=== PATIENT | male | born 1940 | race Caucasian/White ===

== ENCOUNTER 2019-02-12 17:46 | Inpatient (IN) | payer MEDICARE ==
[2019-02-12] MEDS ORDERED: IPRATROPIUM-ALBUTEROL 3 ML NEB INHALATION STA (18:04)
--- NOTE | 2019-02-12 18:06 | ED ---
General Adult HPI - General Chief complaint: Shortness of Breath Stated complaint: SOB Time Seen by Provider: 02/12/19 17:47 Source: patient, EMS, RN notes reviewed Mode of arrival: EMS Limitations: no limitations - History of Present Illness Initial comments: Patient is a pleasant 78-year-old male presenting to emergency department with difficulty breathing. Onset of symptoms was 2 or 3 days ago. Patient does cough with some sputum however he swallows it. No fevers. No chest pain. Patient states he does feel somewhat improved with nebulizer by EMS. Patient also feels somewhat better by oxygen in the emergency department. Patient has some mild chronic leg swelling, unchanged. - Related Data Home Medications Medication Instructions Recorded Confirmed Aspirin EC [Ecotrin] 325 mg PO DAILY 04/29/14 02/12/19 Diltiazem Cd [Cardizem CD] 120 mg PO DAILY 04/29/14 02/12/19 Enalapril [Vasotec] 20 mg PO BID 04/29/14 02/12/19 Furosemide [Lasix] 60 mg PO HS 04/29/14 02/12/19 INSULIN ASPART (NovoLOG) [NovoLOG] 80 unit SQ BID 04/29/14 02/12/19 Insulin Glargine [Lantus] 60 unit SQ BID 04/29/14 02/12/19 Metoprolol Tartrate [Lopressor] 50 mg PO BID 04/29/14 02/12/19 Simvastatin 10 mg PO HS 02/12/19 02/12/19 Tamsulosin HCl [Flomax] 0.4 mg PO DAILY 02/12/19 02/12/19 Allergies Allergy/AdvReac Type Severity Reaction Status Date / Time No Known Allergies Allergy Verified 02/12/19 18:29 Review of Systems ROS Statement: Those systems with pertinent positive or pertinent negative responses have been documented in the HPI. ROS Other: All systems not noted in ROS Statement are negative. Constitutional: Denies: fever Eyes: Denies: eye pain ENT: Denies: ear pain Respiratory: Reports: cough, dyspnea Cardiovascular: Denies: chest pain Endocrine: Denies: fatigue Gastrointestinal: Denies: abdominal pain Genitourinary: Denies: dysuria Musculoskeletal: Denies: back pain Skin: Denies: rash Neurological: Denies: weakness Past Medical History Past Medical History: Coronary Artery Disease (CAD), Diabetes Mellitus, Hyperlipidemia, Hypertension Additional Past Medical History / Comment(s): UTI History of Any Multi-Drug Resistant Organisms: None Reported Past Surgical History: Coronary Bypass/CABG Additional Past Surgical History / Comment(s): UVP- FOR SLEEP APNEA FATTY TUMOR REMOVED FROM LEFT THIGH Past Anesthesia/Blood Transfusion Reactions: No Reported Reaction Past Psychological History: No Psychological Hx Reported Smoking Status: Former smoker Past Alcohol Use History: None Reported Past Drug Use History: None Reported General Exam Limitations: no limitations General appearance: alert, in no apparent distress, obese Head exam: Present: normocephalic Eye exam: Present: normal appearance Neck exam: Present: normal inspection Respiratory exam: Present: wheezes, decreased breath sounds Cardiovascular Exam: Present: regular rate, normal rhythm GI/Abdominal exam: Present: soft. Absent: tenderness Extremities exam: Present: pedal edema (Trace bilateral). Absent: calf tenderness Neurological exam: Present: alert Psychiatric exam: Present: normal affect, normal mood Skin exam: Present: other (Bilateral lower extremity skin discoloration consistent with peripheral vascular disease) Course Vital Signs 02/12/19 02/12/19 02/12/19 17:50 19:12 19:20 Temperature 97.7 F Pulse Rate 105 H 87 87 Respiratory 22 16 16 Rate Blood Pressure 199/96 O2 Sat by Pulse 97 Oximetry EKG Findings - EKG Comments: EKG Findings:: Sinus rhythm and 96. For screening AV block with a MO of 272. QRS 126. QT 358. QTC 452. Left axis. Septal Q waves. Nonspecific intraventricular block. No acute ST change Medical Decision Making - Medical Decision Making Patient reevaluated. Patient family updated. Case was discussed in detail with Dr. Lima, who will admit covering for Dr. rizvi, who admits for Dr. Begum. - Lab Data Result diagrams: 02/12/19 19:39 02/12/19 19:39 Lab Results 02/12/19 02/12/19 02/12/19 Range/Units 19:39 19:39 19:39 WBC 10.7 H (3.8-10.6) k/uL RBC 4.93 (4.30-5.90) m/uL Hgb 14.3 (13.0-17.5) gm/dL Hct 44.9 (39.0-53.0) % MCV 91.1 (80.0-100.0) fL MCH 29.0 (25.0-35.0) pg MCHC 31.8 (31.0-37.0) g/dL RDW 14.4 (11.5-15.5) % Plt Count 229 (150-450) k/uL Neutrophils % 75 % Lymphocytes % 16 % Monocytes % 7 % Eosinophils % 0 % Basophils % 1 % Neutrophils # 8.1 H (1.3-7.7) k/uL Lymphocytes # 1.7 (1.0-4.8) k/uL Monocytes # 0.7 (0-1.0) k/uL Eosinophils # 0.0 (0-0.7) k/uL Basophils # 0.1 (0-0.2) k/uL Hypochromasia Slight PT 10.7 (9.0-12.0) sec INR 1.0 (<1.2) APTT 27.0 (22.0-30.0) sec Sodium 139 (137-145) mmol/L Potassium 4.3 (3.5-5.1) mmol/L Chloride 105 (98-107) mmol/L Carbon Dioxide 22 (22-30) mmol/L Anion Gap 12 mmol/L BUN 15 (9-20) mg/dL Creatinine 1.04 (0.66-1.25) mg/dL Est GFR (CKD-EPI)AfAm 80 (>60 ml/min/1.73 sqM) Est GFR (CKD-EPI)NonAf 69 (>60 ml/min/1.73 sqM) Glucose 273 H (74-99) mg/dL Calcium 8.9 (8.4-10.2) mg/dL Total Bilirubin 0.8 (0.2-1.3) mg/dL AST 21 (17-59) U/L ALT 17 L (21-72) U/L Alkaline Phosphatase 93 (38-126) U/L NT-Pro-B Natriuret Pep pg/mL Total Protein 7.7 (6.3-8.2) g/dL Albumin 3.9 (3.5-5.0) g/dL 02/12/19 Range/Units 19:39 WBC (3.8-10.6) k/uL RBC (4.30-5.90) m/uL Hgb (13.0-17.5) gm/dL Hct (39.0-53.0) % MCV (80.0-100.0) fL MCH (25.0-35.0) pg MCHC (31.0-37.0) g/dL RDW (11.5-15.5) % Plt Count (150-450) k/uL Neutrophils % % Lymphocytes % % Monocytes % % Eosinophils % % Basophils % % Neutrophils # (1.3-7.7) k/uL Lymphocytes # (1.0-4.8) k/uL Monocytes # (0-1.0) k/uL Eosinophils # (0-0.7) k/uL Basophils # (0-0.2) k/uL Hypochromasia PT (9.0-12.0) sec INR (<1.2) APTT (22.0-30.0) sec Sodium (137-145) mmol/L Potassium (3.5-5.1) mmol/L Chloride (98-107) mmol/L Carbon Dioxide (22-30) mmol/L Anion Gap mmol/L BUN (9-20) mg/dL Creatinine (0.66-1.25) mg/dL Est GFR (CKD-EPI)AfAm (>60 ml/min/1.73 sqM) Est GFR (CKD-EPI)NonAf (>60 ml/min/1.73 sqM) Glucose (74-99) mg/dL Calcium (8.4-10.2) mg/dL Total Bilirubin (0.2-1.3) mg/dL AST (17-59) U/L ALT (21-72) U/L Alkaline Phosphatase (38-126) U/L NT-Pro-B Natriuret Pep 2460 pg/mL Total Protein (6.3-8.2) g/dL Albumin (3.5-5.0) g/dL - Radiology Data Radiology results: image reviewed (Chest x-ray shows some interstitial changes consistent with CHF) Disposition Clinical Impression: Congestive heart failure Disposition: ADMITTED IP TO THIS HOSP Is patient prescribed a controlled substance at d/c from ED?: No Referrals: Stevie Begum MD [Primary Care Provider] - 1-2 days Decision Time: 20:49
[2019-02-12 19:58] LABS: Basophils # (A) 0.1 k/uL (0-0.2); Basophils % (A) 1 %; Eosinophils % (A) 0 %; HCT 44.9 % (39.0-53.0); HGB 14.3 gm/dL (13.0-17.5); Hypochromasia Slight; Lymphocytes # (A) 1.7 k/uL (1.0-4.8); Lymphocytes % (A) 16 %; MCHC 31.8 g/dL (31.0-37.0); MCV 91.1 fL (80.0-100.0); Mean Platelet Volume 6.4; Monocytes # (A) 0.7 k/uL (0-1.0); Monocytes % (A) 7 %; Neutrophils # (A) 8.1 k/uL (1.3-7.7); Neutrophils % (A) 75 %; Platelet Count 229 k/uL (150-450); RBC 4.93 m/uL (4.30-5.90); RDW 14.4 % (11.5-15.5); WBC 10.7 k/uL (3.8-10.6)
[2019-02-12 20:10] LABS: Albumin 3.9 g/dL (3.5-5.0); Calcium 8.9 mg/dL (8.4-10.2); Potassium 4.3 mmol/L (3.5-5.1); Prothrombin Time 10.7 sec (9.0-12.0); Total Bilirubin 0.8 mg/dL (0.2-1.3); Total Protein 7.7 g/dL (6.3-8.2)
--- NOTE | 2019-02-12 20:35 | XR ---
EXAMINATION TYPE: XR chest 2V DATE OF EXAM: 02/12/2019 COMPARISON: NONE HISTORY: Chest tightness, difficulty breathing, cough, dizziness, nausea TECHNIQUE: Frontal and lateral views of the chest are obtained. FINDINGS: CABG changes. Aortic atherosclerotic calcifications. Enlarged cardiac silhouette. Mild pulmonary vasc ular congestion. Probable small bilateral pleural effusions. No focal airspace consolidation. 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 IMPRESSION: Findings suggestive of mild fluid overload.
[2019-02-12] MEDS ORDERED: ASPIRIN 325 MG TAB PO STA (20:50)
[2019-02-12] MEDS ORDERED: HEPARIN SODIUM,PORCINE 5,000 UNIT/ML 1 ML VIAL IV ONE (20:57)
[2019-02-12] MEDS ORDERED: HEPARIN SODIUM,PORCINE 5,000 UNIT/ML 1 ML VIAL IV PRN (20:57)
[2019-02-12] MEDS ORDERED: ATORVASTATIN 10 MG TAB PO SCH (21:00)
[2019-02-12] MEDS: LISINOPRIL 20 MG TAB PO SCH (21:43)
[2019-02-12] MEDS: HEPARIN SOD,PORK IN 0.45% NACL 25,000 UNIT in 0.45% NACL 1 250ML.BAG IV SCH (21:50)
[2019-02-12] MEDS: METOPROLOL TARTRATE 50 MG TAB PO SCH (22:48)
[2019-02-12] MEDS: NITROGLYCERIN OINT 1 INCH/GM PACKET TOPICAL SCH (22:48)
[2019-02-13] MEDS: FUROSEMIDE 10 MG/ML 4 ML VIAL IV SCH ×4 (00:29→23:03)
[2019-02-13 06:44] LABS: Glucose,Whole Blood 224 mg/dL (75-99)
--- NOTE | 2019-02-13 08:55 | P.HPIM ---
History of Present Illness This is a pleasant 78 years old male with past medical history of coronary artery disease, diabetes mellitus, hyperlipidemia, hypertension. Presents because of worsening dyspnea for 3 days duration associated with cough and phleg m, and no color for the last 3 days as well. Patient complains that he has sinusitis applied And his Flonase was not helping him much. He denies chest pain. Patient states that he has history of triple bypass surgery about 15 years ago and he follows with Dr. Vences, last week he underwent cardiac stress test but he could not finish it because he could not lie flat and the psoas of his leg cramps, and he is scheduled tomorrow for echocardiogram stress test. Patient also was complaining of from exertional dyspnea for 6 month, his family medicine doctor prescribed him inhaled albuterol however that did not control it well and it was progressively getting worse. Patient denies use of home oxygen on steroids Vitas looks stable. Left showing mild leukocytosis of 10.7, with unremarkable BMP,, INR and liver enzymes. Troponin was elevated at 0.08 and 0.10. Nitro proBNP is 2460. EKG showing normal sinus rhythm at 96 with first-degree AV block with Q waves in the anterior lateral leads and poor R-wave progression. Chest x-ray: Showing mild fluid overload On admission patient was started on heparin drip plus aspirin. Also he was taken her dose of insulin which is cut in half on admission because he was made nothing by mouth. Also patient was started on Lasix 40 mg every 8 hours Diabetes was was taking Lantus 60 units twice a day and NovoLog insulin 20 units twice a day with meals, with breakfast and dinner, but not with lunch Because patient was made nothing by mouth we started him on Levemir 30 units twice a day only Review of Systems CONSTITUTIONAL: No fever, no malaise, no fatigue. HEENT: No recent visual problems or hearing problems. Denied any sore throat. CARDIOVASCULAR: No orthopnea, PND, no palpitations, no syncope. PULMONARY: No shortness of breath, no cough, no hemoptysis. GASTROINTESTINAL: No diarrhea, no nausea, no vomiting, no abdominal pain. Normoactive bowel sounds. NEUROLOGICAL: No headaches, no weakness, no numbness. HEMATOLOGICAL: Denies any bleeding or petechiae. GENITOURINARY: Denies any burning micturition, frequency, or urgency. MUSCULOSKELETAL/RHEUMATOLOGICAL: Denies any joint pain, swelling, or any muscle pain. ENDOCRINE: Denies any polyuria or polydipsia. Past Medical History Past Medical History: Coronary Artery Disease (CAD), Diabetes Mellitus, H yperlipidemia, Hypertension Additional Past Medical History / Comment(s): UTI, kidney stones 2.6 per pt History of Any Multi-Drug Resistant Organisms: None Reported Past Surgical History: Coronary Bypass/CABG Additional Past Surgical History / Comment(s): UVP- FOR SLEEP APNEA FATTY TUMOR REMOVED FROM LEFT THIGH, CABG 15 years ago Past Anesthesia/Blood Transfusion Reactions: No Reported Reaction Past Psychological History: No Psychological Hx Reported Smoking Status: Former smoker Past Alcohol Use History: None Reported Past Drug Use History: None Reported Medications and Allergies Home Medications Medication Instructions Recorded Confirmed Type Aspirin EC [Ecotrin] 325 mg PO DAILY 04/29/14 02/12/19 History Diltiazem Cd [Cardizem CD] 120 mg PO DAILY 04/29/14 02/12/19 History Enalapril [Vasotec] 20 mg PO BID 04/29/14 02/12/19 History Furosemide [Lasix] 60 mg PO HS 04/29/14 02/12/19 History INSULIN ASPART (NovoLOG) [NovoLOG] 80 unit SQ BID 04/29/14 02/12/19 History Insulin Glargine [Lantus] 60 unit SQ BID 04/29/14 02/12/19 History Metoprolol Tartrate [Lopressor] 50 mg PO BID 04/29/14 02/12/19 History Simvastatin 10 mg PO HS 02/12/19 02/12/19 History Tamsulosin HCl [Flomax] 0.4 mg PO DAILY 02/12/19 02/12/19 History Allergies Allergy/AdvReac Type Severity Reaction Status Date / Time No Known Allergies Allergy Verified 02/12/19 18:29 Physical Exam Vitals: Vital Signs Temp Pulse Pulse Resp BP BP Pulse Ox 02/13/19 04:00 69 18 143/68 98 02/13/19 00:00 68 20 142/71 99 02/12/19 22:10 97.7 F 92 18 146/62 99 02/12/19 21:00 88 20 153/88 97 02/12/19 19:20 87 16 02/12/19 19:12 87 16 02/12/19 17:50 97.7 F 105 H 22 199/96 97 Intake and Output 02/12/19 02/13/19 02/13/19 22:59 06:59 14:59 Intake Total 53.777 Output Total 400 Balance -346.223 Intake: Intake, IV Titration 53.777 Amount Heparin Sod,Pork in 0.45% 53.777 NaCl 25,000 unit In 0.45 % NaCl 1 250ml.bag @ 6 UNITS/KG/HR 9.928 mls/hr IV .Q24H [facility] Rx#: [id number] Output: Urine 400 Other: Voiding Method Toilet Weight 165.47 kg 169.9 kg -GENERAL: The patient is alert and oriented x3, not in any acute distress. Morbid obesity HEENT: Pupils are round and equally reacting to light. EOMI. No scleral icterus. No conjunctival pallor. Normocephalic, atraumatic. No pharyngeal erythema. No thyromegaly. CARDIOVASCULAR: S1 and S2 present. No murmurs, rubs, or gallops. PULMONARY: Chest is clear to auscultation, no wheezing or crackles. ABDOMEN: Soft, nontender, nondistended, normoactive bowel sounds. No palpable organomegaly. MUSCULOSKELETAL: No joint swelling or deformity. EXTREMITIES: No cyanosis, clubbing, or pedal edema. NEUROLOGICAL: Gross neurological examination did not reveal any focal deficits. SKIN: No rashes. No petechiae Results CBC & Chem 7: 02/12/19 19:39 02/12/19 19:39 Labs: Abnormal Lab Results - Last 24 Hours (Table) 02/12/19 02/12/19 02/12/19 Range/Units 19:39 19:39 19:39 WBC 10.7 H (3.8-10.6) k/uL Neutrophils # 8.1 H (1.3-7.7) k/uL APTT (22.0-30.0) sec Glucose 273 H (74-99) mg/dL POC Glucose (mg/dL) (75-99) mg/dL ALT 17 L (21-72) U/L Troponin I 0.082 H* (0.000-0.034) ng/mL 02/13/19 02/13/19 02/13/19 Range/Units 02:29 02:29 06:43 WBC (3.8-10.6) k/uL Neutrophils # (1.3-7.7) k/uL APTT 31.8 H (22.0-30.0) sec Glucose (74-99) mg/dL POC Glucose (mg/dL) 224 H (75-99) mg/dL ALT (21-72) U/L Troponin I 0.101 H* (0.000-0.034) ng/mL Thrombosis Risk Factor Assmnt - Choose All That Apply Each Risk Factor Represents 3 Points: Age 75 years or older Thrombosis Risk Factor Assessment Total Risk Factor Score: 3 Thrombosis Risk Factor Assessment Level: Moderate Risk Assessment and Plan Assessment: None STEMI. with History of coronary artery disease Uncontrolled chronic exertional dyspnea for 6 months Diabetes mellitus on insulin, with hyperglycemia present on admission Hypertension Hyperlipidemia Morbid obesity Plan: This is a pleasant 78 years old male who presents with possible non-STEMI, continue with aspirin and heparin drip. Consult cardiology team. Continue with insulin sliding scale and resume his insulin based on his glucose check and diet. Continue with Lasix. Consult pulmonary for uncontrolled exertional dyspnea Resume his insulin and to goes at half the dose, resume his regular dose of insulin once he starts eating Labs and medication were reviewed.. Continue same treatment. Continue with symptomatic treatment. Resume home medication. Monitor lytes and vitals. DVT and GI prophylaxis. Further recommendations of the clinical course of the patient DVT prophylaxis: heparin GI Prophylaxis: Pepcid Prognosis is guarded
[2019-02-13] MEDS ORDERED: ASPIRIN 325 MG TAB PO SCH (09:00)
[2019-02-13] MEDS: INSULIN ASPART (NovoLOG) 100 UNIT/ML VIAL SQ SCH ×5 (09:14→20:26)
[2019-02-13 09:26] LABS: Basophils # (A) 0.1 k/uL (0-0.2); Basophils % (A) 1 %; Eosinophils % (A) 0 %; HCT 43.3 % (39.0-53.0); HGB 14.4 gm/dL (13.0-17.5); Lymphocytes # (A) 1.8 k/uL (1.0-4.8); Lymphocytes % (A) 15 %; MCH 29.6 pg (25.0-35.0); MCHC 33.2 g/dL (31.0-37.0); MCV 89.1 fL (80.0-100.0); Mean Platelet Volume 6.8; Monocytes # (A) 0.9 k/uL (0-1.0); Monocytes % (A) 8 %; Neutrophils # (A) 8.8 k/uL (1.3-7.7); Neutrophils % (A) 74 %; Platelet Count 238 k/uL (150-450); RBC 4.86 m/uL (4.30-5.90); RDW 14.4 % (11.5-15.5); WBC 11.9 k/uL (3.8-10.6)
[2019-02-13] MEDS: LISINOPRIL 20 MG TAB PO SCH ×2 (09:31→20:34)
[2019-02-13] MEDS: METOPROLOL TARTRATE 50 MG TAB PO SCH ×2 (09:31→20:34)
[2019-02-13] MEDS: DILTIAZEM CD 120 MG CAP.ER.24H PO SCH (09:31)
[2019-02-13] MEDS: NITROGLYCERIN OINT 1 INCH/GM PACKET TOPICAL SCH ×4 (09:31→20:35)
[2019-02-13] MEDS: FAMOTIDINE 20 MG/2 ML VIAL IV SCH ×2 (09:31→20:34)
[2019-02-13] MEDS: FLUTICASONE 50MCG/SPRAY NASAL 16GM EA NOSTRIL SCH (09:42)
[2019-02-13] MEDS: INSULIN DETEMIR (LEVEMIR) 100 UNIT/ML SYR SQ SCH ×2 (09:58→20:34)
[2019-02-13 12:24] LABS: Glucose,Whole Blood 285 mg/dL (75-99)
--- NOTE | 2019-02-13 12:29 | P.CRDCN ---
History of Present Illness History of present illness: This is Carine Alberts PA-C dictating a consult on this patient The patient was interviewed and examined by me as well as by Dr. Chaudhry Case discussed with Dr. Chaudhry and he agrees with the plan of care IMPRESSION / ASSESSMENT: possible non-q wave VA, borderline elevated troponins CAD status post CABG 3 Dyslipidemia Hypertension diabetes PLAN: continue maximal medical management, including beta blockers, ASA and statins increase atorvastatin to 40 mg obtain echo and adjust medications based on EF will discuss further plan with Dr. Vences, further recommendations to follow HPI Patient is a 78-year-old male with past medical history significant for CAD status post CABG 3, dyslipidemia, diabetes, hypertension who presented with complaints of shortness of breath. He is a patient of Dr. Vences. Patient states he has had shortness of breath on exertion and orthopnea and has always slept in a recliner for the past "10 years". Over the last 3 days he has had worsening shortness of breath on exertion. States it started with a sinus infection and he has been coughing. He has also had tightness in the center of his chest which is worse with coughing. Upon presentation his temperature is 97.7F, pulse was 100, respirations 22, blood pressure 199/96, oxygen saturation 97% on 3 L nasal cannula. EKG showed sinus tachycardia with first-degree AV blo ck, no ST or T wave abnormalities. Chest x-ray showed mild pulmonary vascular congestion and probable small bilateral pleural effusions. Troponins were elevated at 0.097 and peaked at 0.101. A stress test was ordered but he was unable to complete the test because he is unable to lie flat. Patient seen and examined sitting in his chair. States his breathing has improved somewhat. Denies any chest pain currently. No dizziness lightheadedness or syncope. ROS: No fevers, chills or rigors, positive cough no nausea, vomiting or diarrhea, no hematuria, dysuria, no musculoskeletal complaints, no strokes or seizures, no skin lesions. EXAMINATION: Temperature is a 70F, pulse 72, respirations 18, oxygen saturation 90% on 3 L, blood pressure 168/76 Patient seen and examined sitting up in his recliner, in no acute distress Breath sounds are diminished bilaterally Heart is regular, no murmurs noted No elevated JVD REVIEW OF LABS, ECG & MEDICAL DATA CBC 11.9, hemoglobin 14.4, platelets 238, potassium 4.3, BUN 15, creatinine 1.04 TSH within normal limits at 3.59 Troponins 0.082, 0.101, 0.097 Past Medical History Past Medical History: Coronary Artery Disease (CAD), Diabetes Mellitus, Hyperlipidemia, Hypertension Additional Past Medical History / Comment(s): UTI, kidney stones 2.6 per pt History of Any Multi-Drug Resistant Organisms: None Reported Past Surgical History: Coronary Bypass/CABG Additional Past Surgical History / Comment(s): UVP- FOR SLEEP APNEA FATTY TUMOR REMOVED FROM LEFT THIGH, CABG 15 years ago Past Anesthesia/Blood Transfusion Reactions: No Reported Reaction Past Psychological History: No Psychological Hx Reported Smoking Status: Former smoker Past Alcohol Use History: None Reported Past Drug Use History: None Reported Medications and Allergies Home Medications Medication Instructions Recorded Confirmed Type Aspirin EC [Ecotrin] 325 mg PO DAILY 04/29/14 02/12/19 History Diltiazem Cd [Cardizem CD] 120 mg PO DAILY 04/29/14 02/12/19 History Enalapril [Vasotec] 20 mg PO BID 04/29/14 02/12/19 History Furosemide [Lasix] 60 mg PO HS 04/29/14 02/12/19 History INSULIN ASPART (NovoLOG) [NovoLOG] 80 unit SQ BID 04/29/14 02/12/19 History Insulin Glargine [Lantus] 60 unit SQ BID 04/29/14 02/12/19 History Metoprolol Tartrate [Lopressor] 50 mg PO BID 04/29/14 02/12/19 History Simvastatin 10 mg PO HS 02/12/19 02/12/19 History Tamsulosin HCl [Flomax] 0.4 mg PO DAILY 02/12/19 02/12/19 History Allergies Allergy/AdvReac Type Severity Reaction Status Date / Time No Known Allergies Allergy Verified 02/12/19 18:29 Physical Exam Vitals: Vital Signs Temp Pulse Pulse Resp BP BP Pulse Ox 02/13/19 11:53 65 18 144/72 99 02/13/19 08:00 97.7 F 72 18 168/76 98 02/13/19 04:00 69 18 143/68 98 02/13/19 00:00 68 20 142/71 99 02/12/19 22:10 97.7 F 92 18 146/62 99 02/12/19 21:00 88 20 153/88 97 02/12/19 19:20 87 16 02/12/19 19:12 87 16 02/12/19 17:50 97.7 F 105 H 22 199/96 97 Intake and Output 02/12/19 02/13/19 02/13/19 22:59 06:59 14:59 Intake Total 53.777 Output Total 400 1 Balance -346.223 -1 Intake: Intake, IV Titration 53.777 Amount Heparin Sod,Pork in 0.45% 53.777 NaCl 25,000 unit In 0.45 % NaCl 1 250ml.bag @ 6 UNITS/KG/HR 9.928 mls/hr IV .Q24H [facility] Rx#: [id number] Output: Urine 400 Stool 1 Other: Voiding Method Toilet # Voids 2 Weight 165.47 kg 169.9 kg Results 02/13/19 08:54 02/12/19 19:39 Cardiac Enzymes 02/12/19 02/12/19 02/13/19 Range/Units 19:39 19:39 02:29 AST 21 (17-59) U/L Troponin I 0.082 H* 0.101 H* (0.000-0.034) ng/mL 02/13/19 Range/Units 08:54 AST (17-59) U/L Troponin I 0.097 H* (0.000-0.034) ng/mL Coagulation 02/12/19 02/13/19 02/13/19 Range/Units 19:39 02:29 08:54 PT 10.7 (9.0-12.0) sec APTT 27.0 31.8 H 25.3 (22.0-30.0) sec CBC 02/12/19 02/13/19 Range/Units 19:39 08:54 WBC 10.7 H 11.9 H (3.8-10.6) k/uL RBC 4.93 4.86 (4.30-5.90) m/uL Hgb 14.3 14.4 (13.0-17.5) gm/dL Hct 44.9 43.3 (39.0-53.0) % Plt Count 229 238 (150-450) k/uL Comprehensive Metabolic Panel 02/12/19 Range/Units 19:39 Sodium 139 (137-145) mmol/L Potassium 4.3 (3.5-5.1) mmol/L Chloride 105 (98-107) mmol/L Carbon Dioxide 22 (22-30) mmol/L BUN 15 (9-20) mg/dL Creatinine 1.04 (0.66-1.25) mg/dL Glucose 273 H (74-99) mg/dL Calcium 8.9 (8.4-10.2) mg/dL AST 21 (17-59) U/L ALT 17 L (21-72) U/L Alkaline Phosphatase 93 (38-126) U/L Total Protein 7.7 (6.3-8.2) g/dL Albumin 3.9 (3.5-5.0) g/dL Current Medications Generic Name Dose Route Start Last Admin Trade Name Freq PRN Reason Stop Dose Admin Aspirin 325 mg 02/13/19 09:00 02/13/19 09:31 Aspirin PO 325 mg DAILY VIKA Administration Atorvastatin Calcium 10 mg 02/12/19 21:00 02/12/19 21:43 Lipitor PO 10 mg HS VIKA Administration Diltiazem HCl 120 mg 02/13/19 09:00 02/13/19 09:31 Cardizem Cd PO 120 mg DAILY VIKA Administration Famotidine 20 mg 02/13/19 09:00 02/13/19 09:31 Pepcid IV 20 mg Q12HR VIKA Administration Fluticasone Propionate 2 spray 02/13/19 09:00 02/13/19 09:42 Flonase Nasal Otho EA NOSTRIL 02/16/19 09:01 2 spray DAILY VIKA Administration Furosemide 40 mg 02/13/19 00:00 02/13/19 09:31 Lasix IV 40 mg Q8HR VIKA Administration Heparin Sodium (Porcine) 0 unit 02/12/19 20:57 02/13/19 03:27 Heparin IV 4,000 unit PER PROTOCOL PRN Administration Low PTT Protocol Heparin Sodium/Sodium Chloride 250 mls @ 9.928 mls/hr 02/12/19 21:00 02/13/19 03:15 25,000 unit/ Sodium Chloride IV 9 units/kg/hr .Q24H VIKA 14.892 mls/hr Titration Protocol 6 UNITS/KG/HR Insulin Aspart 0 unit 02/13/19 07:30 10/14/19 09:14 Novolog SQ Not Given ACHS [facility] Protocol Insulin Aspart 20 unit 02/13/19 17:30 Novolog SQ AC-BID [facility] Insulin Detemir 30 unit 02/13/19 07:00 02/13/19 09:58 Levemir SQ 30 unit BID@0700,2100 VIKA Administration Lisinopril 40 mg 02/12/19 21:00 02/13/19 09:31 Zestril PO 40 mg BID VIKA Administration Metoprolol Tartrate 50 mg 02/12/19 21:00 02/13/19 09:31 Lopressor PO 50 mg BID VIKA Administration Nitroglycerin 1 inch 02/12/19 22:00 02/13/19 09:31 Nitro-Bid Oint TOPICAL 1 inch QID VIKA Administration Sodium Chloride 10 ml 02/12/19 21:00 02/13/19 09:31 Saline Flush IV 10 ml BID VIKA Administration Intake and Output 02/12/19 02/13/19 02/13/19 22:59 06:59 14:59 Intake Total 53.777 Output Total 400 1 Balance -346.223 -1 Intake: Intake, IV Titration 53.777 Amount Heparin Sod,Pork in 0.45% 53.777 NaCl 25,000 unit In 0.45 % NaCl 1 250ml.bag @ 6 UNITS/KG/HR 9.928 mls/hr IV .Q24H [facility] Rx#: [id number] Output: Urine 400 Stool 1 Other: Voiding Method Toilet # Voids 2 Weight 165.47 kg 169.9 kg 02/13/19 08:54 02/12/19 19:39
--- NOTE | 2019-02-13 12:41 | ECHOF ---
Referral Reason:sob MEASUREMENTS -------- HEIGHT: 162.6 cm WEIGHT: 169.6 kg BP: 168/76 RVIDd: 3.5 cm (< 3.3) IVSd: 1.3 cm (0.6 - 1.1) LVIDd: 6.5 cm (3.9 - 5.3) LVPWd: 1.7 cm (0.6 - 1.1) IVSs: 1.3 cm LVIDs: 5.5 cm LVPWs: 2.5 cm Ao Diam: 3.4 cm (2.0 - 3.7) LA Diam: 5.1 cm (2.7 - 3.8) MV EXCURSION: 23.948 mm (> 18.000) MV EF SLOPE: 101 mm/s (70 - 150) EPSS: 0.9 cm MV E Jesús: 1.19 m/s MV DecT: 198 ms MV A Jesús: 1.08 m/s MV E/A Ratio: 1.10 AV maxP.55 mmHg AV meanP.00 mmHg FINDINGS -------- Sinus rhythm. Morbid Obesity This was a techncally difficult study with suboptimal views, , Lumason utilized for enhancement of images. The left ventricular size is normal. There is mild concentric left ventricular hypertrophy. Overa ll left ventricular systolic function is mildly impaired with, an EF between 45 - 50 %. Anterseptal Hypokinesis The right ventricle is normal in size. The left atrial size is normal. The right atrial size is normal. 5.0mg OF Lumason UTLIZED: 2 OR MORE WALL SEGMENTS NOT VISUALIZED. The aortic valve was not well visualized. There is mild aortic stenosis present. Peak/mean gradie nt across the Aortic Valve is 17.55mmHg / 10.00mmHg. The mitral valve was not well visualized. No mitral regurgitation. Mild tricuspid regurgitation present. Right ventricular systolic pressure is normal at < 35 mmHg. There is no evidence of pulmonary hypertension. The pulmonic valve was not well visualized. The aortic root size is normal. There is no pericardial effusion. CONCLUSIONS -------- 1. Sinus rhythm. 2. Morbid Obesity 3. This was a techncally difficult study with suboptimal views, , Lumason utilized for enhancement of images. 4. The left ventricular size is normal. 5. There is mild concentric left ventricular hypertrophy. 6. Anterseptal Hypokinesis 7. The right ventricle is normal in size. 8. The left atrial size is normal. 9. The right atrial size is normal. 10. 5.0mg OF Lumason UTLIZED: 2 OR MORE WALL SEGMENTS NOT VISUALIZED. 11. The aortic valve was not well visualized. 12. There is mild aortic stenosis present. 13. Peak/mean gradient across the Aortic Valve is 17.55mmHg / 10.00mmHg. 14. The mitral valve was not well visualized. 15. No mitral regurgitation. 16. Mild tricuspid regurgitation present. 17. Right ventricular systolic pressure is normal at < 35 mmHg. 18. There is no evidence of pulmonary hypertension. 19. The pulmonic valve was not well visualized. 20. The aortic root size is normal. 21. There is no pericardial effusion. OUTDOOR LANDSCAPE ARCHITECT: Marge Robles RDCS
[2019-02-13 17:04] LABS: Glucose,Whole Blood 259 mg/dL (75-99)
[2019-02-13] MEDS: HEPARIN SOD,PORK IN 0.45% NACL 25,000 UNIT in 0.45% NACL 1 250ML.BAG IV SCH (17:23)
--- NOTE | 2019-02-13 18:18 | P.CNPUL ---
History of Present Illness Consult date: 02/13/19 Reason for consult: dyspnea History of present illness: This is a obese 78-year-old male patient with a BMI of 50-1 has history of coronary artery disease, previous bypass surgery, hypertension, diabetes and hyperlipidemia. The patient came in to the hospital because a few days history of worsening shortness of breath. He apparently had a sinus infection. There is prior to that and progressively his breathing got worse. He denied having any chest pain. No fever or chills. No angina or palpitation. He has undergone previous cardiac stress testing that he was unable to finish as the patient was unable to lay down flat and he was having also cramping in his lower extremities bilaterally. During this current admission, the patient's chest x- ray was consistent with cardiomegaly and pulmonary vessel congestion/edema. The patient's proBNP level was 2460. Cardiac rhythm was sinus. He had a first- degree AV block with Q waves in the anterior leads and poor R-wave progression. The patient was started on IV Lasix and currently is taking Lasix 40 mg of push every 8 hours. He is also on IV heparin for now. His echocardiogram was repeated and the patient was found to have ejection fraction of 45-50%, aortic valve was not accurately visualized. Mitral valve was not well visualized. No evidence of any pericardial effusion. He had no significant troponin elevation. Troponins were 0.08 and 0.09 respectively 2. Renal function was within normal limits. The patient is currently on IV Lasix. The patient is on IV heparin per protocol. Free of any chest pain for now. Sitting up on a chair. Review of Systems Constitutional: Reports fatigue, Reports poor appetite, Reports weakness, Reports weight gain Eyes: denies blurred vision, denies bulging eye, denies decreased vision Ears: deny: decreased hearing, ear discharge, earache, tinnitus Ears, nose, mouth and throat: Denies headache, Denies sore throat Cardiovascular: Reports decreased exercise tolerance, Reports dyspnea on exertion, Reports orthopnea, Reports shortness of breath Respiratory: Reports dyspnea Gastrointestinal: Denies abdominal pain, Denies diarrhea, Denies nausea, Denies vomiting Genitourinary: Reports as per HPI Musculoskeletal: Reports as per HPI Musculoskeletal: bilateral: ankle swelling, absent: ankle pain, ankle stiffness Integumentary: Denies pruritus, Denies rash Neurological: Reports weakness Psychiatric: Denies anxiety, Denies depression Endocrine: Reports as per HPI Hematologic/Lymphatic: Reports as per HPI Allergic/Immunologic: Reports as per HPI Past Medical History Past Medical History: Coronary Artery Disease (CAD), Diabetes Mellitus, Hyperlipidemia, Hypertension Additional Past Medical History / Comment(s): Coronary artery disease, previous bypass surgery, diabetes mellitus type 2, hypertension, hyperlipidemia, morbid obesity with a BMI 52.2, history of kidney stones, obstructive sleep apnea post UPPP currently not utilizing any form of CPAP or BiPAP therapy. History of Any Multi-Drug Resistant Organisms: None Reported Past Surgical History: Coronary Bypass/CABG Additional Past Surgical History / Comment(s): UVP- FOR SLEEP APNEA FATTY TUMOR REMOVED FROM LEFT THIGH, CABG 15 years ago Past Anesthesia/Blood Transfusion Reactions: No Reported Reaction Past Psychological History: No Psychological Hx Reported Smoking Status: Former smoker Past Alcohol Use History: None Reported Past Drug Use History: None Reported Additional History: Family history essentially negative for any significant heart disease Medications and Allergies Home Medications Medication Instructions Recorded Confirmed Type Aspirin EC [Ecotrin] 325 mg PO DAILY 04/29/14 02/12/19 History Diltiazem Cd [Cardizem CD] 120 mg PO DAILY 04/29/14 02/12/19 History Enalapril [Vasotec] 20 mg PO BID 04/29/14 02/12/19 History Furosemide [Lasix] 60 mg PO HS 04/29/14 02/12/19 History INSULIN ASPART (NovoLOG) [NovoLOG] 80 unit SQ BID 04/29/14 02/12/19 History Insulin Glargine [Lantus] 60 unit SQ BID 04/29/14 02/12/19 History Metoprolol Tartrate [Lopressor] 50 mg PO BID 04/29/14 02/12/19 History Simvastatin 10 mg PO HS 02/12/19 02/12/19 History Tamsulosin HCl [Flomax] 0.4 mg PO DAILY 02/12/19 02/12/19 History Allergies Allergy/AdvReac Type Severity Reaction Status Date / Time No Known Allergies Allergy Verified 02/12/19 18:29 Physical Exam Vitals: Vital Signs Temp Pulse Pulse Resp BP BP Pulse Ox 02/13/19 15:36 74 16 130/60 98 02/13/19 11:53 65 18 144/72 99 02/13/19 08:00 97.7 F 72 18 168/76 98 02/13/19 04:00 69 18 143/68 98 02/13/19 00:00 68 20 142/71 99 02/12/19 22:10 97.7 F 92 18 146/62 99 02/12/19 21:00 88 20 153/88 97 02/12/19 19:20 87 16 02/12/19 19:12 87 16 Intake and Output 02/13/19 02/13/19 02/13/19 06:59 14:59 22:59 Intake Total 53.777 491.546 64.677 Output Total 400 1 Balance -346.223 490.546 64.677 Intake: Intake, IV Titration 53.777 131.546 64.677 Amount Heparin Sod,Pork in 0.45% 53.777 131.546 64.677 NaCl 25,000 unit In 0.45 % NaCl 1 250ml.bag @ 6 UNITS/KG/HR 9.928 mls/hr IV .Q24H [facility] Rx#: [id number] Oral 360 Output: Urine 400 Stool 1 Other: Voiding Method Toilet # Voids 2 2 Weight 169.9 kg 169.9 kg Morbidly obese, comfortable no acute distress BMI of 52 Head exam was generally normal. There was no scleral icterus or corneal arcus. Mucous membranes were moist. Neck was supple and without jugular venous distension, thyromegaly, or carotid bruits. Carotids were easily palpable bilaterally. There was no adenopathy. Lungs are diminished along with excellent lung base bilaterally. No wheezes or rhonchi. Heart sounds are distant, positive S1-S2 and there is no significant murmurs appreciated. No ventricular heave or thrill Abdominal exam revealed normal bowel sounds. The abdomen was soft, non-tender, and without masses, organomegaly, or appreciable enlargement of the abdominal aorta. Extremities revealed +1 edema and there is no cyanosis or clubbing Examination of the skin revealed no evidence of significant rashes, suspicious appearing nevi or other concerning lesions. Neurologically awake and alert and there is no focal logical deficits. Results - Laboratory Findings CBC and BMP: 02/13/19 08:54 02/12/19 19:39 PT/INR, D-dimer PT 10.7 sec (9.0-12.0) 02/12/19 19:39 INR 1.0 (<1.2) 02/12/19 19:39 Abnormal lab findings: Abnormal Labs 02/12/19 02/12/19 02/12/19 19:39 19:39 19:39 WBC 10.7 H Neutrophils # 8.1 H APTT Glucose 273 H POC Glucose (mg/dL) ALT 17 L Troponin I 0.082 H* 02/13/19 02/13/19 02/13/19 02:29 02:29 06:43 WBC Neutrophils # APTT 31.8 H Glucose POC Glucose (mg/dL) 224 H ALT Troponin I 0.101 H* 02/13/19 02/13/19 02/13/19 08:54 08:54 12:22 WBC 11.9 H Neutrophils # 8.8 H APTT Glucose POC Glucose (mg/dL) 285 H ALT Troponin I 0.097 H* 02/13/19 16:58 WBC Neutrophils # APTT Glucose POC Glucose (mg/dL) 259 H ALT Troponin I - Diagnostic Findings Chest x-ray: image reviewed Assessment and Plan Plan: 1 shortness of breath secondary to underlying CHF/pulmonary edema 2 CHF with systolic heart failure and ejection fraction of 45% and anteroseptal hypokinesis, rule out underlying coronary artery disease 3 coronary artery disease with previous coronary artery bypass surgery and the surgery was done more than 15 years ago. 4 diabetes mellitus type 2, on insulin 5. Hyperlipidemia 6 morbid obesity BMI 52 7 obstructive sleep apnea with a previous UPPP 8 hypertension 9 history of nephrolithiasis/kidney stones Plan Continue IV Lasix 40 mg every 8 hours. Repeat chest x-ray in the morning. Cardiology to follow-up on his CHF and consider possibly a stress test. Blood sugar management and IV heparin for another 24 hours. Patient is feeling of any chest pain. Minimal troponin elevation. Influenza screen was negative. Not utilizing any form of CPAP or BiPAP and the patient is post UPPP regarding obstructive sleep apnea.
[2019-02-13 19:47] LABS: Hemoglobin A1C 7.5 % (4.0-6.0)
[2019-02-13 20:03] LABS: Glucose,Whole Blood 174 mg/dL (75-99)
[2019-02-13] MEDS: ATORVASTATIN 40 MG TAB PO SCH (20:34)
[2019-02-14 06:08] LABS: Basophils # (A) 0.2 k/uL (0-0.2); Basophils % (A) 1 %; Eosinophils % (A) 0 %; HCT 43.2 % (39.0-53.0); HGB 13.4 gm/dL (13.0-17.5); Lymphocytes # (A) 1.6 k/uL (1.0-4.8); Lymphocytes % (A) 14 %; MCH 28.1 pg (25.0-35.0); MCHC 31.1 g/dL (31.0-37.0); MCV 90.3 fL (80.0-100.0); Mean Platelet Volume 7.1; Monocytes # (A) 1.2 k/uL (0-1.0); Monocytes % (A) 11 %; Neutrophils # (A) 8.1 k/uL (1.3-7.7); Neutrophils % (A) 72 %; Platelet Count 243 k/uL (150-450); RBC 4.78 m/uL (4.30-5.90); RDW 14.7 % (11.5-15.5); WBC 11.3 k/uL (3.8-10.6)
[2019-02-14] MEDS: HEPARIN SOD,PORK IN 0.45% NACL 25,000 UNIT in 0.45% NACL 1 250ML.BAG IV SCH (06:33)
[2019-02-14] MEDS: INSULIN ASPART (NovoLOG) 100 UNIT/ML VIAL SQ SCH ×6 (07:02→20:51)
[2019-02-14 07:04] LABS: Glucose,Whole Blood 149 mg/dL (75-99)
[2019-02-14] MEDS: INSULIN DETEMIR (LEVEMIR) 100 UNIT/ML SYR SQ SCH ×2 (07:05→20:58)
[2019-02-14] MEDS: METOPROLOL TARTRATE 50 MG TAB PO SCH (09:01)
[2019-02-14] MEDS: DILTIAZEM CD 120 MG CAP.ER.24H PO SCH (09:01)
[2019-02-14] MEDS: LISINOPRIL 20 MG TAB PO SCH (09:01)
[2019-02-14] MEDS: FAMOTIDINE 20 MG/2 ML VIAL IV SCH (09:01)
[2019-02-14] MEDS: NITROGLYCERIN OINT 1 INCH/GM PACKET TOPICAL SCH (09:01)
[2019-02-14] MEDS: ASPIRIN 81 MG PO SCH (09:01)
[2019-02-14] MEDS: FLUTICASONE 50MCG/SPRAY NASAL 16GM EA NOSTRIL SCH (09:02)
[2019-02-14] MEDS: FUROSEMIDE 10 MG/ML 4 ML VIAL IV SCH (09:02)
--- NOTE | 2019-02-14 11:07 | P.PN ---
Subjective Progress Note Date: 02/14/19 This is a obese 78-year-old male patient with a BMI of 50-1 has history of coronary artery disease, previous bypass surgery, hypertension, diabetes and hyperlipidemia. The patient came in to the hospital because a few days history of worsening shortness of breath. He apparently had a sinus infection. There is prior to that and progressively his breathing got worse. He denied having any chest pain. No fever or chills. No angina or palpitation. He has undergone previous cardiac stress testing that he was unable to finish as the patient was unable to lay down flat and he was having also cramping in his lower extremities bilaterally. During this current admission, the patient's chest x- ray was consistent with cardiomegaly and pulmonary vessel congestion/edema. The patient's proBNP level was 2460. Cardiac rhythm was sinus. He had a first- degree AV block with Q waves in the anterior leads and poor R-wave progression. The patient was started on IV Lasix and currently is taking Lasix 40 mg of push every 8 hours. He is also on IV heparin for now. His echocardiogram was repeated and the patient was found to have ejection fraction of 45-50%, aortic valve was not accurately visualized. Mitral valve was not well visualized. No evidence of any pericardial effusion. He had no significant troponin elevation. Troponins were 0.08 and 0.09 respectively 2. Renal function was within normal limits. The patient is currently on IV Lasix. The patient is on IV heparin per protocol. Free of any chest pain for now. Sitting up on a chair. On 2018 the patient is feeling slightly less short of breath compared to yesterday. His diabetes over the past 24 hours and he was producing adequate urine output. This morning he was taken off the diuretics by cardiology. He has no labs today and it's imperative to get a follow-up renal function and electrolytes. History of any chest pain. No other significant events overnight. As other issues including chronic difficulty with mobility and nephrolithiasis and he is requesting a urology evaluation during his hospital stay. Note that his EF was around 45-50%. The rest of the valves were not visualized. Is morbidly obese and has obstructive sleep apnea, post UPPP, not utilizing any form of CPAP therapy. His chest x-ray was consistent with pulmonary edema. Repeat chest x-ray will be ordered. Objective - Vital Signs Vital signs: Vital Signs Temp 98.1 F 02/14/19 04:00 Pulse 65 02/14/19 04:00 Resp 18 02/14/19 04:00 BP 146/65 02/14/19 04:00 Pulse Ox 97 02/14/19 07:32 Intake & Output 02/13/19 02/14/19 02/14/19 18:59 06:59 18:59 Intake Total 556.223 490.000 240 Output Total 1 600 300 Balance 555.223 -110.000 -60 Weight 169.9 kg 170.1 kg Intake: Intake, IV Titration 196.223 250.000 Amount Heparin Sod,Pork in 0.45% 196.223 250.000 NaCl 25,000 unit In 0.45 % NaCl 1 250ml.bag @ 6 UNITS/KG/HR 9.928 mls/hr IV .Q24H [facility] Rx#: [id number] Oral 360 240 240 Output: Urine 600 300 Stool 1 Other: # Voids 2 1 # Bowel Movements 0 - Exam Morbidly obese, comfortable no acute distress BMI of 52 Head exam was generally normal. There was no scleral icterus or corneal arcus. Mucous membranes were moist. Neck was supple and without jugular venous distension, thyromegaly, or carotid bruits. Carotids were easily palpable bilaterally. There was no adenopathy. Lungs are diminished along with excellent lung base bilaterally. No wheezes or rhonchi. Heart sounds are distant, positive S1-S2 and there is no significant murmurs appreciated. No ventricular heave or thrill Abdominal exam revealed normal bowel sounds. The abdomen was soft, non-tender, and without masses, organomegaly, or appreciable enlargement of the abdominal aorta. Extremities revealed +1 edema and there is no cyanosis or clubbing Examination of the skin revealed no evidence of significant rashes, suspicious appearing nevi or other concerning lesions. Neurologically awake and alert and there is no focal logical deficits. - Labs CBC & Chem 7: 02/14/19 05:32 02/12/19 19:39 Labs: Abnormal Lab Results - Last 24 Hours (Table) 02/13/19 02/13/19 02/13/19 Range/Units 08:54 12:22 16:58 WBC (3.8-10.6) k/uL Neutrophils # (1.3-7.7) k/uL Monocytes # (0-1.0) k/uL APTT (22.0-30.0) sec POC Glucose (mg/dL) 285 H 259 H (75-99) mg/dL Hemoglobin A1c 7.5 H (4.0-6.0) % 02/13/19 02/13/19 02/14/19 Range/Units 18:51 20:01 05:32 WBC 11.3 H (3.8-10.6) k/uL Neutrophils # 8.1 H (1.3-7.7) k/uL Monocytes # 1.2 H (0-1.0) k/uL APTT 50.7 H (22.0-30.0) sec POC Glucose (mg/dL) 174 H (75-99) mg/dL Hemoglobin A1c (4.0-6.0) % 02/14/19 02/14/19 Range/Units 05:32 07:01 WBC (3.8-10.6) k/uL Neutrophils # (1.3-7.7) k/uL Monocytes # (0-1.0) k/uL APTT 37.3 H (22.0-30.0) sec POC Glucose (mg/dL) 149 H (75-99) mg/dL Hemoglobin A1c (4.0-6.0) % Assessment and Plan Plan: 1 shortness of breath secondary to underlying CHF/pulmonary edema 2 CHF with systolic heart failure and ejection fraction of 45% and anteroseptal hypokinesis, rule out underlying coronary artery disease 3 coronary artery disease with previous coronary artery bypass surgery and the surgery was done more than 15 years ago. 4 diabetes mellitus type 2, on insulin 5. Hyperlipidemia 6 morbid obesity BMI 52 7 obstructive sleep apnea with a previous UPPP 8 hypertension 9 history of nephrolithiasis/kidney stones Plan Patient is still IV heparin. Cardiology discontinued the diuretics. We'll di scuss with them the plan. Presentation is typical for CHF and pulmonary edema. We'll repeat a chest x-ray. We will likely need a CPAP unit on outpatient basis as the patient has ongoing typical features of SANTOSH. This can be done and arranged an outpatient setting. He is weak. He walks around with the help of a walker. He has nephrolithiasis. Repeat electrolytes today. Consult urology. We'll continue to follow.
[2019-02-14 12:57] LABS: Glucose,Whole Blood 155 mg/dL (75-99)
[2019-02-14] MEDS: CARVEDILOL 6.25 MG TAB PO SCH ×2 (13:15→18:37)
--- NOTE | 2019-02-14 14:37 | P.PN ---
Subjective 78-year-old pleasant gentleman was admitted secondary to pulmonary edema chronic diastolic dysfunction with acute exacerbation patient also has mild systolic dysfunction. Patient is presently receiving IV Lasix which will be continued. Patient does have wheezing on exam denied any history of asthma or COPD patient will be started on as needed inhalational treatments. 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 Patient has bilateral leg edema. RVSP of 35 does have elevated JVD. Constitutional: Denied any fatigue denied any fever. Cardio vascular: denied any chest pain, palpitations Gastrointestinal denied any nausea vomiting Pulmonary: shortness of breath significantly improved compared to admission Neurologic denied any new focal deficits All inpatient medications were reviewed and appropriate changes in these medications as dictated in the interval history and assessment and plan. Objective - Vital Signs Vital signs: Vital Signs Temp 98.1 F 02/14/19 04:00 Pulse 65 02/14/19 04:00 Resp 18 02/14/19 12:00 BP 146/65 02/14/19 04:00 Pulse Ox 97 02/14/19 07:32 Intake & Output 02/13/19 02/14/19 02/14/19 18:59 06:59 18:59 Intake Total 556.223 490.000 240 Output Total 1 600 302 Balance 555.223 -110.000 -62 Weight 169.9 kg 170.1 kg Intake: Intake, IV Titration 196.223 250.000 Amount Heparin Sod,Pork in 0.45% 196.223 250.000 NaCl 25,000 unit In 0.45 % NaCl 1 250ml.bag @ 6 UNITS/KG/HR 9.928 mls/hr IV .Q24H [facility] Rx#: [id number] Oral 360 240 240 Output: Urine 600 300 Stool 1 2 Other: Voiding Method Toilet # Voids 2 1 # Bowel Movements 0 - Exam -GENERAL: The patient is alert and oriented x3, not in any acute distress. Morbid obesity HEENT: Pupils are round and equally reacting to light. EOMI. No scleral icterus. No conjunctival pallor. Normocephalic, atraumatic. No pharyngeal erythema. No thyromegaly. CARDIOVASCULAR: S1 and S2 present. No murmurs, rubs, or gallops. PULMONARY: expiratory wheezing bilaterally with bibasilar crackles ABDOMEN: Soft, nontender, nondistended, normoactive bowel sounds. No palpable organomegaly. MUSCULOSKELETAL: No joint swelling or deformity. EXTREMITIES: No cyanosis, clubbing,does have significant bilateral pedal edema with redness and lower extremities, secondary to chronic venous stasis NEUROLOGICAL: Gross neurological examination did not reveal any focal deficits. SKIN: No rashes. No petechiae - Labs CBC & Chem 7: 02/14/19 05:32 02/12/19 19:39 Labs: Abnormal Lab Results - Last 24 Hours (Table) 02/13/19 02/13/19 02/13/19 Range/Units 08:54 16:58 18:51 WBC (3.8-10.6) k/uL Neutrophils # (1.3-7.7) k/uL Monocytes # (0-1.0) k/uL APTT 50.7 H (22.0-30.0) sec POC Glucose (mg/dL) 259 H (75-99) mg/dL Hemoglobin A1c 7.5 H (4.0-6.0) % 02/13/19 02/14/19 02/14/19 Range/Units 20:01 05:32 05:32 WBC 11.3 H (3.8-10.6) k/uL Neutrophils # 8.1 H (1.3-7.7) k/uL Monocytes # 1.2 H (0-1.0) k/uL APTT 37.3 H (22.0-30.0) sec POC Glucose (mg/dL) 174 H (75-99) mg/dL Hemoglobin A1c (4.0-6.0) % 02/14/19 02/14/19 02/14/19 Range/Units 07:01 12:52 12:54 WBC (3.8-10.6) k/uL Neutrophils # (1.3-7.7) k/uL Monocytes # (0-1.0) k/uL APTT 64.1 H (22.0-30.0) sec POC Glucose (mg/dL) 149 H 155 H (75-99) mg/dL Hemoglobin A1c (4.0-6.0) % Assessment and Plan Plan: shortness of breath: Probably secondary to start failure pulmonary edema from chronic diastolic dysfunction as well as systolic dysfunction with acute exacerbation. Patient does have wheezing on exam will use as needed inhaledalbuterol his wheezing may be related to pulmonary edema, patient will be continued on IV Lasix to with close monitoring of kidney function -9 coronary disease with previous bypass surgery in the past -Type 2 diabetes mellitus insulin-dependent will continue with present regimen monitor blood sugars -Morbid obesity had sleep apnea in the past patient had uvulopharyngoplasty in the past -Hyperlipidemia -Hypertension
[2019-02-14] MEDS: IPRATROPIUM-ALBUTEROL 3 ML NEB INHALATION PRN (14:55)
[2019-02-14] MEDS: FUROSEMIDE 100 MG in SODIUM CHLORIDE 0.9% 90 ML IV SCH ×2 (15:38→21:30)
--- NOTE | 2019-02-14 16:28 | P.PN ---
Subjective Progress Note Date: 02/14/19 Patient is a 78-year-old male with past medical history significant for CAD status post CABG 3, dyslipidemia, diabetes, hypertension who presented with complaints of shortness of breath. He is a patient of Dr. Vences. Patient states he has had shortness of breath on exertion and orthopnea and has always slept in a recliner for the past "10 years". Over the last 3 days he has had worsening shortness of breath on exertion. States it started with a sinus infection and he has been coughing. He has also had tightness in the center of his chest which is worse with coughing. Upon presentation his temperature is 97.7F, pulse was 100, respirations 22, blood pressure 199/96, oxygen saturation 97% on 3 L nasal cannula. EKG showed sinus tachycardia with first-degree AV block, no ST or T wave abnormalities. Chest x-ray showed mild pulmonary vascular congestion and probable small bilateral pleural effusions. Troponins were elevated at 0.097 and peaked at 0.101. A stress test was ordered but he was unable to complete the test because he is unable to lie flat. Patient seen and examined sitting in his chair. States his breathing has improved somewhat. Denies any chest pain currently. No dizziness lightheadedness or syncope. 02/14/2019 Patient was seen and examined today sitting up in his chair at bedside. Continues to complain of feeling short of breath. He still is unable to lie flat. Blood pressure 146/60 with a heart rate in the 60s, 97% on 3 L of oxygen. White blood cell count 11.3, hemoglobin 13.4, platelet count 243. Objective - Vital Signs Vital signs: Vital Signs Temp 98.1 F 02/14/19 04:00 Pulse 74 02/14/19 15:06 Resp 18 02/14/19 12:00 BP 146/65 02/14/19 04:00 Pulse Ox 97 02/14/19 07:32 Intake & Output 02/13/19 02/14/19 02/14/19 18:59 06:59 18:59 Intake Total 556.223 490.000 240 Output Total 1 600 302 Balance 555.223 -110.000 -62 Weight 169.9 kg 170.1 kg Intake: Intake, IV Titration 196.223 250.000 Amount Heparin Sod,Pork in 0.45% 196.223 250.000 NaCl 25,000 unit In 0.45 % NaCl 1 250ml.bag @ 6 UNITS/KG/HR 9.928 mls/hr IV .Q24H [facility] Rx#: [id number] Oral 360 240 240 Output: Urine 600 300 Stool 1 2 Other: Voiding Method Toilet # Voids 2 1 # Bowel Movements 0 - Exam Morbidly obese, comfortable no acute distress BMI of 52 Head exam was generally normal. There was no scleral icterus or corneal arcus. Mucous membranes were moist. Neck was supple and without jugular venous distension, thyromegaly, or carotid b ruits. Carotids were easily palpable bilaterally. There was no adenopathy. Lungs are diminished along with excellent lung base bilaterally. No wheezes or rhonchi. Heart sounds are distant, positive S1-S2 and there is no significant murmurs appreciated. No ventricular heave or thrill Abdominal exam revealed normal bowel sounds. The abdomen was soft, non-tender, and without masses, organomegaly, or appreciable enlargement of the abdominal aorta. Extremities revealed +1 edema and there is no cyanosis or clubbing Examination of the skin revealed no evidence of significant rashes, suspicious appearing nevi or other concerning lesions. Neurologically awake and alert and there is no focal logical deficits. - Labs CBC & Chem 7: 02/14/19 05:32 02/12/19 19:39 Labs: Abnormal Lab Results - Last 24 Hours (Table) 02/13/19 02/13/19 02/13/19 Range/Units 08:54 16:58 18:51 WBC (3.8-10.6) k/uL Neutrophils # (1.3-7.7) k/uL Monocytes # (0-1.0) k/uL APTT 50.7 H (22.0-30.0) sec POC Glucose (mg/dL) 259 H (75-99) mg/dL Hemoglobin A1c 7.5 H (4.0-6.0) % 02/13/19 02/14/19 02/14/19 Range/Units 20:01 05:32 05:32 WBC 11.3 H (3.8-10.6) k/uL Neutrophils # 8.1 H (1.3-7.7) k/uL Monocytes # 1.2 H (0-1.0) k/uL APTT 37.3 H (22.0-30.0) sec POC Glucose (mg/dL) 174 H (75-99) mg/dL Hemoglobin A1c (4.0-6.0) % 02/14/19 02/14/19 02/14/19 Range/Units 07:01 12:52 12:54 WBC (3.8-10.6) k/uL Neutrophils # (1.3-7.7) k/uL Monocytes # (0-1.0) k/uL APTT 64.1 H (22.0-30.0) sec POC Glucose (mg/dL) 149 H 155 H (75-99) mg/dL Hemoglobin A1c (4.0-6.0) % Assessment and Plan Plan: Assessment and Plan: 1 shortness of breath secondary to underlying CHF/pulmonary edema 2 CHF with systolic heart failure, acute on chronic and ejection fraction of 45% and anteroseptal hypokinesis, rule out underlying coronary artery disease 3 coronary artery disease with previous coronary artery bypass surgery and the surgery was done more than 15 years ago. 4 diabetes mellitus type 2, on insulin 5. Hyperlipidemia 6 morbid obesity BMI 52 7 obstructive sleep apnea with a previous UPPP 8 hypertension 9 history of nephrolithiasis/kidney stones Plan We will discontinue the Cardizem, discontinue the metoprolol, start the patient on Coreg 6.25 mg by mouth twice a day, obtain lytes BUN and creatinine today and daily. IV push Lasix has been discontinued and patient will be initiated on Lasix drip at 10 mg per hour. Repeat chest x-ray in the morning. DNP note has been reviewed, I agree with a documented findings and plan of care. Patient was seen and examined.
[2019-02-14 17:18] LABS: Potassium 4.2 mmol/L (3.5-5.1)
[2019-02-14 17:45] LABS: Glucose,Whole Blood 219 mg/dL (75-99)
[2019-02-14 20:50] LABS: Glucose,Whole Blood 171 mg/dL (75-99)
[2019-02-14] MEDS: ATORVASTATIN 40 MG TAB PO SCH (20:58)
[2019-02-14] MEDS: FAMOTIDINE 20 MG TAB PO SCH (20:58)
[2019-02-15 07:44] LABS: Glucose,Whole Blood 153 mg/dL (75-99)
[2019-02-15 08:00] LABS: Basophils # (A) 0.1 k/uL (0-0.2); Basophils % (A) 1 %; Eosinophils % (A) 0 %; HCT 44.2 % (39.0-53.0); HGB 13.8 gm/dL (13.0-17.5); Lymphocytes # (A) 2.3 k/uL (1.0-4.8); Lymphocytes % (A) 19 %; MCH 28.2 pg (25.0-35.0); MCHC 31.2 g/dL (31.0-37.0); MCV 90.4 fL (80.0-100.0); Mean Platelet Volume 8.8; Monocytes # (A) 1.4 k/uL (0-1.0); Monocytes % (A) 12 %; Neutrophils # (A) 7.9 k/uL (1.3-7.7); Neutrophils % (A) 66 %; Platelet Count 288 k/uL (150-450); RBC 4.89 m/uL (4.30-5.90); RDW 14.8 % (11.5-15.5)
[2019-02-15 08:04] LABS: Calcium 8.8 mg/dL (8.4-10.2); Potassium 3.9 mmol/L (3.5-5.1)
[2019-02-15] MEDS: INSULIN DETEMIR (LEVEMIR) 100 UNIT/ML SYR SQ SCH ×2 (08:08→23:04)
[2019-02-15] MEDS: INSULIN ASPART (NovoLOG) 100 UNIT/ML VIAL SQ SCH ×6 (08:08→22:57)
[2019-02-15] MEDS: FLUTICASONE 50MCG/SPRAY NASAL 16GM EA NOSTRIL SCH (08:09)
[2019-02-15] MEDS: ASPIRIN 81 MG PO SCH (08:09)
[2019-02-15] MEDS: FAMOTIDINE 20 MG TAB PO SCH ×2 (08:09→21:12)
[2019-02-15] MEDS: CARVEDILOL 6.25 MG TAB PO SCH (08:09)
[2019-02-15] MEDS: LISINOPRIL 20 MG TAB PO SCH (08:09)
[2019-02-15] MEDS: IPRATROPIUM-ALBUTEROL 3 ML NEB INHALATION PRN ×2 (08:15→16:14)
--- NOTE | 2019-02-15 11:59 | P.PN ---
Subjective 78-year-old pleasant gentleman was admitted secondary to pulmonary edema chronic diastolic dysfunction with acute exacerbation patient also has mild systolic dysfunction. Patient is presently receiving IV Lasix which will be continued. Patient does have wheezing on exam denied any history of asthma or COPD patient will be started on as needed inhalational treatments. 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 Patient has bilateral leg edema. RVSP of 35 does have elevated JVD. 02/15/2019 Patient is feeling much better, patient's creatinine started going up I'll switch him to IV Lasix from IV Lasix to patient is total getting to 40 mg of IV Lasix which will be now 40 twice a day of Lasix Constitutional: Denied any fatigue denied any fever. Cardio vascular: denied any chest pain, palpitations Gastrointestinal denied any nausea vomiting Pulmonary: shortness of breath significantly improved compared to admission Neurologic denied any new focal deficits All inpatient medications were reviewed and appropriate changes in these medications as dictated in the interval history and assessment and plan. Objective - Vital Signs Vital signs: Vital Signs Temp 97.9 F 02/15/19 08:00 Pulse 80 02/15/19 08:26 Resp 20 02/15/19 08:00 BP 175/77 02/15/19 08:00 Pulse Ox 98 02/15/19 08:16 Intake & Output 02/14/19 02/15/19 02/15/19 18:59 06:59 18:59 Intake Total 750 58.667 490 Output Total 902 1600 1 Balance -152 -1541.333 489 Weight 164.9 kg Intake: Intake, IV Titration 30 58.667 250 Amount Furosemide 100 mg In 30 58.667 Sodium Chloride 0.9% 90 ml @ 10 MG/HR 10 mls/hr IV .Q10H [facility] Rx#: [id number] Heparin Sod,Pork in 0.45% 250 NaCl 25,000 unit In 0.45 % NaCl 1 250ml.bag @ 6 UNITS/KG/HR 9.928 mls/hr IV .Q24H [facility] Rx#: [id number] Oral 720 240 Output: Urine 900 1600 Stool 2 1 Other: Voiding Method Toilet Toilet # Voids 1 0 # Bowel Movements 1 - Exam -GENERAL: The patient is alert and oriented x3, not in any acute distress. Morbid obesity HEENT: Pupils are round and equally reacting to light. EOMI. No scleral icterus. No conjunctival pallor. Normocephalic, atraumatic. No pharyngeal erythema. No thyromegaly. CARDIOVASCULAR: S1 and S2 present. No murmurs, rubs, or gallops. PULMONARY: expiratory wheezing bilaterally with bibasilar crackles ABDOMEN: Soft, nontender, nondistended, normoactive bowel sounds. No palpable organomegaly. MUSCULOSKELETAL: No joint swelling or deformity. EXTREMITIES: No cyanosis, clubbing, there is significant improvement in pedal edema does have chronic venous stasis dermatosis NEUROLOGICAL: Gross neurological examination did not reveal any focal deficits. SKIN: No rashes. No petechiae - Labs CBC & Chem 7: 02/15/19 05:33 02/15/19 05:33 Labs: Abnormal Lab Results - Last 24 Hours (Table) 02/14/19 02/14/19 02/14/19 Range/Units 12:52 12:54 16:42 WBC (3.8-10.6) k/uL Neutrophils # (1.3-7.7) k/uL Monocytes # (0-1.0) k/uL APTT 64.1 H (22.0-30.0) sec BUN (9-20) mg/dL Glucose 232 H (74-99) mg/dL POC Glucose (mg/dL) 155 H (75-99) mg/dL 02/14/19 02/14/19 02/15/19 Range/Units 17:42 20:49 05:33 WBC 12.0 H (3.8-10.6) k/uL Neutrophils # 7.9 H (1.3-7.7) k/uL Monocytes # 1.4 H (0-1.0) k/uL APTT (22.0-30.0) sec BUN (9-20) mg/dL Glucose (74-99) mg/dL POC Glucose (mg/dL) 219 H 171 H (75-99) mg/dL 02/15/19 02/15/19 02/15/19 Range/Units 05:33 05:33 07:42 WBC (3.8-10.6) k/uL Neutrophils # (1.3-7.7) k/uL Monocytes # (0-1.0) k/uL APTT 151.5 H* (22.0-30.0) sec BUN 21 H (9-20) mg/dL Glucose 145 H (74-99) mg/dL POC Glucose (mg/dL) 153 H (75-99) mg/dL Assessment and Plan Plan: shortness of breath: Probably secondary to start failure pulmonary edema from chronic diastolic dysfunction as well as systolic dysfunction with acute exacerbation. Patient does have wheezing on exam will use as needed inhaledalbuterol his wheezing may be related to pulmonary edema, patient will be continued on IV Lasix to with close monitoring of kidney function -9 coronary disease with previous bypass surgery in the past -Type 2 diabetes mellitus insulin-dependent will continue with present regimen monitor blood sugars -Morbid obesity had sleep apnea in the past patient had uvulopharyngoplasty in the past -Hyperlipidemia -Hypertension
--- NOTE | 2019-02-15 12:40 | P.GSCN ---
History of Present Illness Consult date: 02/15/19 History of present illness: This is a pleasant 78-year-old gentleman in the hospital for evaluation and treatment of congestive heart failure. We've been asked to see the patient because of hematuria. The patient is interviewed at the bedside and is alert and cooperative. He isn't 3 month history of gross hematuria that is intermittent. He was in the [facility] emergency room about 3 weeks ago or a CAT scan was obtained identifying what he describes as a 2.6 cm left kidney stone. He was seen by Dr. Pearce, a urologist at [facility] out of [facility]. He was going to set the patient up for a percutaneous nephrostolithotomy at [facility] in [place]. I have seen and operated on the patient back in 2015 for prostate problems. The patient wished that I see him for the above-mentioned problem. Prior to this hospitalization he has not been having any real problems urinating. There is been no discomfort with the blood other than when he passed blood clots. There's been no fever or chills. He has been having some back pain. There is been no x-ray here at the hospital. He has not had a previous kidney stone. He has not been having urine infection. Review of Systems All systems: negative - Constitutional Denies fever, Denies weight loss - EENT Eyes: denies blurred vision Ears, nose, mouth and throat: Denies dysphagia - Cardiovascular Denies chest pain, Denies shortness of breath - Respiratory Reports as per HPI, Denies cough - Gastrointestinal Reports as per HPI - Genitourinary Reports as per HPI, Denies dysuria, Denies hematuria - Integumentary Denies rash, Denies unusual bruising - Neurological Denies headaches, Denies syncope - Hematologic/Lymphatic Denies easy bleeding, Denies easy bruising Past Medical History Past Medical History: Coronary Artery Disease (CAD), Diabetes Mellitus, Hyperlipidemia, Hypertension, Prostate Disorder Additional Past Medical History / Comment(s): Coronary artery disease, previous bypass surgery, diabetes mellitus type 2, hypertension, hyperlipidemia, morbid obesity with a BMI 52.2, history of kidney stones, obstructive sleep apnea post UPPP currently not utilizing any form of CPAP or BiPAP therapy. History of Any Multi-Drug Resistant Organisms: None Reported Past Surgical History: Coronary Bypass/CABG Additional Past Surgical History / Comment(s): UVP- FOR SLEEP APNEA FATTY TUMOR REMOVED FROM LEFT THIGH, CABG 15 years ago Past Anesthesia/Blood Transfusion Reactions: No Reported Reaction Past Psychological History: No Psychological Hx Reported Smoking Status: Former smoker Past Alcohol Use History: None Reported Past Drug Use History: None Reported Medications and Allergies Home Medications Medication Instructions Recorded Confirmed Type Aspirin EC [Ecotrin] 325 mg PO DAILY 04/29/14 02/12/19 History Diltiazem Cd [Cardizem CD] 120 mg PO DAILY 04/29/14 02/12/19 History Enalapril [Vasotec] 20 mg PO BID 04/29/14 02/12/19 History Furosemide [Lasix] 60 mg PO HS 04/29/14 02/12/19 History INSULIN ASPART (NovoLOG) [NovoLOG] 80 unit SQ BID 04/29/14 02/12/19 History Insulin Glargine [Lantus] 60 unit SQ BID 04/29/14 02/12/19 History Metoprolol Tartrate [Lopressor] 50 mg PO BID 04/29/14 02/12/19 History Simvastatin 10 mg PO HS 02/12/19 02/12/19 History Tamsulosin HCl [Flomax] 0.4 mg PO DAILY 02/12/19 02/12/19 History Allergies Allergy/AdvReac Type Severity Reaction Status Date / Time No Known Allergies Allergy Verified 02/12/19 18:29 Surgical - Exam Vital Signs Temp Pulse Resp BP Pulse Ox 97.7 F 105 H 22 199/96 97 02/12/19 17:50 02/12/19 17:50 02/12/19 17:50 02/12/19 17:50 02/12/19 17:50 - General well developed, well nourished, obese - Eyes PERRL, normal ocular movement - ENT no hearing loss - Neck trachea midline - Respiratory normal expansion, normal respiratory effort - Cardiovascular Rhythm: regular - Abdomen Abdomen: non tender - Integumentary The patient has chronic stasis edema of the lower extremities - Musculoskeletal normal posture - Psychiatric oriented to time, oriented to person, oriented to place, speech is normal, memory intact Results - Labs 02/15/19 05:33 02/15/19 05:33 Abnormal Lab Results - Last 24 Hours (Table) 02/14/19 02/14/19 02/14/19 Range/Units 12:52 12:54 16:42 WBC (3.8-10.6) k/uL Neutrophils # (1.3-7.7) k/uL Monocytes # (0-1.0) k/uL APTT 64.1 H (22.0-30.0) sec BUN (9-20) mg/dL Glucose 232 H (74-99) mg/dL POC Glucose (mg/dL) 155 H (75-99) mg/dL 02/14/19 02/14/19 02/15/19 Range/Units 17:42 20:49 05:33 WBC 12.0 H (3.8-10.6) k/uL Neutrophils # 7.9 H (1.3-7.7) k/uL Monocytes # 1.4 H (0-1.0) k/uL APTT (22.0-30.0) sec BUN (9-20) mg/dL Glucose (74-99) mg/dL POC Glucose (mg/dL) 219 H 171 H (75-99) mg/dL 02/15/19 02/15/19 02/15/19 Range/Units 05:33 05:33 07:42 WBC (3.8-10.6) k/uL Neutrophils # (1.3-7.7) k/uL Monocytes # (0-1.0) k/uL APTT 151.5 H* (22.0-30.0) sec BUN 21 H (9-20) mg/dL Glucose 145 H (74-99) mg/dL POC Glucose (mg/dL) 153 H (75-99) mg/dL Diabetes panel 02/14/19 02/15/19 Range/Units 16:42 05:33 Sodium 140 140 (137-145) mmol/L Potassium 4.2 3.9 (3.5-5.1) mmol/L Chloride 101 100 (98-107) mmol/L Carbon Dioxide 28 30 (22-30) mmol/L BUN 20 21 H (9-20) mg/dL Creatinine 1.15 1.22 (0.66-1.25) mg/dL Glucose 232 H 145 H (74-99) mg/dL Calcium 9.0 8.8 (8.4-10.2) mg/dL Calcium panel 02/14/19 02/15/19 Range/Units 16:42 05:33 Calcium 9.0 8.8 (8.4-10.2) mg/dL Pituitary panel 02/14/19 02/15/19 Range/Units 16:42 05:33 Sodium 140 140 (137-145) mmol/L Potassium 4.2 3.9 (3.5-5.1) mmol/L Chloride 101 100 (98-107) mmol/L Carbon Dioxide 28 30 (22-30) mmol/L BUN 20 21 H (9-20) mg/dL Creatinine 1.15 1.22 (0.66-1.25) mg/dL Glucose 232 H 145 H (74-99) mg/dL Calcium 9.0 8.8 (8.4-10.2) mg/dL Adrenal panel 02/14/19 02/15/19 Range/Units 16:42 05:33 Sodium 140 140 (137-145) mmol/L Potassium 4.2 3.9 (3.5-5.1) mmol/L Chloride 101 100 (98-107) mmol/L Carbon Dioxide 28 30 (22-30) mmol/L BUN 20 21 H (9-20) mg/dL Creatinine 1.15 1.22 (0.66-1.25) mg/dL Glucose 232 H 145 H (74-99) mg/dL Calcium 9.0 8.8 (8.4-10.2) mg/dL Assessment and Plan Assessment: Impression: Left renal stone causing gross hematuria. History of TURP. Heart artery disease, congestive heart failure, diabetes, obesity. Recommendations: From the description of what has happened the patient would probably benefit from a percutaneous nephrostolithotomy. He prefers not to travel to [place] for the surgical procedure. Appointment to see him in the office upon discharge from this present admission. He'll bring the CAT scan from [facility] and we will evaluate him to see whether indeed a percutaneous nephrostolithotomy will be appropriate. The patient consents and understands this plan of action. I will obtain a KUB and a urinalysis prior to discharge.
[2019-02-15] MEDS: FUROSEMIDE 100 MG in SODIUM CHLORIDE 0.9% 90 ML IV SCH (13:13)
--- NOTE | 2019-02-15 13:17 | P.PN ---
Subjective Progress Note Date: 02/15/19 Patient is a 78-year-old male with past medical history significant for CAD status post CABG 3, dyslipidemia, diabetes, hypertension who presented with complaints of shortness of breath. He is a patient of Dr. Vences. Patient states he has had shortness of breath on exertion and orthopnea and has always slept in a recliner for the past "10 years". Over the last 3 days he has had worsening shortness of breath on exertion. States it started with a sinus infection and he has been coughing. He has also had tightness in the center of his chest which is worse with coughing. Upon presentation his temperature is 97.7F, pulse was 100, respirations 22, blood pressure 199/96, oxygen saturation 97% on 3 L nasal cannula. EKG showed sinus tachycardia with first-degree AV block, no ST or T wave abnormalities. Chest x-ray showed mild pulmonary vascular congestion and probable small bilateral pleural effusions. Troponins were elevated at 0.097 and peaked at 0.101. A stress test was ordered but he was unable to complete the test because he is unable to lie flat. Patient seen and examined sitting in his chair. States his breathing has improved somewhat. Denies any chest pain currently. No dizziness lightheadedness or syncope. 02/14/2019 Patient was seen and examined today sitting up in his chair at bedside. Continues to complain of feeling short of breath. He still is unable to lie flat. Blood pressure 146/60 with a heart rate in the 60s, 97% on 3 L of oxygen. White blood cell count 11.3, hemoglobin 13.4, platelet count 243. 02/15/2019 Patient continues to be on IV Lasix drip, his weight is down 6 kg today. Blood pressure this morning 175/77 with a heart rate in the 70s, 98% on room air. Blood cell count 12.0, hemoglobin 13.8, platelet count 288. Sodium 140, potassi um 3.9, BUN 21 and creatinine 1.2. We will increase the dose of Coreg to 12-1/2 mg one tablet by mouth twice a day. Objective - Vital Signs Vital signs: Vital Signs Temp 97.6 F 02/15/19 12:00 Pulse 70 02/15/19 12:00 Resp 18 02/15/19 12:00 BP 149/71 02/15/19 12:00 Pulse Ox 98 02/15/19 12:00 Intake & Output 02/14/19 02/15/19 02/15/19 18:59 06:59 18:59 Intake Total 750 58.667 490 Output Total 902 1600 2 Balance -152 -1541.333 488 Weight 164.9 kg Intake: Intake, IV Titration 30 58.667 250 Amount Furosemide 100 mg In 30 58.667 Sodium Chloride 0.9% 90 ml @ 10 MG/HR 10 mls/hr IV .Q10H [facility] Rx#: [id number] Heparin Sod,Pork in 0.45% 250 NaCl 25,000 unit In 0.45 % NaCl 1 250ml.bag @ 6 UNITS/KG/HR 9.928 mls/hr IV .Q24H [facility] Rx#: [id number] Oral 720 240 Output: Urine 900 1600 Stool 2 2 Other: Voiding Method Toilet Toilet # Voids 1 0 # Bowel Movements 1 - Exam Morbidly obese, comfortable no acute distress BMI of 52 Head exam was generally normal. There was no scleral icterus or corneal arcus. Mucous membranes were moist. Neck was supple and without jugular venous distension, thyromegaly, or carotid bruits. Carotids were easily palpable bilaterally. There was no adenopathy. Lungs are diminished along with excellent lung base bilaterally. No wheezes or rhonchi. Heart sounds are distant, positive S1-S2 and there is no significant murmurs appreciated. No ventricular heave or thrill Abdominal exam revealed normal bowel sounds. The abdomen was soft, non-tender, and without masses, organomegaly, or appreciable enlargement of the abdominal aorta. Extremities revealed +1 edema and there is no cyanosis or clubbing Examination of the skin revealed no evidence of significant rashes, suspicious appearing nevi or other concerning lesions. Neurologically awake and alert and there is no focal logical deficits. - Labs CBC & Chem 7: 02/15/19 05:33 02/15/19 05:33 Labs: Abnormal Lab Results - Last 24 Hours (Table) 02/14/19 02/14/19 02/14/19 Range/Units 12:52 16:42 17:42 WBC (3.8-10.6) k/uL Neutrophils # (1.3-7.7) k/uL Monocytes # (0-1.0) k/uL APTT 64.1 H (22.0-30.0) sec BUN (9-20) mg/dL Glucose 232 H (74-99) mg/dL POC Glucose (mg/dL) 219 H (75-99) mg/dL 02/14/19 02/15/19 02/15/19 Range/Units 20:49 05:33 05:33 WBC 12.0 H (3.8-10.6) k/uL Neutrophils # 7.9 H (1.3-7.7) k/uL Monocytes # 1.4 H (0-1.0) k/uL APTT (22.0-30.0) sec BUN 21 H (9-20) mg/dL Glucose 145 H (74-99) mg/dL POC Glucose (mg/dL) 171 H (75-99) mg/dL 02/15/19 02/15/19 Range/Units 05:33 07:42 WBC (3.8-10.6) k/uL Neutrophils # (1.3-7.7) k/uL Monocytes # (0-1.0) k/uL APTT 151.5 H* (22.0-30.0) sec BUN (9-20) mg/dL Glucose (74-99) mg/dL POC Glucose (mg/dL) 153 H (75-99) mg/dL Assessment and Plan Plan: Assessment and Plan: 1 shortness of breath secondary to underlying CHF/pulmonary edema 2 CHF with systolic heart failure, acute on chronic and ejection fraction of 45% and anteroseptal hypokinesis, rule out underlying coronary artery disease 3 coronary artery disease with previous coronary artery bypass surgery and the surgery was done more than 15 years ago. 4 diabetes mellitus type 2, on insulin 5. Hyperlipidemia 6 morbid obesity BMI 52 7 obstructive sleep apnea with a previous UPPP 8 hypertension 9 history of nephrolithiasis/kidney stones Plan We'll increase the dose of Coreg to 12-1/2 mg one tablet by mouth twice a day, continue IV Lasix drip. DNP note has been reviewed, I agree with a documented findings and plan of care. Patient was seen and examined.
--- NOTE | 2019-02-15 13:59 | XR ---
EXAMINATION TYPE: XR KUB DATE OF EXAM: 02/15/2019 1:39 PM CLINICAL HISTORY: Left-sided kidney stone. TECHNIQUE: Two Upright KUB images of the abdomen are obtained. COMPARISON: None. FINDINGS: There is a large staghorn calculus filling the entire left renal pelvis and calyces. Estima shawn length of nearly 8 cm. Overlying EKG wires. Vascular pelvic dictation overlying abdominal aorta. Multilevel spurring throughout the thoracolumbar spine with scoliotic curvature. Moderate to severe n arrowing of both hip joints with mild acetabular spurring. IMPRESSION: Large left-sided staghorn type calculus.
--- NOTE | 2019-02-15 14:20 | P.PN ---
Subjective Progress Note Date: 02/15/19 Principal diagnosis: Shortness of breath secondary to underlying CHF/pulmonary edema On 02/15/2019 patient seen in follow-up on selective care unit, he states his left short of breath with exertion, and he feels like the generalized swelling is becoming less. He remains on Lasix drip at 10 mg per hour, and he is maintaining negative fluid balance. His been ambulating to the bathroom, he is on room air. No acute complaints overnight, complaints of chest pain, no fever or chills. No cough or congestion, his echocardiogram results have been noted, his EF is 45-50% and the valves were difficult to visualize, there was no mitral regurg, mild tricuspid regurg is present, no evidence of pulmonary hypertension, he has been started on Coreg. Has been seen by urology, and outpatient percutaneous nephrolithotomy will be planned once patient is discharged from the hospital Objective - Vital Signs Vital signs: Vital Signs Temp 97.6 F 02/15/19 12:00 Pulse 70 02/15/19 12:00 Resp 18 02/15/19 12:00 BP 149/71 02/15/19 12:00 Pulse Ox 98 02/15/19 12:00 Intake & Output 02/14/19 02/15/19 02/15/19 18:59 06:59 18:59 Intake Total 750 58.667 590 Output Total 902 1600 2 Balance -152 -1541.333 588 Weight 164.9 kg Intake: Intake, IV Titration 30 58.667 350 Amount Furosemide 100 mg In 30 58.667 100 Sodium Chloride 0.9% 90 ml @ 10 MG/HR 10 mls/hr IV .Q10H [facility] Rx#: [id number] Heparin Sod,Pork in 0.45% 250 NaCl 25,000 unit In 0.45 % NaCl 1 250ml.bag @ 6 UNITS/KG/HR 9.928 mls/hr IV .Q24H [facility] Rx#: [id number] Oral 720 240 Output: Urine 900 1600 Stool 2 2 Other: Voiding Method Toilet Toilet # Voids 1 0 # Bowel Movements 1 - Exam Morbidly obese, comfortable no acute distress BMI of 52 Head exam was generally normal. There was no scleral icterus or corneal arcus. Mucous membranes were moist. Neck was supple and without jugular venous distension, thyromegaly, or carotid bruits. Carotids were easily palpable bilaterally. There was no adenopathy. Lungs are diminished along with excellent lung base bilaterally. No wheezes or rhonchi. Heart sounds are distant, positive S1-S2 and there is no significant murmurs appreciated. No ventricular heave or thrill Abdominal exam revealed normal bowel sounds. The abdomen was soft, non-tender, and without masses, organomegaly, or appreciable enlargement of the abdominal aorta. Extremities revealed +1 edema and there is no cyanosis or clubbing Examination of the skin revealed no evidence of significant rashes, suspicious appearing nevi or other concerning lesions. Neurologically awake and alert and there is no focal logical deficits. - Labs CBC & Chem 7: 02/15/19 05:33 02/15/19 05:33 Labs: Abnormal Lab Results - Last 24 Hours (Table) 02/14/19 02/14/19 02/14/19 Range/Units 16:42 17:42 20:49 WBC (3.8-10.6) k/uL Neutrophils # (1.3-7.7) k/uL Monocytes # (0-1.0) k/uL APTT (22.0-30.0) sec BUN (9-20) mg/dL Glucose 232 H (74-99) mg/dL POC Glucose (mg/dL) 219 H 171 H (75-99) mg/dL 02/15/19 02/15/19 02/15/19 Range/Units 05:33 05:33 05:33 WBC 12.0 H (3.8-10.6) k/uL Neutrophils # 7.9 H (1.3-7.7) k/uL Monocytes # 1.4 H (0-1.0) k/uL APTT 151.5 H* (22.0-30.0) sec BUN 21 H (9-20) mg/dL Glucose 145 H (74-99) mg/dL POC Glucose (mg/dL) (75-99) mg/dL 02/15/19 Range/Units 07:42 WBC (3.8-10.6) k/uL Neutrophils # (1.3-7.7) k/uL Monocytes # (0-1.0) k/uL APTT (22.0-30.0) sec BUN (9-20) mg/dL Glucose (74-99) mg/dL POC Glucose (mg/dL) 153 H (75-99) mg/dL Assessment and Plan Plan: Assessment: 1 shortness of breath secondary to underlying CHF/pulmonary edema 2 CHF with systolic heart failure and ejection fraction of 45% and anteroseptal hypokinesis, rule out underlying coronary artery disease 3 coronary artery disease with previous coronary artery bypass surgery and the surgery was done more than 15 years ago. 4 diabetes mellitus type 2, on insulin 5. Hyperlipidemia 6 morbid obesity BMI 52 7 obstructive sleep apnea with a previous UPPP 8 hypertension 9 history of nephrolithiasis/kidney stones Plan: Patient remains on Lasix infusion, he is in negative fluid balance, he is breathing easier, he is on room air, denies any chest pain, no cough or congestion, no wheezing, no acute events overnight. Patient is tolerating ambulation, he states his exertional dyspnea is improving, cardiology is managing his diuretics. We will follow the patient on as-needed basis. I performed a history & physical examination of the patient and discussed their management with my nurse practitioner, Senia Milton. I reviewed the nurse practitioner's note and agree with the documented findings and plan of care. Lung sounds are positive for clear breath sounds. The findings and the impression was discussed with the patient. I attest to the documentation by the nurse practitioner. Time with Patient: Less than 30
--- NOTE | 2019-02-15 14:22 | P.CON ---
Consult Note - . Consult date: 02/15/19 Assessment/Plan:: this is a 78-year-old pleasant male who is being seen by wound care center for nonhealing ulceration to the plantar aspect of the left forefoot proximal to left great digit. Patient states that the area has been there for approximately greater than 6 months. 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 Patient states that it bleeds frequently and his changes at daily. Patient has history of diabetes. He recently got new diabetic shoes approximately 2 months ago. The area as heavily callused with a small opening approximately 0.3 x 0.2 x 0.3 cm with serous drainage from the site. Patient ambulates per self.patient's past medical history significant for coronary artery disease, diabetes, hyper lipidemia, hypertension, previous bypass surgery, morbid obesity with a BMI greater than 50, obstructive sleep apnea, kidney stones Review of systems: Integumentary: reports wound to left foot, reports rashes bilateral legs, denies itching physical exam: Integumentary:see HPI,, excoriation patchy plaque to bilateral lower extremities. Assessment/plan: 1. 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 Apply honey gel to the site, saline gauze, dry gauze, rolled gauze to secure 3 times a week. Nonweightbearing to the left foot, consult nutrition, discussed with patient's the importance of following up with wound care center for further wound interventions. Patient verbalized understanding and was agreeable with the plan. 2. Morbid obesity Thank you for the consultation any questions please contact the wound care center DNP note has been reviewed and discussed with Dr. Monson and the impression and plan of care has been directed as dictated.
[2019-02-15 17:37] LABS: Glucose,Whole Blood 184 mg/dL (75-99)
[2019-02-15] MEDS: HEPARIN SOD,PORK IN 0.45% NACL 25,000 UNIT in 0.45% NACL 1 250ML.BAG IV SCH (17:54)
[2019-02-15 17:56] LABS: Appearance,Urine Clear (Clear); Bacteria,Urine Rare /hpf; Bilirubin,Urine Negative (Negative); Blood,Urine Large (Negative); Budding Yeast,Urine Rare /hpf; Color,Urine Yellow; Glucose,Urine (UA) Negative (Negative); Hyaline Casts,Urine 2 /lpf (0-2); Ketones,Urine Negative (Negative); Leukocyte Esterase,Urine Moderate (Negative); Nitrite,Urine Negative (Negative); Protein,Urine Negative (Negative); RBC,Urine >182 /hpf (0-5); Urobilinogen,Urine <2.0 mg/dL (<2.0)
[2019-02-15] MEDS: CARVEDILOL 12.5 MG TAB PO SCH (17:56)
[2019-02-15] MEDS: ATORVASTATIN 40 MG TAB PO SCH (21:12)
[2019-02-15] MEDS: FUROSEMIDE 10 MG/ML 10 ML VIAL IV SCH (21:13)
[2019-02-15 21:29] LABS: Glucose,Whole Blood 191 mg/dL (75-99)
[2019-02-16 06:34] LABS: HCT 45.3 % (39.0-53.0); HGB 14.3 gm/dL (13.0-17.5); MCH 28.4 pg (25.0-35.0); MCHC 31.6 g/dL (31.0-37.0); MCV 89.8 fL (80.0-100.0); Mean Platelet Volume 7.1; Platelet Count 265 k/uL (150-450); RBC 5.05 m/uL (4.30-5.90); RDW 14.8 % (11.5-15.5); WBC 9.4 k/uL (3.8-10.6)
[2019-02-16] MEDS: CARVEDILOL 12.5 MG TAB PO SCH ×2 (06:38→17:39)
[2019-02-16 06:56] LABS: Calcium 8.9 mg/dL (8.4-10.2); Potassium 3.8 mmol/L (3.5-5.1)
[2019-02-16 08:20] LABS: Glucose,Whole Blood 175 mg/dL (75-99)
[2019-02-16] MEDS: IPRATROPIUM-ALBUTEROL 3 ML NEB INHALATION PRN ×4 (08:23→20:42)
[2019-02-16] MEDS: HEPARIN SOD,PORK IN 0.45% NACL 25,000 UNIT in 0.45% NACL 1 250ML.BAG IV SCH (08:25)
[2019-02-16] MEDS: INSULIN DETEMIR (LEVEMIR) 100 UNIT/ML SYR SQ SCH ×2 (08:26→21:46)
[2019-02-16] MEDS: INSULIN ASPART (NovoLOG) 100 UNIT/ML VIAL SQ SCH ×6 (08:26→21:46)
[2019-02-16] MEDS: FLUTICASONE 50MCG/SPRAY NASAL 16GM EA NOSTRIL SCH (08:27)
[2019-02-16] MEDS: FUROSEMIDE 10 MG/ML 10 ML VIAL IV SCH ×2 (08:27→21:46)
[2019-02-16] MEDS: LISINOPRIL 20 MG TAB PO SCH (08:27)
[2019-02-16] MEDS: FAMOTIDINE 20 MG TAB PO SCH ×2 (08:27→21:45)
[2019-02-16] MEDS: ASPIRIN 81 MG PO SCH (08:27)
--- NOTE | 2019-02-16 11:49 | P.PN ---
Subjective 78-year-old pleasant gentleman was admitted secondary to pulmonary edema chronic diastolic dysfunction with acute exacerbation patient also has mild systolic dysfunction. Patient is presently receiving IV Lasix which will be continued. Patient does have wheezing on exam denied any history of asthma or COPD patient will be started on as needed inhalational treatments. 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 Patient has bilateral leg edema. RVSP of 35 does have elevated JVD. 02/15/2019 Patient is feeling much better, patient's creatinine started going up I'll switch him to IV Lasix from IV Lasix to patient is total getting to 40 mg of IV Lasix which will be now 40 twice a day of Lasix 02/16/2019 Patient is on IV Lasix which will be continued creatinine improved compared to yesterday. Patient is feeling much better wheezing resolved Constitutional: Denied any fatigue denied any fever. Cardio vascular: denied any chest pain, palpitations Gastrointestinal denied any nausea vomiting Pulmonary: shortness of breath significantly improved compared to admission Neurologic denied any new focal deficits All inpatient medications were reviewed and appropriate changes in these medications as dictated in the interval history and assessment and plan. Objective - Vital Signs Vital signs: Vital Signs Temp 97.9 F 02/16/19 04:00 Pulse 70 02/16/19 08:35 Resp 17 02/16/19 04:00 BP 146/76 02/16/19 04:00 Pulse Ox 98 02/16/19 04:00 Intake & Output 02/15/19 02/16/19 02/16/19 18:59 06:59 18:59 Intake Total 1070 313.180 267.027 Output Total 2103 700 1600 Balance -1033 -386.820 -1332.973 Weight 162.9 kg Intake: Intake, IV Titration 350 213.180 27.027 Amount Furosemide 100 mg In 100 Sodium Chloride 0.9% 90 ml @ 10 MG/HR 10 mls/hr IV .Q10H [facility] Rx#: [id number] Heparin Sod,Pork in 0.45% 250 213.180 27.027 NaCl 25,000 unit In 0.45 % NaCl 1 250ml.bag @ 6 UNITS/KG/HR 9.928 mls/hr IV .Q24H [facility] Rx#: [id number] Oral 720 100 240 Output: Urine 2100 700 1600 Stool 3 Other: Voiding Method Toilet Toilet # Voids 0 # Bowel Movements 0 0 - Exam -GENERAL: The patient is alert and oriented x3, not in any acute distress. Morbid obesity HEENT: Pupils are round and equally reacting to light. EOMI. No scleral icterus. No conjunctival pallor. Normocephalic, atraumatic. No pharyngeal erythema. No thyromegaly. CARDIOVASCULAR: S1 and S2 present. No murmurs, rubs, or gallops. PULMONARY: expiratory wheezing bilaterally with bibasilar crackles ABDOMEN: Soft, nontender, nondistended, normoactive bowel sounds. No palpable organomegaly. MUSCULOSKELETAL: No joint swelling or deformity. EXTREMITIES: No cyanosis, clubbing, there is significant improvement in pedal edema does have chronic venous stasis dermatosis NEUROLOGICAL: Gross neurological examination did not reveal any focal deficits. SKIN: No rashes. No petechiae - Labs CBC & Chem 7: 02/16/19 06:00 02/16/19 06:00 Labs: Abnormal Lab Results - Last 24 Hours (Table) 02/15/19 02/15/19 02/15/19 Range/Units 15:07 17:30 17:34 APTT 91.7 H (22.0-30.0) sec BUN (9-20) mg/dL Glucose (74-99) mg/dL POC Glucose (mg/dL) 184 H (75-99) mg/dL Urine Blood Large H (Negative) Ur Leukocyte Esterase Moderate H (Negative) Urine RBC >182 H (0-5) /hpf Urine Bacteria Rare H (None) /hpf Urine Yeast (Budding) Rare H (None) /hpf 02/15/19 02/15/19 02/16/19 Range/Units 21:28 22:59 06:00 APTT 68.5 H (22.0-30.0) sec BUN 22 H (9-20) mg/dL Glucose 187 H (74-99) mg/dL POC Glucose (mg/dL) 191 H (75-99) mg/dL Urine Blood (Negative) Ur Leukocyte Esterase (Negative) Urine RBC (0-5) /hpf Urine Bacteria (None) /hpf Urine Yeast (Budding) (None) /hpf 02/16/19 02/16/19 Range/Units 06:00 08:00 APTT 64.6 H (22.0-30.0) sec BUN (9-20) mg/dL Glucose (74-99) mg/dL POC Glucose (mg/dL) 175 H (75-99) mg/dL Urine Blood (Negative) Ur Leukocyte Esterase (Negative) Urine RBC (0-5) /hpf Urine Bacteria (None) /hpf Urine Yeast (Budding) (None) /hpf Assessment and Plan Plan: shortness of breath: Probably secondary to start failure pulmonary edema from chronic diastolic dysfunction as well as systolic dysfunction with acute exacerbation. Patient does have wheezing on exam will use as needed inhaledalbuterol his wheezing may be related to pulmonary edema, patient will be continued on IV Lasix to with close monitoring of kidney function -9 coronary disease with previous bypass surgery in the past -Type 2 diabetes mellitus insulin-dependent will continue with present regimen monitor blood sugars -Morbid obesity had sleep apnea in the past patient had uvulopharyngoplasty in the past -Hyperlipidemia -Hypertension
[2019-02-16 11:52] LABS: Glucose,Whole Blood 134 mg/dL (75-99)
--- NOTE | 2019-02-16 14:25 | P.PN ---
Subjective Progress Note Date: 02/16/19 Patient is a 78-year-old male with past medical history significant for CAD status post CABG 3, dyslipidemia, diabetes, hypertension who presented with complaints of shortness of breath. He is a patient of Dr. Vences. Patient states he has had shortness of breath on exertion and orthopnea and has always slept in a recliner for the past "10 years". Over the last 3 days he has had worsening shortness of breath on exertion. States it started with a sinus infection and he has been coughing. He has also had tightness in the center of his chest which is worse with coughing. Upon presentation his temperature is 97.7F, pulse was 100, respirations 22, blood pressure 199/96, oxygen saturation 97% on 3 L nasal cannula. EKG showed sinus tachycardia with first-degree AV block, no ST or T wave abnormalities. Chest x-ray showed mild pulmonary vascular congestion and probable small bilateral pleural effusions. Troponins were elevated at 0.097 and peaked at 0.101. A stress test was ordered but he was unable to complete the test because he is unable to lie flat. Patient seen and examined sitting in his chair. States his breathing has improved somewhat. Denies any chest pain currently. No dizziness lightheadedness or syncope. 02/14/2019 Patient was seen and examined today sitting up in his chair at bedside. Continues to complain of feeling short of breath. He still is unable to lie flat. Blood pressure 146/60 with a heart rate in the 60s, 97% on 3 L of oxygen. White blood cell count 11.3, hemoglobin 13.4, platelet count 243. 02/15/2019 Patient continues to be on IV Lasix drip, his weight is down 6 kg today. Blood pressure this morning 175/77 with a heart rate in the 70s, 98% on room air. Blood cell count 12.0, hemoglobin 13.8, platelet count 288. Sodium 140, potassi um 3.9, BUN 21 and creatinine 1.2. We will increase the dose of Coreg to 12-1/2 mg one tablet by mouth twice a day. 02/16/2019 Patient seen and examined this morning, sitting up in his chair, currently on IV push Lasix. He diuresed well from the Lasix drip, breathing is stable. He has not attempted yet to lie flat in bed.blood pressure 146/70 with a heart rate in the 60s, 98% on room air.White blood cell count 9.4, hemoglobin 14.3, platelet count 265. Sodium 140, potassium 3.8, BUN 22 and creatinine 1.1. Objective - Vital Signs Vital signs: Vital Signs Temp 97.9 F 02/16/19 04:00 Pulse 78 02/16/19 12:31 Resp 17 02/16/19 04:00 BP 146/76 02/16/19 04:00 Pulse Ox 98 02/16/19 04:00 Intake & Output 02/15/19 02/16/19 02/16/19 18:59 06:59 18:59 Intake Total 1070 313.180 267.027 Output Total 2103 700 1600 Balance -1033 -386.820 -1332.973 Weight 162.9 kg Intake: Intake, IV Titration 350 213.180 27.027 Amount Furosemide 100 mg In 100 Sodium Chloride 0.9% 90 ml @ 10 MG/HR 10 mls/hr IV .Q10H [facility] Rx#: [id number] Heparin Sod,Pork in 0.45% 250 213.180 27.027 NaCl 25,000 unit In 0.45 % NaCl 1 250ml.bag @ 6 UNITS/KG/HR 9.928 mls/hr IV .Q24H [facility] Rx#: [id number] Oral 720 100 240 Output: Urine 2100 700 1600 Stool 3 Other: Voiding Method Toilet Toilet # Voids 0 # Bowel Movements 0 0 - Exam Morbidly obese, comfortable no acute distress BMI of 52 Head exam was generally normal. There was no scleral icterus or corneal arcus. Mucous membranes were moist. Neck was supple and without jugular venous distension, thyromegaly, or carotid bruits. Carotids were easily palpable bilaterally. There was no adenopathy. Lungs are diminished along with excellent lung base bilaterally. No wheezes or rhonchi. Heart sounds are distant, positive S1-S2 and there is no significant murmurs appreciated. No ventricular heave or thrill Abdominal exam revealed normal bowel sounds. The abdomen was soft, non-tender, and without masses, organomegaly, or appreciable enlargement of the abdominal aorta. Extremities revealed trace edema and there is no cyanosis or clubbing Examination of the skin revealed no evidence of significant rashes, suspicious appearing nevi or other concerning lesions. Neurologically awake and alert and there is no focal logical deficits. - Labs CBC & Chem 7: 02/16/19 06:00 02/16/19 06:00 Labs: Abnormal Lab Results - Last 24 Hours (Table) 02/15/19 02/15/19 02/15/19 Range/Units 15:07 17:30 17:34 APTT 91.7 H (22.0-30.0) sec BUN (9-20) mg/dL Glucose (74-99) mg/dL POC Glucose (mg/dL) 184 H (75-99) mg/dL Urine Blood Large H (Negative) Ur Leukocyte Esterase Moderate H (Negative) Urine RBC >182 H (0-5) /hpf Urine Bacteria Rare H (None) /hpf Urine Yeast (Budding) Rare H (None) /hpf 02/15/19 02/15/19 02/16/19 Range/Units 21:28 22:59 06:00 APTT 68.5 H (22.0-30.0) sec BUN 22 H (9-20) mg/dL Glucose 187 H (74-99) mg/dL POC Glucose (mg/dL) 191 H (75-99) mg/dL Urine Blood (Negative) Ur Leukocyte Esterase (Negative) Urine RBC (0-5) /hpf Urine Bacteria (None) /hpf Urine Yeast (Budding) (None) /hpf 02/16/19 02/16/19 02/16/19 Range/Units 06:00 08:00 11:51 APTT 64.6 H (22.0-30.0) sec BUN (9-20) mg/dL Glucose (74-99) mg/dL POC Glucose (mg/dL) 175 H 134 H (75-99) mg/dL Urine Blood (Negative) Ur Leukocyte Esterase (Negative) Urine RBC (0-5) /hpf Urine Bacteria (None) /hpf Urine Yeast (Budding) (None) /hpf Assessment and Plan Plan: Assessment and Plan: 1 shortness of breath secondary to underlying CHF/pulmonary edema 2 CHF with systolic heart failure, acute on chronic and ejection fraction of 45% and anteroseptal hypokinesis, rule out underlying coronary artery disease 3 coronary artery disease with previous coronary artery bypass surgery and the surgery was done more than 15 years ago. 4 diabetes mellitus type 2, on insulin 5. Hyperlipidemia 6 morbid obesity BMI 52 7 obstructive sleep apnea with a previous UPPP 8 hypertension 9 history of nephrolithiasis/kidney stones Plan we will continue current dose of IV push Lasix, repeat lytes BUN and creatinine early chore morning. We will also have the patient attempt to lie flat in bed for an hour, if he seems to tolerate that well we will schedule him for cardiac catheterization tomorrow with Dr. Vences. DNP note has been reviewed, I agree with a documented findings and plan of care. Patient was seen and examined.
[2019-02-16] MEDS ORDERED: ALPRAZolam 0.5 MG TAB PO PRN (14:26)
[2019-02-16] MEDS ORDERED: ALPRAZolam 0.25 MG TAB PO PRN (14:26)
[2019-02-16] MEDS ORDERED: NITROGLYCERIN SL TABS 0.4 MG TAB SUBLINGUAL PRN (14:26)
[2019-02-16] MEDS ORDERED: SODIUM CHLORIDE 0.9% 1,000 ML in EMPTY BAG 1 BAG IV ONE (14:26)
[2019-02-16 16:58] LABS: Glucose,Whole Blood 212 mg/dL (75-99)
[2019-02-16] MEDS: SPIRONOLACTONE 25 MG TAB PO SCH (17:42)
[2019-02-16 21:07] LABS: Glucose,Whole Blood 182 mg/dL (75-99)
[2019-02-16] MEDS: ATORVASTATIN 40 MG TAB PO SCH (21:45)
[2019-02-17] MEDS: INSULIN DETEMIR (LEVEMIR) 100 UNIT/ML SYR SQ SCH ×2 (05:46→21:23)
[2019-02-17] MEDS: INSULIN ASPART (NovoLOG) 100 UNIT/ML VIAL SQ SCH ×6 (05:47→21:22)
[2019-02-17] MEDS: ASPIRIN 81 MG PO SCH (05:47)
[2019-02-17] MEDS: LISINOPRIL 20 MG TAB PO SCH (05:51)
[2019-02-17] MEDS: CARVEDILOL 12.5 MG TAB PO SCH ×2 (05:52→17:40)
[2019-02-17] MEDS: SPIRONOLACTONE 25 MG TAB PO SCH (05:52)
[2019-02-17] MEDS: FAMOTIDINE 20 MG TAB PO SCH ×2 (05:52→21:22)
[2019-02-17] MEDS: FUROSEMIDE 10 MG/ML 10 ML VIAL IV SCH (05:56)
[2019-02-17] MEDS ORDERED: ASPIRIN 325 MG TAB PO ONE (06:00)
[2019-02-17] MEDS ORDERED: ATORVASTATIN 80 MG TAB PO ONE (06:00)
[2019-02-17 06:02] LABS: Glucose,Whole Blood 173 mg/dL (75-99)
[2019-02-17 07:22] LABS: HCT 40.2 % (39.0-53.0); HGB 13.3 gm/dL (13.0-17.5); MCHC 33.1 g/dL (31.0-37.0); MCV 87.4 fL (80.0-100.0); Mean Platelet Volume 6.4; Platelet Count 203 k/uL (150-450); RDW 14.4 % (11.5-15.5); WBC 9.6 k/uL (3.8-10.6)
[2019-02-17 07:40] LABS: Albumin 3.7 g/dL (3.5-5.0); Calcium 8.7 mg/dL (8.4-10.2); Potassium 4.1 mmol/L (3.5-5.1); Total Protein 7.3 g/dL (6.3-8.2)
[2019-02-17] MEDS: IPRATROPIUM-ALBUTEROL 3 ML NEB INHALATION PRN ×2 (08:12→15:07)
[2019-02-17] MEDS ORDERED: MIDAZOLAM 2 MG/2 ML VIAL IV ONE (09:42)
[2019-02-17] MEDS: fentaNYL (PF) 50 MCG/ML 2 ML AMP IV ONE ×2 (09:42→09:54)
[2019-02-17] MEDS ORDERED: LIDOCAINE 1% INJ 10MG/ML (20 ML MDV) SQ ONE (09:44)
[2019-02-17] MEDS ORDERED: IV FLUID CONTINUATION 1,000 ML IV ONE (09:45)
[2019-02-17] MEDS ORDERED: HEPARIN SODIUM 1,000 UN/ML (10ML VL) IV ONE (09:53)
[2019-02-17] MEDS ORDERED: HYDROmorphone 1 MG/ML 1 ML SYRINGE IVP ONE ×2 (10:05)
[2019-02-17] MEDS ORDERED: IOPAMIDOL-370 125ML BTL INJ ONE (10:24)
[2019-02-17] MEDS ORDERED: IOPAMIDOL-370 100ML BTL INJ ONE (10:41)
[2019-02-17] MEDS ORDERED: RX INFO: IV CONTRAST WAS GIVEN 1 EACH MISC MISCELLANE PRN (10:58)
--- NOTE | 2019-02-17 11:09 | P.CARDCATH ---
Date of Procedure: 02/17/19 Preoperative Diagnosis: Ischemic heart disease with previous bypass surgery, cardiomyopathy and congestive heart failure. Postoperative Diagnosis: Coronary artery disease with patent BARGER graft to the LAD and the vein graft to the diagonal. The graft to the PDA is totally closed and could not be selectively studied Procedure(s) Performed: Left heart catheterization without left ventriculography Description of Procedure: HISTORY: This is a 78-year-old gentleman with history of ischemic heart disease with a previous stent placement and bypass surgery. The bypass surgery was done about 15 years ago with the BARGER graft to the LAD and the radial graft to the diagonal and the graft to the PDA. The details are not entirely available. Patient is admitted to the hospital with cardiomyopathy and congestive heart failure. Cardiac catheterization was requested for further evaluation of underlying ischemic heart disease. CONSENT:I have discussed the risks, benefits and alternative therapies for the above-mentioned procedure and for both sedation/analgesia as well as necessary blood product administration, if indicated, as they pertain to this patient. The patient has indicated understanding and acceptance of the risks and procedures discussed. PROCEDURE: Patient was brought to the lab in a fasting state. Patient was given some IV sedation. The left elbow area is infiltrated with lidocaine and left brachial artery was entered using Seldinger technique. A 6-Kiswahili catheter was left in place and selective coronary arteriography was performed. Patient tolerated the procedure well. Manual compression is being applied for hemostasis.. No immediate complications were noted and patient was transferred to [facility] in a stable condition Conscious Sedation: Versed 1mg Fentanyl 100 g , Dilaudid 1 mg Duration 59 minutes HEMODYNAMICS:. The aortic pressure was 140/70. The left ventricle end- diastolic pressures were not measured SELECTIVE CORONARY ARTERIOGRAPHY: LEFT MAIN: Normal length and patent THE LEFT ANTERIOR DESCENDING CORONARY ARTERY:. This is diffusely diseased and totally occluded in the proximal to midportion THE LEFT CIRCUMFLEX AND IS CORONARY ARTERY:. This is fairly caliber vessel giving rise to 2 distal branches. As mild diffuse disease. There appears to be total occlusion of OM branch. There are collaterals from the distal circumflex to the distal RCA THE RIGHT CORONARY ARTERY:. This is a moderate caliber vessel with diffuse disease with about 60-70% proximal lesion and 90% distal lesion before total occlusion of the PDA. The PLV branch also have significant disease but is small in caliber. The BARGER graft to the LAD: This is patent throat its length and at distal anastomosis. The LAD beyond the insertion site is free of occlusive disease. The radial graft to the diagonal: This is patent at the proximal and distal anastomosis and throat its length. The diagonal branch are free of occlusive disease. There are collaterals from the diagonal to the distal RCA. The graft to the right coronary artery: This could not be selectively studied and presumed to be totally occluded. LEFT VENTRICULOGRAPHY: Not performed FINAL IMPRESSION:. Patent BARGER graft to LAD and probably radial graft to the diagonal. The graft to the RCA is presumed to be total occluded. [employer] [place] [employer] [place] LAD is totally occluded. [employer] [place] [employer] [place] circumflex has total occluded OM branch which is seen by collateral flow. The [place] right coronary artery has diffuse disease with about 60% lesion proximally 90% stenosed distally before total occlusion of the PDA. There are collaterals to the distal RCA and also the OM branch of the circumflex PLAN: Continued medical therapy and risk factor modification. I will review the films with professor of floriculture for second opinion PROGNOSIS: Guarded
--- NOTE | 2019-02-17 14:08 | P.PN ---
Subjective Progress Note Date: 02/17/19 Principal diagnosis: 78-year-old pleasant gentleman was admitted secondary to pulmonary edema chronic diastolic dysfunction with acute exacerbation patient also has mild systolic dy sfunction. Patient is presently receiving IV Lasix which will be continued. Patient does have wheezing on exam denied any history of asthma or COPD patient will be started on as needed inhalational treatments. 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 Patient has bilateral leg edema. RVSP of 35 does have elevated JVD. 02/15/2019 Patient is feeling much better, patient's creatinine started going up I'll switch him to IV Lasix from IV Lasix to patient is total getting to 40 mg of IV Lasix which will be now 40 twice a day of Lasix 02/16/2019 Patient is on IV Lasix which will be continued creatinine improved compared to yesterday. Patient is feeling much better wheezing resolved Constitutional: Denied any fatigue denied any fever. Cardio vascular: denied any chest pain, palpitations Gastrointestinal denied any nausea vomiting Pulmonary: shortness of breath significantly improved compared to admission Neurologic denied any new focal deficits All inpatient medications were reviewed and appropriate changes in these medications as dictated in the interval history and assessment and plan. 02/17/2019 Patient went down for procedure undergoing cardiac catheterization and will follow-up once report is available. Patient is currently off the floor. Objective - Vital Signs Vital signs: Vital Signs Temp 96.8 F L 02/17/19 08:46 Pulse 56 L 02/17/19 13:43 Resp 18 02/17/19 13:43 BP 155/75 02/17/19 13:43 Pulse Ox 96 02/17/19 13:43 Intake & Output 02/16/19 02/17/19 02/17/19 18:59 06:59 18:59 Intake Total 867.027 100 100 Output Total 2903 700 Balance -2035.973 -600 100 Weight 163.7 kg Intake: IV 100 Sodium Chloride 0.9% 1, 0 000 ml @ 75 mls/hr IV . [id number] [facility] Rx#:[id number] Intake, IV Titration 27.027 0 Amount Heparin Sod,Pork in 0.45% 27.027 NaCl 25,000 unit In 0.45 % NaCl 1 250ml.bag @ 6 UNITS/KG/HR 9.928 mls/hr IV .Q24H [facility] Rx#: [id number] Sodium Chloride 0.9% 1, 0 000 ml @ 75 mls/hr IV . [id number] [facility] Rx#:[id number] Oral 840 100 0 Output: Urine 2900 700 Stool 3 Other: Voiding Method Toilet Toilet Toilet # Voids 0 1 # Bowel Movements 0 - Exam Unable to perform as patient was down undergoing cardiac catheterization. - Labs CBC & Chem 7: 02/17/19 07:13 02/17/19 06:58 Labs: Abnormal Lab Results - Last 24 Hours (Table) 02/16/19 02/16/19 02/17/19 Range/Units 16:56 21:06 06:00 APTT (22.0-30.0) sec BUN (9-20) mg/dL Glucose (74-99) mg/dL POC Glucose (mg/dL) 212 H 182 H 173 H (75-99) mg/dL 02/17/19 02/17/19 Range/Units 06:58 07:13 APTT 33.7 H (22.0-30.0) sec BUN 22 H (9-20) mg/dL Glucose 174 H (74-99) mg/dL POC Glucose (mg/dL) (75-99) mg/dL Assessment and Plan Assessment: -shortness of breath: Probably secondary to heart failure or pulmonary edema from chronic diastolic dysfunction as well as systolic dysfunction with acute exacerbation. Patient did have wheezing on exam, will use as needed inhaled albuterol his wheezing may be related to pulmonary edema, patient will be continued on IV Lasix to with close monitoring of kidney function, creatinine this morning is 1.13 -coronary artery disease with previous bypass surgery in the past -Type 2 diabetes mellitus insulin-dependent will continue with present regimen monitor blood sugars -Morbid obesity had sleep apnea in the past patient had uvulopharyngoplasty in the past -Hyperlipidemia -Hypertension Recommendations and discussion: Recommend continue current medications, management, and symptomatic treatment. Will await report from cardiac catheterization today as patient was down undergoing this procedure this morning. Will continue to monitor vital signs and labs closely. Cardiology is following closely. Pulmonary is following as well. Guarded prognosis. Further recommendations to follow.
[2019-02-17 14:41] LABS: Glucose,Whole Blood 181 mg/dL (75-99)
[2019-02-17] MEDS: FUROSEMIDE 80 MG TAB PO SCH (16:06)
[2019-02-17] MEDS: SODIUM CHLORIDE 0.9% 1,000 ML IV SCH (16:06)
[2019-02-17 17:14] LABS: Glucose,Whole Blood 220 mg/dL (75-99)
[2019-02-17 20:19] LABS: Glucose,Whole Blood 218 mg/dL (75-99)
[2019-02-17] MEDS: ATORVASTATIN 40 MG TAB PO SCH (21:22)
[2019-02-18] MEDS: SODIUM CHLORIDE 0.9% 1,000 ML IV SCH (05:25)
[2019-02-18 06:46] LABS: Glucose,Whole Blood 178 mg/dL (75-99)
[2019-02-18] MEDS: CARVEDILOL 12.5 MG TAB PO SCH ×2 (06:50→17:06)
[2019-02-18] MEDS: INSULIN ASPART (NovoLOG) 100 UNIT/ML VIAL SQ SCH ×6 (06:50→21:25)
[2019-02-18] MEDS: INSULIN DETEMIR (LEVEMIR) 100 UNIT/ML SYR SQ SCH ×2 (06:51→21:25)
[2019-02-18 07:36] LABS: Glucose,Whole Blood 183 mg/dL (75-99)
[2019-02-18 08:10] LABS: Calcium 9.2 mg/dL (8.4-10.2); Potassium 4.4 mmol/L (3.5-5.1)
[2019-02-18] MEDS: FUROSEMIDE 80 MG TAB PO SCH ×2 (08:52→17:06)
[2019-02-18] MEDS: ASPIRIN 81 MG PO SCH (08:52)
[2019-02-18] MEDS: SPIRONOLACTONE 25 MG TAB PO SCH (08:52)
[2019-02-18] MEDS: LISINOPRIL 20 MG TAB PO SCH (08:52)
[2019-02-18] MEDS: FAMOTIDINE 20 MG TAB PO SCH ×2 (08:52→21:25)
[2019-02-18] MEDS: IPRATROPIUM-ALBUTEROL 3 ML NEB INHALATION PRN ×4 (09:15→21:27)
--- NOTE | 2019-02-18 10:25 | P.PN ---
Progress Note - Text Progress Note Date: 02/18/19 The patient was seen in consultation. 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 He will probably need a percutaneous nephrostolithotomy electively. I will see him as an outpatient.
--- NOTE | 2019-02-18 11:56 | P.PN ---
Subjective Progress Note Date: 02/18/19 Patient is a 78-year-old male with past medical history significant for CAD status post CABG 3, dyslipidemia, diabetes, hypertension who presented with complaints of shortness of breath. He is a patient of Dr. Vences. Patient states he has had shortness of breath on exertion and orthopnea and has always slept in a recliner for the past "10 years". Over the last 3 days he has had worsening shortness of breath on exertion. States it started with a sinus infection and he has been coughing. He has also had tightness in the center of his chest which is worse with coughing. Upon presentation his temperature is 97.7F, pulse was 100, respirations 22, blood pressure 199/96, oxygen saturation 97% on 3 L nasal cannula. EKG showed sinus tachycardia with first-degree AV block, no ST or T wave abnormalities. Chest x-ray showed mild pulmonary vascular congestion and probable small bilateral pleural effusions. Troponins were elevated at 0.097 and peaked at 0.101. A stress test was ordered but he was unable to complete the test because he is unable to lie flat. Patient seen and examined sitting in his chair. States his breathing has improved somewhat. Denies any chest pain currently. No dizziness lightheadedness or syncope. 02/14/2019 Patient was seen and examined today sitting up in his chair at bedside. Continues to complain of feeling short of breath. He still is unable to lie flat. Blood pressure 146/60 with a heart rate in the 60s, 97% on 3 L of oxygen. White blood cell count 11.3, hemoglobin 13.4, platelet count 243. 02/15/2019 Patient continues to be on IV Lasix drip, his weight is down 6 kg today. Blood pressure this morning 175/77 with a heart rate in the 70s, 98% on room air. Blood cell count 12.0, hemoglobin 13.8, platelet count 288. Sodium 140, potassium 3.9, BUN 21 and creatinine 1.2. We will increase the dose of Coreg to 12-1/2 mg one tablet by mouth twice a day. 02/16/2019 Patient seen and examined this morning, sitting up in his chair, currently on IV push Lasix. He diuresed well from the Lasix drip, breathing is stable. He has not attempted yet to lie flat in bed.blood pressure 146/70 with a heart rate in the 60s, 98% on room air.White blood cell count 9.4, hemoglobin 14.3, platelet count 265. Sodium 140, potassium 3.8, BUN 22 and creatinine 1.1. 02/17/2019 Coronary angiography revealed occlusion of SVG to RCA. with 60-70% lesion in the proximal [place] artery and a 90% distal lesion before a total occlusion of the PDA. BARGER to LAD is patent. Radial graft to diagonal is patent. 02/18/2019 patient states he is doing relatively well and is interested in discharge. Currently we'll be treating him medically for his CAD. left brachial site clean, dry, and intact. sodium 140, potassium 4.4, BUN 20, creatinine 1.10. Blood pressure mildly elevated with heart rates in the 50-60s. 98% on room air. Objective - Vital Signs Vital signs: Vital Signs Temp 98 F 02/18/19 00:00 Pulse 64 02/18/19 09:24 Resp 18 02/18/19 04:00 BP 166/70 02/18/19 04:00 Pulse Ox 98 02/18/19 04:00 Intake & Output 02/17/19 02/18/19 02/18/19 18:59 06:59 18:59 Intake Total 660 640 280 Output Total 1050 Balance 660 -410 280 Weight 164.8 kg Intake: IV 300 Sodium Chloride 0.9% 1, 0 000 ml @ 75 mls/hr IV . [id number] [facility] Rx#:[id number] Intake, IV Titration 0 Amount Sodium Chloride 0.9% 1, 0 000 ml @ 75 mls/hr IV . [id number] [facility] Rx#:[id number] Oral 360 640 280 Output: Urine 1050 Other: Voiding Method Toilet Toilet - Labs CBC & Chem 7: 02/17/19 07:13 02/18/19 06:57 Labs: Abnormal Lab Results - Last 24 Hours (Table) 02/17/19 02/17/19 02/17/19 Range/Units 14:28 17:11 20:18 Glucose (74-99) mg/dL POC Glucose (mg/dL) 181 H 220 H 218 H (75-99) mg/dL 02/18/19 02/18/19 02/18/19 Range/Units 06:45 06:57 07:33 Glucose 198 H (74-99) mg/dL POC Glucose (mg/dL) 178 H 183 H (75-99) mg/dL Assessment and Plan Assessment: GENERAL: Well-appearing, obese, and in no acute distress. NECK: Supple without JVD or thyromegaly. LUNGS: Breath sounds clear to auscultation bilaterally. Respiration equal and unlabored. expiratory wheezes. No rales or rhonchi. HEART: Regular rate and rhythm without murmurs, rubs or gallops. S1 and S2 heard. EXTREMITIES: Normal range of motion, no edema. No clubbing or cyanosis. +2 right pedal pulse. No left pedal pulse noted. Plan: 1 shortness of breath secondary to underlying CHF/pulmonary edema 2 CHF with systolic heart failure, acute on chronic and ejection fraction of 45% and anteroseptal hypokinesis, rule out underlying coronary artery disease 3 coronary artery disease with previous coronary artery bypass surgery, occluded SVG to RCA 4 diabetes mellitus type 2 5 Hyperlipidemia 6 morbid obesity BMI 52 7 obstructive sleep apnea with a previous UPPP 8 hypertension 9 history of nephrolithiasis/kidney stones plan Continue current medication regimen. outpatient workup for PAD. Continue to monitor.
[2019-02-18 12:09] LABS: Glucose,Whole Blood 240 mg/dL (75-99)
--- NOTE | 2019-02-18 15:44 | XR ---
EXAMINATION TYPE: XR chest 1V portable DATE OF EXAM: 02/18/2019 COMPARISON: 02/12/2019 HISTORY: CHF TECHNIQUE: Single frontal view of the chest is obtained. FINDINGS: Heart is enlarged. There is pulmonary vascular congestion. There are sternal wires. There is slight blunting of the costophrenic angles. IMPRESSION: There is probably mild congestive heart failure that is worse than last exam.
--- NOTE | 2019-02-18 16:59 | PN ---
PROGRESS NOTE DATE OF SERVICE: 02/18/2019 This 78-year-old gentleman who was admitted with shortness of breath, possibly secondary from CHF and pulmonary edema, is being closely monitored at this time. The patient also has some wheezing. The patient also had a cardiac catheterization, and even there was some blockage, no surgery is recommended at this time. Multiple consultants are following the patient closely. The patient also had a left foot wound. PT/OT is evaluating the patient for gait training purposes, also. Past medical history reviewed. REVIEW OF SYSTEMS: CARDIOVASCULAR SYSTEM: As mentioned earlier. RESPIRATORY SYSTEM: As mentioned earlier. GI: No nausea, vomiting. : No dysuria or retention. NERVOUS SYSTEM: No numbness, weakness. CURRENT MEDICATIONS: Reviewed. They include: 1. DuoNeb q.i.d. and p.r.n. 2. Xanax 0.25 q.6 p.r.n. 3. Aspirin 81 mg p.o. daily. 4. Lipitor 40 mg p.o. at bedtime. 5. Coreg 25 mg p.o. b.i.d. 6. Pepcid 20 mg p.o. b.i.d. 7. Lasix 80 mg p.o. b.i.d. 8. NovoLog before meals and at bedtime. 9. Levemir 30 units subcutaneously b.i.d. 10.Zestril 40 mg p.o. daily. 11.Nitrostat 0.4 sublingually p.r.n. 12.Aldactone 25 mg p.o. daily. PHYSICAL EXAMINATION: Patient is alert, oriented x3. The pulse is 64, blood pressure 137/63, respirations 16, temperature 97.8, pulse ox 94% on room air. HEENT: Conjunctivae normal. Oral mucosa moist. NECK: No jugular venous distention. No carotid bruit. No lymph node enlargement. CARDIOVASCULAR SYSTEM: S1, S2 muffled. RESPIRATORY SYSTEM: Breath sounds diminished at the bases. Bilateral scattered rhonchi and crackles. Expiratory wheezing also present. ABDOMEN: Soft, non-tender. No mass palpable. LEGS: No edema. No swelling. NERVOUS SYSTEM: No focal deficit. LABS: CBC within normal limits. Sodium 140, potassium 4.4. ASSESSMENT: 1. Shortness of breath, possibly congestive heart failure, acute exacerbation, with acute on chronic diastolic and systolic dysfunction. 2. Coronary artery disease, status post cardiac catheterization. 3. History of coronary artery bypass grafting in the past. 4. Diabetes mellitus, type 2. 5. Obesity. 6. Gait dysfunction. 7. Left foot ulcer. 8. Hypertension. 9. Hyperlipidemia. RECOMMENDATIONS AND DISCUSSION: In this 78-year-old gentleman who presented with multiple complex medical issues, we will monitor the patient closely, continue the current medications, continue with symptomatic treatment. Otherwise, PT/OT evaluation and gait training. Ensure safety at home. Otherwise, monitor blood sugars closely. Continue the rest of the medications. Guarded prognosis. Further recommendations to follow. MMODL / IJN: [id number] /
[2019-02-18 17:27] LABS: Glucose,Whole Blood 187 mg/dL (75-99)
[2019-02-18 21:03] LABS: Glucose,Whole Blood 192 mg/dL (75-99)
[2019-02-18] MEDS: ATORVASTATIN 40 MG TAB PO SCH (21:25)
[2019-02-19 06:37] LABS: Glucose,Whole Blood 218 mg/dL (75-99)
[2019-02-19] MEDS: INSULIN DETEMIR (LEVEMIR) 100 UNIT/ML SYR SQ SCH ×2 (06:54→21:30)
[2019-02-19] MEDS: CARVEDILOL 12.5 MG TAB PO SCH ×2 (06:54→17:09)
[2019-02-19] MEDS: INSULIN ASPART (NovoLOG) 100 UNIT/ML VIAL SQ SCH ×6 (06:54→21:49)
[2019-02-19] MEDS: LISINOPRIL 20 MG TAB PO SCH (09:25)
[2019-02-19] MEDS: ASPIRIN 81 MG PO SCH (09:25)
[2019-02-19] MEDS: FAMOTIDINE 20 MG TAB PO SCH ×2 (09:25→22:00)
[2019-02-19] MEDS: SPIRONOLACTONE 25 MG TAB PO SCH (09:25)
[2019-02-19] MEDS: FUROSEMIDE 80 MG TAB PO SCH (09:25)
[2019-02-19] MEDS: IPRATROPIUM-ALBUTEROL 3 ML NEB INHALATION PRN ×3 (09:37→19:19)
[2019-02-19 11:22] LABS: Basophils # (A) 0.1 k/uL (0-0.2); Basophils % (A) 1 %; Eosinophils # (A) 0.1 k/uL (0-0.7); Eosinophils % (A) 1 %; HCT 43.8 % (39.0-53.0); HGB 13.6 gm/dL (13.0-17.5); Lymphocytes # (A) 1.5 k/uL (1.0-4.8); Lymphocytes % (A) 17 %; MCH 27.8 pg (25.0-35.0); MCHC 31.1 g/dL (31.0-37.0); MCV 89.5 fL (80.0-100.0); Mean Platelet Volume 7.1; Monocytes # (A) 0.8 k/uL (0-1.0); Monocytes % (A) 9 %; Neutrophils # (A) 6.4 k/uL (1.3-7.7); Neutrophils % (A) 70 %; Platelet Count 237 k/uL (150-450); RDW 14.6 % (11.5-15.5); WBC 9.2 k/uL (3.8-10.6)
[2019-02-19 11:36] LABS: Calcium 9.3 mg/dL (8.4-10.2)
[2019-02-19 12:33] LABS: Glucose,Whole Blood 201 mg/dL (75-99)
--- NOTE | 2019-02-19 14:54 | P.PN ---
Subjective Progress Note Date: 02/19/19 Patient is a 78-year-old male with past medical history significant for CAD status post CABG 3, dyslipidemia, diabetes, hypertension who presented with complaints of shortness of breath. He is a patient of Dr. Vences. Patient states he has had shortness of breath on exertion and orthopnea and has always slept in a recliner for the past "10 years". Over the last 3 days he has had worsening shortness of breath on exertion. States it started with a sinus infection and he has been coughing. He has also had tightness in the center of his chest which is worse with coughing. Upon presentation his temperature is 97.7F, pulse was 100, respirations 22, blood pressure 199/96, oxygen saturation 97% on 3 L nasal cannula. EKG showed sinus tachycardia with first-degree AV block, no ST or T wave abnormalities. Chest x-ray showed mild pulmonary vascular congestion and probable small bilateral pleural effusions. Troponins were elevated at 0.097 and peaked at 0.101. A stress test was ordered but he was unable to complete the test because he is unable to lie flat. Patient seen and examined sitting in his chair. States his breathing has improved somewhat. Denies any chest pain currently. No dizziness lightheadedness or syncope. Coronary angiography revealed occlusion of SVG to RCA. with 60-70% lesion in the proximal [place] artery and a 90% distal lesion before a total occlusion of the PDA. BARGER to LAD is patent. Radial graft to diagonal is patent. 02/18/2019 patient states he is doing relatively well and is interested in discharge. Currently we'll be treating him medically for his CAD. left brachial site clean, dry, and intact. sodium 140, potassium 4.4, BUN 20, creatinine 1.10. Blood pressure mildly elevated with heart rates in the 50-60s. 98% on room air. 02/19/19 Patient denies any cardiac symptoms. He states he was able to ambulate to the bathroom with assistance this morning. His is concerned that she will be unable to assist him at home. Laboratory data shows WBC 9.2, hemoglobin 13.6, hematocrit 43.8, platelet 237, sodium 139, potassium 4.0, BUN 21, creatinine 1.10. Blood pressure recently well controlled in the 1:30 systolic. Heart rates range in the 50s to 80s. 94% on room air. Objective - Vital Signs Vital signs: Vital Signs Temp 97.7 F 02/19/19 08:00 Pulse 56 L 02/19/19 09:47 Resp 18 02/19/19 08:00 BP 133/63 02/19/19 08:00 Pulse Ox 94 L 02/19/19 08:00 Intake & Output 02/18/19 02/19/19 02/19/19 18:59 06:59 18:59 Intake Total 750 230 Output Total 1203 800 401 Balance -453 -800 -171 Weight 162.8 kg Intake: Oral 750 230 Output: Urine 1200 800 400 Stool 3 1 Other: Voiding Method Toilet Toilet Toilet # Bowel Movements 1 - Exam GENERAL: Well-appearing, obese and in no acute distress. NECK: Supple without JVD or thyromegaly. LUNGS: Breath sounds clear to auscultation bilaterally. Respiration equal and unlabored. No wheezes, rales or rhonchi. HEART: Regular rate and rhythm without murmurs, rubs or gallops. S1 and S2 heard. EXTREMITIES: Normal range of motion, no edema. No clubbing or cyanosis. Peripheral pulses intact and strong in the right lower extremity. No peripheral pulses in the left lower extremity. Procedure site open to air. Recommend nursing staff cover with gauze to prevent infection. No redness or drainage noted. - Labs CBC & Chem 7: 02/19/19 11:02 02/19/19 11:02 Labs: Abnormal Lab Results - Last 24 Hours (Table) 02/18/19 02/18/19 02/19/19 Range/Units 17:22 20:51 06:35 BUN (9-20) mg/dL Glucose (74-99) mg/dL POC Glucose (mg/dL) 187 H 192 H 218 H (75-99) mg/dL 02/19/19 02/19/19 Range/Units 11:02 12:31 BUN 21 H (9-20) mg/dL Glucose 241 H (74-99) mg/dL POC Glucose (mg/dL) 201 H (75-99) mg/dL Assessment and Plan Assessment: 1 shortness of breath secondary to underlying CHF/pulmonary edema 2 CHF with systolic heart failure, acute on chronic and ejection fraction of 45% and anteroseptal hypokinesis, rule out underlying coronary artery disease 3 coronary artery disease with previous coronary artery bypass surgery, occluded SVG to RCA 4 diabetes mellitus type 2 5 Hyperlipidemia 6 morbid obesity BMI 52 7 obstructive sleep apnea with a previous UPPP 8 hypertension Plan: Continue current medication regimen. Recommend a heart healthy diet and encourage ambulation. Patient is cleared for discharge from the cardiac standpoint in the next 24-48 hours. Outpatient PAD workup recommended.
--- NOTE | 2019-02-19 16:25 | CT ---
EXAMINATION TYPE: CT chest wo con DATE OF EXAM: 02/19/2019 COMPARISON: None HISTORY: SOB CT DLP: 1695 mGycm. Automated Exposure Control for Dose Reduction was Utilized. TECHNIQUE: CT scan of the thorax is performed without IV contrast. FINDINGS: There is mild coarsening of the pulmonary interstitial markings. There is no evidence of a pulmonary mass. Heart is enlarged. There is no pericardial effusion. There is no pleural effusion. There is lar ge calculus in the left renal pelvis. There is dense coronary artery calcification. There are few mediastinal peritracheal lymph nodes that measure up to 1 cm. There are no hilar masses. There is spondylotic changes throughout the thoracic spine. There is no compression fracture. There a re sternal wires. I see no bony destructive process. IMPRESSION: Extensive atherosclerotic vascular disease. There is large left side renal staghorn calcu [place]. Possible calcified gallstones. Pulmonary interstitial infiltrates. No pulmonary consolidation or mass.
[2019-02-19] MEDS: FUROSEMIDE 10 MG/ML 4 ML VIAL IV SCH (17:10)
[2019-02-19 17:58] LABS: Glucose,Whole Blood 203 mg/dL (75-99)
--- NOTE | 2019-02-19 20:36 | PN ---
PROGRESS NOTE DATE OF SERVICE: 02/19/2019 This 78-year-old gentleman was admitted with shortness of breath, possible CHF exacerbation, pulmonary edema, is being closely monitored. The most recent chest x-ray showed significant bilateral lesions and CT of the chest has been requested. Multiple consultants are following the patient closely. The patient is started back on IV steroids and IV diuretics as well. PAST MEDICAL HISTORY: Reviewed. REVIEW OF SYSTEMS: CARDIOVASCULAR SYSTEM: As mentioned earlier. GI: As mentioned earlier. : No dysuria. NERVOUS SYSTEMS: No weakness. CURRENT MEDICATIONS: 1. DuoNeb q.i.d. and p.r.n. 2. Xanax. 3. Aspirin 81 mg. 4. Lipitor 40 mg. 5. Pepcid. 6. Lasix. 7. NovoLog. 8. Levemir. 9. Zestril. 10.Nitrostat. 11.Aldactone. Doses are reviewed. PHYSICAL EXAM: Patient alert and oriented x3. Pulse is 58, blood pressure 170/70, respiration 18, temperature normal, pulse ox 98% on room air. HEENT: Conjunctivae normal. Oral mucosa moist. NECK: No jugular venous distention. No lymph node enlargement. CARDIOVASCULAR: S1, S2. RESPIRATORY: Diminished breath sounds at the bases. A few scattered rhonchi and crackles. ABDOMEN: Soft, obese, nontender. LEGS: Bilateral leg edema. NERVOUS SYSTEM: No focal deficits. LABS: At this time shows CBC within normal limits. Glucose 241, 201. ASSESSMENT: 1. Congestive heart failure, acute exacerbation, shortness of breath with possible acute on chronic diastolic and systolic dysfunction. 2. Persistent congestive heart failure. 3. Coronary artery disease status post cardiac catheterization. 4. History of coronary artery bypass graft in the past. 5. Diabetes mellitus type 2. 6. Obesity. 7. Gait dysfunction. 8. Left foot ulcer. 9. Hypertension. 10.Hyperlipidemia. RECOMMENDATIONS AND DISCUSSION: Recommend to continue current medications, continue to monitor, continue symptomatic treatment. Continue with IV diuretics. Monitor fluid balance closely and fluid restriction 1200 mL per 24 hours. Continue the rest of medication. Also recommend a CT scan of the chest to rule out any other intrathoracic abnormality. Further recommendations to follow. Discussed with the patient. MMODL / IJN: [id number] /
[2019-02-19 20:53] LABS: Glucose,Whole Blood 109 mg/dL (75-99)
[2019-02-19] MEDS: ATORVASTATIN 40 MG TAB PO SCH (22:01)
[2019-02-20 06:25] LABS: Basophils # (A) 0.1 k/uL (0-0.2); Basophils % (A) 1 %; Eosinophils % (A) 0 %; HGB 14.6 gm/dL (13.0-17.5); Lymphocytes # (A) 1.8 k/uL (1.0-4.8); Lymphocytes % (A) 15 %; MCH 29.5 pg (25.0-35.0); MCHC 33.3 g/dL (31.0-37.0); MCV 88.6 fL (80.0-100.0); Mean Platelet Volume 6.7; Monocytes # (A) 1.1 k/uL (0-1.0); Monocytes % (A) 9 %; Neutrophils # (A) 8.8 k/uL (1.3-7.7); Neutrophils % (A) 73 %; Platelet Count 263 k/uL (150-450); RBC 4.97 m/uL (4.30-5.90); RDW 14.5 % (11.5-15.5); WBC 12.1 k/uL (3.8-10.6)
[2019-02-20 06:37] LABS: Calcium 9.8 mg/dL (8.4-10.2); Potassium 4.4 mmol/L (3.5-5.1)
[2019-02-20] MEDS: CARVEDILOL 12.5 MG TAB PO SCH ×2 (07:10→18:06)
[2019-02-20] MEDS: INSULIN ASPART (NovoLOG) 100 UNIT/ML VIAL SQ SCH ×6 (07:10→21:35)
[2019-02-20] MEDS: INSULIN DETEMIR (LEVEMIR) 100 UNIT/ML SYR SQ SCH ×2 (07:10→21:36)
[2019-02-20 07:45] LABS: Glucose,Whole Blood 237 mg/dL (75-99)
[2019-02-20] MEDS: FUROSEMIDE 80 MG TAB PO SCH ×2 (07:59→15:50)
[2019-02-20] MEDS: SPIRONOLACTONE 25 MG TAB PO SCH (09:21)
[2019-02-20] MEDS: FUROSEMIDE 10 MG/ML 4 ML VIAL IV SCH ×2 (09:21)
[2019-02-20] MEDS: FAMOTIDINE 20 MG TAB PO SCH (09:21)
[2019-02-20] MEDS: ASPIRIN 81 MG PO SCH (09:21)
[2019-02-20] MEDS: LISINOPRIL 20 MG TAB PO SCH (09:21)
[2019-02-20] MEDS: TAMSULOSIN 0.4 MG CAP.ER.24H PO SCH (09:21)
--- NOTE | 2019-02-20 12:45 | P.PN ---
Subjective This is a pleasant 78 years old male with past medical history of coronary artery disease, diabetes mellitus, hyperlipidemia, hypertension. Presents because of worsening dyspnea for 3 days duration associated with cough and phlegm, and no color for the last 3 days as well. Patient complains that he has sinusitis applied And his Flonase was not helping him much. He denies chest pain. Patient states that he has history of triple bypass surgery about 15 years ago and he follows with Dr. Vences, last week he underwent cardiac stress test but he could not finish it because he could not lie flat and the psoas of his leg cramps, and he is scheduled tomorrow for echocardiogram stress test. Patient also was complaining of from exertional dyspnea for 6 month, his family medicine doctor prescribed him inhaled albuterol however that did not control it well and it was progressively getting worse. Patient denies use of home oxygen on steroids Vitas looks stable. Left showing mild leukocytosis of 10.7, with unremarkable BMP,, INR and liver enzymes. Troponin was elevated at 0.08 and 0.10. Nitro proBNP is 2460. EKG showing normal sinus rhythm at 96 with first-degree AV block with Q waves in the anterior lateral leads and poor R-wave progression. Chest x-ray: Showing mild fluid overload On admission patient was started on heparin drip plus aspirin. Also he was taken her dose of insulin which is cut in half on admission because he was made nothing by mouth. Also patient was started on Lasix 40 mg every 8 hours Diabetes was was taking Lantus 60 units twice a day and NovoLog insulin 20 units twice a day with meals, with breakfast and dinner, but not with lunch Because patient was made nothing by mouth we started him on Levemir 30 units twice a day only 02/20/2019 Patient still have some dyspnea and coughing with white phlegm. However he denies chest pain today. He had cardiac cath on 02/18/2019 which showing patent LAD graft with disease [place] artery, and totally occluded RCA graft with the [place] RCA for about 60-90% lesions. total occlusion of the circumflex artery with collateral flow. 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 Patient had CAT scan of the chest yesterday which shows interstitial changes, also his lap showing mild leukocytosis of 12 K today as well as worsening creatinine of 1.4. 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 and recommended outpatient percutaneous nephrostolithotomy electively Objective - Vital Signs Vital signs: Vital Signs Temp 97.5 F L 02/20/19 08:00 Pulse 58 L 02/20/19 11:55 Resp 16 02/20/19 11:55 BP 132/67 02/20/19 11:54 Pulse Ox 98 02/20/19 11:54 Intake & Output 02/19/19 02/20/19 02/20/19 18:59 06:59 18:59 Intake Total 460 250 Output Total 1753 1050 Balance -1293 -800 Weight 160.3 kg Intake: Intake, IV Titration 20 Amount IV Fluid Continuation 1, 20 000 ml @ 0 mls/hr IV .[employer] ONE Rx#:[id number] Oral 460 230 Output: Urine 1750 1050 Stool 3 Other: Voiding Method Toilet Toilet - Exam -GENERAL: The patient is alert and oriented x3, not in any acute distress. Morbid obesity HEENT: Pupils are round and equally reacting to light. EOMI. No scleral icterus. No conjunctival pallor. Normocephalic, atraumatic. No pharyngeal erythema. No thyromegaly. CARDIOVASCULAR: S1 and S2 present. No murmurs, rubs, or gallops. -PULMONARY: Chest is clear to auscultation, no wheezing. Bilateral scattered crepitation ABDOMEN: Soft, nontender, nondistended, normoactive bowel sounds. No palpable organomegaly. MUSCULOSKELETAL: No joint swelling or deformity. EXTREMITIES: No cyanosis, clubbing, or pedal edema. NEUROLOGICAL: Gross neurological examination did not reveal any focal deficits. SKIN: No rashes. No petechiae - Labs CBC & Chem 7: 02/20/19 05:35 02/20/19 05:35 Labs: Abnormal Lab Results - Last 24 Hours (Table) 02/19/19 02/19/19 02/20/19 Range/Units 17:48 20:52 05:35 WBC 12.1 H (3.8-10.6) k/uL Neutrophils # 8.8 H (1.3-7.7) k/uL Monocytes # 1.1 H (0-1.0) k/uL Chloride (98-107) mmol/L BUN (9-20) mg/dL Creatinine (0.66-1.25) mg/dL Glucose (74-99) mg/dL POC Glucose (mg/dL) 203 H 109 H (75-99) mg/dL 02/20/19 02/20/19 Range/Units 05:35 07:44 WBC (3.8-10.6) k/uL Neutrophils # (1.3-7.7) k/uL Monocytes # (0-1.0) k/uL Chloride 97 L (98-107) mmol/L BUN 29 H (9-20) mg/dL Creatinine 1.41 H (0.66-1.25) mg/dL Glucose 234 H (74-99) mg/dL POC Glucose (mg/dL) 237 H (75-99) mg/dL Assessment and Plan Assessment: None STEMI. with History of coronary artery disease Uncontrolled chronic exertional dyspnea, mostly related to his acute pulmonary edema. Improved Diabetes mellitus on insulin, with hyperglycemia present on admission Diabetic foot ulcer, controlled with local therapy Hypertension Hyperlipidemia Morbid obesity Plan: This is a pleasant 78 years old male who presents with possible non-STEMI, continue with aspirin . 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 Patient today has worsening leukocytosis and creatinine, we'll keep monitoring. We'll ask for pulmonary follow-up for his abnormal CAT scan findings. It urologist recommended outpatient follow-up for his left staghorn renal calculus. Continue with insulin sliding scale and resume his insulin based on his glucose check and diet. Continue with Lasix. Consult pulmonary for uncontrolled exertional dyspnea Resume his insulin and to goes at half the dose, resume his regular dose of insulin once he starts eating Labs and medication were reviewed.. Continue same treatment. Continue with symptomatic treatment. Resume home medication. Monitor lytes and vitals. DVT and GI prophylaxis. Further recommendations of the clinical course of the patient DVT prophylaxis: heparin GI Prophylaxis: Pepcid PT/OT: Home health care Prognosis is guarded
[2019-02-20 13:00] LABS: Glucose,Whole Blood 226 mg/dL (75-99)
--- NOTE | 2019-02-20 13:23 | P.PN ---
Subjective Progress Note Date: 02/20/19 Patient is a 78-year-old male with past medical history significant for CAD status post CABG 3, dyslipidemia, diabetes, hypertension who presented with complaints of shortness of breath. He is a patient of Dr. Vences. Patient states he has had shortness of breath on exertion and orthopnea and has always slept in a recliner for the past "10 years". Over the last 3 days he has had worsening shortness of breath on exertion. States it started with a sinus infection and he has been coughing. He has also had tightness in the center of his chest which is worse with coughing. Upon presentation his temperature is 97.7F, pulse was 100, respirations 22, blood pressure 199/96, oxygen saturation 97% on 3 L nasal cannula. EKG showed sinus tachycardia with first-degree AV block, no ST or T wave abnormalities. Chest x-ray showed mild pulmonary vascular congestion and probable small bilateral pleural effusions. Troponins were elevated at 0.097 and peaked at 0.101. A stress test was ordered but he was unable to complete the test because he is unable to lie flat. Patient seen and examined sitting in his chair. States his breathing has improved somewhat. Denies any chest pain currently. No dizziness lightheadedness or syncope. 02/14/2019 Patient was seen and examined today sitting up in his chair at bedside. Continues to complain of feeling short of breath. He still is unable to lie flat. Blood pressure 146/60 with a heart rate in the 60s, 97% on 3 L of oxygen. White blood cell count 11.3, hemoglobin 13.4, platelet count 243. 02/15/2019 Patient continues to be on IV Lasix drip, his weight is down 6 kg today. Blood pressure this morning 175/77 with a heart rate in the 70s, 98% on room air. Blood cell count 12.0, hemoglobin 13.8, platelet count 288. Sodium 140, potassi um 3.9, BUN 21 and creatinine 1.2. We will increase the dose of Coreg to 12-1/2 mg one tablet by mouth twice a day. 02/16/2019 Patient seen and examined this morning, sitting up in his chair, currently on IV push Lasix. He diuresed well from the Lasix drip, breathing is stable. He has not attempted yet to lie flat in bed.blood pressure 146/70 with a heart rate in the 60s, 98% on room air.White blood cell count 9.4, hemoglobin 14.3, platelet count 265. Sodium 140, potassium 3.8, BUN 22 and creatinine 1.1. 02/20/2019 Patient was seen and examined this morning, ambulating without any difficulty, hemodynamically stable. Blood pressure 132/60 with a heart rate in the 60s, 98% on room air. White blood cell count 12.1, hemoglobin 14.6, platelet count 263. Sodium 137, potassium 4.4, BUN 29 and creatinine 1.4. Objective - Vital Signs Vital signs: Vital Signs Temp 97.5 F L 02/20/19 08:00 Pulse 58 L 02/20/19 11:55 Resp 16 02/20/19 11:55 BP 132/67 02/20/19 11:54 Pulse Ox 98 02/20/19 11:54 Intake & Output 02/19/19 02/20/19 02/20/19 18:59 06:59 18:59 Intake Total 460 250 Output Total 1753 1050 Balance -1293 -800 Weight 160.3 kg Intake: Intake, IV Titration 20 Amount IV Fluid Continuation 1, 20 000 ml @ 0 mls/hr IV .[employer] ONE Rx#:[id number] Oral 460 230 Output: Urine 1750 1050 Stool 3 Other: Voiding Method Toilet Toilet - Exam Morbidly obese, comfortable no acute distress BMI of 52 Head exam was generally normal. There was no scleral icterus or corneal arcus. Mucous membranes were moist. Neck was supple and without jugular venous distension, thyromegaly, or carotid bruits. Carotids were easily palpable bilaterally. There was no adenopathy. Lungs are diminished along with excellent lung base bilaterally. No wheezes or rhonchi. Heart sounds are distant, positive S1-S2 and there is no significant murmurs appreciated. No ventricular heave or thrill Abdominal exam revealed normal bowel sounds. The abdomen was soft, non-tender, and without masses, organomegaly, or appreciable enlargement of the abdominal aorta. Extremities revealed trace edema and there is no cyanosis or clubbing Examination of the skin revealed no evidence of significant rashes, suspicious appearing nevi or other concerning lesions. Neurologically awake and alert and there is no focal logical deficits. - Labs CBC & Chem 7: 02/20/19 05:35 02/20/19 05:35 Labs: Abnormal Lab Results - Last 24 Hours (Table) 02/19/19 02/19/19 02/20/19 Range/Units 17:48 20:52 05:35 WBC 12.1 H (3.8-10.6) k/uL Neutrophils # 8.8 H (1.3-7.7) k/uL Monocytes # 1.1 H (0-1.0) k/uL Chloride (98-107) mmol/L BUN (9-20) mg/dL Creatinine (0.66-1.25) mg/dL Glucose (74-99) mg/dL POC Glucose (mg/dL) 203 H 109 H (75-99) mg/dL 02/20/19 02/20/19 02/20/19 Range/Units 05:35 07:44 12:37 WBC (3.8-10.6) k/uL Neutrophils # (1.3-7.7) k/uL Monocytes # (0-1.0) k/uL Chloride 97 L (98-107) mmol/L BUN 29 H (9-20) mg/dL Creatinine 1.41 H (0.66-1.25) mg/dL Glucose 234 H (74-99) mg/dL POC Glucose (mg/dL) 237 H 226 H (75-99) mg/dL Assessment and Plan Plan: Assessment and Plan: 1 shortness of breath secondary to underlying CHF/pulmonary edema 2 CHF with systolic heart failure, acute on chronic and ejection fraction of 45% and anteroseptal hypokinesis, rule out underlying coronary artery disease 3 coronary artery disease with previous coronary artery bypass surgery and the surgery was done more than 15 years ago. 4 diabetes mellitus type 2, on insulin 5. Hyperlipidemia 6 morbid obesity BMI 52 7 obstructive sleep apnea with a previous UPPP 8 hypertension 9 history of nephrolithiasis/kidney stones Plan We will discontinue the IV Lasix and start the patient on Lasix 80 mg 1 tablet by mouth twice a day. Discharge once cleared by primary. DNP note has been reviewed, I agree with a documented findings and plan of care. Patient was seen and examined.
[2019-02-20 14:32] VITALS: BMI 49.3
[2019-02-20 14:51] LABS: Appearance,Urine Clear (Clear); Bilirubin,Urine Negative (Negative); Blood,Urine Small (Negative); Color,Urine Light Yellow; Glucose,Urine (UA) Negative (Negative); Hyaline Casts,Urine 15 /lpf (0-2); Ketones,Urine Negative (Negative); Leukocyte Esterase,Urine Large (Negative); Mucus,Urine Rare /hpf; Nitrite,Urine Negative (Negative); PH, Urine 5.5 (5.0-8.0); Protein,Urine Negative (Negative); RBC,Urine 28 /hpf (0-5); Urobilinogen,Urine <2.0 mg/dL (<2.0); WBC,Urine 89 /hpf (0-5)
[2019-02-20] MEDS: HEPARIN SODIUM,PORCINE 5,000 UNIT/ML 1 ML VIAL SQ SCH ×2 (15:50→20:15)
[2019-02-20 17:25] LABS: Glucose,Whole Blood 312 mg/dL (75-99)
--- NOTE | 2019-02-20 17:31 | P.PN ---
Subjective Progress Note Date: 02/20/19 Principal diagnosis: Shortness of breath secondary to underlying CHF/pulmonary edema On 02/15/2019 patient seen in follow-up on selective care unit, he states his left short of breath with exertion, and he feels like the generalized swelling is becoming less. He remains on Lasix drip at 10 mg per hour, and he is maintaining negative fluid balance. His been ambulating to the bathroom, he is on room air. No acute complaints overnight, complaints of chest pain, no fever or chills. No cough or congestion, his echocardiogram results have been noted, his EF is 45-50% and the valves were difficult to visualize, there was no mitral regurg, mild tricuspid regurg is present, no evidence of pulmonary hypertension, he has been started on Coreg. Has been seen by urology, and outpatient percutaneous nephrolithotomy will be planned once patient is discharged from the hospital On 02/20/2019 patient seen in follow-up on selective care unit, he sitting up in a chair, in no acute distress, he states his breathing is improving, he is on room air, with a pulse ox of 98%, he is afebrile, hemodynamically stable, no complaints of chest pain, he has been transitioned to oral Lasix, he is maintaining negative fluid balance, -2093 mL over the last 24 hours, he has been ambulating without any difficulty, hemodynamically patient has been stable, resting see the patient in regards to the findings on the CT chest completed on 02/19/2019 which showed mild coarsening of the pulmonary interstitial markings, no evidence of pulmonary mass, cardiomegaly, and no significant adenopathy. Findings are most consistent with pulmonary edema, and acute CHF, clinically patient is improving, fluid balance status is improving, we'll repeat chest x- ray in the morning, and possibly discharge home tomorrow Objective - Vital Signs Vital signs: Vital Signs Temp 98.1 F 02/20/19 15:48 Pulse 61 02/20/19 16:00 Resp 16 02/20/19 16:00 BP 134/72 02/20/19 15:48 Pulse Ox 98 02/20/19 15:48 Intake & Output 02/19/19 02/20/19 02/20/19 18:59 06:59 18:59 Intake Total 460 250 246 Output Total 1753 1050 Balance -1293 -800 246 Weight 160.3 kg 160.3 kg Intake: Intake, IV Titration 20 10 Amount IV Fluid Continuation 1, 20 10 000 ml @ 0 mls/hr IV .[employer] ONE Rx#:[id number] Oral 460 230 236 Output: Urine 1750 1050 Stool 3 Other: Voiding Method Toilet Toilet - Exam GENERAL EXAM: Alert, pleasant, 78-year-old white male, on room air, with a pulse ox of 98%, comfortable in no apparent distress. HEAD: Normocephalic/atraumatic. EYES: Normal reaction of pupils, equal size. Conjunctiva pink, sclera white. NOSE: Clear with pink turbinates. THROAT: No erythema or exudates. NECK: No masses, no JVD, no thyroid enlargement, no adenopathy. CHEST: No chest wall deformity. Symmetrical expansion. LUNGS: Equal air entry with no crackles, wheeze, rhonchi or dullness. CVS: Regular rate and rhythm, normal S1 and S2, no gallops, no murmurs, no rubs ABDOMEN: Soft, nontender. No hepatosplenomegaly, normal bowel sounds, no guarding or rigidity. EXTREMITIES: No clubbing, no edema, no cyanosis, 2+ pulses and upper and lower extremities. MUSCULOSKELETAL: Muscle strength and tone normal. SPINE: No scoliosis or deformity SKIN: No rashes CENTRAL NERVOUS SYSTEM: Alert and oriented -3. No focal deficits, tone is normal in all 4 extremities. PSYCHIATRIC: Alert and oriented -3. Appropriate affect. Intact judgment and insight. - Labs CBC & Chem 7: 02/20/19 05:35 02/20/19 05:35 Labs: Abnormal Lab Results - Last 24 Hours (Table) 02/19/19 02/19/19 02/20/19 Range/Units 17:48 20:52 05:35 WBC 12.1 H (3.8-10.6) k/uL Neutrophils # 8.8 H (1.3-7.7) k/uL Monocytes # 1.1 H (0-1.0) k/uL Chloride (98-107) mmol/L BUN (9-20) mg/dL Creatinine (0.66-1.25) mg/dL Glucose (74-99) mg/dL POC Glucose (mg/dL) 203 H 109 H (75-99) mg/dL Urine Blood (Negative) Ur Leukocyte Esterase (Negative) Urine RBC (0-5) /hpf Urine WBC (0-5) /hpf Hyaline Casts (0-2) /lpf Urine Mucus (None) /hpf 02/20/19 02/20/19 02/20/19 Range/Units 05:35 07:44 12:37 WBC (3.8-10.6) k/uL Neutrophils # (1.3-7.7) k/uL Monocytes # (0-1.0) k/uL Chloride 97 L (98-107) mmol/L BUN 29 H (9-20) mg/dL Creatinine 1.41 H (0.66-1.25) mg/dL Glucose 234 H (74-99) mg/dL POC Glucose (mg/dL) 237 H 226 H (75-99) mg/dL Urine Blood (Negative) Ur Leukocyte Esterase (Negative) Urine RBC (0-5) /hpf Urine WBC (0-5) /hpf Hyaline Casts (0-2) /lpf Urine Mucus (None) /hpf 02/20/19 02/20/19 Range/Units 14:40 17:23 WBC (3.8-10.6) k/uL Neutrophils # (1.3-7.7) k/uL Monocytes # (0-1.0) k/uL Chloride (98-107) mmol/L BUN (9-20) mg/dL Creatinine (0.66-1.25) mg/dL Glucose (74-99) mg/dL POC Glucose (mg/dL) 312 H (75-99) mg/dL Urine Blood Small H (Negative) Ur Leukocyte Esterase Large H (Negative) Urine RBC 28 H (0-5) /hpf Urine WBC 89 H (0-5) /hpf Hyaline Casts 15 H (0-2) /lpf Urine Mucus Rare H (None) /hpf Assessment and Plan Plan: Assessment: 1 shortness of breath secondary to underlying CHF/pulmonary edema 2 CHF with systolic heart failure and ejection fraction of 45% and anteroseptal hypokinesis, rule out underlying coronary artery disease 3 coronary artery disease with previous coronary artery bypass surgery and the surgery was done more than 15 years ago. 4 diabetes mellitus type 2, on insulin 5. Hyperlipidemia 6 morbid obesity BMI 52 7 obstructive sleep apnea with a previous UPPP 8 hypertension 9 history of nephrolithiasis/kidney stones Plan: Continue with current plan of treatment, continue oral Lasix, we'll repeat chest x-ray tomorrow, CT chest has been reviewed, and the findings are consistent with pulmonary edema, CHF and fluid overload. Clinically patient is stable, breathing easier, he continues to diurese, he is on room air, but no chest pain, if he remains stable tomorrow and if the chest x-ray improves patient should be able to be discharged home I performed a history & physical examination of the patient and discussed their management with my nurse practitioner, eSnia Milton. I reviewed the nurse practitioner's note and agree with the documented findings and plan of care. Lung sounds are positive for clear breath sounds. The findings and the impression was discussed with the patient. I attest to the documentation by the nurse practitioner. Time with Patient: Less than 30
[2019-02-20] MEDS: IPRATROPIUM-ALBUTEROL 3 ML NEB INHALATION PRN (19:12)
[2019-02-20] MEDS: ATORVASTATIN 40 MG TAB PO SCH (20:15)
[2019-02-20 20:31] LABS: Basophils # (A) 0.1 k/uL (0-0.2); Basophils % (A) 1 %; Eosinophils % (A) 0 %; HCT 45.2 % (39.0-53.0); HGB 14.7 gm/dL (13.0-17.5); Lymphocytes # (A) 1.8 k/uL (1.0-4.8); Lymphocytes % (A) 17 %; MCH 28.9 pg (25.0-35.0); MCHC 32.5 g/dL (31.0-37.0); MCV 88.8 fL (80.0-100.0); Mean Platelet Volume 6.8; Monocytes # (A) 0.9 k/uL (0-1.0); Monocytes % (A) 9 %; Neutrophils # (A) 7.2 k/uL (1.3-7.7); Neutrophils % (A) 70 %; Platelet Count 270 k/uL (150-450); RBC 5.09 m/uL (4.30-5.90); RDW 14.4 % (11.5-15.5); WBC 10.2 k/uL (3.8-10.6)
[2019-02-20 20:40] LABS: Calcium 10.1 mg/dL (8.4-10.2); Potassium 4.5 mmol/L (3.5-5.1)
--- NOTE | 2019-02-20 21:20 | CDI ---
Documentation Clarification Form Date: 02/20/2019 8:59:25 PM From: Lacie Blackwood RN, CCDS Admit Date: 02/13/2019 5:00:00 PM Patient Name: Reymundo Tyson Visit Number: [id number] ATTENTION: The Clinical Documentation Specialists (CDI) and [facility] Coding Staff appreciate your assistance in clarifying documentation. Please respond to the clarification below the line at the bottom and electronically sign. The CDI & [facility] Coding staff will review the response and follow-up if needed. Please note: Queries are made part of the Legal Health Record. If you have any questions, please contact the author of this message via ITS. Dr. Ld Mauricio Increasing BUN and Creatinine with a declining GFR have been noted. Please provide clinical significance. History/Risk Factors: Acute on chronic combined CHF, HTN, DM2, staghorn calculus left kidney 04/01/16 Patients baseline BUN/CR/GFR: 23/05. Clinical Indicators: 02/17 Attending Progress note: "patient will be continued on IV Lasix to with close monitoring of kidney function, creatinine this morning is 1.13." Current BUN: 15/20/21/22///36 Cr: 1.04/1.15/1.22/1.16/1.1/1.41/1.47 GFR: 29/61/57/61/65/48/45 Treatment: Lasix 40 mg IVP Q 8 hrs followed by Lasix drip, weaned to Lasix 80 mg PO BID Aldactone 25 mg po QD IVF 1ml/hg/hr followed by 75 cc/hr currently D/C In order to capture the severity of condition, please clarify if the condition signifies: Acute renal failure, Please specify etiology (if known): Cortical Necrosis Medullary Necrosis Tubular Necrosis Acute kidney injury Acute on chronic renal failure CKD Stage 1 GFR >90 CKD Stage 2 GFR 60-89 CKD Stage 3 GFR 30-59 CKD Stage 4 GFR 15-29 CKD Stage 5 GFR <15 Chronic renal failure/Chronic Kidney disease (CKD) please stage (if known): CKD Stage 1 GFR >90 CKD Stage 2 GFR 60-89 CKD Stage 3 GFR 30-59 CKD Stage 4 GFR 15-29 CKD Stage 5 GFR <15 ESRD Other, please specify Unable to determine (Last Revision: August 2017) unable to determine MTDD
[2019-02-20 21:34] LABS: Glucose,Whole Blood 249 mg/dL (75-99)
[2019-02-20] MEDS ORDERED: SODIUM CHLORIDE 0.9% 500 ML 250 ML IV ONE (22:04)
[2019-02-21] MEDS: IPRATROPIUM-ALBUTEROL 3 ML NEB INHALATION PRN ×4 (06:54→19:28)
[2019-02-21 07:11] LABS: Glucose,Whole Blood 226 mg/dL (75-99)
[2019-02-21] MEDS: INSULIN ASPART (NovoLOG) 100 UNIT/ML VIAL SQ SCH ×6 (07:23→21:51)
[2019-02-21] MEDS: FAMOTIDINE 20 MG TAB PO SCH (07:24)
[2019-02-21] MEDS: LISINOPRIL 20 MG TAB PO SCH (07:24)
[2019-02-21] MEDS: HEPARIN SODIUM,PORCINE 5,000 UNIT/ML 1 ML VIAL SQ SCH ×2 (07:24→21:51)
[2019-02-21] MEDS: TAMSULOSIN 0.4 MG CAP.ER.24H PO SCH (07:24)
[2019-02-21] MEDS: ASPIRIN 81 MG PO SCH (07:24)
[2019-02-21] MEDS: SPIRONOLACTONE 25 MG TAB PO SCH (07:24)
[2019-02-21] MEDS: CARVEDILOL 12.5 MG TAB PO SCH ×2 (07:25→17:35)
[2019-02-21] MEDS: INSULIN DETEMIR (LEVEMIR) 100 UNIT/ML SYR SQ SCH ×2 (07:28→21:52)
[2019-02-21] MEDS ORDERED: INSULIN DETEMIR (LEVEMIR) 100 UNIT/ML SYR SQ ONE (08:00)
[2019-02-21] MEDS: FUROSEMIDE 80 MG TAB PO SCH (08:48)
[2019-02-21 09:33] LABS: Calcium 9.9 mg/dL (8.4-10.2); Potassium 4.5 mmol/L (3.5-5.1)
--- NOTE | 2019-02-21 10:47 | P.PN ---
Subjective Progress Note Date: 02/21/19 Principal diagnosis: Congestive heart failure The patient is seen today 02/21/2019 in follow-up on the regular medical floor. He is currently sitting up in a chair at the bedside. Awake and alert in no acute distress. Stating his breathing is back to his baseline. He is on room air. 98% O2 saturation. He is afebrile. Hemodynamically stable. Sodium 139. Potassium 4.5. Creatinine 1.80. Remains on oral Lasix at 80 mg twice a day. Less edema the lower extremities. Objective - Vital Signs Vital signs: Vital Signs Temp 97.6 F 02/21/19 08:07 Pulse 67 02/21/19 08:07 Resp 18 02/21/19 08:07 BP 118/67 02/21/19 08:07 Pulse Ox 98 02/21/19 06:55 Intake & Output 02/20/19 02/21/19 02/21/19 18:59 06:59 18:59 Intake Total 482 360 Balance 482 360 Weight 160.3 kg Intake: Intake, IV Titration 10 Amount IV Fluid Continuation 1, 10 000 ml @ 0 mls/hr IV .[facility] ONE Rx#:[id number] Oral 472 360 Other: Voiding Method Toilet Urinal # Voids 2 1 - Exam GENERAL EXAM: Alert, pleasant, 78-year-old gentleman, on room air, with a pulse ox of 98%, comfortable in no apparent distress. HEAD: Normocephalic/atraumatic. EYES: Normal reaction of pupils, equal size. Conjunctiva pink, sclera white. NOSE: Clear with pink turbinates. THROAT: No erythema or exudates. NECK: No masses, no JVD, no thyroid enlargement, no adenopathy. CHEST: No chest wall deformity. Symmetrical expansion. LUNGS: Equal air entry with no crackles, wheeze, rhonchi or dullness. CVS: Regular rate and rhythm, normal S1 and S2, no gallops, no murmurs, no rubs ABDOMEN: Soft, nontender. No hepatosplenomegaly, normal bowel sounds, no guarding or rigidity. EXTREMITIES: No clubbing, 1+ edema, no cyanosis, 2+ pulses and upper and lower extremities. MUSCULOSKELETAL: Muscle strength and tone normal. SPINE: No scoliosis or deformity SKIN: No rashes CENTRAL NERVOUS SYSTEM: No focal deficits, tone is normal in all 4 extremities. PSYCHIATRIC: Alert and oriented -3. Appropriate affect. Intact judgment and insight. - Labs CBC & Chem 7: 02/20/19 20:13 02/21/19 08:30 Labs: Abnormal Lab Results - Last 24 Hours (Table) 02/20/19 02/20/19 02/20/19 Range/Units 12:37 14:40 17:23 Chloride (98-107) mmol/L BUN (9-20) mg/dL Creatinine (0.66-1.25) mg/dL Glucose (74-99) mg/dL POC Glucose (mg/dL) 226 H 312 H (75-99) mg/dL Urine Blood Small H (Negative) Ur Leukocyte Esterase Large H (Negative) Urine RBC 28 H (0-5) /hpf Urine WBC 89 H (0-5) /hpf Hyaline Casts 15 H (0-2) /lpf Urine Mucus Rare H (None) /hpf 02/20/19 02/20/19 02/21/19 Range/Units 20:13 21:32 07:10 Chloride (98-107) mmol/L BUN 36 H (9-20) mg/dL Creatinine 1.47 H (0.66-1.25) mg/dL Glucose 293 H (74-99) mg/dL POC Glucose (mg/dL) 249 H 226 H (75-99) mg/dL Urine Blood (Negative) Ur Leukocyte Esterase (Negative) Urine RBC (0-5) /hpf Urine WBC (0-5) /hpf Hyaline Casts (0-2) /lpf Urine Mucus (None) /hpf 02/21/19 Range/Units 08:30 Chloride 97 L (98-107) mmol/L BUN 41 H (9-20) mg/dL Creatinine 1.80 H (0.66-1.25) mg/dL Glucose 277 H (74-99) mg/dL POC Glucose (mg/dL) (75-99) mg/dL Urine Blood (Negative) Ur Leukocyte Esterase (Negative) Urine RBC (0-5) /hpf Urine WBC (0-5) /hpf Hyaline Casts (0-2) /lpf Urine Mucus (None) /hpf Assessment and Plan Assessment: Assessment: 1 acute hypoxic respiratory failure secondary to acute exacerbation of chronic systolic congestive heart failure. 2 CHF with systolic heart failure and ejection fraction of 45% and anteroseptal hypokinesis, rule out underlying coronary artery disease 3 coronary artery disease with previous coronary artery bypass surgery and the surgery was done more than 15 years ago. 4 diabetes mellitus type 2, on insulin 5. Hyperlipidemia 6 morbid obesity BMI 52 7 obstructive sleep apnea with a previous UPPP 8 hypertension 9 history of nephrolithiasis/kidney stones Plan: The patient was seen and evaluated by Dr. Bauer. Chest x-ray pending. If there is stable findings are improvement patient is cleared for discharge from the pulmonary standpoint. He'll follow-up in our office in 1-2 weeks' time. He is encouraged to call sooner with any recurrence of symptoms or other questions or concerns. I, the cosigning physician, performed a history & physical examination of the patient. Lungs sounds with faint crackles in the bilateral posterior bases. Maintaining good O2 saturations in the 90s on room air. I discussed the assessment and plan of care with my nurse practitioner, Susan Diaz. I attest to the above note as dictated by her.
[2019-02-21 11:36] LABS: Glucose,Whole Blood 184 mg/dL (75-99)
[2019-02-21 12:30] LABS: Appearance,Urine Cloudy (Clear); Bacteria,Urine Occasional /hpf; Bilirubin,Urine Negative (Negative); Blood,Urine Moderate (Negative); Color,Urine Yellow; Glucose,Urine (UA) Negative (Negative); Hyaline Casts,Urine 3 /lpf (0-2); Ketones,Urine Negative (Negative); Leukocyte Esterase,Urine Large (Negative); Mucus,Urine Rare /hpf; Nitrite,Urine Negative (Negative); Protein,Urine 1+ (Negative); RBC,Urine 72 /hpf (0-5); Specific Gravity,Urine 1.014 (1.001-1.035); Squamous Epithelial Cell,Urine <1 /hpf (0-4); Urobilinogen,Urine <2.0 mg/dL (<2.0); WBC,Urine 118 /hpf (0-5)
--- NOTE | 2019-02-21 13:14 | XR ---
EXAMINATION TYPE: XR chest 1V portable DATE OF EXAM: 02/21/2019 Comparison: 02/18/2019 Clinical History: 78-year-old male CHF Findings: Median sternotomy wires are present with post-CABG clips. Heart borderline enlarged. Mild diffuse int erstitial prominence. No chel consolidation or pleural effusion. Impression: Correlate for CHF with mild pulmonary vascular congestion given interstitial changes and borderline c ardiomegaly.
--- NOTE | 2019-02-21 13:25 | P.NPCON ---
History of Present Illness - Reason for Consult acute renal failure - History of Present Illness Reason for consultation: Acute kidney injury History of present illness: Patient is a 78-year-old male seen in renal consultation for acute kidney injury. Patient's basic creatinine is near 1 and is up to 1.8 today. Patient presented to the hospital initially on February 12 with shortness of breath. Patient was noted to have an acute NSTEMI and underwent cardiac catheterization on February 17. No stents were placed. Patient is also been diuresed quite aggressively this admission. He was maintained on Lasix 80 mg orally twice daily which was decreased to 40 mg twice daily this morning. He admits to good urine output. No hematuria or dysuria at this time. He did have gross hematuria a few days ago however he also has a kidney stone and is being followed by urology. Denies any active chest pain or shortness of breath. Denies regular use of nonsteroidals. Denies personal or family history of kidney disease. He does have history of diabetes mellitus and is maintained on insulin. Hemodynamically he is stable. Blood pressure 109/67 this morning. Vital signs are stable. General: The patient appeared well nourished and normally developed. HEENT: Head exam is unremarkable. Neck is without jugular venous distension. LUNGS: Lungs are clear to auscultation and percussion. Breath sounds decreased. HEART: Rate and Rhythm are regular. First and second heart sounds normal. No murmurs, rubs or gallops. ABDOMEN: Abdominal exam reveals normal bowel sounds. Non-tender and non- distended. No evidence of peritonitis. EXTREMITITES: Trace edema. Chronic changes noted. Past Medical History Past Medical History: Coronary Artery Disease (CAD), Diabetes Mellitus, Hyperlipidemia, Hypertension, Prostate Disorder Additional Past Medical History / Comment(s): Coronary artery disease, previous bypass surgery, diabetes mellitus type 2, hypertension, hyperlipidemia, morbid obesity with a BMI 52.2, history of kidney stones, obstructive sleep apnea post UPPP currently not utilizing any form of CPAP or BiPAP therapy. History of Any Multi-Drug Resistant Organisms: None Reported Past Surgical History: Coronary Bypass/CABG Additional Past Surgical History / Comment(s): UVP- FOR SLEEP APNEA FATTY TUMOR REMOVED FROM LEFT THIGH, CABG 15 years ago Past Anesthesia/Blood Transfusion Reactions: No Reported Reaction Past Psychological History: No Psychological Hx Reported Smoking Status: Former smoker Past Alcohol Use History: None Reported Past Drug Use History: None Reported Medications and Allergies Home Medications Medication Instructions Recorded Confirmed Type Aspirin EC [Ecotrin] 325 mg PO DAILY 04/29/14 02/12/19 History Diltiazem Cd [Cardizem CD] 120 mg PO DAILY 04/29/14 02/12/19 History Enalapril [Vasotec] 20 mg PO BID 04/29/14 02/12/19 History Furosemide [Lasix] 60 mg PO HS 04/29/14 02/12/19 History INSULIN ASPART (NovoLOG) [NovoLOG] 80 unit SQ BID 04/29/14 02/12/19 History Insulin Glargine [Lantus] 60 unit SQ BID 04/29/14 02/12/19 History Metoprolol Tartrate [Lopressor] 50 mg PO BID 04/29/14 02/12/19 History Simvastatin 10 mg PO HS 02/12/19 02/12/19 History Tamsulosin HCl [Flomax] 0.4 mg PO DAILY 02/12/19 02/12/19 History Allergies Allergy/AdvReac Type Severity Reaction Status Date / Time No Known Allergies Allergy Verified 02/12/19 18:29 Physical Exam Vitals: Vital Signs Temp Pulse Pulse Pulse Resp BP BP 02/21/19 12:03 97.8 F 64 96 18 109/67 02/21/19 11:24 60 02/21/19 11:16 60 02/21/19 10:37 16 02/21/19 08:07 97.6 F 67 18 118/67 02/21/19 07:41 16 02/21/19 07:06 60 02/21/19 06:55 60 02/21/19 05:00 97.6 F 55 L 16 104/64 02/20/19 20:45 97.8 F 68 18 139/68 02/20/19 20:00 98.0 F 62 18 132/60 02/20/19 19:25 64 02/20/19 19:13 60 02/20/19 16:00 61 16 02/20/19 15:48 98.1 F 61 16 134/72 Pulse Ox 02/21/19 12:03 02/21/19 11:24 02/21/19 11:16 02/21/19 10:37 02/21/19 08:07 02/21/19 07:41 02/21/19 07:06 02/21/19 06:55 98 02/21/19 05:00 100 02/20/19 20:45 98 02/20/19 20:00 95 02/20/19 19:25 02/20/19 19:13 02/20/19 16:00 02/20/19 15:48 98 Intake and Output 02/20/19 02/21/19 02/21/19 22:59 06:59 14:59 Intake Total 476 120 Balance 476 120 Intake: Oral 476 120 Other: Voiding Method Toilet Urinal # Voids 2 1 Results - Lab Results Most recent lab results Calcium 9.9 mg/dL (8.4-10.2) 02/21/19 08:30 02/20/19 20:13 02/21/19 08:30 Assessment and Plan Plan: Assessment: 1. Acute kidney injury secondary to ATN secondary to contrast-induced nephropathy and diuresis. Baseline creatinine is near 1 and is up to 1.8 today. Rule out urinary retention. 2. NSTEMI status post cardiac catheterization on February 17. No stents placed. 3. Benign hypertension. Blood pressure on the lower side this morning. 4. Insulin-dependent diabetes mellitus. 5. Volume overload. Improved with diuresis. 6. Coronary artery disease. 7. Nephrolithiasis. Urology following. May require nephrostolithotomy down the road. Plan: Hold tonight's dose of Lasix. Check renal ultrasound. Check postvoid residual. Hold lisinopril. Avoid nephrotoxins. Repeat electrolytes in the morning. Thank you for the consultation. I will continue to follow the patient with you during his hospital stay.
[2019-02-21] MEDS ORDERED: FUROSEMIDE 40 MG TAB PO SCH (16:00)
--- NOTE | 2019-02-21 16:02 | US ---
EXAMINATION TYPE: US kidneys/renal and bladder DATE OF EXAM: 02/21/2019 COMPARISON: NONE CLINICAL HISTORY: rosey. ROSEY, exam done portable. EXAM MEASUREMENTS: Right Kidney: 11.2 x 5.0 x 4.7 cm Left Kidney: 10.3 x 5.1 x 4.8 cm Very difficult and limited study due to morbidly obese patient, exam done with patient sitting in c hair. Right Kidney: Marked limited visualization, no gross sizable hydronephrosis Left Kidney: Marked limited visualization, no gross sizable hydronephrosis seen, 0.8cm area of shadow ing superior pole Bladder: not visualized due to limitations described above IMPRESSION: Markedly suboptimal visualization of the kidneys. No gross evidence of sizable hydronephr osis of either kidney. Possible 8mm nonobstructing right renal calculus.
[2019-02-21 17:00] LABS: Glucose,Whole Blood 278 mg/dL (75-99)
--- NOTE | 2019-02-21 17:31 | P.PN ---
Subjective This is a pleasant 78 years old male with past medical history of coronary artery disease, diabetes mellitus, hyperlipidemia, hypertension. Presents because of worsening dyspnea for 3 days duration associated with cough and phlegm, and no color for the last 3 days as well. Patient complains that he has sinusitis applied And his Flonase was not helping him much. He denies chest pain. Patient states that he has history of triple bypass surgery about 15 years ago and he follows with Dr. Vences, last week he underwent cardiac stress test but he could not finish it because he could not lie flat and the psoas of his leg cramps, and he is scheduled tomorrow for echocardiogram stress test. Patient also was complaining of from exertional dyspnea for 6 month, his family medicine doctor prescribed him inhaled albuterol however that did not control it well and it was progressively getting worse. Patient denies use of home oxygen on steroids Vitas looks stable. Left showing mild leukocytosis of 10.7, with unremarkable BMP,, INR and liver enzymes. Troponin was elevated at 0.08 and 0.10. Nitro proBNP is 2460. EKG showing normal sinus rhythm at 96 with first-degree AV block with Q waves in the anterior lateral leads and poor R-wave progression. Chest x-ray: Showing mild fluid overload On admission patient was started on heparin drip plus aspirin. Also he was taken her dose of insulin which is cut in half on admission because he was made nothing by mouth. Also patient was started on Lasix 40 mg every 8 hours Diabetes was was taking Lantus 60 units twice a day and NovoLog insulin 20 units twice a day with meals, with breakfast and dinner, but not with lunch Because patient was made nothing by mouth we started him on Levemir 30 units twice a day only 02/20/2019 Patient still have some dyspnea and coughing with white phlegm. However he denies chest pain today. He had cardiac cath on 02/18/2019 which showing patent LAD graft with disease [place] artery, and totally occluded RCA graft with the [place] RCA for about 60-90% lesions. total occlusion of the circumflex artery with collateral flow. Thereafter testing manager recommended to continue with medical management. Patient had CAT scan of the chest yesterday which shows interstitial changes, also his lap showing mild leukocytosis of 12 K today as well as worsening creatinine of 1.4. 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 and recommended outpatient percutaneous nephrostolithotomy electively 02/21/2019 pt is clinically improving , with some dyspnea , repeat chest xray still showing some interstitial changes , however his creatinine is up today to 1.8 from 1.4 yesterday, i discussed with nephrology team , we are going to hold his discharge today and mointor renal function , renal us showing no hydronephrosis, hold lisinopril and lasix and keep monitoring for now Objective - Vital Signs Vital signs: Vital Signs Temp 97.8 F 02/21/19 12:03 Pulse 57 L 02/21/19 15:30 Resp 18 02/21/19 12:03 BP 109/67 02/21/19 12:03 Pulse Ox 95 02/21/19 15:17 Intake & Output 02/20/19 02/21/19 02/21/19 18:59 06:59 18:59 Intake Total 482 360 590 Output Total 2 Balance 482 360 588 Weight 160.3 kg Intake: Intake, IV Titration 10 Amount IV Fluid Continuation 1, 10 000 ml @ 0 mls/hr IV .better. ONE Rx#:[id number] Oral 472 360 Other 590 Output: Stool 2 Other: Voiding Method Toilet Urinal # Voids 2 1 2 - Exam -GENERAL: The patient is alert and oriented x3, not in any acute distress. Morbid obesity HEENT: Pupils are round and equally reacting to light. EOMI. No scleral icterus. No conjunctival pallor. Normocephalic, atraumatic. No pharyngeal erythema. No thyromegaly. CARDIOVASCULAR: S1 and S2 present. No murmurs, rubs, or gallops. -PULMONARY: Chest is clear to auscultation, no wheezing. Bilateral scattered crepitation ABDOMEN: Soft, nontender, nondistended, normoactive bowel sounds. No palpable organomegaly. MUSCULOSKELETAL: No joint swelling or deformity. EXTREMITIES: No cyanosis, clubbing, or pedal edema. NEUROLOGICAL: Gross neurological examination did not reveal any focal deficits. SKIN: No rashes. No petechiae - Labs CBC & Chem 7: 02/20/19 20:13 02/21/19 08:30 Labs: Abnormal Lab Results - Last 24 Hours (Table) 02/20/19 02/20/19 02/21/19 Range/Units 20:13 21:32 07:10 Chloride (98-107) mmol/L BUN 36 H (9-20) mg/dL Creatinine 1.47 H (0.66-1.25) mg/dL Glucose 293 H (74-99) mg/dL POC Glucose (mg/dL) 249 H 226 H (75-99) mg/dL Urine Protein (Negative) Urine Blood (Negative) Ur Leukocyte Esterase (Negative) Urine RBC (0-5) /hpf Urine WBC (0-5) /hpf Urine WBC Clumps (None) /hpf Urine Bacteria (None) /hpf Hyaline Casts (0-2) /lpf Urine Mucus (None) /hpf 02/21/19 02/21/19 02/21/19 Range/Units 08:30 10:05 11:35 Chloride 97 L (98-107) mmol/L BUN 41 H (9-20) mg/dL Creatinine 1.80 H (0.66-1.25) mg/dL Glucose 277 H (74-99) mg/dL POC Glucose (mg/dL) 184 H (75-99) mg/dL Urine Protein 1+ H (Negative) Urine Blood Moderate H (Negative) Ur Leukocyte Esterase Large H (Negative) Urine RBC 72 H (0-5) /hpf Urine WBC 118 H (0-5) /hpf Urine WBC Clumps Few H (None) /hpf Urine Bacteria Occasional H (None) /hpf Hyaline Casts 3 H (0-2) /lpf Urine Mucus Rare H (None) /hpf 02/21/19 Range/Units 16:59 Chloride (98-107) mmol/L BUN (9-20) mg/dL Creatinine (0.66-1.25) mg/dL Glucose (74-99) mg/dL POC Glucose (mg/dL) 278 H (75-99) mg/dL Urine Protein (Negative) Urine Blood (Negative) Ur Leukocyte Esterase (Negative) Urine RBC (0-5) /hpf Urine WBC (0-5) /hpf Urine WBC Clumps (None) /hpf Urine Bacteria (None) /hpf Hyaline Casts (0-2) /lpf Urine Mucus (None) /hpf Assessment and Plan Assessment: None STEMI. with History of coronary artery disease Uncontrolled chronic exertional dyspnea, mostly related to his acute pulmonary edema. Improved yashira, secondary to contrast induced nephropathy Diabetes mellitus on insulin, with hyperglycemia present on admission Diabetic foot ulcer, controlled with local therapy Hypertension Hyperlipidemia Morbid obesity Plan: This is a pleasant 78 years old male who presents with possible non-STEMI, continue with aspirin . Building Construction Contractor recommended to continue with medical management . hold lasix and lisinopril and monitor kid function. urologist recommended outpatient follow-up for his left staghorn renal calculus. Continue with insulin sliding scale and resume his insulin based on his glucose check and diet. Laci nue with Lasix. Consult pulmonary for uncontrolled exertional dyspnea Resume his insulin and to goes at half the dose, resume his regular dose of insulin once he starts eating Labs and medication were reviewed.. Continue same treatment. Continue with symptomatic treatment. Resume home medication. Monitor lytes and vitals. DVT and GI prophylaxis. Further recommendations of the clinical course of the patient DVT prophylaxis: heparin GI Prophylaxis: Pepcid PT/OT: Home health care Prognosis is guarded
[2019-02-21 20:20] LABS: Glucose,Whole Blood 261 mg/dL (75-99)
[2019-02-21] MEDS: ATORVASTATIN 40 MG TAB PO SCH (21:51)
[2019-02-22 05:24] VITALS: RESP 18
[2019-02-22 07:04] LABS: Glucose,Whole Blood 206 mg/dL (75-99)
[2019-02-22] MEDS: INSULIN DETEMIR (LEVEMIR) 100 UNIT/ML SYR SQ SCH (08:00)
[2019-02-22] MEDS: INSULIN ASPART (NovoLOG) 100 UNIT/ML VIAL SQ SCH ×3 (08:00→12:08)
[2019-02-22] MEDS: ASPIRIN 81 MG PO SCH (08:17)
[2019-02-22] MEDS: FAMOTIDINE 20 MG TAB PO SCH (08:18)
[2019-02-22] MEDS: HEPARIN SODIUM,PORCINE 5,000 UNIT/ML 1 ML VIAL SQ SCH (08:18)
[2019-02-22] MEDS: TAMSULOSIN 0.4 MG CAP.ER.24H PO SCH (08:19)
[2019-02-22] MEDS: SPIRONOLACTONE 25 MG TAB PO SCH (08:19)
[2019-02-22] MEDS: IPRATROPIUM-ALBUTEROL 3 ML NEB INHALATION PRN ×2 (08:37→16:39)
[2019-02-22 08:46] LABS: Calcium 9.3 mg/dL (8.4-10.2); Magnesium 2.2 mg/dL (1.6-2.3); Potassium 4.6 mmol/L (3.5-5.1)
[2019-02-22] MEDS ORDERED: LEVOFLOXACIN 500MG-D5W PMX 500 MG in DEXTROSE/WATER 1 100ML.BAG IVPB SCH (09:00)
--- NOTE | 2019-02-22 11:04 | P.PN ---
Subjective Patient is seen in follow-up for acute kidney injury. Renal function is fairly stable. Creatinine 1.85 today. Urine output is good. No evidence of urinary retention. No vomiting or diarrhea. Vital signs are stable. General: The patient appeared well nourished and normally developed. HEENT: Head exam is unremarkable. Neck is without jugular venous distension. LUNGS: Lungs are clear to auscultation and percussion. Breath sounds decreased. HEART: Rate and Rhythm are regular. First and second heart sounds normal. No murmurs, rubs or gallops. ABDOMEN: Abdominal exam reveals normal bowel sounds. Non-tender and non- distended. No evidence of peritonitis. EXTREMITITES: Trace edema. Chronic changes noted. Objective - Vital Signs Vital signs: Vital Signs Temp 98.5 F 02/22/19 07:18 Pulse 60 02/22/19 08:45 Resp 18 02/22/19 10:41 BP 122/59 02/22/19 08:10 Pulse Ox 94 L 02/22/19 08:37 Intake & Output 02/21/19 02/22/19 02/22/19 18:59 06:59 18:59 Intake Total 590 120 Output Total 2 Balance 588 120 Intake: Oral 120 Other 590 Output: Stool 2 Other: Voiding Method Toilet Toilet Urinal Urinal # Voids 2 2 - Labs CBC & Chem 7: 02/20/19 20:13 02/22/19 07:27 Labs: Abnormal Lab Results - Last 24 Hours (Table) 02/21/19 02/21/19 02/21/19 Range/Units 10:05 11:35 16:59 BUN (9-20) mg/dL Creatinine (0.66-1.25) mg/dL Glucose (74-99) mg/dL POC Glucose (mg/dL) 184 H 278 H (75-99) mg/dL Urine Protein 1+ H (Negative) Urine Blood Moderate H (Negative) Ur Leukocyte Esterase Large H (Negative) Urine RBC 72 H (0-5) /hpf Urine WBC 118 H (0-5) /hpf Urine WBC Clumps Few H (None) /hpf Urine Bacteria Occasional H (None) /hpf Hyaline Casts 3 H (0-2) /lpf Urine Mucus Rare H (None) /hpf 10/22/19 10/23/19 10/23/19 Range/Units 20:18 07:03 07:27 BUN 54 H (9-20) mg/dL Creatinine 1.85 H (0.66-1.25) mg/dL Glucose 217 H (74-99) mg/dL POC Glucose (mg/dL) 261 H 206 H (75-99) mg/dL Urine Protein (Negative) Urine Blood (Negative) Ur Leukocyte Esterase (Negative) Urine RBC (0-5) /hpf Urine WBC (0-5) /hpf Urine WBC Clumps (None) /hpf Urine Bacteria (None) /hpf Hyaline Casts (0-2) /lpf Urine Mucus (None) /hpf Assessment and Plan Plan: Assessment: 1. Acute kidney injury secondary to ATN secondary to contrast-induced nephropathy and diuresis. Baseline creatinine is near 1 and is fairly stable at 1.85 today. No evidence of urinary retention. No evidence of hydronephrosis noted on kidney ultrasound. 2. NSTEMI status post cardiac catheterization on February 17. No stents placed. 3. Benign hypertension. Controlled. 4. Insulin-dependent diabetes mellitus. 5. Volume overload. Improved with diuresis. 6. Coronary artery disease. 7. Nephrolithiasis. Urology following. May require nephrostolithotomy down the road. Plan: Resume Lasix 40 mg orally twice daily. Continue to hold lisinopril. Avoid nephrotoxins. Anticipated discharge today. Repeat BMP and magnesium level 2-3 days postdischarge and follow up outpatient in the next 1-2 weeks. I advised the patient to monitor his weight closely at home and to call if notices more than 3 pound weight gain.
[2019-02-22 11:11] LABS: Glucose,Whole Blood 271 mg/dL (75-99)
[2019-02-22 11:41] VITALS: BP 134/60; TEMP 97.8
[2019-02-22] MEDS: CARVEDILOL 12.5 MG TAB PO SCH (11:43)
[2019-02-22 17:06] LABS: Glucose,Whole Blood 223 mg/dL (75-99)
[2019-02-22 18:11] VITALS: PULSE 64
--- NOTE | 2019-02-22 20:05 | P.DS ---
Providers Date of admission: 02/13/19 17:00 Attending physician: Ld Mauricio MD Consults: 02/12/19 20:50 Consult Physician Routine Consulting Provider: Michele Vences Consult Reason/Comments: chf Do you want consulting provider notified?: Yes 02/13/19 08:44 Consult Physician Urgent Consulting Provider: Sumeet Kamara Consult Reason/Comments: uncontrolled chronic exertional dyspnea Do you want consulting provider notified?: Yes 02/15/19 10:17 Consult Physician Routine Consulting Provider: Andrés Pressley Consult Reason/Comments: hematuria, Do you want consulting provider notified?: Yes 02/21/19 10:43 Consult Physician Urgent Consulting Provider: Otto Ryder Consult Reason/Comments: yashira Do you want consulting provider notified?: Yes Primary care physician: Stevie Begum MD Hospital Course: Diagnoses: Acute urinary tract infection Acute kidney injury, secondary to contrast during the cardiac cath, with possible diuresis effect and renal stone None STEMI. with History of coronary artery disease. 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 Improved Diabetes mellitus on insulin, with hyperglycemia present on admission Diabetic foot ulcer, controlled with local therapy Hypertension Hyperlipidemia Morbid obesity Hospital course This is a pleasant 78 years old male with past medical history of coronary artery disease, diabetes mellitus, hyperlipidemia, hypertension. Presents because of worsening dyspnea for 3 days duration associated with cough and phlegm, and no color for the last 3 days as well. Patient complains that he has sinusitis applied And his Flonase was not helping him much. He denies chest pain. Patient states that he has history of triple bypass surgery about 15 years ago and he follows with Dr. Vences, last week he underwent cardiac stress test but he could not finish it because he could not lie flat. On admission patient found to have acute pulmonary congestion secondary to pulmonary edema and found to have non-STEMI . Patient has been evaluated by pulmonary and cardiology services. He had cardiac cath on 02/18/2019 which showing patent LAD graft with diseased alutiiq artery, and totally occluded RCA graft with the alutiiq RCA stenosis for about 60-90% lesions. Patent circumflex artery with total occlusion of OM branch. 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 He has appointment with his paint line production supervisor on 02/27 for evaluation and clearance prior to urological procedure. Also patient was treated with diuretics and Lasix and his breathing is better on discharge. He is saturating 100% on room air. The sugar was on the high side so his Levemir units was increased from 30 up to 32 twice a day. And to continue with NovoLog 20 units before meals twice a day. Also patient with left side staghorn calculus of the left kidney, Dr. Soriano the urologist evaluated the patient and recommended percutaneous nephrostolithotomy electively which can be done as an outpatient. Patient has appointment on 03/03/2019. pt found to have UTI and was started on levaquin , renal dose Q48hrs, for 4 doses with the recommendattion for the pt to repeat his UA with his doctor and he agree. EKG checked after giving the levaquin showed qTc not prolonged but was 397 On the day of discharge patient is back to his baseline. He denies chest pain or dyspnea. No abdominal pain. No nausea vomiting. No change in bowel habits. he still has some difficulty in urination and increased frequency , although mild but he was started on abx. No fever. Physical therapy recommended home health care. pt dose of insulin is lowered from lantus 60 bid to 45 bid , and Novolog from 80 AC-BID to 20 AC-BID, due to his renal problem and treatment of his UTI ( less insulin is needed) Patient was cleared for discharge by all consultants including pulmonary, cardiology and urology Problems and management plan were discussed with the patient and he verbalized understanding and acceptance , at bed side all the time upon pt request Patient was found stable and can be discharged home however he needs follow-up as an outpatient. Patient was instructed to follow up with PCP within one week and patient agrees. i called his pcp and discussed the case with him including the need for repeat bmp and mg in 2-3 days and he kindly took note of this . patient agrees with the appointments made for him for his paint line production supervisor, urologist and the timing and states he will follow-up Gen: patient is a AAOx3, no distress. Obese CVS: S1-S2, RRR, no murmur Lungs: B/L CTA, no wheezing Abdomen: soft, no distention, no tenderness, positive bowel sounds Extremity: no leg edema or induration Time spent more than 35 minutes Plan - Discharge Summary Discharge Rx Participant: No New Discharge Prescriptions: New Spironolactone [Aldactone] 25 mg PO DAILY #30 tab Aspirin 81 mg PO DAILY #30 chew Carvedilol [Coreg*] 25 mg PO BID-W/MEALS #60 tab Furosemide [Lasix] 40 mg PO BID #60 tablet Levofloxacin 500Mg-D5w Pmx [Levaquin 500Mg-D5w Pmx] 500 mg IVPB Q48H 8 Days #4 bag Nitroglycerin Sl Tabs [Nitrostat] 0.4 mg SUBLINGUAL Q5M PRN #25 tab PRN Reason: Chest Pain INSULIN ASPART (NovoLOG) [NovoLOG (formulary)] 20 unit SQ AC-BID #1 vial Famotidine [Pepcid] 20 mg PO DAILY #30 tab Albuterol Inhaler [Ventolin Hfa Inhaler] 1 - 2 puff INHALATION RT-Q6H PRN #1 inhaler PRN Reason: Shortness Of Breath Or Wheezing Insulin Detemir (Levemir) [Levemir] 45 unit SQ BID #1 vial Continue Tamsulosin HCl [Flomax] 0.4 mg PO DAILY Simvastatin 10 mg PO HS Discontinued Metoprolol Tartrate [Lopressor] 50 mg PO BID Insulin Glargine [Lantus] 60 unit SQ BID Furosemide [Lasix] 60 mg PO HS Enalapril [Vasotec] 20 mg PO BID Diltiazem Cd [Cardizem CD] 120 mg PO DAILY Aspirin EC [Ecotrin] 325 mg PO DAILY INSULIN ASPART (NovoLOG) [NovoLOG] 80 unit SQ BID Discharge Medication List Simvastatin 10 mg PO HS 02/12/19 [History] Tamsulosin HCl [Flomax] 0.4 mg PO DAILY 02/12/19 [History] Albuterol Inhaler [Ventolin Hfa Inhaler] 1 - 2 puff INHALATION RT-Q6H PRN #1 inhaler 02/22/19 [Rx] Aspirin 81 mg PO DAILY #30 chew 02/22/19 [Rx] Carvedilol [Coreg*] 25 mg PO BID-W/MEALS #60 tab 02/22/19 [Rx] Famotidine [Pepcid] 20 mg PO DAILY #30 tab 02/22/19 [Rx] Furosemide [Lasix] 40 mg PO BID #60 tablet 02/22/19 [Rx] INSULIN ASPART (NovoLOG) [NovoLOG (formulary)] 20 unit SQ AC-BID #1 vial 02/22/19 [Rx] Insulin Detemir (Levemir) [Levemir] 45 unit SQ BID #1 vial 02/22/19 [Rx] Levofloxacin 500Mg-D5w Pmx [Levaquin 500Mg-D5w Pmx] 500 mg IVPB Q48H 8 Days #4 bag 02/22/19 [Rx] Nitroglycerin Sl Tabs [Nitrostat] 0.4 mg SUBLINGUAL Q5M PRN #25 tab 02/22/19 [Rx] Spironolactone [Aldactone] 25 mg PO DAILY #30 tab 02/22/19 [Rx] Follow up Appointment(s)/Referral(s): Stevie Begum MD [Primary Care Provider] - 1-2 days (office calls patient back to schedule appt.) [facility], [NON-STAFF] - Wound Healing,Center [NON-STAFF] - 1 Week (Office will call you with a wound care appointment schedule. ) Michele Vences MD [STAFF PHYSICIAN] - 02/27/19 4:30 pm Otto Ryder DO [STAFF PHYSICIAN] - 2 Weeks Radu Soriano MD [STAFF PHYSICIAN] - 03/03/19 8:40 am Patient Instructions/Handouts: Heart Failure (DC), Kidney Stones (DC), Urinary Tract Infection in Men (DC), Low-Sodium Diet (DC) Discharge Disposition: HOME WITH HOME HEALTH SERVICES Plan of Treatment: Appointment for Wound Clinic 02/27/19 at 0915
== END 2019-02-22 18:20 | disposition home health service (06) | DRG 280 ==
LOC: EC 17:46 → 3SCARD 20:50 → OBSVTOIN 02-13 17:00 → 3NMEDONC 02-20 20:30
PROVIDERS: ADMIT Internal Medicine; ATTEND Internal Medicine
PROC: B2131ZZ Fluoroscopy of Multiple Coronary Artery Bypass Grafts using Low Osmolar Contrast (ICD-10-PCS; 2019-02-17)
PROC: B2111ZZ Fluoroscopy of Multiple Coronary Arteries using Low Osmolar Contrast (ICD-10-PCS; 2019-02-17)
PROC: 4A023N7 Measurement of Cardiac Sampling and Pressure, Left Heart, Percutaneous Approach (ICD-10-PCS; principal; 2019-02-17 09:16)
DX: I11.0 Hypertensive heart disease with heart failure (principal); I21.4 Non-ST elevation (NSTEMI) myocardial infarction; J96.01 Acute respiratory failure with hypoxia; N17.0 Acute kidney failure with tubular necrosis; I25.810 Atherosclerosis of coronary artery bypass graft(s) without angina pectoris; N39.0 Urinary tract infection, site not specified; Z68.43 Body mass index [BMI] 50.0-59.9, adult; I50.43 Acute on chronic combined systolic (congestive) and diastolic (congestive) heart failure; I42.9 Cardiomyopathy, unspecified; Z87.891 Personal history of nicotine dependence; I25.10 Atherosclerotic heart disease of native coronary artery without angina pectoris; Z95.1 Presence of aortocoronary bypass graft; E11.621 Type 2 diabetes mellitus with foot ulcer; E66.01 Morbid (severe) obesity due to excess calories; E78.5 Hyperlipidemia, unspecified; G47.33 Obstructive sleep apnea (adult) (pediatric); I44.0 Atrioventricular block, first degree; L89.899 Pressure ulcer of other site, unspecified stage; T50.8X5A Adverse effect of diagnostic agents, initial encounter; T50.1X5A Adverse effect of loop [high-ceiling] diuretics, initial encounter; N14.1 Nephropathy induced by other drugs, medicaments and biological substances; N20.0 Calculus of kidney; R31.0 Gross hematuria; Z79.4 Long term (current) use of insulin; Z79.82 Long term (current) use of aspirin; Z79.899 Other long term (current) drug therapy; Z87.442 Personal history of urinary calculi; Z90.79 Acquired absence of other genital organ(s); Z87.440 Personal history of urinary (tract) infections; E11.65 Type 2 diabetes mellitus with hyperglycemia; J32.9 Chronic sinusitis, unspecified; D72.829 Elevated white blood cell count, unspecified
CPT/HCPCS: 36415; 71045; 71046; 71250; 74018; 76770; 80048; 80053; 81001; 83036; 83735; 83880; 84443; 84484; 85025; 85027; 85610; 85730; 87502; 93005; 93306; 93455; 94640; 94760; 96365; 96376; 99285

== ENCOUNTER → 2019-03-08 | Outpatient (CLI) | payer MEDICARE ==
--- NOTE | 2019-03-08 15:06 | US ---
EXAMINATION TYPE: US venous doppler duplex LE DATE OF EXAM: 03/08/2019 1:58 PM COMPARISON: NONE CLINICAL HISTORY: E11.621 TYPE 2 DIABETES. Non-healing wound left foot LOWER EXTREMITY VENOUS INSUFFICIENCY SIDE PERFORMED: Bilateral Left groin vessels -EIV, CFV, GSV, and Deep fem vein unable to be visualized due to large pt body h abitus and unable to scan groin area 1) Color flow is present and patency is documented in the following vessels. No DVT or SVT is noted . EIV Common Femoral Vein Deep Femoral Vein Femoral Vein Popliteal Vein Proximal Calf Veins Greater Saph Vein Upper Small Saph Vein 2) There is venous reflux noted at the following venous levels: Right CFV, Right proximal fem vein, Right small saph vein IMPRESSION: 1. No sonographic evidence of deep venous thrombosis on the right. 2. No gross evidence of deep venous thrombosis within the visualized portions of the femoral vein, po pliteal vein or small saphenous vein. There is nonvisualization of the external iliac vein, common fe moral vein, greater saphenous vein and some portions of the deep femoral vein due to patient body hab itus. 3. Venous reflux of the right common femoral vein, right proximal femoral vein, and right small saphe nous vein.
== END | disposition home or self-care (01) ==
LOC: RADUSWWP 13:23
PROVIDERS: ATTEND Thoracic Surgery (Cardiothoracic Vascular Surgery)
DX: E11.621 Type 2 diabetes mellitus with foot ulcer (principal); E11.40 Type 2 diabetes mellitus with diabetic neuropathy, unspecified; E50.9 Vitamin A deficiency, unspecified; E66.9 Obesity, unspecified
CPT/HCPCS: 93923; 93970

== ENCOUNTER → 2019-03-18 | Outpatient (CLI) | payer MEDICARE ==
[2019-03-18 11:36] LABS: Basophils # (A) 0.2 k/uL (0-0.2); Basophils % (A) 2 %; Eosinophils % (A) 0 %; HCT 48.1 % (39.0-53.0); HGB 15.7 gm/dL (13.0-17.5); Lymphocytes # (A) 1.8 k/uL (1.0-4.8); Lymphocytes % (A) 16 %; MCH 28.5 pg (25.0-35.0); MCHC 32.7 g/dL (31.0-37.0); MCV 87.1 fL (80.0-100.0); Monocytes # (A) 1.1 k/uL (0-1.0); Monocytes % (A) 10 %; Neutrophils # (A) 8.3 k/uL (1.3-7.7); Neutrophils % (A) 71 %; Platelet Count 290 k/uL (150-450); RBC 5.52 m/uL (4.30-5.90); RDW 14.2 % (11.5-15.5); WBC 11.7 k/uL (3.8-10.6)
[2019-03-18 11:42] LABS: Appearance,Urine Clear (Clear); Bacteria,Urine Rare /hpf; Bilirubin,Urine Negative (Negative); Blood,Urine Small (Negative); Color,Urine Light Yellow; Glucose,Urine (UA) Negative (Negative); Hyaline Casts,Urine 5 /lpf (0-2); Ketones,Urine Negative (Negative); Leukocyte Esterase,Urine Large (Negative); Mucus,Urine Rare /hpf; Nitrite,Urine Negative (Negative); Protein,Urine Negative (Negative); RBC,Urine 21 /hpf (0-5); Specific Gravity,Urine 1.008 (1.001-1.035); Urobilinogen,Urine <2.0 mg/dL (<2.0); WBC,Urine 21 /hpf (0-5)
[2019-03-18 12:00] LABS: Albumin 4.3 g/dL (3.5-5.0); Calcium 8.8 mg/dL (8.4-10.2); Total Bilirubin 1.2 mg/dL (0.2-1.3); Total Protein 8.7 g/dL (6.3-8.2)
[2019-03-18 12:01] LABS: Potassium 4.7 mmol/L (3.5-5.1)
== END ==
LOC: LABPAT 10:22
PROVIDERS: ATTEND Urology
DX: Z01.810 Encounter for preprocedural cardiovascular examination (principal); Z01.812 Encounter for preprocedural laboratory examination; N20.0 Calculus of kidney
CPT/HCPCS: 36415; 80053; 81001; 85025; 87086; 93005

== ENCOUNTER → 2019-03-22 | Day surgery (SDC) | payer MEDICARE ==
[2019-03-20 11:40] VITALS: BMI 48.8
[~2019-03-22] MED LIST: DEXAMETHASONE SOD PHOSPHATE 10 MG/ML 1 ML VIAL IV ONE; HYDROmorphone 0.5 MG/0.5 ML SYRINGE IVP PRN; INSULIN ASPART (NovoLOG) 100 UNIT/ML VIAL SQ ONE; IOPAMIDOL-370 50ML BTL MISCELLANE ONE; LACTATED RINGERS 1,000 ML IV ONE; LACTATED RINGERS 1,000 ML IV SCH; LIDOCAINE 1% 20 ML VIAL (10MG/ML) FOR IV START INTRADERMA PRN; LIDOCAINE 1% INJ 10MG/ML (20 ML MDV) ONE; MIDAZOLAM 2 MG/2 ML VIAL IV PRN; MIDAZOLAM 2 MG/2 ML VIAL ONE; ONDANSETRON 4 MG/2 ML VIAL IVP ONE; PROPOFOL 10 MG/ML 20 ML VIAL IV ONE; SCOPOLAMINE 1.5MG/72HR PATCH TRANSDERM ONE; SUCCINYLCHOLINE CHLORIDE VIAL 200 MG/10 ML VIAL IV ONE; ceFAZolin 3 GM in SODIUM CHLORIDE 0.9% 100 ML IVPB ONE; ePHEDrine SULFATE/0.9% NACL/PF 50 MG/5 ML SYRINGE IV ONE; fentaNYL (PF) 50 MCG/ML 2 ML AMP ONE
--- NOTE | 2019-03-22 06:50 | XR ---
EXAMINATION TYPE: XR KUB DATE OF EXAM: 03/22/2019 COMPARISON: 02/15/2019 HISTORY: Preop. Left renal calculus. TECHNIQUE: Single view upright FINDINGS: There is a large staghorn calculus of the left kidney. The bowel gas pattern is nonacute. T here is a mild lumbar levoscoliosis. IMPRESSION: Large left renal staghorn calculus fills the entire left renal pelvis and calyces and [place] ears unchanged compared to last exam.
[2019-03-22 08:04] LABS: Glucose,Whole Blood 239 mg/dL (75-99)
--- NOTE | 2019-03-22 09:29 | P.OP ---
Date of Procedure: 03/22/19 Preoperative Diagnosis: Left staghorn calculus Postoperative Diagnosis: Same, BPH Procedure(s) Performed: Cystoscopy, failed ureteral catheter placement, left ureteroscopy with retrograde pyelogram. Anesthesia: SHARATHA Surgeon: Radu Soriano Pathology: none sent Condition: stable Disposition: PACU Indications for Procedure: The patient is 78. He has a full branch staghorn calculus on the left side. He comes for percutaneous nephrostolithotomy Description of Procedure: The patient is brought to the operating suite. He is given a general endotracheal anesthesia on the transport gurney. Rolls of blankets are placed under his hips. Cystoscopy of the Foroblique lens and 22-Luxembourger sheath identifies normal urethra. He is at large prostate. The left ureteral orifice is identified. 2 attempts to pass the occluding balloon catheter fail. Edema the ureteral orifice and scissors therefore I will take the patient on of the frog position on the transport gurhazel and do a full cystoscopy in lithotomy. He's placed on the operating table in lithotomy position with a sterile prep and drape. Cystoscopy Foroblique lens and 22-Luxembourger sheath again identifies a very large left lobe obstructing prostate. The left ureteral orifice is identified and edematous. I'm unable to pass an 035 wire through the orifice. I then pass a semirigid ureteroscope into the ureter. Orifice and identify what appears to be ureter. An 035 wires and passed through the scope but coils at about the level of the iliac vessels. I removed the wire and passed contrast through the scope in a retrograde pyelogram identifies obstruction of the ureter at the level of the iliac vessels. Whether this is extra ureteral or there is an obstruction is indeterminate. I reviewed the computed tomography scan and there is no obvious stone or stricture in the ureter. Because of the large stone and his morbid obesity I elected to terminate the procedure and not proceed without an occluding balloon catheter. The bladder strain the patient's awake and returned recovery room good condition. The pat ient tolerated procedure well and will be discharged home upon recovery. I'll get a computed tomography scan of the abdomen to assess the ureter prior to discharge. Pending the results of that as to how I will proceed.
[2019-03-22 09:37] VITALS: TEMP 96.8
[2019-03-22 09:41] VITALS: RESP 16
[2019-03-22 09:47] LABS: Glucose,Whole Blood 227 mg/dL (75-99)
--- NOTE | 2019-03-22 09:51 | FL ---
EXAMINATION TYPE: FL urography retrograde DATE OF EXAM: 03/22/2019 COMPARISON: NONE HISTORY: Left kidney stone. TECHNIQUE: Fluoroscopy. FINDINGS: Fluoroscopic guidance was provided during retrograde urogram procedure performed by Dr. Annalisa sanchez. A total of 63 seconds of fluoroscopic time was utilized during the procedure and single fluoros copic image is acquired. Single image acquired shows access at left UVJ. IMPRESSION: As Above.
[2019-03-22 10:56] VITALS: PULSE 52
[2019-03-22 10:58] VITALS: BP 148/74
--- NOTE | 2019-03-22 11:49 | CT ---
EXAMINATION TYPE: CT abdomen pelvis wo con DATE OF EXAM: 03/22/2019 HISTORY: Left ureter obstruction, attempted kidney stone extraction this morning. CT DLP: 1205 mGycm. Automated Exposure Control for Dose Reduction was Utilized. TECHNIQUE: CT scan of the abdomen and pelvis is performed without oral or IV contrast. COMPARISON: Outside CT January 11, 2019 FINDINGS: Within the limitations of a non-contrast study, the following observations are made. LUNG BASES: Right coronary artery calcification and/or stent with overlying epicardial pacer wires. LIVER/GB: Dependent small gallstones in gallbladder. PANCREAS: No significant abnormality is seen. SPLEEN: No significant abnormality is seen. ADRENALS: Slight thickening to both adrenal glands favors benign lipid rich hyperplasia not significa ntly changed from prior. KIDNEYS: Hyperdense material fills calyces and pelvis similar to outside CT consistent with large sta ghorn type calculus. Small focus of air upper pole calyx axial image 31 likely product of attempted p ercutaneous access. No hydroureter or obstructing ureteral calculi. Nondependent air in bladder is pr esumed product of intervention this morning. No right-sided renal calculi or hydronephrosis. BOWEL: No significant abnormality is seen. GENITAL ORGANS: Enlarged prostate gland consistent with BPH. Adjacent pelvic phleboliths. LYMPH NODES: No greater than 1cm abdominal or pelvic lymph nodes are appreciated. OSSEOUS STRUCTURES: Severe multilevel spurring in the spine. Multilevel disc space narrowing. Multile booker facet arthropathy. Multilevel spinal canal stenosis most prominent L3-L4 level near axial image 5 2 OTHER: Mild/moderate calcified plaque of aorta redemonstrated. IMPRESSION: Redemonstration of suspected staghorn type calculus filling the left renal pelvis and ingrid yces. No significant change from prior. No new suspicious acute findings evident.
--- NOTE | 2019-03-28 10:27 | P.GSHP ---
History of Present Illness H&P Date: 03/21/19 78 yo male with left flank pain and a full branched staghorn calculous He comes for a left pcnl. Alternatives have been discussed. The risks and complications have been discussed THere has been no infection. - Constitutional Constitutional: Denies chills, Denies fever - EENT Eyes: denies blurred vision, denies pain Ears, nose, mouth and throat: Denies headache, Denies sore throat - Cardiovascular Cardiovascular: Denies chest pain, Denies shortness of breath - Respiratory Respiratory: Denies cough, Denies 7 - Gastrointestinal Gastrointestinal: Denies abdominal pain, Denies diarrhea, Denies nausea, Denies vomiting - Genitourinary (Female) Genitourinary: Denies dysuria, Denies hematuria - Genitourinary (Male) Genitourinary: Denies dysuria, Denies hematuria - Musculoskeletal Musculoskeletal: Denies myalgias - Integumentary Integumentary: Denies pruritus, Denies rash - Neurological Neurological: Denies numbness, Denies weakness - Psychiatric Psychiatric: Denies anxiety, Denies depression - Endocrine Endocrine: Denies fatigue, Denies weight change Past Medical History Past Medical History: Coronary Artery Disease (CAD), Heart Failure, Diabetes Mellitus, Hearing Disorder / Deafness, Hyperlipidemia, Hypertension, Prostate Disorder, Skin Disorder Additional Past Medical History / Comment(s): DM, TYPE II. morbid obesity, hist ory of kidney stones, post UPPP w/ no CPAP or BiPAP therapy. BPH. Wound bottom lt foot, seeing [facility]. Neuropathy [place] feet. History of Any Multi-Drug Resistant Organisms: None Reported Past Surgical History: Coronary Bypass/CABG Additional Past Surgical History / Comment(s): UPPP- FOR SLEEP APNEA. FATTY TUMOR REMOVED FROM LEFT THIGH, Triple CABG 2002. Cataracts. Past Anesthesia/Blood Transfusion Reactions: No Reported Reaction Smoking Status: Former smoker - Past Family History Mother Family Medical History: No Reported History Medications and Allergies Home Medications Medication Instructions Recorded Confirmed Type Simvastatin 10 mg PO HS 02/12/19 03/20/19 History Tamsulosin HCl [Flomax] 0.4 mg PO DAILY 02/12/19 03/20/19 History Albuterol Inhaler [Ventolin Hfa 1 - 2 puff INHALATION RT-Q6H PRN 02/22/19 03/20/19 Rx Inhaler] #1 inhaler Aspirin 81 mg PO DAILY #30 chew 02/22/19 03/20/19 Rx Furosemide [Lasix] 40 mg PO BID #60 tablet 02/22/19 03/20/19 Rx Nitroglycerin Sl Tabs [Nitrostat] 0.4 mg SUBLINGUAL Q5M PRN #25 tab 02/22/19 03/20/19 Rx Spironolactone [Aldactone] 25 mg PO DAILY #30 tab 02/22/19 03/20/19 Rx Carvedilol [Coreg*] 25 mg PO BID 03/20/19 03/20/19 History Famotidine [Pepcid] 20 mg PO HS 03/20/19 03/20/19 History INSULIN ASPART (NovoLOG) [NovoLOG 80 unit SQ AC-BID 03/20/19 03/20/19 History (formulary)] Insulin Glargine [Lantus] 60 unit SQ BID 03/20/19 03/20/19 History Allergies Allergy/AdvReac Type Severity Reaction Status Date / Time No Known Allergies Allergy Verified 03/20/19 11:20 Surgical - Exam - General well developed, well nourished, no distress - Eyes PERRL - ENT no hearing loss - Neck trachea midline - Respiratory normal expansion - Cardiovascular Rhythm: regular - Abdomen Abdomen: soft, non tender - Genitourinary normal penis with no external lesions - Integumentary no rash, no growths - Neurologic normal coordination, normal sensation - Musculoskeletal normal gait, normal posture - Psychiatric oriented to time, oriented to person, oriented to place, speech is normal, memory intact Results - Imaging Abdominal x-ray: report reviewed, image reviewed CT scan - abdomen: report reviewed, image reviewed CT scan - pelvis: report reviewed, image reviewed Assessment and Plan Assessment: Impression: left staghorn calculous Plan: left percutaneous nephrostolithotomy
== END | disposition home or self-care (01) ==
LOC: OR 06:26
PROVIDERS: ATTEND Urology
DX: N20.0 Calculus of kidney (principal); N40.0 Benign prostatic hyperplasia without lower urinary tract symptoms; I25.10 Atherosclerotic heart disease of native coronary artery without angina pectoris; I10 Essential (primary) hypertension; E78.5 Hyperlipidemia, unspecified; K21.9 Gastro-esophageal reflux disease without esophagitis; E11.42 Type 2 diabetes mellitus with diabetic polyneuropathy; H91.90 Unspecified hearing loss, unspecified ear; Z95.1 Presence of aortocoronary bypass graft; Z87.891 Personal history of nicotine dependence; Z87.442 Personal history of urinary calculi; E66.01 Morbid (severe) obesity due to excess calories; Z68.42 Body mass index [BMI] 45.0-49.9, adult; Z79.82 Long term (current) use of aspirin; Z79.4 Long term (current) use of insulin; Z79.899 Other long term (current) drug therapy
CPT/HCPCS: 52005; 86900; 86901; 86850; 74420; 74018; 74176; C1769; J2250; J0330; J1100; J0690; J2405; J2001; J3010; J2704; Q9967

== ENCOUNTER → 2019-04-11 | Outpatient (CLI) | payer MEDICARE ==
[2019-04-11 12:55] LABS: Appearance,Urine Clear (Clear); Bacteria,Urine Rare /hpf; Bilirubin,Urine Negative (Negative); Blood,Urine Small (Negative); Color,Urine Light Yellow; Glucose,Urine (UA) Negative (Negative); Ketones,Urine Negative (Negative); Leukocyte Esterase,Urine Large (Negative); Mucus,Urine Rare /hpf; Nitrite,Urine Negative (Negative); PH, Urine 5.5 (5.0-8.0); Protein,Urine Negative (Negative); RBC,Urine 31 /hpf (0-5); Urobilinogen,Urine <2.0 mg/dL (<2.0); WBC,Urine 44 /hpf (0-5)
[2019-04-11 12:59] LABS: Calcium 9.2 mg/dL (8.4-10.2); Potassium 4.6 mmol/L (3.5-5.1)
[2019-04-11 13:16] LABS: Basophils % (A) 0 %; Eosinophils % (A) 0 %; HCT 45.1 % (39.0-53.0); HGB 15.1 gm/dL (13.0-17.5); Lymphocytes # (A) 1.7 k/uL (1.0-4.8); Lymphocytes % (A) 13 %; MCH 28.9 pg (25.0-35.0); MCHC 33.5 g/dL (31.0-37.0); MCV 86.2 fL (80.0-100.0); Mean Platelet Volume 8.8; Monocytes # (A) 1.3 k/uL (0-1.0); Monocytes % (A) 10 %; Neutrophils # (A) 9.5 k/uL (1.3-7.7); Neutrophils % (A) 75 %; Platelet Count 325 k/uL (150-450); RBC 5.23 m/uL (4.30-5.90); RDW 14.4 % (11.5-15.5); WBC 12.7 k/uL (3.8-10.6)
== END | disposition home or self-care (01) ==
LOC: LABPAT 11:30
PROVIDERS: ATTEND Urology
DX: N20.0 Calculus of kidney (principal)
CPT/HCPCS: 36415; 80048; 81001; 85025; 86850; 86900; 86901; 87086

== ENCOUNTER 2019-04-19 06:57 | Day surgery (SDC) | payer MEDICARE ==
[2019-04-17 11:39] VITALS: BMI 48.8
--- NOTE | 2019-04-18 09:56 | P.GSHP ---
History of Present Illness H&P Date: 04/18/19 78 yo, morbidly obese gentleman with a full branched staghorn calculous. 2 weeks ago I failed to access his ureter due to his large prostate. Part of the problem was technical not understanding the anatomy of the prostate leading to issues with the occluding ballon catheter intubation He returns for another attempt at that and then his pcnl left to the full branch staghorn calculus He was offered other options and a second opinion He comes for another attempt at the pcnl. The cysto will be done on the bed rather than the cart . Hopefully this will allow for a successful ureteral catheter and therefore successful pcnl - Constitutional Constitutional: Denies chills, Denies fever - EENT Eyes: denies blurred vision, denies pain Ears, nose, mouth and throat: Denies headache, Denies sore throat - Cardiovascular Cardiovascular: Denies chest pain, Denies shortness of breath - Respiratory Respiratory: Denies cough, Denies 7 - Gastrointestinal Gastrointestinal: Denies abdominal pain, Denies diarrhea, Denies nausea, Denies vomiting - Genitourinary (Female) Genitourinary: Denies dysuria, Denies hematuria - Genitourinary (Male) Genitourinary: Denies dysuria, Denies hematuria - Musculoskeletal Musculoskeletal: Denies myalgias - Integumentary Integumentary: Denies pruritus, Denies rash - Neurological Neurological: Denies numbness, Denies weakness - Psychiatric Psychiatric: Denies anxiety, Denies depression - Endocrine Endocrine: Denies fatigue, Denies weight change Past Medical History Past Medical History: Coronary Artery Disease (CAD), Heart Failure, Diabetes Mellitus, Hyperlipidemia, Hypertension, Prostate Disorder Additional Past Medical History / Comment(s): states difficulty urinating, history of kidney stones, obstructive sleep apnea post UPPP currently not utilizing any form of CPAP or BiPAP therapy. History of Any Multi-Drug Resistant Organisms: None Reported Past Surgical History: Coronary Bypass/CABG Additional Past Surgical History / Comment(s): attempted nephrolstolithotomy 03/22/19, UVP- FOR SLEEP APNEA, FATTY TUMOR REMOVED FROM LEFT THIGH, CABG 15 years ago Past Anesthesia/Blood Transfusion Reactions: No Reported Reaction Past Psychological History: No Psychological Hx Reported Smoking Status: Former smoker Past Alcohol Use History: Rare Additional Past Alcohol Use History / Comment(s): Smoked pipe & cigar 4 years est, quit 1968 Past Drug Use History: None Reported - Past Family History Mother Family Medical History: No Reported History Medications and Allergies Home Medications Medication Instructions Recorded Confirmed Type Simvastatin 10 mg PO HS 02/12/19 04/17/19 History Tamsulosin HCl [Flomax] 0.4 mg PO DAILY 02/12/19 04/17/19 History Albuterol Inhaler [Ventolin Hfa 1 - 2 puff INHALATION RT-Q6H PRN 02/22/19 04/17/19 Rx Inhaler] #1 inhaler Aspirin 81 mg PO DAILY #30 chew 02/22/19 04/17/19 Rx Furosemide [Lasix] 40 mg PO BID #60 tablet 02/22/19 04/17/19 Rx Nitroglycerin Sl Tabs [Nitrostat] 0.4 mg SUBLINGUAL Q5M PRN #25 tab 02/22/19 04/17/19 Rx Spironolactone [Aldactone] 25 mg PO DAILY #30 tab 02/22/19 04/17/19 Rx Carvedilol [Coreg*] 25 mg PO BID 03/20/19 04/17/19 History Famotidine [Pepcid] 20 mg PO HS 03/20/19 04/17/19 History INSULIN ASPART (NovoLOG) [NovoLOG 80 unit SQ AC-BID 03/20/19 04/17/19 History (formulary)] Insulin Glargine [Lantus] 60 unit SQ BID 03/20/19 04/17/19 History Allergies Allergy/AdvReac Type Severity Reaction Status Date / Time No Known Allergies Allergy Verified 04/17/19 11:32 Surgical - Exam - General well developed, well nourished, obese - Eyes PERRL - ENT no hearing loss - Neck trachea midline - Respiratory normal expansion, normal respiratory effort - Cardiovascular Rhythm: regular - Abdomen Abdomen: soft, non tender - Genitourinary normal penis with no external lesions, testicles present - Integumentary no rash, no growths - Neurologic normal coordination, normal sensation - Musculoskeletal normal gait, normal posture - Psychiatric oriented to time, oriented to person, oriented to place, memory intact Results - Imaging CT scan - abdomen: report reviewed, image reviewed CT scan - pelvis: report reviewed, image reviewed Assessment and Plan Assessment: Impression: Left full branched staghorn calculous, morbid obesity Plan: Cysto occluding balloon catheter pcnl left
[~2019-04-19 06:57] MED LIST changes: +AMPICILLIN 1,000 MG in SODIUM CHLORIDE 0.9% 50 ML IVPB ONE; +GENTAMICIN 160 MG in SODIUM CHLORIDE 0.9% 100 ML IVPB ONE; -HYDROmorphone 0.5 MG/0.5 ML SYRINGE IVP PRN; -INSULIN ASPART (NovoLOG) 100 UNIT/ML VIAL SQ ONE; -IOPAMIDOL-370 50ML BTL MISCELLANE ONE; -LACTATED RINGERS 1,000 ML IV ONE; -LACTATED RINGERS 1,000 ML IV SCH; -LIDOCAINE 1% 20 ML VIAL (10MG/ML) FOR IV START INTRADERMA PRN; -LIDOCAINE 1% INJ 10MG/ML (20 ML MDV) ONE; -MIDAZOLAM 2 MG/2 ML VIAL ONE; -PROPOFOL 10 MG/ML 20 ML VIAL IV ONE; -SCOPOLAMINE 1.5MG/72HR PATCH TRANSDERM ONE; -SUCCINYLCHOLINE CHLORIDE VIAL 200 MG/10 ML VIAL IV ONE; -ceFAZolin 3 GM in SODIUM CHLORIDE 0.9% 100 ML IVPB ONE; -ePHEDrine SULFATE/0.9% NACL/PF 50 MG/5 ML SYRINGE IV ONE; -fentaNYL (PF) 50 MCG/ML 2 ML AMP ONE
[2019-04-19] MEDS ORDERED: LIDOCAINE 1% 20 ML VIAL (10MG/ML) FOR IV START INTRADERMA ONE (07:24)
[2019-04-19] MEDS ORDERED: LACTATED RINGERS 1,000 ML IV ONE ×2 (07:24→09:16)
[2019-04-19 07:34] LABS: Glucose,Whole Blood 205 mg/dL (75-99)
[2019-04-19] MEDS ORDERED: ATROPINE SULFATE 0.4 MG/ML 1 ML VIAL ONE (07:55)
[2019-04-19] MEDS ORDERED: NEOSTIGMINE 1 MG/ML 10 ML VIAL ONE (07:55)
[2019-04-19] MEDS ORDERED: ROCURONIUM BROMIDE 10 MG/ML 10 ML VIAL IV ONE (07:55)
[2019-04-19] MEDS ORDERED: fentaNYL (PF) 50 MCG/ML 2 ML AMP ONE (07:55)
[2019-04-19] MEDS ORDERED: LIDOCAINE 1% INJ 10MG/ML (20 ML MDV) ONE (07:55)
[2019-04-19] MEDS ORDERED: SUCCINYLCHOLINE CHLORIDE 100 MG/5 ML SYR IV ONE (07:55)
[2019-04-19] MEDS ORDERED: MIDAZOLAM 2 MG/2 ML VIAL ONE (07:55)
[2019-04-19] MEDS ORDERED: GLYCOPYRROLATE 0.2 MG/ML 2 ML VIAL ONE (07:55)
[2019-04-19] MEDS ORDERED: PROPOFOL 10 MG/ML 20 ML VIAL IV ONE (07:55)
[2019-04-19] MEDS ORDERED: IOPAMIDOL-370 50ML BTL MISCELLANE ONE (09:10)
[2019-04-19] MEDS ORDERED: NITROGLYCERIN SL TABS 0.4 MG TAB SUBLINGUAL PRN (11:35)
[2019-04-19] MEDS ORDERED: ACETAMINOPHEN TAB 325 MG TAB PO PRN (11:36)
[2019-04-19] MEDS ORDERED: ONDANSETRON 4 MG/2 ML VIAL IVP PRN (11:36)
[2019-04-19] MEDS ORDERED: MAG HYDROX/AL HYDROX/SIMETH 30 ML CUP PO PRN (11:36)
[2019-04-19] MEDS ORDERED: NALOXONE 0.4 MG/ML 1 ML VIAL IV PRN (11:38)
[2019-04-19] MEDS ORDERED: HYDROmorphone PCA 10 MG/50 ML BAG IV PRN (11:38)
--- NOTE | 2019-04-19 11:45 | P.OP ---
Date of Procedure: 04/19/19 Preoperative Diagnosis: left renal stone, large, full branch staghorn calculus, morbid obesity Postoperative Diagnosis: same Procedure(s) Performed: cystoscopy, placement of occluding balloon catheter left, percutaneous nephrostomy (Dr. Ivory) percutaneous nephrostolithotomy with ultrasound and laser, placement of 12-Cuban J nephrostomy tube Anesthesia: KESHAV Surgeon: Radu Soriano Estimated Blood Loss (ml): 200 Pathology: other (stone) Condition: stable Disposition: PACU Indications for Procedure: the patient is a 78-year-old gentleman with a full branch staghorn calculus in the left kidney with obstruction. I made an attempt to do a percutaneous nephrostolithotomy 2 weeks ago but due to his very large prostate I was unable to intubate the ureter. I have Elected to attempt one more time and change the technique in order to do this. Description of Procedure: the patient was brought to the operating suite. He is given a general endotracheal anesthesia. Placed on the operating table in a supine position and the subsequent a dorsolithotomy position with a sterile prep and drape. Cystoscopy Foroblique lens and 22-Cuban sheath identifies a normal anterior urethra. The prostate is very large friable an intravesical. Left ureteral orifice is identified. I'm unable to intubate the orifice to the cystoscope. I thus passed the semirigid ureteroscope to the ureteral orifice and through the semirigid ureteroscope and 025 wires and passed up into the kidney. I removed the ureteroscope and backloaded the wire onto the cystoscope and then over the cystoscope a 5-Cuban occluding balloon catheter is passed up into the kidney. Fluoroscopy is used to adjust the catheter to the UPJ. The cystoscope was removed and a Higginbotham catheters placed and secured to the ureteral catheter. Patient is placed in a prone position on the operating table after trans- referring him back to the transport [facility] before rolling him prone onto the operating table.extensive care to his neck airway genitals axilla and extremities are taken and he is prepped and draped sterilely. Dr. Ivory performed percutaneous nephrostomy access to the posterior mid pole calyx. I then dilate the tract to 30-Cuban. I introduced nephroscope into the collecting system and identify the future kidney stone. Tediously over the next 2-1/2 hours I grind with the ultrasound and suction or grasp the bulk of the renal pelvic stone. I then pass the flexible nephroscope into the upper and lower pole calyces and with laser and 6 W of energy am able to break up the fragments and then basket them. I then looked throughout the collecting system down the UPJ with the flexible scope and see no remaining stone other than antoine debris. A 12-Cuban J nephrostomy tube was placed in the renal pelvis and secured to the skin. The patient's awake and returned recovery in good condition. Blood loss is approximately 200 mL. He'll be placed in the hospital postoperatively.
[2019-04-19] MEDS: HYDROmorphone 0.5 MG/0.5 ML SYRINGE IVP PRN ×2 (13:00→13:25)
[2019-04-19 13:19] LABS: Glucose,Whole Blood 288 mg/dL (75-99)
[2019-04-19] MEDS ORDERED: INSULIN ASPART (NovoLOG) 100 UNIT/ML VIAL SQ ONE (13:24)
--- NOTE | 2019-04-19 13:32 | FL ---
EXAMINATION TYPE: FL Perc Nephrostomy New Access DATE OF EXAM: 04/19/2019 COMPARISON: NONE HISTORY: staghorn calculus on the left. PROCEDURE: Maximal barrier technique was utilized. The skin overlying the left kidney was localized using fluor oscopy and the overlying skin prepped and draped. Skin daily was made with a scalpel. Access was gai moshe under fluoroscopy, following placement of a ureteral occlusion balloon by the referring clinician and instillation of air in the renal collecting system with a 21-gauge needle to the left kidney. A suitable posterior calyx was chosen. A 0.018 inch wire was advanced. The access site was dilated and subsequently a sheath was advanced into the renal pelvis following dilation with balloon along th e tract. Urine returned in the hub of the catheter. The patient underwent neph[facility]ith[facility] by [facility]. The patient remained in stable condition without complication. The patient was di scharged to observation. IMPRESSION: STATUS POST NEPHROSTOMY PLACEMENT FOR NEPHROLITHOTOMY WITH FLUOROSCOPIC GUIDANCE. THIS PROCEDURE PER FORMED BY THE UNDERSIGNED. 5 minutes 41 seconds fluoroscopy time, 5 intraoperative C-arm images docum ent the procedure
--- NOTE | 2019-04-19 14:35 | P.CRDCN ---
History of Present Illness History of present illness: HISTORY OF PRESENTING ILLNESS This is a pleasant 78-year-old male past medical history significant for coronary artery disease status post bypass grafting 3, dyslipidemia, diabetes mellitus and hypertension. He follows in the office with Dr. Vences. We have been asked to see him in consultation secondary to bradycardia noted status post cystoscopy and nephrolithotomy with ultrasound and laser with placement of nephrostomy tube. While in the OR his heart rates were in the 30's and atropine was administered. There are no telemetry strips to review for this episode. At the bedside an EKG revealed sinus bradycardia with first degree AV block. Telemetry strips captured by nursing staff in recovery reveal multiple episodes of pauses less than 2 seconds. Resting heart rate is in the high 40's. He states overall he feels tired and groggy. Denies chest pain, dizziness, shortness of breath or palpitations. He is quite obese and frequently falling asleep as we are talking. He states in the past he has been diagnosed with SANTOSH but doesn't use CPAP anymore. Most recent echocardiogram obtained January 2019 reveals mildly impaired LV systolic function with ejection fraction 45-50% with anteroseptal hypokinesia, mild aortic stenosis with a mean gradient of 10 mmHg, no MR and mild TR noted. Current daily medications include aspirin 81 mg daily, aldactone 25 mg daily, simvastatin 10 mg daily, lasix 40 mg BID and coreg 25 mg BID. He did take his coreg this morning before surgery. Most recent cardiac catheterization performed January 2019 revealed a patent BARGER to LAD, patent SVG to diagonal branch and a totally occluded SVG to PDA. barrow LAD totally occluded, barrow circumflex has a total occluded OM branch, barrow RCA has diffuse disease with about a 60% lesion proximally 90% distally with collaterals to the distal RCA. REVIEW OF SYSTEMS At the time of my exam: CONSTITUTIONAL: Denies fever or chills. CARDIOVASCULAR: Denies chest pain, shortness of breath, orthopnea, PND or palpitations. RESPIRATORY: Denies cough. GASTROINTESTINAL: Denies abdominal pain, diarrhea, constipation, nausea or vomiting. MUSCULOSKELETAL: Denies myalgias. NEUROLOGIC: Denies numbness, tingling or weakness. ENDOCRINE: Complains of fatigue. Denies weight change, polydipsia or polyurina. GENITOURINARY: Denies burning, hematuria or urgency with micturation. HEMATOLOGIC: Denies history of anemia or bleeding. PHYSICAL EXAMINATION Blood pressure 140/76 heart rate 49 afebrile and maintaining oxygen saturation on room air. CONSTITUTIONAL: No apparent distress. Morbidly obese. HEENT: Head is normocephalic. Pupils are equal, round. Sclerae anicteric. Mucous membranes of the mouth are moist. No JVD. No carotid bruit. CHEST EXAMINATION: Lungs are clear to auscultation. No chest wall tenderness is noted on palpation or with deep breathing. HEART EXAMINATION: Regular rate and rhythm. S1, S2 heard. Systolic ejection murmur at the apex, no gallops or rub. ABDOMEN: Soft, nontender. Positive bowel sounds. EXTREMITIES: 2+ peripheral pulses, no lower extremity edema and no calf tenderness. NEUROLOGIC EXAMINATION: Patient is awake, alert and oriented x3. ASSESSMENT Sinus bradycardia with first degree AV block Sinus pauses less than 2 seconds s/p nephrolithotomy and nephrostomy tube placement Coronary artery disease bypass grafting Hypertension Dyslipdemia Diabetes mellitus PLAN Hold PM dose of coreg tonight. Check BMP, TSH and magnesium. Continuous telemetry monitoring. Bradycardia likely related to anesthesia and sleep apnea. We will continue to follow and make recommendations accordingly. Thank you kindly for this consultation. Nurse Practitioner note has been reviewed, I agree with a documented findings and plan of care. Patient was seen and examined. Past Medical History Past Medical History: Coronary Artery Disease (CAD), Heart Failure, Diabetes Mellitus, Hyperlipidemia, Hypertension, Prostate Disorder Additional Past Medical History / Comment(s): states difficulty urinating, history of kidney stones, obstructive sleep apnea post UPPP currently not utilizing any form of CPAP or BiPAP therapy. History of Any Multi-Drug Resistant Organisms: None Reported Past Surgical History: Coronary Bypass/CABG Additional Past Surgical History / Comment(s): attempted nephrolstolithotomy 03/22/19, UVP- FOR SLEEP APNEA, FATTY TUMOR REMOVED FROM LEFT THIGH, CABG 15 years ago Past Anesthesia/Blood Transfusion Reactions: No Reported Reaction Past Psychological History: No Psychological Hx Reported Smoking Status: Former smoker Past Alcohol Use History: Rare Additional Past Alcohol Use History / Comment(s): Smoked pipe & cigar 4 years est, quit 1968 Past Drug Use History: None Reported - Past Family History Mother Family Medical History: No Reported History Medications and Allergies Home Medications Medication Instructions Recorded Confirmed Type Simvastatin 10 mg PO HS 02/12/19 04/17/19 History Tamsulosin HCl [Flomax] 0.4 mg PO DAILY 02/12/19 04/17/19 History Albuterol Inhaler [Ventolin Hfa 1 - 2 puff INHALATION RT-Q6H PRN 02/22/1904/17 Rx Inhaler] #1 inhaler Aspirin 81 mg PO DAILY #30 chew 02/22/19 04/17/19 Rx Furosemide [Lasix] 40 mg PO BID #60 tablet 02/22/19 04/17/19 Rx Nitroglycerin Sl Tabs [Nitrostat] 0.4 mg SUBLINGUAL Q5M PRN #25 tab 02/22/19 04/17/19 Rx Spironolactone [Aldactone] 25 mg PO DAILY #30 tab 02/22/19 04/17/19 Rx Carvedilol [Coreg*] 25 mg PO BID 03/20/19 04/17/19 History Famotidine [Pepcid] 20 mg PO HS 03/20/19 04/17/19 History INSULIN ASPART (NovoLOG) [NovoLOG 80 unit SQ AC-BID 03/20/19 04/17/19 History (formulary)] Insulin Glargine [Lantus] 60 unit SQ BID 03/20/19 04/17/19 History Allergies Allergy/AdvReac Type Severity Reaction Status Date / Time No Known Allergies Allergy Verified 04/17/19 11:32 Physical Exam Vitals: Vital Signs Temp Pulse Resp BP BP Pulse Ox 04/19/19 13:15 49 L 16 140/76 92 L 04/19/19 12:45 42 L 16 132/64 100 04/19/19 12:00 43 L 16 157/56 99 04/19/19 11:45 49 L 16 155/72 100 04/19/19 11:33 98.2 F 45 L 16 147/69 100 04/19/19 07:13 97.8 F 60 20 157/70 98 Intake and Output 04/18/19 04/19/19 04/19/19 22:59 06:59 14:59 Intake Total 1754 Output Total 600 Balance 1154 Intake: IV 1754 Output: Urine 400 Estimated Blood Loss 200 Other: Weight 162 kg Results Current Medications Generic Name Dose Route Start Last Admin Trade Name Freq PRN Reason Stop Dose Admin Acetaminophen 650 mg 04/19/19 11:36 Tylenol Tab PO Q4HR PRN Fever and/ or Pain Al Hydroxide/Mg Hydroxide 30 ml 04/19/19 11:36 Maalox PO QID PRN Indigestion Atorvastatin Calcium 10 mg 04/19/19 21:00 Lipitor PO HS [facility] Carvedilol 25 mg 04/19/19 21:00 Coreg PO BID [facility] Famotidine 20 mg 04/19/19 21:00 Pepcid PO HS [facility] Furosemide 40 mg 04/19/19 21:00 Lasix PO BID [facility] Hydromorphone HCl 0.5 mg 04/19/19 06:10 04/19/19 13:25 Dilaudid IVP 04/20/19 06:11 0.5 mg Q5M PRN Administration Pain Control Hydromorphone HCl 10 mg 04/19/19 11:38 Dilaudid Pneumatic Tube Fitter IV PER PROTOCOL PRN Pain Control Protocol Lactated Ringer's 1,000 mls @ 20 mls/hr 04/19/19 06:10 Lactated Ringers IV .Q24H [facility] Dextrose/Sodium Chloride 1,000 mls @ 100 mls/hr 04/19/19 11:45 Dextrose 5%-1/2ns Iv Soln IV .Q10H [facility] Insulin Aspart 80 unit 04/19/19 17:30 Novolog SQ AC-BID [facility] Midazolam HCl 2 mg 04/19/19 06:10 Versed IV 04/20/19 06:11 ONCE PRN Anxiety Naloxone HCl 0.2 mg 04/19/19 11:38 Narcan IV Q2M PRN Opioid Reversal Nitroglycerin 0.4 mg 04/19/19 11:35 Nitrostat SUBLINGUAL Q5M PRN Chest Pain Non-Formulary Medication 60 unit 04/19/19 21:00 Insulin Glargine SQ BID [facility] Ondansetron HCl 4 mg 04/19/19 11:36 Zofran IVP Q6HR PRN Nausea And Vomiting Spironolactone 25 mg 04/20/19 09:00 Aldactone PO DAILY [facility] Tamsulosin HCl 0.4 mg 04/20/19 09:00 Flomax PO DAILY [facility] Intake and Output 04/18/19 04/19/19 04/19/19 22:59 06:59 14:59 Intake Total 1754 Output Total 600 Balance 1154 Intake: IV 1754 Output: Urine 400 Estimated Blood Loss 200 Other: Weight 162 kg Patient Weight 04/20/19 06:59 Weight 162 kg
[2019-04-19] MEDS: LACTATED RINGERS 1,000 ML IV SCH (15:03)
[2019-04-19] MEDS: DEXTROSE 5%-0.45% NACL 1,000 ML IV SCH ×2 (15:03→21:57)
[2019-04-19 16:23] LABS: Calcium 9.1 mg/dL (8.4-10.2)
[2019-04-19 16:24] LABS: Potassium 5.6 mmol/L (3.5-5.1)
[2019-04-19 16:38] LABS: Glucose,Whole Blood 233 mg/dL (75-99)
[2019-04-19] MEDS ORDERED: CARVEDILOL 12.5 MG TAB PO SCH ×2 (17:30→21:00)
[2019-04-19] MEDS: INSULIN ASPART (NovoLOG) 100 UNIT/ML VIAL SQ SCH (17:34)
[2019-04-19 20:28] LABS: Glucose,Whole Blood 247 mg/dL (75-99)
[2019-04-19] MEDS: ATORVASTATIN 10 MG TAB PO SCH (20:42)
[2019-04-19] MEDS: FUROSEMIDE 40 MG TAB PO SCH (20:42)
[2019-04-19] MEDS: INSULIN DETEMIR (LEVEMIR) 100 UNIT/ML SYR SQ SCH (20:42)
[2019-04-19] MEDS: FAMOTIDINE 20 MG TAB PO SCH (20:42)
[2019-04-20] MEDS: LACTATED RINGERS 1,000 ML IV SCH (04:08)
[2019-04-20 06:58] LABS: Glucose,Whole Blood 147 mg/dL (75-99)
[2019-04-20] MEDS: INSULIN ASPART (NovoLOG) 100 UNIT/ML VIAL SQ SCH ×2 (08:27→17:52)
[2019-04-20] MEDS ORDERED: INSULIN ASPART (NovoLOG) 100 UNIT/ML VIAL SQ ONE (08:45)
[2019-04-20] MEDS ORDERED: SPIRONOLACTONE 25 MG TAB PO SCH (09:00)
[2019-04-20] MEDS ORDERED: CARVEDILOL 12.5 MG TAB PO SCH (09:00)
[2019-04-20 10:14] LABS: Calcium 8.7 mg/dL (8.4-10.2); Potassium 4.6 mmol/L (3.5-5.1)
[2019-04-20] MEDS: FUROSEMIDE 40 MG TAB PO SCH ×2 (10:41→20:14)
[2019-04-20] MEDS: INSULIN DETEMIR (LEVEMIR) 100 UNIT/ML SYR SQ SCH ×3 (10:42→20:14)
[2019-04-20] MEDS: TAMSULOSIN 0.4 MG CAP.ER.24H PO SCH (10:42)
[2019-04-20 11:59] LABS: Glucose,Whole Blood 208 mg/dL (75-99)
[2019-04-20] MEDS ORDERED: HYDROcodone/APAP 5-325MG 1 EACH TAB PO PRN (12:15)
--- NOTE | 2019-04-20 12:20 | P.DS ---
Providers Attending physician: Radu Soriano Consults: 04/19/19 12:41 Consult Physician Routine Consulting Provider: Debra Haile Consult Reason/Comments: FIRST DEGREE BLOCK Do you want consulting provider notified?: Yes Primary care physician: Stevie Begum MD Hospital Course: The patient is a morbidly obese 78-year-old gentleman with a full branch staghorn calculus on the left kidney. He underwent percutaneous nephr ostolithotomy 04/19/2019. This was uneventful other than upon emergence from his anesthetic he had bundle branch block. He was seen by cardiology. He has done well overnight. His pain is under control. His urine is cleared nicely. The Higginbotham catheter. Removed. We'll get physical therapy daily and ambulation. If he ambulates well his pain is under control be discharged home later today. He'll follow-up in the office next week with nephrostomy tube removal. He'll be given a prescription of [place] upon discharge. Postoperative instructions been given. he understands and consents. Patient Condition at Discharge: Good Plan - Discharge Summary Discharge Rx Participant: No New Discharge Prescriptions: New HYDROcodone/APAP 5-325MG [[place] 5-325] 1 tab PO Q4HR PRN #10 tab PRN Reason: Pain No Action Tamsulosin HCl [Flomax] 0.4 mg PO DAILY Simvastatin 10 mg PO HS Spironolactone [Aldactone] 25 mg PO DAILY #30 tab Aspirin 81 mg PO DAILY #30 chew Furosemide [Lasix] 40 mg PO BID #60 tablet Nitroglycerin Sl Tabs [Nitrostat] 0.4 mg SUBLINGUAL Q5M PRN #25 tab PRN Reason: Chest Pain Albuterol Inhaler [Ventolin Hfa Inhaler] 1 - 2 puff INHALATION RT-Q6H PRN #1 inhaler PRN Reason: Shortness Of Breath Or Wheezing Insulin Glargine [Lantus] 60 unit SQ BID INSULIN ASPART (NovoLOG) [NovoLOG (formulary)] 80 unit SQ AC-BID Famotidine [Pepcid] 20 mg PO HS Carvedilol [Coreg*] 25 mg PO BID Discharge Medication List Simvastatin 10 mg PO HS 02/12/19 [History] Tamsulosin HCl [Flomax] 0.4 mg PO DAILY 02/12/19 [History] Albuterol Inhaler [Ventolin Hfa Inhaler] 1 - 2 puff INHALATION RT-Q6H PRN #1 inhaler 02/22/19 [Rx] Aspirin 81 mg PO DAILY #30 chew 02/22/19 [Rx] Furosemide [Lasix] 40 mg PO BID #60 tablet 02/22/19 [Rx] Nitroglycerin Sl Tabs [Nitrostat] 0.4 mg SUBLINGUAL Q5M PRN #25 tab 02/22/19 [Rx] Spironolactone [Aldactone] 25 mg PO DAILY #30 tab 02/22/19 [Rx] Carvedilol [Coreg*] 25 mg PO BID 03/20/19 [History] Famotidine [Pepcid] 20 mg PO HS 03/20/19 [History] INSULIN ASPART (NovoLOG) [NovoLOG (formulary)] 80 unit SQ AC-BID 03/20/19 [History] Insulin Glargine [Lantus] 60 unit SQ BID 03/20/19 [History] HYDROcodone/APAP 5-325MG [[place] 5-325] 1 tab PO Q4HR PRN #10 tab 04/20/19 [Rx] Follow up Appointment(s)/Referral(s): Radu Soriano MD [STAFF PHYSICIAN] - 04/24/19 Activity/Diet/Wound Care/Special Instructions: home with n tube Discharge Disposition: HOME SELF-CARE
--- NOTE | 2019-04-20 12:22 | P.CON ---
Consult Note - . Consult date: 04/20/19 Assessment/Plan:: this is a 78-year patient known to the wound care center being evaluated on 4 S. for a healed ulceration. The patient in the wound care center last and the ulceration was healed. Discussed with ptient to continue with a total contact cast which he was reluctant due to a scheduled surgery. Patient will be discharged within the day or so and will consideration was made for continuation of a total contact cast. Due to the patient's continued treatment he is declining a total contact cast at this time. The ulceration to the leftforefoot plantar aspect continues to be healed. Review Of Systems: Constitutional: No fever, no chills, no night sweats. No weight change. No weakness, fatigue or lethargy. No daytime sleepiness. Integumentary:reports wounds, no lesions. No rash or pruritus. No unusual bruising. No change in hair or nails. Physical exam: General Appearance: Alert, cooperative, no distress, appears stated age. Skin: See HPI all other Skin color, texture, tugor normal, no rashes or lesions. Neurologic: Alert oriented x3 assessment/plan: 1. 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 foam to the site. Continue with weightbearing only to heal Keep appointment in the wound care center as scheduled. 2. Diabetes mellitus with diabetic neuropathy 3. Heart failure 4. Obesity thank you for the consultation. Any questions please contact the wound care ce nter DNP note has been reviewed and discussed with Dr. Barker and the impression and plan of care has been directed as dictated.
[2019-04-20] MEDS: DEXTROSE 5%-0.45% NACL 1,000 ML IV SCH (12:32)
--- NOTE | 2019-04-20 12:43 | P.PN ---
Subjective HISTORY OF PRESENTING ILLNESS This is a pleasant 78-year-old male past medical history significant for coronary artery disease status post bypass grafting 3, dyslipidemia, diabetes mellitus and hypertension. He follows in the office with Dr. Vences. He is seen and examined sitting up in bed. He states yesterday afternoon he felt somewhat light headed but that has subsided. He feels discomfort in the left flank region. He denies chest pain, shortness of breath or palpitations. Blood pressure 124/55 heart rate 85 afebrile and maintaining oxygen saturation on room air. Laboratory data reviewed, sodium 137, potassium 4.6 today down from 5.6 yesterday, creatinine 1.59 up from 1.28 yesterday, magnesium 2.0, TSH 1.16. Currently maintained on aspirin 81 mg daily, aldactone 25 mg daily, atorvastatin 10 mg daily and lasix 40 mg BID. PHYSICAL EXAMINATION CONSTITUTIONAL: No apparent distress. Morbidly obese. HEENT: Head is normocephalic. Pupils are equal, round. Sclerae anicteric. Mucous membranes of the mouth are moist. No JVD. No carotid bruit. CHEST EXAMINATION: Lungs are clear to auscultation. No chest wall tenderness is noted on palpation or with deep breathing. HEART EXAMINATION: Regular rate and rhythm. S1, S2 heard. Systolic ejection murmur at the apex, no gallops or rub. EXTREMITIES: 2+ peripheral pulses, no lower extremity edema and no calf tenderness. Distinct and chronic color change noted. ASSESSMENT Sinus bradycardia with first degree AV block Sinus pauses less than 2 seconds Hyperkalemia s/p nephrolithotomy and nephrostomy tube placement Coronary artery disease bypass grafting Hypertension Dyslipdemia Diabetes mellitus Chronic kidney disease PLAN Discontinue aldactone and decrease coreg to 3.125 mg PO BID. Ongoing telemetry monitoring for another 24 hours. Repeat renal function and electrolytes in the morning. Nurse Practitioner note has been reviewed, I agree with a documented findings and plan of care. Patient was seen and examined. Objective - Vital Signs Vital signs: Vital Signs Temp 99.4 F 04/20/19 07:25 Pulse 85 04/20/19 07:25 Resp 17 04/20/19 07:25 BP 124/55 04/20/19 07:25 Pulse Ox 95 04/20/19 07:25 Intake & Output 04/19/19 04/20/19 04/20/19 18:59 06:59 18:59 Intake Total 2354 800 Output Total 1100 720 Balance 1254 80 Weight 162 kg Intake: IV 1754 Intake, IV Titration 800 Amount Dextrose 5%-0.45% NaCl 1, 800 000 ml @ 100 mls/hr IV . Q10H REPLACED BY [facility] Rx#:[id number] Oral 600 Output: Drainage 200 320 Left Back 200 320 Urine 700 400 Estimated Blood Loss 200 Other: Voiding Method Indwelling Catheter Indwelling Catheter - Labs CBC & Chem 7: 04/20/19 09:21 Labs: Abnormal Lab Results - Last 24 Hours (Table) 04/19/19 04/19/19 04/19/19 Range/Units 13:17 15:13 16:36 Potassium 5.6 H (3.5-5.1) mmol/L BUN 28 H (9-20) mg/dL Creatinine 1.28 H (0.66-1.25) mg/dL Glucose 248 H (74-99) mg/dL POC Glucose (mg/dL) 288 H 233 H (75-99) mg/dL 04/19/19 04/20/19 04/20/19 Range/Units 20:21 06:57 09:21 Potassium (3.5-5.1) mmol/L BUN 25 H (9-20) mg/dL Creatinine 1.59 H (0.66-1.25) mg/dL Glucose 214 H (74-99) mg/dL POC Glucose (mg/dL) 247 H 147 H (75-99) mg/dL
[2019-04-20] MEDS ORDERED: CARVEDILOL 6.25 MG TAB PO SCH (17:30)
[2019-04-20] MEDS: CARVEDILOL 3.125 MG TAB PO SCH ×2 (17:30→17:32)
[2019-04-20 17:31] LABS: Glucose,Whole Blood 221 mg/dL (75-99)
[2019-04-20] MEDS: FAMOTIDINE 20 MG TAB PO SCH (20:14)
[2019-04-20] MEDS: ATORVASTATIN 10 MG TAB PO SCH (20:14)
[2019-04-20 20:15] LABS: Glucose,Whole Blood 249 mg/dL (75-99)
[2019-04-21 02:04] VITALS: TEMP 98.3
[2019-04-21] MEDS: LACTATED RINGERS 1,000 ML IV SCH (05:42)
[2019-04-21 07:09] LABS: Glucose,Whole Blood 182 mg/dL (75-99)
--- NOTE | 2019-04-21 07:42 | P.PN ---
Subjective Progress Note Date: 04/21/19 The patient didnt feel well enough to go home He feels better today He will be d/cd home with the nephrostomy tube and fu with me on wednesday He will fu with the wound care center and cardiology per the orders. Objective - Vital Signs Vital signs: Vital Signs Temp 98.3 F 04/21/19 02:03 Pulse 98 04/21/19 02:03 Resp 16 04/21/19 02:03 BP 129/73 04/21/19 02:03 Pulse Ox 93 L 04/21/19 02:03 Intake & Output 04/20/19 04/21/19 04/21/19 18:59 06:59 18:59 Intake Total 250 Output Total 1500 1150 Balance -1500 -900 Intake: Oral 250 Output: Drainage 600 700 Left Back 600 700 Urine 900 450 Uretheral (Higginbotham) 700 Other: Voiding Method Urinal Urinal # Voids 2 - Labs CBC & Chem 7: 04/20/19 09:21 Labs: Abnormal Lab Results - Last 24 Hours (Table) 04/20/19 04/20/19 04/20/19 Range/Units 09:21 11:57 17:19 BUN 25 H (9-20) mg/dL Creatinine 1.59 H (0.66-1.25) mg/dL Glucose 214 H (74-99) mg/dL POC Glucose (mg/dL) 208 H 221 H (75-99) mg/dL 04/20/19 04/21/19 Range/Units 20:14 06:57 BUN (9-20) mg/dL Creatinine (0.66-1.25) mg/dL Glucose (74-99) mg/dL POC Glucose (mg/dL) 249 H 182 H (75-99) mg/dL
[2019-04-21] MEDS: INSULIN DETEMIR (LEVEMIR) 100 UNIT/ML SYR SQ SCH (08:06)
[2019-04-21] MEDS: CARVEDILOL 3.125 MG TAB PO SCH (08:06)
[2019-04-21] MEDS: TAMSULOSIN 0.4 MG CAP.ER.24H PO SCH (08:06)
[2019-04-21] MEDS: FUROSEMIDE 40 MG TAB PO SCH (08:06)
[2019-04-21] MEDS: INSULIN ASPART (NovoLOG) 100 UNIT/ML VIAL SQ SCH (08:06)
[2019-04-21 08:13] VITALS: BP 124/71; PULSE 93; RESP 17
[2019-04-21 08:26] LABS: Calcium 8.5 mg/dL (8.4-10.2); Potassium 4.8 mmol/L (3.5-5.1)
--- NOTE | 2019-04-21 09:19 | P.PN ---
Subjective HISTORY OF PRESENTING ILLNESS This is a pleasant 78-year-old male past medical history significant for coronary artery disease status post bypass grafting 3, dyslipidemia, diabetes mellitus and hypertension. He follows in the office with Dr. Vences. He is seen and examined sitting up in the chair eating breakfast. He states overall he is feeling back to normal. He does continue to feel some lower back discomfort when he takes in a deep breath or changes positions. Denies chest pain, shortness of breath, dizziness or palpitations. Telemetry tracings unremarkable, no further bradycardia noted. Blood pressure 124/71 heart rate 93 afebrile and maintaining oxygen saturation on room air. Laboratory data reviewed, sodium 135, potassium 4.8, creatinine 1.6. Currently maintained on carvedilol 3.125 mg twice a day, atorvastatin 10 mg daily, Lasix 40 mg by mouth twice a day. PHYSICAL EXAMINATION CONSTITUTIONAL: No apparent distress. Morbidly obese. HEENT: Head is normocephalic. Pupils are equal, round. Sclerae anicteric. Mucous membranes of the mouth are moist. No JVD. No carotid bruit. CHEST EXAMINATION: Lungs are clear to auscultation. No chest wall tenderness is noted on palpation or with deep breathing. HEART EXAMINATION: Regular rate and rhythm. S1, S2 heard. Systolic ejection murmur at the apex, no gallops or rub. EXTREMITIES: 2+ peripheral pulses, no lower extremity edema and no calf tenderness. Distinct and chronic color change noted. ASSESSMENT Sinus bradycardia with first degree AV block Sinus pauses less than 2 seconds Hyperkalemia s/p nephrolithotomy and nephrostomy tube placement Coronary artery disease bypass grafting Hypertension Dyslipdemia Diabetes mellitus Chronic kidney disease PLAN Stable from a cardiac perspective on current medical regimen. Follow-up in the office with Dr. Vences. Nurse Practitioner note has been reviewed, I agree with a documented findings and plan of care. Patient was seen and examined. Objective - Vital Signs Vital signs: Vital Signs Temp 98.3 F 04/21/19 07:28 Pulse 93 04/21/19 07:28 Resp 17 04/21/19 07:28 BP 124/71 04/21/19 07:28 Pulse Ox 96 04/21/19 07:28 Intake & Output 04/20/19 04/21/19 04/21/19 18:59 06:59 18:59 Intake Total 250 Output Total 1500 1150 Balance -1500 -900 Intake: Oral 250 Output: Drainage 600 700 Left Back 600 700 Urine 900 450 Uretheral ([place]) 700 Other: Voiding Method Urinal Urinal # Voids 2 - Labs CBC & Chem 7: 04/21/19 07:54 Labs: Abnormal Lab Results - Last 24 Hours (Table) 04/20/19 04/20/19 04/20/19 Range/Units 09:21 11:57 17:19 Sodium (137-145) mmol/L Chloride (98-107) mmol/L BUN 25 H (9-20) mg/dL Creatinine 1.59 H (0.66-1.25) mg/dL Glucose 214 H (74-99) mg/dL POC Glucose (mg/dL) 208 H 221 H (75-99) mg/dL 04/20/19 04/21/19 04/21/19 Range/Units 20:14 06:57 07:54 Sodium 135 L (137-145) mmol/L Chloride 96 L (98-107) mmol/L BUN 27 H (9-20) mg/dL Creatinine 1.60 H (0.66-1.25) mg/dL Glucose 238 H (74-99) mg/dL POC Glucose (mg/dL) 249 H 182 H (75-99) mg/dL
[2019-04-21 12:01] LABS: Glucose,Whole Blood 158 mg/dL (75-99)
== END 2019-04-21 13:23 | disposition home or self-care (01) ==
LOC: OR 06:57 → 4SSUR 14:28 → OR 04-21 13:23
PROVIDERS: ATTEND Urology
DX: N20.0 Calculus of kidney (principal); I44.7 Left bundle-branch block, unspecified; I44.0 Atrioventricular block, first degree; I42.0 Dilated cardiomyopathy; I25.10 Atherosclerotic heart disease of native coronary artery without angina pectoris; I13.0 Hypertensive heart and chronic kidney disease with heart failure and stage 1 through stage 4 chronic kidney disease, or unspecified chronic kidney disease; I50.22 Chronic systolic (congestive) heart failure; N18.9 Chronic kidney disease, unspecified; E78.5 Hyperlipidemia, unspecified; E87.5 Hyperkalemia; E66.01 Morbid (severe) obesity due to excess calories; E11.40 Type 2 diabetes mellitus with diabetic neuropathy, unspecified; N40.0 Benign prostatic hyperplasia without lower urinary tract symptoms; E11.621 Type 2 diabetes mellitus with foot ulcer; L97.429 Non-pressure chronic ulcer of left heel and midfoot with unspecified severity; G47.33 Obstructive sleep apnea (adult) (pediatric); Z87.442 Personal history of urinary calculi; Z95.1 Presence of aortocoronary bypass graft; Z87.891 Personal history of nicotine dependence; Z79.82 Long term (current) use of aspirin; Z79.4 Long term (current) use of insulin; Z79.02 Long term (current) use of antithrombotics/antiplatelets; Z79.899 Other long term (current) drug therapy; Z68.42 Body mass index [BMI] 45.0-49.9, adult; Z82.49 Family history of ischemic heart disease and other diseases of the circulatory system
CPT/HCPCS: 93005; 97161; 97166; 86900; 86901; 80048 ×3; 84443; 83735; 86850; 82365; 50432; 50081; C1769 ×4; C2628; C1894; C1729; J2250; J1100; J2710; J2405 ×2; J2001; J3010; J1580; J0290; J0330; J2704; J1170 ×2; Q9967

== ENCOUNTER → 2019-06-14 | Outpatient (CLI) | payer MEDICARE ==
--- NOTE | 2019-06-14 15:34 | US ---
EXAMINATION TYPE: US kidneys/renal and bladder DATE OF EXAM: 06/14/2019 COMPARISON: NONE CLINICAL HISTORY: N20.0 Calculus of kidney. Staghorn calculous removed Apr 2019, assess renals now, o rder states no bladder and patient did not prep for it EXAM MEASUREMENTS: Right Kidney: 12.6 x 4.7 x 5.1 cm Left Kidney: 8.6 x 4.0 x 4.6 cm *limited views due to obese patient Right Kidney: limited views appear wnl Left Kidney: very limits with estimate measurement for size IMPRESSION: Extremely limited exam secondary to patient body habitus. Marked suboptimal visualization of the kidneys. No gross evidence of moderate or severe hydronephrosis.
== END ==
LOC: RADUSWWP 14:48
PROVIDERS: ATTEND Urology
DX: N20.0 Calculus of kidney (principal)
CPT/HCPCS: 76770

== ENCOUNTER 2019-07-13 07:14 | Inpatient (IN) | payer MEDICARE ==
[2019-07-13] MEDS ORDERED: IPRATROPIUM-ALBUTEROL 3 ML NEB INHALATION STA (07:23)
--- NOTE | 2019-07-13 07:27 | ED ---
General Adult HPI - General Chief complaint: Shortness of Breath Stated complaint: IAN Time Seen by Provider: 07/13/19 07:16 Source: patient, EMS, RN notes reviewed Mode of arrival: EMS Limitations: no limitations - History of Present Illness Initial comments: Patient is a pleasant 78-year-old male presenting to the emergency department with difficulty breathing. Onset of symptoms was 3 days ago. Patient does have cough and congestion however he has been swallowing the sputum. No fevers. Dyspnea does worsen with exertion. Dyspnea may worsen a little bit when he first lays down. No leg pain or leg swelling. Patient does have history of similar symptoms once previously associated with congestive heart failure. - Related Data Home Medications Medication Instructions Recorded Confirmed Simvastatin 10 mg PO HS 02/12/19 04/17/19 Tamsulosin HCl [Flomax] 0.4 mg PO DAILY 02/12/19 04/17/19 Famotidine [Pepcid] 20 mg PO HS 03/20/19 04/17/19 INSULIN ASPART (NovoLOG) [NovoLOG 80 unit SQ AC-BID 03/20/19 04/17/19 (formulary)] Insulin Glargine [Lantus] 60 unit SQ BID 03/20/19 04/17/19 Previous Rx's Medication Instructions Recorded Albuterol Inhaler [Ventolin Hfa 1 - 2 puff INHALATION RT-Q6H PRN 02/22/19 Inhaler] #1 inhaler Aspirin 81 mg PO DAILY #30 chew 02/22/19 Furosemide [Lasix] 40 mg PO BID #60 tablet 02/22/19 Nitroglycerin Sl Tabs [Nitrostat] 0.4 mg SUBLINGUAL Q5M PRN #25 tab 02/22/19 Carvedilol [Coreg] 3.125 mg PO BID-W/MEALS #180 tab 04/20/19 HYDROcodone/APAP 5-325MG [[place] 1 tab PO Q4HR PRN #10 tab 04/20/19 5-325] Allergies Allergy/AdvReac Type Severity Reaction Status Date / Time No Known Allergies Allergy Verified 07/13/19 07:16 Review of Systems ROS Statement: Those systems with pertinent positive or pertinent negative responses have been documented in the HPI. ROS Other: All systems not noted in ROS Statement are negative. Constitutional: Denies: fever, chills Eyes: Denies: eye pain ENT: Denies: ear pain Respiratory: Reports: cough, dyspnea Cardiovascular: Denies: chest pain Endocrine: Reports: fatigue Gastrointestinal: Denies: abdominal pain Genitourinary: Denies: dysuria Musculoskeletal: Denies: back pain Skin: Denies: rash Neurological: Denies: weakness Past Medical History Past Medical History: Coronary Artery Disease (CAD), Diabetes Mellitus, Hyperlipidemia, Hypertension, Prostate Disorder Additional Past Medical History / Comment(s): Coronary artery disease, previous bypass surgery, diabetes mellitus type 2, hypertension, hyperlipidemia, morbid obesity with a BMI 52.2, history of kidney stones, obstructive sleep apnea post UPPP currently not utilizing any form of CPAP or BiPAP therapy. History of Any Multi-Drug Resistant Organisms: None Reported Past Surgical History: Coronary Bypass/CABG Additional Past Surgical History / Comment(s): UVP- FOR SLEEP APNEA FATTY TUMOR REMOVED FROM LEFT THIGH, CABG 15 years ago Past Anesthesia/Blood Transfusion Reactions: No Reported Reaction Past Psychological History: No Psychological Hx Reported Smoking Status: Never smoker Past Alcohol Use History: None Reported Past Drug Use History: None Reported - Past Family History Mother Family Medical History: No Reported History General Exam Limitations: no limitations General appearance: alert, in no apparent distress Head exam: Present: normocephalic Eye exam: Present: normal appearance, PERRL ENT exam: Present: normal oropharynx Neck exam: Present: normal inspection Respiratory exam: Present: decreased breath sounds Cardiovascular Exam: Present: regular rate, normal rhythm GI/Abdominal exam: Present: soft. Absent: tenderness Extremities exam: Present: normal inspection. Absent: pedal edema, calf tenderness Neurological exam: Present: alert Psychiatric exam: Present: normal affect, normal mood Skin exam: Present: normal color Course Vital Signs 07/13/19 07/13/19 07/13/19 07:16 08:03 08:15 Temperature 98.3 F Pulse Rate 90 79 86 Respiratory 24 Rate Blood Pressure 185/101 O2 Sat by Pulse 92 L Oximetry EKG Findings - EKG Comments: EKG Findings:: Sinus rhythm at 86. First AV block AZ of 284. QRS 132. QT 392. QTC 469. Left axis. Septal Q waves. Non-specific intraventricular block. No acute ST change. Medical Decision Making - Medical Decision Making Patient reevaluated and resting comfortably in bed. Patient and family updated on results and plan. Case was discussed in detail with Dr. Schneider, covering for Dr. Begum, who will admit. Cardiology will be placed on consult. - Lab Data Result diagrams: 07/13/19 08:02 07/13/19 08:02 Lab Results 07/13/19 07/13/19 07/13/19 Range/Units 08:02 08:02 08:02 WBC 11.9 H (3.8-10.6) k/uL RBC 5.23 (4.30-5.90) m/uL Hgb 14.3 (13.0-17.5) gm/dL Hct 45.5 (39.0-53.0) % MCV 86.9 (80.0-100.0) fL MCH 27.3 (25.0-35.0) pg MCHC 31.4 (31.0-37.0) g/dL RDW 14.2 (11.5-15.5) % Plt Count 278 (150-450) k/uL Neutrophils % 77 % Lymphocytes % 12 % Monocytes % 8 % Eosinophils % 0 % Basophils % 1 % Neutrophils # 9.2 H (1.3-7.7) k/uL Lymphocytes # 1.4 (1.0-4.8) k/uL Monocytes # 0.9 (0-1.0) k/uL Eosinophils # 0.1 (0-0.7) k/uL Basophils # 0.1 (0-0.2) k/uL PT 10.8 (9.0-12.0) sec INR 1.0 (<1.2) APTT 25.5 (22.0-30.0) sec Sodium 141 (137-145) mmol/L Potassium 4.0 (3.5-5.1) mmol/L Chloride 103 (98-107) mmol/L Carbon Dioxide 25 (22-30) mmol/L Anion Gap 13 mmol/L BUN 15 (9-20) mg/dL Creatinine 1.13 (0.66-1.25) mg/dL Est GFR (CKD-EPI)AfAm 72 (>60 ml/min/1.73 sqM) Est GFR (CKD-EPI)NonAf 63 (>60 ml/min/1.73 sqM) Glucose 268 H (74-99) mg/dL Plasma Lactic Acid Amadou (0.7-2.0) mmol/L Calcium 9.0 (8.4-10.2) mg/dL Total Bilirubin 1.5 H (0.2-1.3) mg/dL AST 21 (17-59) U/L ALT 10 (4-49) U/L Alkaline Phosphatase 120 (38-126) U/L Troponin I (0.000-0.034) ng/mL NT-Pro-B Natriuret Pep pg/mL Total Protein 8.1 (6.3-8.2) g/dL Albumin 4.1 (3.5-5.0) g/dL 07/13/19 07/13/19 07/13/19 Range/Units 08:02 08:02 08:02 WBC (3.8-10.6) k/uL RBC (4.30-5.90) m/uL Hgb (13.0-17.5) gm/dL Hct (39.0-53.0) % MCV (80.0-100.0) fL MCH (25.0-35.0) pg MCHC (31.0-37.0) g/dL RDW (11.5-15.5) % Plt Count (150-450) k/uL Neutrophils % % Lymphocytes % % Monocytes % % Eosinophils % % Basophils % % Neutrophils # (1.3-7.7) k/uL Lymphocytes # (1.0-4.8) k/uL Monocytes # (0-1.0) k/uL Eosinophils # (0-0.7) k/uL Basophils # (0-0.2) k/uL PT (9.0-12.0) sec INR (<1.2) APTT (22.0-30.0) sec Sodium (137-145) mmol/L Potassium (3.5-5.1) mmol/L Chloride (98-107) mmol/L Carbon Dioxide (22-30) mmol/L Anion Gap mmol/L BUN (9-20) mg/dL Creatinine (0.66-1.25) mg/dL Est GFR (CKD-EPI)AfAm (>60 ml/min/1.73 sqM) Est GFR (CKD-EPI)NonAf (>60 ml/min/1.73 sqM) Glucose (74-99) mg/dL Plasma Lactic Acid Amadou 2.0 (0.7-2.0) mmol/L Calcium (8.4-10.2) mg/dL Total Bilirubin (0.2-1.3) mg/dL AST (17-59) U/L ALT (4-49) U/L Alkaline Phosphatase (38-126) U/L Troponin I 0.109 H* (0.000-0.034) ng/mL NT-Pro-B Natriuret Pep 2300 pg/mL Total Protein (6.3-8.2) g/dL Albumin (3.5-5.0) g/dL - Radiology Data Radiology results: image reviewed (Chest x-ray: Correlate for CHF. Cardiomegaly and edema. Possible atelectasis or infiltrate) Disposition Clinical Impression: Congestive heart failure Disposition: ADMITTED IP TO THIS HOSP Is patient prescribed a controlled substance at d/c from ED?: No Referrals: Stevie Begum MD [Primary Care Provider] - 1-2 days Decision Time: 09:15
[2019-07-13 08:19] LABS: Basophils # (A) 0.1 k/uL (0-0.2); Basophils % (A) 1 %; Eosinophils # (A) 0.1 k/uL (0-0.7); Eosinophils % (A) 0 %; HCT 45.5 % (39.0-53.0); HGB 14.3 gm/dL (13.0-17.5); Lymphocytes # (A) 1.4 k/uL (1.0-4.8); Lymphocytes % (A) 12 %; MCH 27.3 pg (25.0-35.0); MCHC 31.4 g/dL (31.0-37.0); MCV 86.9 fL (80.0-100.0); Mean Platelet Volume 7.9; Monocytes # (A) 0.9 k/uL (0-1.0); Monocytes % (A) 8 %; Neutrophils # (A) 9.2 k/uL (1.3-7.7); Neutrophils % (A) 77 %; Platelet Count 278 k/uL (150-450); RBC 5.23 m/uL (4.30-5.90); RDW 14.2 % (11.5-15.5); WBC 11.9 k/uL (3.8-10.6)
[2019-07-13 08:23] LABS: Partial Thromboplastin Time 25.5 sec (22.0-30.0); Prothrombin Time 10.8 sec (9.0-12.0)
[2019-07-13 08:28] LABS: Albumin 4.1 g/dL (3.5-5.0); Total Bilirubin 1.5 mg/dL (0.2-1.3); Total Protein 8.1 g/dL (6.3-8.2)
--- NOTE | 2019-07-13 08:52 | XR ---
EXAMINATION TYPE: XR chest 2V DATE OF EXAM: 07/13/2019 COMPARISON: Chest x-ray February 21, 2019. CT chest February 19, 2019 HISTORY: Shortness of breath TECHNIQUE: Frontal and lateral views of the chest are obtained. FINDINGS: Attempted lateral view is suboptimal due to patient's large body habitus. Overlying sternal wires and mediastinal clips are redemonstrated. Persistent cardiomegaly with atherosclerotic thoraci c aorta. Chronic emphysematous and parenchymal changes with increased central alveolar and interstiti al markings and new more focal left basilar opacity laterally and posteriorly confirmed on 2 views. L arge anterior bridging osteophytes in the thoracic spine redemonstrated. IMPRESSION: Correlate for CHF exacerbation as there is new mild to moderate alveolar and interstitia l edema felt present on background cardiomegaly and chronic emphysematous change with additional more suspicious focal lateral posterior left basilar acute infiltrate and/or atelectasis noted.
[2019-07-13] MEDS ORDERED: ASPIRIN 325 MG TAB PO STA (09:15)
[2019-07-13] MEDS ORDERED: HEPARIN SODIUM,PORCINE 5,000 UNIT/ML 1 ML VIAL IV PRN (09:42)
[2019-07-13] MEDS ORDERED: HEPARIN SODIUM,PORCINE 5,000 UNIT/ML 1 ML VIAL IV ONE (09:42)
[2019-07-13] MEDS ORDERED: HEPARIN SOD,PORK IN 0.45% NACL 25,000 UNIT in 0.45% NACL 1 250ML.BAG IV SCH (09:45)
[2019-07-13] MEDS: FUROSEMIDE 10 MG/ML 4 ML VIAL IV SCH ×3 (10:18→21:03)
[2019-07-13] MEDS ORDERED: HYDROcodone/APAP 5-325MG 1 EACH TAB PO PRN (10:23)
[2019-07-13] MEDS ORDERED: CARVEDILOL 3.125 MG TAB PO SCH (10:30)
[2019-07-13] MEDS: TAMSULOSIN 0.4 MG CAP.ER.24H PO SCH (10:42)
[2019-07-13] MEDS: ASPIRIN 81 MG PO SCH (10:42)
--- NOTE | 2019-07-13 11:01 | ECHOF ---
Referral Reason:Heart Failure MEASUREMENTS -------- HEIGHT: 180.3 cm WEIGHT: 163.3 kg BP: 185/101 RVIDd: 4.0 cm (< 3.3) IVSd: 1.5 cm (0.6 - 1.1) LVIDd: 6.7 cm (3.9 - 5.3) LVPWd: 1.6 cm (0.6 - 1.1) IVSs: 1.6 cm LVIDs: 5.9 cm LVPWs: 1.2 cm LA Diam: 5.2 cm (2.7 - 3.8) Ao Diam: 3.8 cm (2.0 - 3.7) AV Cusp: 1.9 cm (1.5 - 2.6) MV EXCURSION: 18.959 mm (> 18.000) MV EF SLOPE: 39 mm/s (70 - 150) EPSS: 2.0 cm AV maxP.40 mmHg AV meanP.17 mmHg RAP: 15.00 mmHg RVSP: 39.93 mmHg FINDINGS -------- Sinus rhythm. This was a technically difficult study with suboptimal views. The left ventricle is moderately dilated. There is moderate concentric left ventricular hypertrophy . Overall left ventricular systolic function is severely impaired with, an EF between 25 - 30 %. The right ventricle is moderately enlarged. The left atrium is moderately dilated. 4 ml of Lumason was utilized for enhancement of images. There is mild aortic valve sclerosis. There is mild aortic stenosis present. Peak/mean gradient a cross the Aortic Valve is 17.40mmHg / 8.17mmHg. Mild mitral annular calcification present. [id number] mitral regurgitation is present. Mild tricuspid regurgitation present. There is mild pulmonary hypertension. The right ventricular systolic pressure, as measured by Doppler, is 39.93mmHg. There is no pulmonic regurgitation present. The aortic root is mildy dilated. IVC Not well visulized. There is no pericardial effusion. CONCLUSIONS -------- 1. Sinus rhythm. 2. This was a technically difficult study with suboptimal views. 3. The left ventricle is moderately dilated. 4. There is moderate concentric left ventricular hypertrophy. 5. Overall left ventricular systolic function is severely impaired with, an EF between 25 - 30 %. 6. The right ventricle is moderately enlarged. 7. The left atrium is moderately dilated. 8. 4 ml of Lumason was utilized for enhancement of images. 9. There is mild aortic valve sclerosis. 10. There is mild aortic stenosis present. 11. Peak/mean gradient across the Aortic Valve is 17.40mmHg / 8.17mmHg. 12. Mild mitral annular calcification present. 13. [id number] mitral regurgitation is present. 14. Mild tricuspid regurgitation present. 15. There is mild pulmonary hypertension. 16. The right ventricular systolic pressure, as measured by Doppler, is 39.93mmHg. 17. There is no pulmonic regurgitation present. 18. The aortic root is mildy dilated. 19. IVC Not well visulized. 20. There is no pericardial effusion. STUDENT SPECIALIST: Aniyah Beth RDCS
[2019-07-13 11:36] LABS: Glucose,Whole Blood 236 mg/dL (75-99)
[2019-07-13] MEDS: INSULIN DETEMIR (LEVEMIR) 100 UNIT/ML SYR SQ SCH ×2 (11:36→20:55)
[2019-07-13] MEDS: INSULIN ASPART (NovoLOG) 100 UNIT/ML VIAL SQ SCH ×5 (11:46→21:51)
[2019-07-13] MEDS ORDERED: NITROGLYCERIN OINT 1 INCH/GM PACKET TOPICAL SCH (13:00)
--- NOTE | 2019-07-13 13:16 | CONS ---
CONSULTATION Mr. Tyson is a 78-year-old male with a known history of coronary artery disease, status post coronary artery bypass grafting, prior history of congestive heart failure, history of diabetes, hypertension, hyperlipidemia, who presented to the emergency room with symptoms of progressive dyspnea, cough and wheezing and some peripheral edema. The patient is not very active physically. He has been followed on a regular basis with Dr. Vences. He was in the hospital in January of 2019 and at that time underwent a cardiac catheterization by Dr. Vences and was found to have patent BARGER to LAD and radial graft to the diagonal branch. The graft to the RCA was occluded. The [place] LAD was occluded [place] circumflex occluded, but the obtuse marginal branch seen through collaterals and the [place] RCA has diffuse disease and there is collaterals to the RCA. During that admission, his echocardiogram showed an ejection fraction of 45% to 50%. with mild aortic stenosis and mild tricuspid regurgitation, but with no evidence of pulmonary hypertension. The patient has been complaining of the progressive dyspnea over the last few days with a cough as noted. He has some chest discomfort when he coughs. He has wheezing. He has no fever. He has peripheral edema with chronic stasis. His coronary risk factors are positive for history of hypertension, hyperlipidemia and a history of diabetes. His medications at home include aspirin, Coreg 3.125 mg twice a day, Pepcid, Lasix 40 mg twice a day, insulin, simvastatin 10 mg daily, tamsulosin, Robitussin, and Ventolin. REVIEW OF SYSTEMS: RESPIRATORY SYSTEM: He had dyspnea on exertion and wheezing with a cough. GI SYSTEM: He had no recent nausea and vomiting. No GI bleeding. SYSTEM: He denies any dysuria or hematuria. He had a prior history of nephrolithiasis. NERVOUS SYSTEM: He has no history of seizure. PHYSICAL EXAMINATION: He is a 78-year-old male, alert, oriented, mildly dyspneic, morbidly obese. Blood pressure running in the 170s to 180s with the heart rate in the 80s. HEAD: Normocephalic. EYES: Sclerae nonicteric. NECK: Good upstroke, no bruit. LUNGS: With decreased breath sounds at the bases, no wheezes. HEART: Regular rate and rhythm, S1, S2. No S3 with systolic murmur, ejection type heard at the base, 2/6 no diastolic murmur, no rub. ABDOMEN: Soft, obese, positive bowel sounds, no organomegaly. EXTREMITIES: +1 edema with chronic stasis and decreased distal pulses. LAB DATA: Revealed a troponin 0.109. NT proBNP of 2300. BUN and creatinine 15 and 1.13. Hemoglobin of 14.3. His white blood cell is 11.9. His EKG revealed sinus mechanism, first-degree block, left axis deviation, poor RV progression with intraventricular conduction delay. He had an echocardiogram performed today that reported showing a severely impaired systolic function, ejection fraction 25% to 30% with mild to moderate mitral and mild tricuspid regurgitation and mild pulmonary hypertension. The chest x- ray revealed evidence of CHF. IMPRESSION: 1. Symptoms of progressive dyspnea in a patient with history of cardiomyopathy. There is a drop in the systolic function in the new echocardiogram. He had underwent cardiac catheterization recently and maximizing medical therapy was recommended at that time. 2. Status post coronary artery bypass grafting. 3. History of hypertension. 4. Hyperlipidemia. 5. Diabetes mellitus. 6. Probable bronchitis. 7. Chronic stasis. 8. Morbid obesity. RECOMMENDATION: From the cardiac standpoint, I will continue his medical regimen and adjust his antihypertensive regimen. The patient has been started on IV Lasix. Will follow his renal function closely. Depending on his progress, further recommendation made. I do not see any indication for coronary angiography at this time, but if there is persistent impairment left ventricular systolic function. The patient will be a candidate for probable ICD implantation that can be evaluated at a later time. Thank you for this consult. Will follow with you. MAKENZIEL / ASTRIDN: [id number] /
[2019-07-13] MEDS: ATORVASTATIN 40 MG TAB PO SCH (14:23)
[2019-07-13] MEDS: ISOSORBIDE MONONITRATE ER 30 MG TAB.ER.24H PO SCH (14:23)
[2019-07-13] MEDS: LISINOPRIL 5 MG TAB PO SCH ×2 (14:23→22:03)
[2019-07-13 16:58] LABS: Glucose,Whole Blood 141 mg/dL (75-99)
[2019-07-13] MEDS: CARVEDILOL 6.25 MG TAB PO SCH (17:54)
--- NOTE | 2019-07-13 19:29 | P.HPIM ---
History of Present Illness H&P Date: 07/13/19 Chief Complaint: Short of breath History of presenting complaint: This is a very pleasant [address] Stevie Begum. Patient follows with senior asset manager Dr. Vences. Chronic stable medical conditions include coronary artery disease with bypass, diabetes, hypertension, hyperlipidemia, peripheral neuropathy, BPH diverticulosis, IBS. Patient presents with pro gressive short of breath for about 4 days. Has had a constant cough. Some phlegm that he typically swallows. Some increasing lower extremity edema. No obvious fever and chills. Appetite has been okay. Some orthopnea. Patient had a baseline uses a walker. Admitted with a diagnosis of CHF. Review of systems: GEN.: Tired EYES: None HEENT: None NECK: None RESPIRATORY: As above] CARDIOVASCULAR: As above GASTROINTESTINAL: None GENITOURINARY: None MUSCULOSKELETAL: Some joint pains LYMPHATICS: None HEMATOLOGICAL: None PSYCHIATRY: None NEUROLOGICAL: Uses a walker, peripheral numbness Past medical history to include: Coronary artery disease with bypass, CHF, diabetes, GERD, hypertension, BPH, peripheral neuropathy, diverticulosis, IBS Social history: Lives with his . Does use a walker. No smoking or alcohol. Physical examination: VITAL SIGNS: 98.3, 70, 24, blood pressure 185/101, 92% on room air GENERAL: BMI 50.2, sitting up in a chair, tired psych she short of breath. EYES: Pupils equal. Conjunctiva normal. HEENT: External appearance of nose and ears normal, oral cavity grossly normal. NECK: JVD unable to assess; masses not palpable. HEART: Heart sounds are muffled; some edema. LUNGS: Respiratory rate increased decreased breath sounds. ABDOMEN: Soft, distended nontender, liver spleen not palpable, no masses palpable. DERMATOLOGICAL: Redness minimal tenderness in the intertriginous areas PSYCH: Alert and oriented x3; mood and affect normal. NEUROLOGICAL: Cranial nerves grossly intact; no facial asymmetry, power and sensation grossly intact. LYMPHATICS: No lymph nodes palpable in the axilla and neck INVESTIGATIONS, reviewed in the clinical context: White count 9.9 hemoglobin 14.3 platelets 278 potassium 4 creatinine 1.13 Accu-Cheks 268, 236 ProBNP 2300, troponin I 0.019,s.090 EKG tracing personally reviewed by me-a regular baseline questionable atrial flutter Chest x-ray film personally reviewed by me-pulmonary edema, questionable infiltrate 2-D echocardiogram-EF 25-30%, some mitral regurgitation Assessment: -Acute on chronic congestive heart failure exacerbation from systolic dysfunction EF 25-30% from underlying ischemic heart disease -Coronary artery disease prior history of coronary bypass -Diabetes mellitus type 2 -GERD -Essential hypertension -BPH -Peripheral neuropathy from diabetes -Irritable bowel syndrome -Colonic diverticulosis -Morbid obesity BMI 50.2 -Troponin leak from CHF. No clinical evidence of acute coronary syndrome Plan: Home medications resumed. Patient's been IV Lasix. I's and O's will be monitored. Electrolytes will be followed. Accu-Cheks will be followed. Cardiology was consulted. Care was discussed with the patient question were answered. We will DC the IV heparin Past Medical History Past Medical History: Coronary Artery Disease (CAD), Diabetes Mellitus, Hyperlipidemia, Hypertension, Prostate Disorder Additional Past Medical History / Comment(s): Coronary artery disease, previous bypass surgery, diabetes mellitus type 2, hypertension, hyperlipidemia, morbid obesity with a BMI 52.2, history of kidney stones, obstructive sleep apnea post UPPP currently not utilizing any form of CPAP or BiPAP therapy. History of Any Multi-Drug Resistant Organisms: None Reported Past Surgical History: Coronary Bypass/CABG Additional Past Surgical History / Comment(s): UVP- FOR SLEEP APNEA FATTY TUMOR REMOVED FROM LEFT THIGH, CABG 15 years ago Past Anesthesia/Blood Transfusion Reactions: No Reported Reaction Past Psychological History: No Psychological Hx Reported Smoking Status: Never smoker Past Alcohol Use History: None Reported Past Drug Use History: None Reported - Past Family History Mother Family Medical History: No Reported History Father Family Medical History: COPD Additional Family Medical History / Comment(s): Father was a smoker. Medications and Allergies Home Medications Medication Instructions Recorded Confirmed Type Simvastatin 10 mg PO HS 02/12/19 07/13/19 History Tamsulosin HCl [Flomax] 0.4 mg PO DAILY 02/12/19 07/13/19 History Albuterol Inhaler [Ventolin Hfa 1 - 2 puff INHALATION RT-Q6H PRN 02/22/19 07/13/19 Rx Inhaler] #1 inhaler Aspirin 81 mg PO DAILY #30 chew 02/22/19 07/13/19 Rx Furosemide [Lasix] 40 mg PO BID #60 tablet 02/22/19 07/13/19 Rx Nitroglycerin Sl Tabs [Nitrostat] 0.4 mg SUBLINGUAL Q5M PRN #25 tab 02/22/19 07/13/19 Rx Famotidine [Pepcid] 20 mg PO HS 03/20/19 07/13/19 History INSULIN ASPART (NovoLOG) [NovoLOG 80 unit SQ AC-BID 03/20/19 07/13/19 History (formulary)] Insulin Glargine [Lantus] 60 unit SQ BID 03/20/19 07/13/19 History Carvedilol [Coreg] 3.125 mg PO BID-W/MEALS #180 tab 04/20/19 07/13/19 Rx guaiFENesin SYRUP 100MG/5ML 200 mg PO Q4H PRN 07/13/19 07/13/19 History [Robitussin] Allergies Allergy/AdvReac Type Severity Reaction Status Date / Time No Known Allergies Allergy Verified 07/13/19 10:17 Physical Exam Vitals: Vital Signs Temp Pulse Resp BP Pulse Ox 07/13/19 08:15 86 07/13/19 08:03 79 07/13/19 07:16 98.3 F 90 24 185/101 92 L Intake and Output 07/12/19 07/13/19 07/13/19 22:59 06:59 14:59 Other: Weight 163.293 kg Results CBC & Chem 7: 07/13/19 08:02 07/13/19 08:02 Labs: Abnormal Lab Results - Last 24 Hours (Table) 07/13/19 07/13/19 07/13/19 Range/Units 08:02 08:02 08:02 WBC 11.9 H (3.8-10.6) k/uL Neutrophils # 9.2 H (1.3-7.7) k/uL Glucose 268 H (74-99) mg/dL Total Bilirubin 1.5 H (0.2-1.3) mg/dL Troponin I 0.109 H* (0.000-0.034) ng/mL
[2019-07-13] MEDS: FAMOTIDINE 20 MG TAB PO SCH (20:54)
[2019-07-13] MEDS ORDERED: ATORVASTATIN 10 MG TAB PO SCH (21:00)
[2019-07-13 21:27] LABS: Glucose,Whole Blood 128 mg/dL (75-99)
[2019-07-14 06:59] LABS: Glucose,Whole Blood 87 mg/dL (75-99)
[2019-07-14] MEDS: INSULIN ASPART (NovoLOG) 100 UNIT/ML VIAL SQ SCH ×7 (07:04→20:57)
[2019-07-14] MEDS: INSULIN DETEMIR (LEVEMIR) 100 UNIT/ML SYR SQ SCH ×2 (07:06→20:08)
[2019-07-14] MEDS: CARVEDILOL 6.25 MG TAB PO SCH ×2 (07:07→17:17)
[2019-07-14 07:47] LABS: Calcium 8.9 mg/dL (8.4-10.2); Potassium 3.6 mmol/L (3.5-5.1)
[2019-07-14 07:50] LABS: Basophils # (A) 0.1 k/uL (0-0.2); Basophils % (A) 1 %; Eosinophils % (A) 0 %; HCT 42.5 % (39.0-53.0); HGB 13.7 gm/dL (13.0-17.5); Hypochromasia Slight; Lymphocytes # (A) 1.5 k/uL (1.0-4.8); Lymphocytes % (A) 13 %; MCH 28.1 pg (25.0-35.0); MCHC 32.2 g/dL (31.0-37.0); MCV 87.2 fL (80.0-100.0); Mean Platelet Volume 8.1; Monocytes % (A) 9 %; Neutrophils # (A) 8.9 k/uL (1.3-7.7); Neutrophils % (A) 75 %; Platelet Count 288 k/uL (150-450); RBC 4.87 m/uL (4.30-5.90); RDW 14.1 % (11.5-15.5); WBC 11.8 k/uL (3.8-10.6)
[2019-07-14] MEDS: ATORVASTATIN 40 MG TAB PO SCH (08:58)
[2019-07-14] MEDS: LISINOPRIL 5 MG TAB PO SCH ×2 (08:58→20:07)
[2019-07-14] MEDS: FUROSEMIDE 10 MG/ML 4 ML VIAL IV SCH ×3 (08:58→20:08)
[2019-07-14] MEDS: TAMSULOSIN 0.4 MG CAP.ER.24H PO SCH (08:58)
[2019-07-14] MEDS: ASPIRIN 81 MG PO SCH (08:58)
[2019-07-14] MEDS: ENOXAPARIN 40 MG/0.4 ML SYRINGE SQ SCH (08:58)
[2019-07-14] MEDS: ISOSORBIDE MONONITRATE ER 30 MG TAB.ER.24H PO SCH (08:58)
[2019-07-14] MEDS ORDERED: ASPIRIN 325 MG TAB PO SCH (09:00)
[2019-07-14 12:19] LABS: Glucose,Whole Blood 184 mg/dL (75-99)
--- NOTE | 2019-07-14 14:16 | P.PN ---
Subjective Progress Note Date: 07/14/19 This a pleasant 78-year-old male patient with known history of CAD, status post coronary artery bypass grafting, prior history of CHF, history of diabetes, hypertension, hyperlipidemia. He presented to the emergency department with symptoms of progressive dyspnea, cough and wheezing with peripheral edema. He follows regularly with Dr. Vences. He underwent cardiac catheterization by Dr. Vences in January 2019 was found to have patent BARGER to the LAD and patent radial graft to the diagonal branch. The graft to the RCA was occluded. The [place] LAD was occluded, [place] circumflex occluded, the obtuse marginal branch seen through collaterals and the [place] RCA has diffuse disease and there are collaterals to the RCA. During that admission echocardiogram showed an ejection fraction of 45-50% with mild aortic stenosis and mild tricuspid regurgitation with no evidence of pulmonary hypertension. Patient underwent repeat echocardiogram this admission which has shown severely impaired systolic function with an ejection fraction of 25-30% with mild to moderate mitral and mild tricuspid regurgitation as well as mild pulmonary hypertension. Chest x- ray did reveal evidence of CHF. NT proBNP was elevated at 2300. Upon examination this morning patient is sitting up in a chair. He overall feels that he is breathing better. Labs this morning showed potassium 3.6, BUN 22, creatinine 1.19. He is currently on aspirin 81 mg by mouth daily, Lipitor 40 mg by mouth daily, carvedilol 6.25 mg by mouth twice a day, Lasix 40 mg IV every 8 hours, isosorbide 30 mg by mouth daily and lisinopril 5 mg by mouth twice a day. Vital signs stable with a blood pressure 120s to 1:30 over 60s and heart rate in the 50s to 70s. Objective - Vital Signs Vital signs: Vital Signs Temp 97.7 F 07/14/19 11:00 Pulse 64 07/14/19 11:37 Resp 20 07/14/19 11:37 BP 130/60 07/14/19 11:00 Pulse Ox 98 07/14/19 11:00 Intake & Output 07/13/19 07/14/19 07/14/19 18:59 06:59 18:59 Intake Total 485.948 360 500 Output Total 500 750 250 Balance -14.052 -390 250 Weight 163.293 kg 162.2 kg Intake: Intake, IV Titration 55.948 Amount Heparin Sod,Pork in 0.45% 55.948 NaCl 25,000 unit In 0.45 % NaCl 1 250ml.bag @ 6.1 UNITS/KG/HR 9.961 mls/hr IV .Q24H [facility] Rx#: [id number] Oral 430 360 500 Output: Urine 500 750 250 Other: Voiding Method Urinal Urinal # Voids 1 - Exam PHYSICAL EXAMINATION: HEENT: Head is atraumatic, normocephalic. Pupils equal, round. Neck is supple. There is no elevated jugular venous pressure. HEART EXAMINATION: Heart sounds regular, S1 and S2 with a systolic ejection murmur at the base. CHEST EXAMINATION: Lungs reveal diminished air entry bilateral bases. No chest wall tenderness is noted on palpation or with deep breathing. ABDOMEN: Soft, obese, nontender. Bowel sounds are heard. No organomegaly noted. EXTREMITIES: Evidence of +1 edema bilaterally with skin changes consistent with chronic stasis, diminished peripheral pulses. NEUROLOGIC patient is awake, alert and oriented x3. . - Labs CBC & Chem 7: 07/14/19 06:55 07/14/19 06:55 Labs: Abnormal Lab Results - Last 24 Hours (Table) 07/13/19 07/13/19 07/13/19 Range/Units 14:39 14:39 16:39 WBC (3.8-10.6) k/uL Neutrophils # (1.3-7.7) k/uL APTT 32.3 H (22.0-30.0) sec BUN (9-20) mg/dL POC Glucose (mg/dL) 141 H (75-99) mg/dL Troponin I 0.090 H* (0.000-0.034) ng/mL 07/13/19 07/13/19 07/13/19 Range/Units 20:05 20:31 21:26 WBC (3.8-10.6) k/uL Neutrophils # (1.3-7.7) k/uL APTT 50.6 H (22.0-30.0) sec BUN (9-20) mg/dL POC Glucose (mg/dL) 128 H (75-99) mg/dL Troponin I 0.098 H* (0.000-0.034) ng/mL 03/13/20 03/13/20 03/13/20 Range/Units 06:55 06:55 12:13 WBC 11.8 H (3.8-10.6) k/uL Neutrophils # 8.9 H (1.3-7.7) k/uL APTT (22.0-30.0) sec BUN 22 H (9-20) mg/dL POC Glucose (mg/dL) 184 H (75-99) mg/dL Troponin I (0.000-0.034) ng/mL Assessment and Plan Assessment: #1 symptoms of progressive dyspnea in patient with history of cardiomyopathy, he should decrease systolic function compared to previous echocardiogram, recent cardiac catheterization and recommendation made at that time to maximize medical therapy #2 status post coronary artery bypass grafting #3 history of hypertension #4 hyperlipidemia #5 diabetes mellitus #6 noncompliance with dietary restrictions #7 probable bronchitis #8 chronic venous stasis #9 morbid obesity Plan: From cardiology perspective, I did have a detailed discussion with the patient regarding the importance of following a low sodium diet and monitoring sodium included in foods including takeout, delivery, restaurant foods, prepackaged meals and can foods. The patient had apparently not been doing this at home. We will decrease the dose of IV Lasix. Continue to monitor renal function, electrolytes, daily weights and I's and O's. If there is persistent impairment of left ventricular systolic function the patient will be candidate for probable ICD implantation which will be evaluated at a later time. We will Continue to follow the patient during this admission provide further recommendations accordingly. WAREHOUSE ORDER SELECTOR note has been reviewed, I agree with a documented findings and plan of care. Patient was seen and examined.
--- NOTE | 2019-07-14 15:58 | P.PN ---
Progress Note - Text Progress Note Date: 07/14/19 Chief Complaint: Short of breath History of presenting complaint: This is a very pleasant [address] Stevie Begum. Patient follows with senior cytogenetic technologist Dr. Vences. Chronic stable medical conditions include coronary artery disease with bypass, diabetes, hypertension, hyperlipidemia, peripheral neuropathy, BPH diverticulosis, IBS. Patient presents with progressive short of breath for about 4 days. Has had a constant cough. Some phlegm that he typically swallows. Some increasing lower extremity edema. No obvious fever and chills. Appetite has been okay. Some orthopnea. Patient had a baseline uses a walker. Admitting diagnoses of CHF. Started on IV Lasix Today-breathing a bit better. Did tolerate some diet. Sitting upon a chair. Trouble with nasal drainage. Review of systems: Was done for constitutional, cardiovascular, GI, pulmonary. relevant finding as above Active Medications Hydrocodone Bitart/Acetaminophen ([place] 5-325) 1 each PO Q4HR PRN PRN Reason: Pain Last Admin: 07/13/19 20:54 Dose: 1 each Documented by: Aspirin (Aspirin) 81 mg PO DAILY [facility] Last Admin: 07/14/19 08:58 Dose: 81 mg Documented by: Atorvastatin Calcium (Lipitor) 40 mg PO DAILY [facility] Last Admin: 07/14/19 08:58 Dose: 40 mg Documented by: Carvedilol (Coreg) 6.25 mg PO BID-W/MEALS [facility] Last Admin: 07/14/19 07:07 Dose: 6.25 mg Documented by: Enoxaparin Sodium (Lovenox) 40 mg SQ DAILY [facility] Last Admin: 07/14/19 08:58 Dose: 40 mg Documented by: Famotidine (Pepcid) 20 mg PO HS [facility] Last Admin: 07/13/19 20:54 Dose: 20 mg Documented by: Furosemide (Lasix) 40 mg IV Q8HR [facility] Last Admin: 07/14/19 08:58 Dose: 40 mg Documented by: Insulin Aspart (Novolog) 40 unit SQ AC-TID [facility] Last Admin: 07/14/19 12:25 Dose: 40 unit Documented by: Insulin Aspart (Novolog) 0 unit SQ ACHS [facility]; Protocol Last Admin: 07/14/19 12:21 Dose: Not Given Documented by: Insulin Detemir (Levemir) 50 unit SQ BID@0700,2100 [facility] Last Admin: 07/14/19 07:06 Dose: 50 unit Documented by: Isosorbide Mononitrate (Imdur) 30 mg PO DAILY [facility] Last Admin: 07/14/19 08:58 Dose: 30 mg Documented by: Lisinopril (Zestril) 5 mg PO BID [facility] Last Admin: 07/14/19 08:58 Dose: 5 mg Documented by: Sodium Chloride (Saline Flush) 10 ml IV BID [facility] Last Admin: 07/14/19 09:01 Dose: 10 ml Documented by: Tamsulosin HCl (Flomax) 0.4 mg PO DAILY [facility] Last Admin: 07/14/19 08:58 Dose: 0.4 mg Documented by: Physical examination: VITAL SIGNS: 97.7, 64, 20, blood pressure 130/60, 98% on room GENERAL: BMI 50.2, sitting up in a chair, a bit less short of breath EYES: Pupils equal. Conjunctiva normal. HEENT: External appearance of nose and ears normal, oral cavity grossly normal. NECK: JVD unable to assess; masses not palpable. HEART: Heart sounds are muffled; some edema. LUNGS: Respiratory rate increased decreased breath sounds. ABDOMEN: Soft, distended nontender, liver spleen not palpable, no masses palpable. DERMATOLOGICAL: Redness minimal tenderness in the intertriginous areas PSYCH: Alert and oriented x3; mood and affect normal. INVESTIGATIONS, reviewed in the clinical context: White count 11.8 hemoglobin 13.7 potassium 3.6 creatinine 1.19 Previous testing White count 9.9 hemoglobin 14.3 platelets 278 potassium 4 creatinine 1.13 Accu-Cheks 268, 236 ProBNP 2300, troponin I 0.019,s.090 EKG tracing personally reviewed by me-a regular baseline questionable atrial flutter Chest x-ray film personally reviewed by me-pulmonary edema, questionable infiltrate 2-D echocardiogram-EF 25-30%, some mitral regurgitation Assessment: -Acute on chronic congestive heart failure exacerbation from systolic dysfunction EF 25-30% from underlying ischemic heart disease, slow to respond on IV Lasix -Coronary artery disease prior history of coronary bypass -Intertriginous fungal infection Sandra between skin folds -Diabetes mellitus type 2 -GERD -Essential hypertension -BPH -Peripheral neuropathy from diabetes -Irritable bowel syndrome -Colonic diverticulosis -Morbid obesity BMI 50.2 -Troponin leak from CHF. No clinical evidence of acute coronary syndrome Plan: Continue with IV Lasix. Add Claritin. Other medications are to continue. Follow labs. Care discussed with the patient.
[2019-07-14 17:08] LABS: Glucose,Whole Blood 125 mg/dL (75-99)
[2019-07-14] MEDS: LORATADINE 10 MG TAB PO SCH ×2 (17:18→20:07)
[2019-07-14] MEDS: NYSTATIN 100,000 UNIT/GM POWD 15 GM TOPICAL SCH ×2 (17:18→20:12)
[2019-07-14] MEDS: FAMOTIDINE 20 MG TAB PO SCH (20:07)
[2019-07-14 20:53] LABS: Glucose,Whole Blood 97 mg/dL (75-99)
[2019-07-15] MEDS: CARVEDILOL 6.25 MG TAB PO SCH ×2 (06:30→17:27)
[2019-07-15] MEDS: INSULIN DETEMIR (LEVEMIR) 100 UNIT/ML SYR SQ SCH ×2 (06:30→21:32)
[2019-07-15 06:49] LABS: Glucose,Whole Blood 144 mg/dL (75-99)
[2019-07-15] MEDS: INSULIN ASPART (NovoLOG) 100 UNIT/ML VIAL SQ SCH ×7 (06:52→20:51)
[2019-07-15 07:16] LABS: Basophils # (A) 0.1 k/uL (0-0.2); Basophils % (A) 1 %; Eosinophils # (A) 0.1 k/uL (0-0.7); Eosinophils % (A) 1 %; HCT 43.7 % (39.0-53.0); HGB 13.7 gm/dL (13.0-17.5); Lymphocytes # (A) 1.7 k/uL (1.0-4.8); Lymphocytes % (A) 15 %; MCH 27.5 pg (25.0-35.0); MCHC 31.4 g/dL (31.0-37.0); MCV 87.6 fL (80.0-100.0); Mean Platelet Volume 8.5; Monocytes # (A) 1.1 k/uL (0-1.0); Monocytes % (A) 9 %; Neutrophils # (A) 8.4 k/uL (1.3-7.7); Neutrophils % (A) 72 %; Platelet Count 249 k/uL (150-450); RBC 4.99 m/uL (4.30-5.90); RDW 14.3 % (11.5-15.5); WBC 11.7 k/uL (3.8-10.6)
[2019-07-15 07:27] LABS: Calcium 8.8 mg/dL (8.4-10.2); Potassium 3.6 mmol/L (3.5-5.1)
[2019-07-15] MEDS: ATORVASTATIN 40 MG TAB PO SCH (09:27)
[2019-07-15] MEDS: TAMSULOSIN 0.4 MG CAP.ER.24H PO SCH (09:27)
[2019-07-15] MEDS: ASPIRIN 81 MG PO SCH (09:27)
[2019-07-15] MEDS: LISINOPRIL 5 MG TAB PO SCH ×2 (09:27→19:43)
[2019-07-15] MEDS: ISOSORBIDE MONONITRATE ER 30 MG TAB.ER.24H PO SCH (09:27)
[2019-07-15] MEDS: ENOXAPARIN 40 MG/0.4 ML SYRINGE SQ SCH (09:27)
[2019-07-15] MEDS: NYSTATIN 100,000 UNIT/GM POWD 15 GM TOPICAL SCH ×2 (09:28→19:47)
[2019-07-15] MEDS: FUROSEMIDE 10 MG/ML 4 ML VIAL IV SCH ×2 (09:28→19:44)
[2019-07-15] MEDS: LORATADINE 10 MG TAB PO SCH ×2 (09:30→19:43)
[2019-07-15 11:58] LABS: Glucose,Whole Blood 290 mg/dL (75-99)
--- NOTE | 2019-07-15 14:18 | XR ---
EXAMINATION TYPE: XR chest 2V DATE OF EXAM: 07/15/2019 COMPARISON: 07/13/2019 HISTORY: Follow-up for congestive heart failure. Shortness of breath. TECHNIQUE: Frontal and lateral views of the chest are obtained. FINDINGS: Pulmonary hyperinflation and flattening of the diaphragms on the lateral view indicative o f underlying COPD. Resolved basilar airspace disease on the lateral view. Bridging anterior osteophyt es indicative of diffuse scintigraphic skeletal hyperostosis. Enlarged cardiac mediastinal silhouette with post CABG change. Diffuse interstitial prominence. IMPRESSION: Resolved retrocardiac airspace disease. Underlying COPD and diffuse interstitial chronic prominence.
[2019-07-15 17:14] LABS: Glucose,Whole Blood 107 mg/dL (75-99)
[2019-07-15] MEDS: FAMOTIDINE 20 MG TAB PO SCH (19:43)
[2019-07-15 20:49] LABS: Glucose,Whole Blood 64 mg/dL (75-99)
[2019-07-15 21:04] LABS: Glucose,Whole Blood 64 mg/dL (75-99)
[2019-07-15 21:05] LABS: Glucose,Whole Blood 69 mg/dL (75-99)
[2019-07-15 21:26] LABS: Glucose,Whole Blood 67 mg/dL (75-99)
[2019-07-15 21:48] LABS: Glucose,Whole Blood 87 mg/dL (75-99)
[2019-07-16 06:12] LABS: Glucose,Whole Blood 218 mg/dL (75-99)
[2019-07-16] MEDS: CARVEDILOL 6.25 MG TAB PO SCH ×2 (06:42→16:58)
[2019-07-16 06:44] LABS: Glucose,Whole Blood 256 mg/dL (75-99)
[2019-07-16 06:55] LABS: Basophils % (A) 0 %; Eosinophils # (A) 0.1 k/uL (0-0.7); Eosinophils % (A) 1 %; HCT 41.5 % (39.0-53.0); HGB 13.2 gm/dL (13.0-17.5); Lymphocytes # (A) 1.8 k/uL (1.0-4.8); Lymphocytes % (A) 18 %; MCH 27.4 pg (25.0-35.0); MCHC 31.8 g/dL (31.0-37.0); MCV 86.1 fL (80.0-100.0); Mean Platelet Volume 8.4; Monocytes % (A) 11 %; Neutrophils # (A) 6.6 k/uL (1.3-7.7); Neutrophils % (A) 67 %; Platelet Count 246 k/uL (150-450); RBC 4.82 m/uL (4.30-5.90); RDW 14.2 % (11.5-15.5); WBC 9.8 k/uL (3.8-10.6)
[2019-07-16] MEDS: INSULIN DETEMIR (LEVEMIR) 100 UNIT/ML SYR SQ SCH ×2 (07:03→21:10)
[2019-07-16] MEDS: INSULIN ASPART (NovoLOG) 100 UNIT/ML VIAL SQ SCH ×7 (07:04→21:10)
[2019-07-16 07:06] LABS: Calcium 8.8 mg/dL (8.4-10.2); Potassium 4.1 mmol/L (3.5-5.1)
[2019-07-16] MEDS: ENOXAPARIN 40 MG/0.4 ML SYRINGE SQ SCH (08:19)
[2019-07-16] MEDS: TAMSULOSIN 0.4 MG CAP.ER.24H PO SCH (08:19)
[2019-07-16] MEDS: FUROSEMIDE 10 MG/ML 4 ML VIAL IV SCH ×2 (08:19→20:06)
[2019-07-16] MEDS: ATORVASTATIN 40 MG TAB PO SCH (08:19)
[2019-07-16] MEDS: ASPIRIN 81 MG PO SCH (08:19)
[2019-07-16] MEDS: LORATADINE 10 MG TAB PO SCH ×2 (08:19→20:06)
[2019-07-16] MEDS: ISOSORBIDE MONONITRATE ER 30 MG TAB.ER.24H PO SCH (08:19)
[2019-07-16] MEDS: NYSTATIN 100,000 UNIT/GM POWD 15 GM TOPICAL SCH ×2 (08:20→20:07)
--- NOTE | 2019-07-16 10:59 | P.PN ---
Subjective Progress Note Date: 07/16/19 This a pleasant 78-year-old male patient with known history of CAD, status post coronary artery bypass grafting, prior history of CHF, history of diabetes, hypertension, hyperlipidemia. He presented to the emergency department with symptoms of progressive dyspnea, cough and wheezing with peripheral edema. He follows regularly with Dr. Vences. He underwent cardiac catheterization by Dr. Vences in January 2019 was found to have patent BARGER to the LAD and patent radial graft to the diagonal branch. The graft to the RCA was occluded. The [place] LAD was occluded, [place] circumflex occluded, the obtuse marginal branch seen through collaterals and the [place] RCA has diffuse disease and there are collaterals to the RCA. During that admission echocardiogram showed an ejection fraction of 45-50% with mild aortic stenosis and mild tricuspid regurgitation with no evidence of pulmonary hypertension. Patient underwent repeat echocardiogram this admission which has shown severely impaired systolic function with an ejection fraction of 25-30% with mild to moderate mitral and mild tricuspid regurgitation as well as mild pulmonary hypertension. Chest x- ray did reveal evidence of CHF. NT proBNP was elevated at 2300. Patient overall has been diuresing well, blood pressure today 122/60 with a heart rate in the 60s, 97% on room air. White blood cell count 11.7, hemoglobin 13.7, platelet count 249. Sodium 138, potassium 3.6, BUN 22, creatinine 1.0. Objective - Vital Signs Vital signs: Vital Signs Temp 98.4 F 07/16/19 08:00 Pulse 51 L 07/16/19 08:00 Resp 18 07/16/19 08:00 BP 124/64 07/16/19 08:00 Pulse Ox 93 L 07/16/19 08:00 Intake & Output 07/15/19 07/16/19 07/16/19 18:59 06:59 18:59 Intake Total 930 240 Output Total 200 850 300 Balance 730 -850 -60 Weight 161.8 kg 162.8 kg Intake: Oral 930 240 Output: Urine 200 850 300 Other: Voiding Method Toilet # Voids 4 2 1 - Exam PHYSICAL EXAMINATION: HEENT: Head is atraumatic, normocephalic. Pupils equal, round. Neck is supple. There is no elevated jugular venous pressure. HEART EXAMINATION: Heart sounds regular, S1 and S2 with a systolic ejection m urmur at the base. CHEST EXAMINATION: Lungs reveal diminished air entry bilateral bases. No chest w all tenderness is noted on palpation or with deep breathing. ABDOMEN: Soft, obese, nontender. Bowel sounds are heard. No organomegaly noted. EXTREMITIES: Evidence of +1 edema bilaterally with skin changes consistent with chronic stasis, diminished peripheral pulses. NEUROLOGIC patient is awake, alert and oriented x3. . - Labs CBC & Chem 7: 07/16/19 06:26 07/16/19 06:26 Labs: Abnormal Lab Results - Last 24 Hours (Table) 07/15/19 07/15/19 07/15/19 Range/Units 11:52 16:59 20:47 BUN (9-20) mg/dL Glucose (74-99) mg/dL POC Glucose (mg/dL) 290 H 107 H 64 L (75-99) mg/dL 07/15/19 07/15/19 07/15/19 Range/Units 21:03 21:05 21:25 BUN (9-20) mg/dL Glucose (74-99) mg/dL POC Glucose (mg/dL) 64 L 69 L 67 L (75-99) mg/dL 07/16/19 07/16/19 07/16/19 Range/Units 06:11 06:26 06:43 BUN 26 H (9-20) mg/dL Glucose 233 H (74-99) mg/dL POC Glucose (mg/dL) 218 H 256 H (75-99) mg/dL Assessment and Plan Plan: Assessment and plan: #1 symptoms of progressive dyspnea in patient with history of cardiomyopathy, he has a decrease systolic function compared to previous echocardiogram, recent cardiac catheterization and recommendation made at that time to maximize medical therapy #2 status post coronary artery bypass grafting #3 history of hypertension #4 hyperlipidemia #5 diabetes mellitus #6 noncompliance with dietary restrictions #7 probable bronchitis #8 chronic venous stasis #9 morbid obesity Plan We will repeat a chest x-ray tomorrow, continue IV Lasix. DNP note has been reviewed, I agree with a documented findings and plan of care. Patient was seen and examined.
--- NOTE | 2019-07-16 11:13 | P.PN ---
Subjective Progress Note Date: 07/16/19 This a pleasant 78-year-old male patient with known history of CAD, status post coronary artery bypass grafting, prior history of CHF, history of diabetes, hypertension, hyperlipidemia. He presented to the emergency department with symptoms of progressive dyspnea, cough and wheezing with peripheral edema. He follows regularly with Dr. Vences. He underwent cardiac catheterization by Dr. Vences in January 2019 was found to have patent BARGER to the LAD and patent radial graft to the diagonal branch. The graft to the RCA was occluded. The [place] LAD was occluded, [place] circumflex occluded, the obtuse marginal branch seen through collaterals and the [place] RCA has diffuse disease and there are collaterals to the RCA. During that admission echocardiogram showed an ejection fraction of 45-50% with mild aortic stenosis and mild tricuspid regurgitation with no evidence of pulmonary hypertension. Patient underwent repeat echocardiogram this admission which has shown severely impaired systolic function with an ejection fraction of 25-30% with mild to moderate mitral and mild tricuspid regurgitation as well as mild pulmonary hypertension. Chest x- ray did reveal evidence of CHF. NT proBNP was elevated at 2300. Patient overall has been diuresing well, blood pressure today 122/60 with a heart rate in the 60s, 97% on room air. White blood cell count 11.7, hemoglobin 13.7, platelet count 249. Sodium 138, potassium 3.6, BUN 22, creatinine 1.0. 07/16/2019 Patient was seen and examined this morning, continues to diurese well overall. His BUZZ inhibitor was held yesterday her plan is to start the patient on from Wednesday. Hemodynamically he is stable. Objective - Vital Signs Vital signs: Vital Signs Temp 98.4 F 07/16/19 08:00 Pulse 51 L 07/16/19 08:00 Resp 18 07/16/19 08:00 BP 124/64 07/16/19 08:00 Pulse Ox 93 L 07/16/19 08:00 Intake & Output 07/15/19 07/16/19 07/16/19 18:59 06:59 18:59 Intake Total 930 240 Output Total 200 850 300 Balance 730 -850 -60 Weight 161.8 kg 162.8 kg Intake: Oral 930 240 Output: Urine 200 850 300 Other: Voiding Method Toilet # Voids 4 2 1 - Exam PHYSICAL EXAMINATION: HEENT: Head is atraumatic, normocephalic. Pupils equal, round. Neck is supple. There is no elevated jugular venous pressure. HEART EXAMINATION: Heart sounds regular, S1 and S2 with a systolic ejection murmur at the base. CHEST EXAMINATION: Lungs reveal diminished air entry bilateral bases. No chest wall tenderness is noted on palpation or with deep breathing. ABDOMEN: Soft, obese, nontender. Bowel sounds are heard. No organomegaly noted. EXTREMITIES: Evidence of +1 edema bilaterally with skin changes consistent with chronic stasis, diminished peripheral pulses. NEUROLOGIC patient is awake, alert and oriented x3. . - Labs CBC & Chem 7: 07/16/19 06:26 07/16/19 06:26 Labs: Abnormal Lab Results - Last 24 Hours (Table) 07/15/19 07/15/19 07/15/19 Range/Units 11:52 16:59 20:47 BUN (9-20) mg/dL Glucose (74-99) mg/dL POC Glucose (mg/dL) 290 H 107 H 64 L (75-99) mg/dL 07/15/19 07/15/19 07/15/19 Range/Units 21:03 21:05 21:25 BUN (9-20) mg/dL Glucose (74-99) mg/dL POC Glucose (mg/dL) 64 L 69 L 67 L (75-99) mg/dL 07/16/19 07/16/19 07/16/19 Range/Units 06:11 06:26 06:43 BUN 26 H (9-20) mg/dL Glucose 233 H (74-99) mg/dL POC Glucose (mg/dL) 218 H 256 H (75-99) mg/dL Assessment and Plan Plan: Assessment and plan: #1 symptoms of progressive dyspnea in patient with history of cardiomyopathy, he has a decrease systolic function compared to previous echocardiogram, recent cardiac catheterization and recommendation made at that time to maximize medical therapy #2 status post coronary artery bypass grafting #3 history of hypertension #4 hyperlipidemia #5 diabetes mellitus #6 noncompliance with dietary restrictions #7 probable bronchitis #8 chronic venous stasis #9 morbid obesity Plan BUZZ inhibitor was placed on hold yesterday, from tomorrow we will start the patient on Entresto, continue to monitor intake and output and renal function. DNP note has been reviewed, I agree with a documented findings and plan of care. Patient was seen and examined.
[2019-07-16 11:52] LABS: Glucose,Whole Blood 159 mg/dL (75-99)
[2019-07-16 16:56] LABS: Glucose,Whole Blood 59 mg/dL (75-99)
[2019-07-16 17:14] LABS: Glucose,Whole Blood 66 mg/dL (75-99)
[2019-07-16 17:40] LABS: Glucose,Whole Blood 72 mg/dL (75-99)
[2019-07-16 18:07] LABS: Glucose,Whole Blood 114 mg/dL (75-99)
[2019-07-16] MEDS: FAMOTIDINE 20 MG TAB PO SCH (20:06)
[2019-07-16 21:08] LABS: Glucose,Whole Blood 205 mg/dL (75-99)
--- NOTE | 2019-07-16 22:25 | P.PN ---
Subjective Progress Note Date: 07/15/19 Principal diagnosis: Acute CHF exacerbation This is a very pleasant [address] Stevie Begum. Patient follows with assembler camper Dr. Vences. Chronic stable medical conditions include coronary artery disease with bypass, diabetes, hypertension, hyperlipidemia, peripheral neuropathy, BPH diverticulosis, IBS. Patient presents with progressive short of breath for about 4 days. Has had a constant cough. Some phlegm that he typically swallows. Some increasing lower extremity edema. No obvious fever and chills. Appetite has been okay. Some orthopnea. Patient had a baseline uses a walker. Admitting diagnoses of CHF. Started on IV Lasix 07/13-breathing a bit better. Did tolerate some diet. Sitting upon a chair. Trouble with nasal drainage. 07/15/2019 Patient is currently sitting on the chair comfortably. Shortness of breath is improving. Currently being continued on IV Lasix. BUZZ inhibitor is on hold. Cardiology is planning to start on intresto after 48 hours. No complaints of chest pain. No fever no chills. No cough or sputum production. No nausea vomiting or abdominal pain or diarrhea. ProBNP 2300, troponin I 0.019,s.090 EKG tracing personally reviewed by me-a regular baseline questionable atrial flutter Chest x-ray film personally reviewed by me-pulmonary edema, questionable infiltrate 2-D echocardiogram-EF 25-30%, some mitral regurgitation Current medications reviewed. Objective - Vital Signs Vital signs: Vital Signs Temp 98.2 F 07/15/19 08:20 Pulse 71 07/15/19 08:20 Resp 19 07/15/19 08:20 BP 119/62 07/15/19 08:20 Pulse Ox 96 07/15/19 08:20 Intake & Output 07/14/19 07/15/19 07/15/19 18:59 06:59 18:59 Intake Total 880 120 450 Output Total 250 250 Balance 630 -130 450 Weight 161.8 kg Intake: Oral 880 120 450 Output: Urine 250 250 Other: Voiding Method Urinal Urinal # Voids 2 0 - Exam GENERAL: BMI 50.2, sitting up in a chair, a bit less short of breath EYES: Pupils equal. Conjunctiva normal. HEENT: External appearance of nose and ears normal, oral cavity grossly normal. NECK: JVD unable to assess; masses not palpable. HEART: Heart sounds are muffled; bilateral lower extremity edema. LUNGS: Respiratory rate increased decreased breath sounds. ABDOMEN: Soft, distended nontender, liver spleen not palpable, no masses palpable. DERMATOLOGICAL: Redness minimal tenderness in the intertriginous areas PSYCH: Alert and oriented x3; mood and affect normal. - Labs CBC & Chem 7: 07/16/19 06:26 07/16/19 06:26 Labs: Abnormal Lab Results - Last 24 Hours (Table) 07/14/19 07/15/19 07/15/19 Range/Units 17:02 06:48 06:53 WBC 11.7 H (3.8-10.6) k/uL Neutrophils # 8.4 H (1.3-7.7) k/uL Monocytes # 1.1 H (0-1.0) k/uL BUN (9-20) mg/dL Glucose (74-99) mg/dL POC Glucose (mg/dL) 125 H 144 H (75-99) mg/dL 07/15/19 07/15/19 Range/Units 06:53 11:52 WBC (3.8-10.6) k/uL Neutrophils # (1.3-7.7) k/uL Monocytes # (0-1.0) k/uL BUN 22 H (9-20) mg/dL Glucose 154 H (74-99) mg/dL POC Glucose (mg/dL) 290 H (75-99) mg/dL Assessment and Plan Assessment: -Acute on chronic congestive heart failure exacerbation from systolic dysfunctio n EF 25-30% from underlying ischemic heart disease, slow to respond on IV Lasix -Coronary artery disease prior history of coronary bypass -Intertriginous fungal infection Sandra between skin folds -Diabetes mellitus type 2 -GERD -Essential hypertension -BPH -Peripheral neuropathy from diabetes -Irritable bowel syndrome -Colonic diverticulosis -Morbid obesity BMI 50.2 -Troponin leak from CHF. No clinical evidence of acute coronary syndrome Plan: Continue with IV Lasix. Other cardiac medications are to continue. Follow labs. Care discussed with the patient. Time with Patient: Greater than 30
--- NOTE | 2019-07-16 22:29 | P.PN ---
Subjective Progress Note Date: 07/16/19 Principal diagnosis: Acute CHF exacerbation This is a very pleasant [address] Stevie Begum. Patient follows with outside sales account executive Dr. Vences. Chronic stable medical conditions include coronary artery disease with bypass, diabetes, hypertension, hyperlipidemia, peripheral neuropathy, BPH diverticulosis, IBS. Patient presents with progressive short of breath for about 4 days. Has had a constant cough. Some phlegm that he typically swallows. Some increasing lower extremity edema. No obvious fever and chills. Appetite has been okay. Some orthopnea. Patient had a baseline uses a walker. Admitting diagnoses of CHF. Started on IV Lasix 07/13-breathing a bit better. Did tolerate some diet. Sitting upon a chair. Trouble with nasal drainage. 07/15/2019 Patient is currently sitting on the chair comfortably. Shortness of breath is improving. Currently being continued on IV Lasix. BUZZ inhibitor is on hold. Cardiology is planning to start on intresto after 48 hours. No complaints of chest pain. No fever no chills. No cough or sputum production. No nausea vomiting or abdominal pain or diarrhea. ProBNP 2300, troponin I 0.019,s.090 EKG tracing personally reviewed by me-a regular baseline questionable atrial flutter Chest x-ray film personally reviewed by me-pulmonary edema, questionable infiltrate 2-D echocardiogram-EF 25-30%, some mitral regurgitation. July 16 2019 Patient is sitting in the chair comfortably. No complaints of chest pain. Patient says that his breathing is better than yesterday. Leg swelling improved as well. entresto to be started tomorrow. Cardiology is following. Follow-up renal function. Current medications reviewed. Active Medications Hydrocodone Bitart/Acetaminophen ([place] 5-325) 1 each PO Q4HR PRN PRN Reason: Pain Last Admin: 07/13/19 20:54 Dose: 1 each Documented by: Aspirin (Aspirin) 81 mg PO DAILY [facility] [place] Last Admin: 07/16/19 08:19 Dose: 81 mg Documented by: Atorvastatin Calcium (Lipitor) 40 mg PO DAILY [facility] [place] Last Admin: 07/16/19 08:19 Dose: 40 mg Documented by: Carvedilol (Coreg) 6.25 mg PO BID-W/MEALS [facility] [place] Last Admin: 07/16/19 16:58 Dose: 6.25 mg Documented by: Enoxaparin Sodium (Lovenox) 40 mg SQ DAILY [facility] [place] Last Admin: 07/16/19 08:19 Dose: 40 mg Documented by: Famotidine (Pepcid) 20 mg PO HS [facility] [place] Last Admin: 07/16/19 20:06 Dose: 20 mg Documented by: Furosemide (Lasix) 40 mg IV Q12HR [facility] [place] Last Admin: 07/16/19 20:06 Dose: 40 mg Documented by: Insulin Aspart (Novolog) 40 unit SQ AC-TID [facility] [place] Last Admin: 07/16/19 16:58 Dose: Not Given Documented by: Insulin Aspart (Novolog) 0 unit SQ ACHS [facility] [place]; Protocol Last Admin: 07/16/19 21:10 Dose: 6 unit Documented by: Insulin Detemir (Levemir) 50 unit SQ BID@0700,2100 [facility] [place] Last Admin: 07/16/19 21:10 Dose: 25 unit Documented by: Isosorbide Mononitrate (Imdur) 30 mg PO DAILY [facility] [place] Last Admin: 07/16/19 08:19 Dose: 30 mg Documented by: Loratadine (Claritin) 5 mg PO Q12HR [facility] [place] Last Admin: 07/16/19 20:06 Dose: 5 mg Documented by: Nystatin (Mycostatin Powder) 1 applic TOPICAL BID [facility] [place] Last Admin: 07/16/19 20:07 Dose: 1 applic Documented by: Sacubitril/Valsartan (Entresto 24 Mg-26 Mg Tablet) 1 each PO BID [facility] [place] Sodium Chloride (Saline Flush) 10 ml IV BID [facility] [place] Last Admin: 07/16/19 20:07 Dose: 10 ml Documented by: Tamsulosin HCl (Flomax) 0.4 mg PO DAILY [facility] [place] Last Admin: 07/16/19 08:19 Dose: 0.4 mg Documented by: Objective - Vital Signs Vital signs: Vital Signs Temp 98.0 F 07/16/19 20:00 Pulse 73 07/16/19 20:00 Resp 18 07/16/19 20:00 BP 158/70 07/16/19 20:00 Pulse Ox 95 07/16/19 20:00 Intake & Output 07/16/19 07/16/19 07/17/19 06:59 18:59 06:59 Intake Total 1320 Output Total 850 900 Balance -850 420 Weight 162.8 kg Intake: Oral 1320 Output: Urine 850 900 Other: Voiding Method Toilet Toilet Toilet # Voids 2 2 - Exam GENERAL: BMI 50.2, sitting up in a chair, a bit less short of breath EYES: Pupils equal. Conjunctiva normal. HEENT: External appearance of nose and ears normal, oral cavity grossly normal. NECK: JVD unable to assess; masses not palpable. HEART: Heart sounds are muffled; bilateral lower extremity edema. LUNGS: Respiratory rate increased decreased breath sounds. ABDOMEN: Soft, distended nontender, liver spleen not palpable, no masses palpable. DERMATOLOGICAL: Redness minimal tenderness in the intertriginous areas PSYCH: Alert and oriented x3; mood and affect normal. - Labs CBC & Chem 7: 07/16/19 06:26 07/16/19 06:26 Labs: Abnormal Lab Results - Last 24 Hours (Table) 07/16/19 07/16/19 07/16/19 Range/Units 06:11 06:26 06:43 BUN 26 H (9-20) mg/dL Glucose 233 H (74-99) mg/dL POC Glucose (mg/dL) 218 H 256 H (75-99) mg/dL 07/16/19 07/16/19 07/16/19 Range/Units 11:41 16:55 17:13 BUN (9-20) mg/dL Glucose (74-99) mg/dL POC Glucose (mg/dL) 159 H 59 L 66 L (75-99) mg/dL 07/16/19 07/16/19 07/16/19 Range/Units 17:39 18:05 21:06 BUN (9-20) mg/dL Glucose (74-99) mg/dL POC Glucose (mg/dL) 72 L 114 H 205 H (75-99) mg/dL Assessment and Plan Assessment: -Acute on chronic congestive heart failure exacerbation from systolic dy sfunction EF 25-30% from underlying ischemic heart disease, slow to respond on IV Lasix -Coronary artery disease prior history of coronary bypass -Intertriginous fungal infection Sandra between skin folds -Diabetes mellitus type 2 -GERD -Essential hypertension -BPH -Peripheral neuropathy from diabetes -Irritable bowel syndrome -Colonic diverticulosis -Morbid obesity BMI 50.2 -Troponin leak from CHF. No clinical evidence of acute coronary syndrome Plan: Continue with IV Lasix. Other cardiac medications are to continue. Follow labs. Care discussed with the patient. Time with Patient: Greater than 30
[2019-07-17 02:07] LABS: Glucose,Whole Blood 268 mg/dL (75-99)
[2019-07-17 06:33] LABS: Glucose,Whole Blood 217 mg/dL (75-99)
[2019-07-17] MEDS: CARVEDILOL 6.25 MG TAB PO SCH ×2 (06:57→17:04)
[2019-07-17] MEDS: INSULIN DETEMIR (LEVEMIR) 100 UNIT/ML SYR SQ SCH ×2 (06:58→19:46)
[2019-07-17] MEDS: INSULIN ASPART (NovoLOG) 100 UNIT/ML VIAL SQ SCH ×7 (06:58→19:46)
[2019-07-17 07:26] LABS: Calcium 8.7 mg/dL (8.4-10.2); Potassium 4.3 mmol/L (3.5-5.1)
[2019-07-17 07:32] LABS: Basophils # (A) 0.1 k/uL (0-0.2); Basophils % (A) 1 %; Eosinophils % (A) 0 %; HCT 44.4 % (39.0-53.0); HGB 14.2 gm/dL (13.0-17.5); Lymphocytes # (A) 1.6 k/uL (1.0-4.8); Lymphocytes % (A) 18 %; MCH 27.7 pg (25.0-35.0); MCV 86.5 fL (80.0-100.0); Mean Platelet Volume 9.6; Monocytes # (A) 1.2 k/uL (0-1.0); Monocytes % (A) 13 %; Neutrophils # (A) 5.8 k/uL (1.3-7.7); Neutrophils % (A) 65 %; Platelet Count 211 k/uL (150-450); RBC 5.14 m/uL (4.30-5.90); RDW 14.3 % (11.5-15.5)
[2019-07-17] MEDS: ASPIRIN 81 MG PO SCH (08:48)
[2019-07-17] MEDS: LORATADINE 10 MG TAB PO SCH ×2 (08:48→19:40)
[2019-07-17] MEDS: SACUBITRIL/VALSARTAN 24 MG-26 MG TABLET PO SCH ×2 (08:49→19:40)
[2019-07-17] MEDS: FUROSEMIDE 10 MG/ML 4 ML VIAL IV SCH ×2 (08:49→19:40)
[2019-07-17] MEDS: TAMSULOSIN 0.4 MG CAP.ER.24H PO SCH (08:49)
[2019-07-17] MEDS: ENOXAPARIN 40 MG/0.4 ML SYRINGE SQ SCH (08:49)
[2019-07-17] MEDS: ATORVASTATIN 40 MG TAB PO SCH (08:49)
[2019-07-17] MEDS: ISOSORBIDE MONONITRATE ER 30 MG TAB.ER.24H PO SCH (08:49)
--- NOTE | 2019-07-17 10:45 | P.PN ---
Subjective Progress Note Date: 07/17/19 This a pleasant 78-year-old male patient with known history of CAD, status post coronary artery bypass grafting, prior history of CHF, history of diabetes, hypertension, hyperlipidemia. He presented to the emergency department with symptoms of progressive dyspnea, cough and wheezing with peripheral edema. He follows regularly with Dr. Vences. He underwent cardiac catheterization by Dr. Vences in January 2019 was found to have patent BARGER to the LAD and patent radial graft to the diagonal branch. The graft to the RCA was occluded. The [place] LAD was occluded, [place] circumflex occluded, the obtuse marginal branch seen through collaterals and the [place] RCA has diffuse disease and there are collaterals to the RCA. During that admission echocardiogram showed an ejection fraction of 45-50% with mild aortic stenosis and mild tricuspid regurgitation with no evidence of pulmonary hypertension. Patient underwent repeat echocardiogram this admission which has shown severely impaired systolic function with an ejection fraction of 25-30% with mild to moderate mitral and mild tricuspid regurgitation as well as mild pulmonary hypertension. Chest x- ray did reveal evidence of CHF. NT proBNP was elevated at 2300. Patient overall has been diuresing well, blood pressure today 122/60 with a heart rate in the 60s, 97% on room air. White blood cell count 11.7, hemoglobin 13.7, platelet count 249. Sodium 138, potassium 3.6, BUN 22, creatinine 1.0. 07/16/2019 Patient was seen and examined this morning, continues to diurese well overall. His BUZZ inhibitor was held yesterday her plan is to start the patient on from Wednesday. Hemodynamically he is stable. 07/17/2019 Patient seen and examined this morning, just had a shower in the morning and is overall doing well. Breathing is stable. Continues to diurese well. Blood pressure 140/60 with a heart rate in the 60s, 97% on room air. CBC is normal, sodium 137, potassium 4.3, BUN 26, creatinine 0.9. Obtain a repeat chest x-ray tomorrow. Objective - Vital Signs Vital signs: Vital Signs Temp 98.0 F 07/17/19 08:00 Pulse 69 07/17/19 08:00 Resp 20 07/17/19 08:00 BP 140/62 07/17/19 08:00 Pulse Ox 97 07/17/19 08:00 Intake & Output 07/16/19 07/17/19 07/17/19 18:59 06:59 18:59 Intake Total 1320 150 420 Output Total 900 500 Balance 420 -350 420 Weight 162.1 kg Intake: Oral 1320 150 420 Output: Urine 900 500 Other: Voiding Method Toilet Toilet Toilet # Voids 2 1 - Exam PHYSICAL EXAMINATION: HEENT: Head is atraumatic, normocephalic. Pupils equal, round. Neck is supple. There is no elevated jugular venous pressure. HEART EXAMINATION: Heart sounds regular, S1 and S2 with a systolic ejection murmur at the base. CHEST EXAMINATION: Lungs reveal improvement in air entry bilateral bases. No chest wall tenderness is noted on palpation or with deep breathing. ABDOMEN: Soft, obese, nontender. Bowel sounds are heard. No organomegaly noted. EXTREMITIES: Evidence of +1 edema bilaterally with skin changes consistent with chronic stasis, diminished peripheral pulses. NEUROLOGIC patient is awake, alert and oriented x3. . - Labs CBC & Chem 7: 07/17/19 06:06 07/17/19 06:06 Labs: Abnormal Lab Results - Last 24 Hours (Table) 07/16/19 07/16/19 07/16/19 Range/Units 11:41 16:55 17:13 Monocytes # (0-1.0) k/uL BUN (9-20) mg/dL Glucose (74-99) mg/dL POC Glucose (mg/dL) 159 H 59 L 66 L (75-99) mg/dL 07/16/19 07/16/19 07/16/19 Range/Units 17:39 18:05 21:06 Monocytes # (0-1.0) k/uL BUN (9-20) mg/dL Glucose (74-99) mg/dL POC Glucose (mg/dL) 72 L 114 H 205 H (75-99) mg/dL 07/17/19 07/17/19 07/17/19 Range/Units 02:07 06:06 06:06 Monocytes # 1.2 H (0-1.0) k/uL BUN 26 H (9-20) mg/dL Glucose 217 H (74-99) mg/dL POC Glucose (mg/dL) 268 H (75-99) mg/dL 07/17/19 Range/Units 06:32 Monocytes # (0-1.0) k/uL BUN (9-20) mg/dL Glucose (74-99) mg/dL POC Glucose (mg/dL) 217 H (75-99) mg/dL Assessment and Plan Plan: Assessment and plan: #1 symptoms of progressive dyspnea in patient with history of cardiomyopathy, he has a decrease systolic function compared to previous echocardiogram, recent cardiac catheterization and recommendation made at that time to maximize medical therapy #2 status post coronary artery bypass grafting #3 history of hypertension #4 hyperlipidemia #5 diabetes mellitus #6 noncompliance with dietary restrictions #7 probable bronchitis #8 chronic venous stasis #9 morbid obesity Plan Patient will be started today on Entresto, continue IV Lasix, obtain chest x-ray in the morning. DNP note has been reviewed, I agree with a documented findings and plan of care. Patient was seen and examined.
[2019-07-17] MEDS: NYSTATIN 100,000 UNIT/GM POWD 15 GM TOPICAL SCH ×2 (11:01→19:41)
[2019-07-17 12:02] LABS: Glucose,Whole Blood 143 mg/dL (75-99)
--- NOTE | 2019-07-17 15:24 | XR ---
EXAMINATION TYPE: XR chest 2V DATE OF EXAM: 07/17/2019 COMPARISON: 07/15/2019 HISTORY: Congestive heart failure, shortness of breath, follow-up exam TECHNIQUE: Frontal and lateral views of the chest are obtained. FINDINGS: Cardiomediastinal silhouette is again enlarged with post CABG change. Chronic interstitial prominence is again noted. No new pleural effusion or pneumothorax. 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 No new focal airspace disease. Previously seen retrocardiac airspace disease has resolved. IMPRESSION: Chronic interstitial prominence and cardiomegaly. No acute process. Resolved retrocardia c airspace disease.
[2019-07-17 17:09] LABS: Glucose,Whole Blood 220 mg/dL (75-99)
[2019-07-17] MEDS: FAMOTIDINE 20 MG TAB PO SCH (19:40)
[2019-07-17 19:46] LABS: Glucose,Whole Blood 154 mg/dL (75-99)
[2019-07-17 20:44] LABS: Glucose,Whole Blood 117 mg/dL (75-99)
[2019-07-18 06:52] LABS: Glucose,Whole Blood 222 mg/dL (75-99)
[2019-07-18 06:53] LABS: Basophils # (A) 0.1 k/uL (0-0.2); Basophils % (A) 0 %; Eosinophils # (A) 0.1 k/uL (0-0.7); Eosinophils % (A) 1 %; HGB 13.7 gm/dL (13.0-17.5); Lymphocytes # (A) 1.9 k/uL (1.0-4.8); Lymphocytes % (A) 18 %; MCH 27.6 pg (25.0-35.0); MCHC 31.8 g/dL (31.0-37.0); MCV 86.6 fL (80.0-100.0); Mean Platelet Volume 8.5; Monocytes # (A) 1.1 k/uL (0-1.0); Monocytes % (A) 10 %; Neutrophils # (A) 7.2 k/uL (1.3-7.7); Neutrophils % (A) 69 %; Platelet Count 278 k/uL (150-450); RBC 4.96 m/uL (4.30-5.90); RDW 13.9 % (11.5-15.5); WBC 10.5 k/uL (3.8-10.6)
[2019-07-18 06:55] LABS: Potassium 4.2 mmol/L (3.5-5.1)
[2019-07-18] MEDS: CARVEDILOL 6.25 MG TAB PO SCH ×2 (06:56→16:54)
[2019-07-18] MEDS: INSULIN DETEMIR (LEVEMIR) 100 UNIT/ML SYR SQ SCH ×2 (06:56→20:25)
[2019-07-18] MEDS: INSULIN ASPART (NovoLOG) 100 UNIT/ML VIAL SQ SCH ×7 (06:56→22:54)
[2019-07-18] MEDS: FUROSEMIDE 10 MG/ML 4 ML VIAL IV SCH (08:57)
[2019-07-18] MEDS: ENOXAPARIN 40 MG/0.4 ML SYRINGE SQ SCH (08:57)
[2019-07-18] MEDS: SACUBITRIL/VALSARTAN 24 MG-26 MG TABLET PO SCH ×2 (08:57→20:25)
[2019-07-18] MEDS: TAMSULOSIN 0.4 MG CAP.ER.24H PO SCH (08:57)
[2019-07-18] MEDS: ISOSORBIDE MONONITRATE ER 30 MG TAB.ER.24H PO SCH (08:57)
[2019-07-18] MEDS: LORATADINE 10 MG TAB PO SCH ×2 (08:57→20:24)
[2019-07-18] MEDS: ATORVASTATIN 40 MG TAB PO SCH (08:57)
[2019-07-18] MEDS: ASPIRIN 81 MG PO SCH (08:58)
[2019-07-18] MEDS: NYSTATIN 100,000 UNIT/GM POWD 15 GM TOPICAL SCH ×2 (08:58→20:28)
[2019-07-18 10:04] VITALS: BMI 49.4
[2019-07-18 12:12] LABS: Glucose,Whole Blood 204 mg/dL (75-99)
--- NOTE | 2019-07-18 12:49 | P.PN ---
Subjective Progress Note Date: 07/18/19 This a pleasant 78-year-old male patient with known history of CAD, status post coronary artery bypass grafting, prior history of CHF, history of diabetes, hypertension, hyperlipidemia. He presented to the emergency department with symptoms of progressive dyspnea, cough and wheezing with peripheral edema. He follows regularly with Dr. Vences. He underwent cardiac catheterization by Dr. Vences in January 2019 was found to have patent BARGER to the LAD and patent radial graft to the diagonal branch. The graft to the RCA was occluded. The [place] LAD was occluded, [place] circumflex occluded, the obtuse marginal branch seen through collaterals and the [place] RCA has diffuse disease and there are collaterals to the RCA. During that admission echocardiogram showed an ejection fraction of 45-50% with mild aortic stenosis and mild tricuspid regurgitation with no evidence of pulmonary hypertension. Patient underwent repeat echocardiogram this admission which has shown severely impaired systolic function with an ejection fraction of 25-30% with mild to moderate mitral and mild tricuspid regurgitation as well as mild pulmonary hypertension. Chest x- ray did reveal evidence of CHF. NT proBNP was elevated at 2300. Patient overall has been diuresing well, blood pressure today 122/60 with a heart rate in the 60s, 97% on room air. White blood cell count 11.7, hemoglobin 13.7, platelet count 249. Sodium 138, potassium 3.6, BUN 22, creatinine 1.0. 07/16/2019 Patient was seen and examined this morning, continues to diurese well overall. His BUZZ inhibitor was held yesterday her plan is to start the patient on o from Wednesday. Hemodynamically he is stable. 07/17/2019 Patient seen and examined this morning, just had a shower in the morning and is overall doing well. Breathing is stable. Continues to diurese well. Blood pressure 140/60 with a heart rate in the 60s, 97% on room air. CBC is normal, sodium 137, potassium 4.3, BUN 26, creatinine 0.9. Obtain a repeat chest x-ray tomorrow. 07/18/2019 Patient seen and examined sitting up in his chair this morning, continues to feel better every day. His breathing is stable. He continues to diurese well through the night last night. Chest x-ray showed chronic interstitial prominence and mild cardiomegaly. No acute process. We will discontinue the IV Lasix today, add Aldactone to his medication regime, with the patient on oral diuretics. Continue to monitor the patient for 24 hours and possible discharge home in the morning if stable. Objective - Vital Signs Vital signs: Vital Signs Temp 97.9 F 07/18/19 08:00 Pulse 68 07/18/19 08:00 Resp 18 07/18/19 08:00 BP 157/67 07/18/19 08:00 Pulse Ox 100 07/18/19 08:00 Intake & Output 07/17/19 07/18/19 07/18/19 18:59 06:59 18:59 Intake Total 1080 420 Output Total 1200 200 Balance -120 -200 420 Weight 160.6 kg 160.6 kg Intake: Oral 1080 420 Output: Urine 1200 200 Other: Voiding Method Toilet Toilet # Bowel Movements 1 - Exam PHYSICAL EXAMINATION: HEENT: Head is atraumatic, normocephalic. Pupils equal, round. Neck is supple. There is no elevated jugular venous pressure. HEART EXAMINATION: Heart sounds regular, S1 and S2 with a systolic ejection murmur at the base. CHEST EXAMINATION: Lungs reveal improvement in air entry bilateral bases. No chest wall tenderness is noted on palpation or with deep breathing. ABDOMEN: Soft, obese, nontender. Bowel sounds are heard. No organomegaly noted. EXTREMITIES: Evidence of trace -+1 edema bilaterally with skin changes consistent with chronic stasis, diminished peripheral pulses. NEUROLOGIC patient is awake, alert and oriented x3. . - Labs CBC & Chem 7: 07/18/19 05:59 07/18/19 05:59 Labs: Abnormal Lab Results - Last 24 Hours (Table) 07/17/19 07/17/19 07/17/19 Range/Units 17:08 19:45 20:43 Monocytes # (0-1.0) k/uL BUN (9-20) mg/dL Glucose (74-99) mg/dL POC Glucose (mg/dL) 220 H 154 H 117 H (75-99) mg/dL 07/18/19 07/18/19 07/18/19 Range/Units 05:59 05:59 06:50 Monocytes # 1.1 H (0-1.0) k/uL BUN 23 H (9-20) mg/dL Glucose 191 H (74-99) mg/dL POC Glucose (mg/dL) 222 H (75-99) mg/dL 07/18/19 Range/Units 12:09 Monocytes # (0-1.0) k/uL BUN (9-20) mg/dL Glucose (74-99) mg/dL POC Glucose (mg/dL) 204 H (75-99) mg/dL Assessment and Plan Plan: Assessment and plan: #1 symptoms of progressive dyspnea in patient with history of cardiomyopathy, he has a decrease systolic function compared to previous echocardiogram, recent cardiac catheterization and recommendation made at that time to maximize medical therapy #2 status post coronary artery bypass grafting #3 history of hypertension #4 hyperlipidemia #5 diabetes mellitus #6 noncompliance with dietary restrictions #7 probable bronchitis #8 chronic venous stasis #9 morbid obesity Plan From cardiology's perspective we'll discontinue the IV Lasix today and change patient over to oral diuretics. We will add Aldactone to his medication regime. Continue to monitor the patient for 24 hours and plan for possible discharge in the morning if stable. DNP note has been reviewed, I agree with a documented findings and plan of care. Patient was seen and examined.
[2019-07-18] MEDS: SPIRONOLACTONE 25 MG TAB PO SCH (13:06)
[2019-07-18 16:51] LABS: Glucose,Whole Blood 137 mg/dL (75-99)
[2019-07-18] MEDS: FUROSEMIDE 20 MG TAB PO SCH (16:51)
[2019-07-18 20:20] LABS: Glucose,Whole Blood 136 mg/dL (75-99)
[2019-07-18] MEDS: FAMOTIDINE 20 MG TAB PO SCH (20:25)
--- NOTE | 2019-07-19 01:57 | P.PN ---
Subjective Progress Note Date: 07/17/19 Principal diagnosis: Acute CHF exacerbation This is a very pleasant [address] Stevie Begum. 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 Chronic stable medical conditions include coronary artery disease with bypass, diabetes, hypertension, hyperlipidemia, peripheral neuropathy, BPH diverticulosis, IBS. Patient presents with progressive short of breath for about 4 days. Has had a constant cough. Some phlegm that he typically swallows. Some increasing lower extremity edema. No obvious fever and chills. Appetite has been okay. Some orthopnea. Patient had a baseline uses a walker. Admitting diagnoses of CHF. Started on IV Lasix 07/13-breathing a bit better. Did tolerate some diet. Sitting upon a chair. Trouble with nasal drainage. 07/15/2019 Patient is currently sitting on the chair comfortably. Shortness of breath is improving. Currently being continued on IV Lasix. BUZZ inhibitor is on hold. Cardiology is planning to start on intresto after 48 hours. No complaints of chest pain. No fever no chills. No cough or sputum production. No nausea vomiting or abdominal pain or diarrhea. ProBNP 2300, troponin I 0.019,s.090 EKG tracing personally reviewed by me-a regular baseline questionable atrial flutter Chest x-ray film personally reviewed by me-pulmonary edema, questionable infiltrate 2-D echocardiogram-EF 25-30%, some mitral regurgitation. July 16 2019 Patient is sitting in the chair comfortably. No complaints of chest pain. Patient says that his breathing is better than yesterday. Leg swelling improved as well. entresto to be started tomorrow. Cardiology is following. Follow-up renal function. 07/17/2019 Patient denied any complaints of chest pain. Shortness of breath is better. Currently being continued on IV Lasix. Leg swelling is improving. Patient was started on entresto. Monitor renal function. Otherwise patient is tolerating oral diet. No complaints of nausea vomiting or abdominal pain. No other acute overnight issues. Current medications reviewed. Active Medications Hydrocodone Bitart/Acetaminophen ([place] 5-325) 1 each PO Q4HR PRN PRN Reason: Pain Last Admin: 07/13/19 20:54 Dose: 1 each Documented by: Aspirin (Aspirin) 81 mg PO DAILY [facility] Last Admin: 07/16/19 08:19 Dose: 81 mg Documented by: Atorvastatin Calcium (Lipitor) 40 mg PO DAILY [facility] Last Admin: 07/16/19 08:19 Dose: 40 mg Documented by: Carvedilol (Coreg) 6.25 mg PO BID-W/MEALS [facility] Last Admin: 07/16/19 16:58 Dose: 6.25 mg Documented by: Enoxaparin Sodium (Lovenox) 40 mg SQ DAILY [facility] Last Admin: 07/16/19 08:19 Dose: 40 mg Documented by: Famotidine (Pepcid) 20 mg PO HS [facility] Last Admin: 07/16/19 20:06 Dose: 20 mg Documented by: Furosemide (Lasix) 40 mg IV Q12HR [facility] Last Admin: 07/16/19 20:06 Dose: 40 mg Documented by: Insulin Aspart (Novolog) 40 unit SQ AC-TID [facility] Last Admin: 07/16/19 16:58 Dose: Not Given Documented by: Insulin Aspart (Novolog) 0 unit SQ ACHS [facility]; Protocol Last Admin: 07/16/19 21:10 Dose: 6 unit Documented by: Insulin Detemir (Levemir) 50 unit SQ BID@0700,2100 [facility] Last Admin: 07/16/19 21:10 Dose: 25 unit Documented by: Isosorbide Mononitrate (Imdur) 30 mg PO DAILY [facility] Last Admin: 07/16/19 08:19 Dose: 30 mg Documented by: Loratadine (Claritin) 5 mg PO Q12HR [facility] Last Admin: 07/16/19 20:06 Dose: 5 mg Documented by: Nystatin (Mycostatin Powder) 1 applic TOPICAL BID [facility] Last Admin: 07/16/19 20:07 Dose: 1 applic Documented by: Sacubitril/Valsartan (Entresto 24 Mg-26 Mg Tablet) 1 each PO BID [facility] Sodium Chloride (Saline Flush) 10 ml IV BID [facility] Last Admin: 07/16/19 20:07 Dose: 10 ml Documented by: Tamsulosin HCl (Flomax) 0.4 mg PO DAILY [facility] Last Admin: 07/16/19 08:19 Dose: 0.4 mg Documented by: Objective - Vital Signs Vital signs: Vital Signs Temp 98.2 F 07/17/19 20:00 Pulse 71 07/17/19 20:00 Resp 19 07/17/19 20:00 BP 122/58 07/17/19 20:00 Pulse Ox 94 L 07/17/19 20:00 Intake & Output 07/17/19 07/17/19 07/18/19 06:59 18:59 06:59 Intake Total 150 1080 Output Total 500 1200 Balance -350 -120 Weight 162.1 kg Intake: Oral 150 1080 Output: Urine 500 1200 Other: Voiding Method Toilet Toilet # Voids 1 - Exam GENERAL: BMI 50.2, sitting up in a chair, a bit less short of breath EYES: Pupils equal. Conjunctiva normal. HEENT: External appearance of nose and ears normal, oral cavity grossly normal. NECK: JVD unable to assess; masses not palpable. HEART: Heart sounds are muffled; bilateral lower extremity edema. LUNGS: Respiratory rate increased decreased breath sounds. ABDOMEN: Soft, distended nontender, liver spleen not palpable, no masses palpable. DERMATOLOGICAL: Redness minimal tenderness in the intertriginous areas PSYCH: Alert and oriented x3; mood and affect normal. - Labs CBC & Chem 7: 07/18/19 05:59 07/18/19 05:59 Labs: Abnormal Lab Results - Last 24 Hours (Table) 07/16/19 07/17/19 07/17/19 Range/Units 21:06 02:07 06:06 Monocytes # 1.2 H (0-1.0) k/uL BUN (9-20) mg/dL Glucose (74-99) mg/dL POC Glucose (mg/dL) 205 H 268 H (75-99) mg/dL 07/17/19 07/17/19 07/17/19 Range/Units 06:06 06:32 12:01 Monocytes # (0-1.0) k/uL BUN 26 H (9-20) mg/dL Glucose 217 H (74-99) mg/dL POC Glucose (mg/dL) 217 H 143 H (75-99) mg/dL 07/17/19 07/17/19 07/17/19 Range/Units 17:08 19:45 20:43 Monocytes # (0-1.0) k/uL BUN (9-20) mg/dL Glucose (74-99) mg/dL POC Glucose (mg/dL) 220 H 154 H 117 H (75-99) mg/dL Assessment and Plan Assessment: -Acute on chronic congestive heart failure exacerbation from systolic dysfunction EF 25-30% from underlying ischemic heart disease, slow to respond on IV Lasix -Coronary artery disease prior history of coronary bypass -Intertriginous fungal infection Sandra between skin folds -Diabetes mellitus type 2 -GERD -Essential hypertension -BPH -Peripheral neuropathy from diabetes -Irritable bowel syndrome -Colonic diverticulosis -Morbid obesity BMI 50.2 -Troponin leak from CHF. No clinical evidence of acute coronary syndrome Plan: Continue with IV Lasix. Other cardiac medications are to continue. Follow labs. Care discussed with the patient. Time with Patient: Greater than 30
--- NOTE | 2019-07-19 02:00 | P.PN ---
Subjective Progress Note Date: 07/18/19 Principal diagnosis: Acute CHF exacerbation This is a very pleasant [address] Stevie Begum. 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 Vences. Chronic stable medical conditions include coronary artery disease with bypass, diabetes, hypertension, hyperlipidemia, peripheral neuropathy, BPH diverticulosis, IBS. Patient presents with progressive short of breath for about 4 days. Has had a constant cough. Some phlegm that he typically swallows. Some increasing lower extremity edema. No obvious fever and chills. Appetite has been okay. Some orthopnea. Patient had a baseline uses a walker. Admitting diagnoses of CHF. Started on IV Lasix 07/13-breathing a bit better. Did tolerate some diet. Sitting upon a chair. Trouble with nasal drainage. 07/15/2019 Patient is currently sitting on the chair comfortably. Shortness of breath is improving. Currently being continued on IV Lasix. BUZZ inhibitor is on hold. Cardiology is planning to start on intresto after 48 hours. No complaints of chest pain. No fever no chills. No cough or sputum production. No nausea vomiting or abdominal pain or diarrhea. ProBNP 2300, troponin I 0.019,s.090 EKG tracing personally reviewed by me-a regular baseline questionable atrial flutter Chest x-ray film personally reviewed by me-pulmonary edema, questionable infiltrate 2-D echocardiogram-EF 25-30%, some mitral regurgitation. July 16 2019 Patient is sitting in the chair comfortably. No complaints of chest pain. Patient says that his breathing is better than yesterday. Leg swelling improved as well. entresto to be started tomorrow. Cardiology is following. Follow-up renal function. 07/17/2019 Patient denied any complaints of chest pain. Shortness of breath is better. Currently being continued on IV Lasix. Leg swelling is improving. Patient was started on entresto. Monitor renal function. Otherwise patient is tolerating oral diet. No complaints of nausea vomiting or abdominal pain. No other acute overnight issues. 07/18/2019 Patient is currently sitting in the chair comfortably. Shortness of breath is better. IV Lasix was changed to Lasix 60 mg twice daily and added Aldactone. Continue with entresto. Monitor renal function tomorrow. Anticipate discharge in the next 24 hours. No complaints of chest pain. No nausea vomiting or abdominal pain or diarrhea. Current medications reviewed. Active Medications Hydrocodone Bitart/Acetaminophen ([place] 5-325) 1 each PO Q4HR PRN PRN Reason: Pain Last Admin: 07/13/19 20:54 Dose: 1 each Documented by: Aspirin (Aspirin) 81 mg PO DAILY [facility] Last Admin: 07/18/19 08:58 Dose: 81 mg Documented by: Atorvastatin Calcium (Lipitor) 40 mg PO DAILY [facility] Last Admin: 07/18/19 08:57 Dose: 40 mg Documented by: Carvedilol (Coreg) 6.25 mg PO BID-W/MEALS [facility] Last Admin: 07/18/19 16:54 Dose: 6.25 mg Documented by: Enoxaparin Sodium (Lovenox) 40 mg SQ DAILY [facility] Last Admin: 07/18/19 08:57 Dose: 40 mg Documented by: Famotidine (Pepcid) 20 mg PO HS [facility] Last Admin: 07/18/19 20:25 Dose: 20 mg Documented by: Furosemide (Lasix) 60 mg PO BID@0900,1600 [facility] Last Admin: 07/18/19 16:51 Dose: 60 mg Documented by: Insulin Aspart (Novolog) 40 unit SQ AC-TID [facility] Last Admin: 07/18/19 16:50 Dose: Not Given Documented by: Insulin Aspart (Novolog) 0 unit SQ ACHS [facility]; Protocol Last Admin: 07/18/19 22:54 Dose: Not Given Documented by: Insulin Detemir (Levemir) 50 unit SQ BID@0700,2100 [facility] Last Admin: 07/18/19 20:25 Dose: 50 unit Documented by: Isosorbide Mononitrate (Imdur) 30 mg PO DAILY [facility] Last Admin: 07/18/19 08:57 Dose: 30 mg Documented by: Loratadine (Claritin) 5 mg PO Q12HR [facility] Last Admin: 07/18/19 20:24 Dose: 5 mg Documented by: Nystatin (Mycostatin Powder) 1 applic TOPICAL BID [facility] Last Admin: 07/18/19 20:28 Dose: 1 applic Documented by: Sacubitril/Valsartan (Entresto 24 Mg-26 Mg Tablet) 1 each PO BID [facility] Last Admin: 07/18/19 20:25 Dose: 1 each Documented by: Sodium Chloride (Saline Flush) 10 ml IV BID [facility] Last Admin: 07/18/19 20:28 Dose: 10 ml Documented by: Spironolactone (Aldactone) 25 mg PO DAILY [facility] Last Admin: 07/18/19 13:06 Dose: 25 mg Documented by: Tamsulosin HCl (Flomax) 0.4 mg PO DAILY [facility] Last Admin: 07/18/19 08:57 Dose: 0.4 mg Documented by: Objective - Vital Signs Vital signs: Vital Signs Temp 97.7 F 07/18/19 20:00 Pulse 71 07/18/19 20:00 Resp 18 07/18/19 20:00 BP 126/65 07/18/19 20:00 Pulse Ox 95 07/18/19 20:00 Intake & Output 07/18/19 07/18/19 07/19/19 06:59 18:59 06:59 Intake Total 2180 Output Total 200 Balance -200 2180 Weight 160.6 kg 160.6 kg Intake: IV 20 0.9 20 Oral 2160 Output: Urine 200 Other: Voiding Method Toilet Toilet # Voids 1 # Bowel Movements 1 1 - Exam GENERAL: BMI 50.2, sitting up in a chair, a bit less short of breath EYES: Pupils equal. Conjunctiva normal. HEENT: External appearance of nose and ears normal, oral cavity grossly normal. NECK: JVD unable to assess; masses not palpable. HEART: Heart sounds are muffled; bilateral lower extremity edema. LUNGS: Bilateral Air entry is present. Nonlabored breathing. Minimal basilar crackles.. ABDOMEN: Soft, distended nontender, liver spleen not palpable, no masses palpable. DERMATOLOGICAL: Redness minimal tenderness in the intertriginous areas PSYCH: Alert and oriented x3; mood and affect normal. - Labs CBC & Chem 7: 07/18/19 05:59 07/18/19 05:59 Labs: Abnormal Lab Results - Last 24 Hours (Table) 07/18/19 07/18/19 07/18/19 Range/Units 05:59 05:59 06:50 Monocytes # 1.1 H (0-1.0) k/uL BUN 23 H (9-20) mg/dL Glucose 191 H (74-99) mg/dL POC Glucose (mg/dL) 222 H (75-99) mg/dL 07/18/19 07/18/19 07/18/19 Range/Units 12:09 16:49 20:19 Monocytes # (0-1.0) k/uL BUN (9-20) mg/dL Glucose (74-99) mg/dL POC Glucose (mg/dL) 204 H 137 H 136 H (75-99) mg/dL Assessment and Plan Assessment: -Acute on chronic congestive heart failure exacerbation from systolic dysfunction EF 25-30% from underlying ischemic heart disease, slow to respond on IV Lasix -Coronary artery disease prior history of coronary bypass -Intertriginous fungal infection Sandra between skin folds -Diabetes mellitus type 2 -GERD -Essential hypertension -BPH -Peripheral neuropathy from diabetes -Irritable bowel syndrome -Colonic diverticulosis -Morbid obesity BMI 50.2 -Troponin leak from CHF. No clinical evidence of acute coronary syndrome Plan: Continue with IV Lasix. Other cardiac medications are to continue. Follow labs. Care discussed with the patient. Time with Patient: Greater than 30
[2019-07-19 04:42] VITALS: RESP 20
[2019-07-19 06:40] LABS: Glucose,Whole Blood 208 mg/dL (75-99)
[2019-07-19] MEDS: INSULIN DETEMIR (LEVEMIR) 100 UNIT/ML SYR SQ SCH (06:43)
[2019-07-19] MEDS: CARVEDILOL 6.25 MG TAB PO SCH (06:43)
[2019-07-19] MEDS: INSULIN ASPART (NovoLOG) 100 UNIT/ML VIAL SQ SCH ×4 (06:44→12:17)
[2019-07-19 06:57] LABS: Calcium 8.9 mg/dL (8.4-10.2); Potassium 4.1 mmol/L (3.5-5.1)
[2019-07-19] MEDS: ASPIRIN 81 MG PO SCH (08:17)
[2019-07-19] MEDS: LORATADINE 10 MG TAB PO SCH (08:18)
[2019-07-19] MEDS: SPIRONOLACTONE 25 MG TAB PO SCH (08:18)
[2019-07-19] MEDS: ISOSORBIDE MONONITRATE ER 30 MG TAB.ER.24H PO SCH (08:18)
[2019-07-19] MEDS: ATORVASTATIN 40 MG TAB PO SCH (08:18)
[2019-07-19] MEDS: FUROSEMIDE 20 MG TAB PO SCH (08:18)
[2019-07-19] MEDS: ENOXAPARIN 40 MG/0.4 ML SYRINGE SQ SCH (08:18)
[2019-07-19] MEDS: TAMSULOSIN 0.4 MG CAP.ER.24H PO SCH (08:18)
[2019-07-19] MEDS: SACUBITRIL/VALSARTAN 24 MG-26 MG TABLET PO SCH (08:18)
[2019-07-19] MEDS: NYSTATIN 100,000 UNIT/GM POWD 15 GM TOPICAL SCH (08:19)
[2019-07-19 12:13] LABS: Glucose,Whole Blood 261 mg/dL (75-99)
[2019-07-19 12:34] VITALS: BP 127/76; PULSE 74; TEMP 97.5
--- NOTE | 2019-07-19 12:57 | P.PN ---
Subjective Progress Note Date: 07/19/19 This a pleasant 78-year-old male patient with known history of CAD, status post coronary artery bypass grafting, prior history of CHF, history of diabetes, hypertension, hyperlipidemia. He presented to the emergency department with symptoms of progressive dyspnea, cough and wheezing with peripheral edema. He follows regularly with Dr. Vences. He underwent cardiac catheterization by Dr. Vences in January 2019 was found to have patent BARGER to the LAD and patent radial graft to the diagonal branch. The graft to the RCA was occluded. The [place] LAD was occluded, [place] circumflex occluded, the obtuse marginal branch seen through collaterals and the [place] RCA has diffuse disease and there are collaterals to the RCA. During that admission echocardiogram showed an ejection fraction of 45-50% with mild aortic stenosis and mild tricuspid regurgitation with no evidence of pulmonary hypertension. Patient underwent repeat echocardiogram this admission which has shown severely impaired systolic function with an ejection fraction of 25-30% with mild to moderate mitral and mild tricuspid regurgitation as well as mild pulmonary hypertension. Chest x- ray did reveal evidence of CHF. NT proBNP was elevated at 2300. Patient overall has been diuresing well, blood pressure today 122/60 with a heart rate in the 60s, 97% on room air. White blood cell count 11.7, hemoglobin 13.7, platelet count 249. Sodium 138, potassium 3.6, BUN 22, creatinine 1.0. 07/16/2019 Patient was seen and examined this morning, continues to diurese well overall. His BUZZ inhibitor was held yesterday her plan is to start the patient on o from Wednesday. Hemodynamically he is stable. 07/17/2019 Patient seen and examined this morning, just had a shower in the morning and is overall doing well. Breathing is stable. Continues to diurese well. Blood pressure 140/60 with a heart rate in the 60s, 97% on room air. CBC is normal, sodium 137, potassium 4.3, BUN 26, creatinine 0.9. Obtain a repeat chest x-ray tomorrow. 07/18/2019 Patient seen and examined sitting up in his chair this morning, continues to feel better every day. His breathing is stable. He continues to diurese well through the night last night. Chest x-ray showed chronic interstitial prominence and mild cardiomegaly. No acute process. We will discontinue the IV Lasix today, add Aldactone to his medication regime, with the patient on oral diuretics. Continue to monitor the patient for 24 hours and possible discharge home in the morning if stable. 07/19/2019 Patient seen and examined this morning, feels well, sitting up in his chair at bedside. His weight today is down 0.6 kg, continues to diurese well. Blood pressure 126/76 with a heart rate in the 70s, 98% on room air. Sodium 137, potassium 4.1, BUN 28, creatinine 0.9. Objective - Vital Signs Vital signs: Vital Signs Temp 97.5 F L 07/19/19 12:00 Pulse 74 07/19/19 12:00 Resp 20 07/19/19 12:00 BP 127/76 07/19/19 12:00 Pulse Ox 98 07/19/19 12:00 Intake & Output 07/18/19 07/19/19 07/19/19 18:59 06:59 18:59 Intake Total 2180 360 Balance 2180 360 Weight 160.6 kg 160 kg Intake: IV 20 0.9 20 Oral 2160 360 Other: Voiding Method Toilet Toilet # Voids 1 1 # Bowel Movements 1 1 - Exam PHYSICAL EXAMINATION: HEENT: Head is atraumatic, normocephalic. Pupils equal, round. Neck is supple. There is no elevated jugular venous pressure. HEART EXAMINATION: Heart sounds regular, S1 and S2 with a systolic ejection murmur at the base. CHEST EXAMINATION: Lungs reveal improvement in air entry bilateral bases. No chest wall tenderness is noted on palpation or with deep breathing. ABDOMEN: Soft, obese, nontender. Bowel sounds are heard. No organomegaly noted. EXTREMITIES: Evidence of trace - edema bilaterally with skin changes consistent with chronic stasis, diminished peripheral pulses. NEUROLOGIC patient is awake, alert and oriented x3. . - Labs CBC & Chem 7: 07/18/19 05:59 07/19/19 06:14 Labs: Abnormal Lab Results - Last 24 Hours (Table) 07/18/19 07/18/19 07/19/19 Range/Units 16:49 20:19 06:14 BUN 28 H (9-20) mg/dL Glucose 227 H (74-99) mg/dL POC Glucose (mg/dL) 137 H 136 H (75-99) mg/dL 07/19/19 07/19/19 Range/Units 06:39 12:07 BUN (9-20) mg/dL Glucose (74-99) mg/dL POC Glucose (mg/dL) 208 H 261 H (75-99) mg/dL Assessment and Plan Plan: Assessment and plan: #1 symptoms of progressive dyspnea in patient with history of cardiomyopathy, he has a decrease systolic function compared to previous echocardiogram, recent cardiac catheterization and recommendation made at that time to maximize medical therapy #2 status post coronary artery bypass grafting #3 history of hypertension #4 hyperlipidemia #5 diabetes mellitus #6 noncompliance with dietary restrictions #7 probable bronchitis #8 chronic venous stasis #9 morbid obesity Plan From cardiology's perspective, the patient may be able to be discharged home once cleared by primary. We will make him a follow-up appointment in the cardiology office one week post discharge. DNP note has been reviewed, I agree with a documented findings and plan of care. Patient was seen and examined.
--- NOTE | 2019-07-22 20:23 | P.DS ---
Providers Date of admission: 07/15/19 09:11 Expected date of discharge: 07/19/19 Attending physician: Tad Schneider Consults: 07/13/19 09:16 Consult Physician Urgent Consulting Provider: Michele Vences Consult Reason/Comments: dyspnea Do you want consulting provider notified?: Yes Primary care physician: Stevie Begum MD Hospital Course: Chief Complaint: Short of breath History of presenting complaint: This is a very pleasant [address] Stevie Begum. 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 Vences. Chronic stable medical conditions include coronary artery disease with bypass, diabetes, hypertension, hyperlipidemia, peripheral neuropathy, BPH diverticulosis, IBS. Patient presents with progressive short of breath for about 4 days. Has had a constant cough. Some phlegm that he typically swallows. Some increasing lower extremity edema. No obvious fever and chills. Appetite has been okay. Some orthopnea. Patient had a baseline uses a walker. Admitting diagnoses of CHF. Started on IV Lasix. Responded well. Patient started on Aldactone, Entresto, Imdur. Today-feeling much improved. Tolerating a diet. Cleared by cardiology Consultation: Dr. Davison from cardiology. Physical examination: VITAL SIGNS: 97.5, 74, 18, blood pressure 05/29/1975, 98% on room air GENERAL: Sitting up, more comfortable EYES: Pupils equal. Conjunctiva normal. HEENT: External appearance of nose and ears normal, oral cavity grossly normal. NECK: JVD unable to assess; masses not palpable. HEART: Heart sounds are muffled; some edema. LUNGS: Respiratory rate increased decreased breath sounds. ABDOMEN: Soft, distended nontender, liver spleen not palpable, no masses palpable. DERMATOLOGICAL: Redness minimal tenderness in the intertriginous areas PSYCH: Alert and oriented x3; mood and affect normal. INVESTIGATIONS, reviewed in the clinical context: Potassium 4.1 crit 0.95 Previous testing White count 9.9 hemoglobin 14.3 platelets 278 potassium 4 creatinine 1.13 Accu-Cheks 268, 236 ProBNP 2300, troponin I 0.019,s.090 EKG tracing personally reviewed by me-a regular baseline questionable atrial flutter Chest x-ray film personally reviewed by me-pulmonary edema, questionable infiltrate 2-D echocardiogram-EF 25-30%, some mitral regurgitation Assessment: -Acute on chronic congestive heart failure exacerbation from systolic dysfunction EF 25-30% from underlying ischemic heart disease, POA -Coronary artery disease prior history of coronary bypass -Intertriginous fungal infection Sandra between skin folds -Diabetes mellitus type 2 -GERD -Essential hypertension -BPH -Peripheral neuropathy from diabetes -Irritable bowel syndrome -Colonic diverticulosis -Morbid obesity BMI 50.2 -Troponin leak from CHF. No clinical evidence of acute coronary syndrome Disposition Home Patient Condition at Discharge: Stable Plan - Discharge Summary Discharge Rx Participant: Yes New Discharge Prescriptions: New Spironolactone [Aldactone] 25 mg PO DAILY #30 tab Carvedilol [Coreg] 6.25 mg PO BID-W/MEALS #60 tab Sacubitril/Valsartan [Entresto 24 mg-26 mg Tablet] 1 each PO BID #60 tablet Isosorbide Mononitrate ER [Imdur] 30 mg PO DAILY #30 tab.er.24h Atorvastatin [Lipitor] 40 mg PO DAILY #30 tab Nystatin 100,000 Unit/gm Powd [Mycostatin Powder] 1 applic TOPICAL BID applic Continue Tamsulosin HCl [Flomax] 0.4 mg PO DAILY Aspirin 81 mg PO DAILY #30 chew Nitroglycerin Sl Tabs [Nitrostat] 0.4 mg SUBLINGUAL Q5M PRN #25 tab PRN Reason: Chest Pain Albuterol Inhaler [Ventolin Hfa Inhaler] 1 - 2 puff INHALATION RT-Q6H PRN #1 inhaler PRN Reason: Shortness Of Breath Or Wheezing Famotidine [Pepcid] 20 mg PO HS guaiFENesin SYRUP 100MG/5ML [Robitussin] 200 mg PO Q4H PRN PRN Reason: Diarrhea Changed Insulin Glargine [Lantus] 50 unit SQ BID #0 Furosemide [Lasix] 60 mg PO BID #60 tablet INSULIN ASPART (NovoLOG) [NovoLOG (formulary)] 40 unit SQ AC-TID #1 Discontinued Simvastatin 10 mg PO HS Carvedilol [Coreg] 3.125 mg PO BID-W/MEALS #180 tab Discharge Medication List Tamsulosin HCl [Flomax] 0.4 mg PO DAILY 02/12/19 [History] Albuterol Inhaler [Ventolin Hfa Inhaler] 1 - 2 puff INHALATION RT-Q6H PRN #1 inhaler 02/22/19 [Rx] Aspirin 81 mg PO DAILY #30 chew 02/22/19 [Rx] Nitroglycerin Sl Tabs [Nitrostat] 0.4 mg SUBLINGUAL Q5M PRN #25 tab 02/22/19 [Rx] Famotidine [Pepcid] 20 mg PO HS 03/20/19 [History] guaiFENesin SYRUP 100MG/5ML [Robitussin] 200 mg PO Q4H PRN 07/13/19 [History] Atorvastatin [Lipitor] 40 mg PO DAILY #30 tab 07/19/19 [Rx] Carvedilol [Coreg] 6.25 mg PO BID-W/MEALS #60 tab 07/19/19 [Rx] Furosemide [Lasix] 60 mg PO BID #60 tablet 07/19/19 [Rx] INSULIN ASPART (NovoLOG) [NovoLOG (formulary)] 40 unit SQ AC-TID #1 07/19/19 [Rx] Insulin Glargine [Lantus] 50 unit SQ BID #0 07/19/19 [Rx] Isosorbide Mononitrate ER [Imdur] 30 mg PO DAILY #30 tab.er.24h 07/19/19 [Rx] Nystatin 100,000 Unit/gm Powd [Mycostatin Powder] 1 applic TOPICAL BID applic 07/19/19 [Rx] Sacubitril/Valsartan [Entresto 24 mg-26 mg Tablet] 1 each PO BID #60 tablet 07/19/19 [Rx] Spironolactone [Aldactone] 25 mg PO DAILY #30 tab 07/19/19 [Rx] Follow up Appointment(s)/Referral(s): Stevie Begum MD [Primary Care Provider] - 1-2 days (Office will call with a follow up appointment. ) [facility], [NON-STAFF] - 1-2 Days Michele Vences MD [STAFF PHYSICIAN] - 08/07/19 4:30 pm (First available appointment. ) Patient Instructions/Handouts: Heart Failure (DC), Low-Sodium Diet (DC) Activity/Diet/Wound Care/Special Instructions: Entresto covered by insurance - copay $43 CHF 1. Weigh yourself every morning after you urinate. If you gain 2-3 pounds overnight or 5 pounds in one week, call your primary physician for guidance on your medications. Keep a log of your weights. 2. Avoid salt, or foods with hidden salt. Extra salt makes your heart work harder and traps the fluid in your body for longer. 3. Take all of your medications as directed, especially your water pills. NEVER skip a dose. 4. Elevate your legs when you are not up moving around to help with circulation and prevent swelling. 5. Call your physician if you notice any extra swelling in your legs, ankles, feet or abdomen, if you have a new dry cough, if your shortness of breath worsens with activity or at rest, or if you feel more fatigued. bmp - 3 days Discharge Disposition: HOME WITH HOME HEALTH SERVICES
== END 2019-07-19 15:46 | disposition home health service (06) | DRG 292 ==
LOC: EC 07:14 → 3SCARD 09:25 → OBSVTOIN 07-15 09:11
PROVIDERS: ADMIT Hospitalist; ATTEND Hospitalist
DX: I11.0 Hypertensive heart disease with heart failure (principal); Z68.43 Body mass index [BMI] 50.0-59.9, adult; I50.23 Acute on chronic systolic (congestive) heart failure; B36.9 Superficial mycosis, unspecified; E11.42 Type 2 diabetes mellitus with diabetic polyneuropathy; E66.01 Morbid (severe) obesity due to excess calories; E78.5 Hyperlipidemia, unspecified; I25.10 Atherosclerotic heart disease of native coronary artery without angina pectoris; I27.20 Pulmonary hypertension, unspecified; I42.9 Cardiomyopathy, unspecified; I87.8 Other specified disorders of veins; K21.9 Gastro-esophageal reflux disease without esophagitis; K57.30 Diverticulosis of large intestine without perforation or abscess without bleeding; K58.9 Irritable bowel syndrome, unspecified; N40.0 Benign prostatic hyperplasia without lower urinary tract symptoms; Z79.4 Long term (current) use of insulin; Z79.82 Long term (current) use of aspirin; Z79.899 Other long term (current) drug therapy; Z82.5 Family history of asthma and other chronic lower respiratory diseases; Z87.442 Personal history of urinary calculi; Z91.19 Patient's noncompliance with other medical treatment and regimen; Z95.1 Presence of aortocoronary bypass graft; I08.1 Rheumatic disorders of both mitral and tricuspid valves
CPT/HCPCS: 36415; 71046; 80048; 80053; 83605; 83880; 84484; 85025; 85610; 85730; 93005; 93306; 94640; 96365; 96366; 96375; 96376; 99285

== ENCOUNTER → 2019-09-21 | Outpatient (CLI) | payer MEDICARE ==
[2019-09-21 17:16] LABS: African American GFR (CKD) 67.2 (60.0-200.0); Albumin 3.7 g/dL (3.80-4.90); Albumin/Globulin Ratio 1.12 (1.60-3.17); Anion Gap 14.8 mmol/L (4.00-12.00); BUN/Creat Ratio 25.83 Ratio (12.00-20.00); Calcium 9.1 mg/dL (8.7-10.3); Carbon Dioxide 24.2 mmol/L (21.6-31.8); Chol/HDL Ratio 3.91; Globulin 3.3 g/dL (1.6-3.3); LDL Cholesterol,Calculated 74.6 mg/dL (0.0-131.0); Potassium 4.7 mmol/L (3.5-5.5); Total Bilirubin 1.1 mg/dL (0.3-1.2); VLDL Calculation 24.4 mg/dL (5.00-40.00)
[2019-09-21 17:51] LABS: Hemoglobin A1C 8.6 % (4.0-6.0)
== END | disposition home or self-care (01) ==
LOC: LABWHC1 08:57
PROVIDERS: ATTEND Internal Medicine Endocrinology, Diabetes & Metabolism
DX: E11.65 Type 2 diabetes mellitus with hyperglycemia (principal); I10 Essential (primary) hypertension
CPT/HCPCS: 36415; 80053; 80061; 83036; 84443

== ENCOUNTER 2021-11-19 22:33 | Inpatient (IN) | payer MEDICARE ==
--- NOTE | 2021-11-19 23:42 | ED ---
General Adult HPI - General Chief complaint: Weakness Stated complaint: Weakness Time Seen by Provider: 11/19/21 22:44 Source: patient, EMS Mode of arrival: EMS Limitations: no limitations - History of Present Illness Initial comments: 's patient is an 81-year-old man brought to have evaluation for generalized weakness. Patient states that he has not been feeling well going back probably 3-4 days. He states that he had a couple of days where he was vomiting. He did not notice any hematemesis. He was having a few episodes of vomiting per day. That resolved but yesterday he was feeling weak and having difficulty walking. He did have a ground-level fall but denies injury other than some abrasions to the elbow and to the toes. Today he was feeling even weaker and states that after he had used the commode he was not able to stand from that and family called EMS. Patient denies chest pain or dyspnea. No abdominal pain. No change in bowel movements or urination. No leg pain or swelling. He does have chronic left foot ulcer going back four years. -: days(s) Improves with: none Worsens with: none Associated Symptoms: weakness Treatments Prior to Arrival: none - Related Data Home Medications Medication Instructions Recorded Confirmed Tamsulosin HCl [Flomax] 0.4 mg PO DAILY 02/12/19 11/20/21 Famotidine [Pepcid] 20 mg PO HS 03/20/19 11/20/21 Furosemide [Lasix] 40 mg PO BID 11/20/21 11/20/21 Previous Rx's Medication Instructions Recorded Albuterol Inhaler [Ventolin Hfa 1 - 2 puff INHALATION RT-Q6H PRN 02/22/19 Inhaler] #1 inhaler Aspirin 81 mg PO DAILY #30 chew 02/22/19 Nitroglycerin Sl Tabs [Nitrostat] 0.4 mg SUBLINGUAL Q5M PRN #25 tab 02/22/19 Atorvastatin [Lipitor] 40 mg PO DAILY #30 tab 07/19/19 Isosorbide Mononitrate ER [Imdur] 30 mg PO DAILY #30 tab.er.24h 07/19/19 Sacubitril/Valsartan [Entresto 24 1 each PO BID #60 tablet 07/19/19 mg-26 mg Tablet] carvediloL [Coreg] 6.25 mg PO BID-W/MEALS #60 tab 07/19/19 Apixaban [Eliquis] 5 mg PO BID #60 tab 11/20/21 Cholecalciferol [Vitamin D3 (25 25 mcg PO DAILY #30 tab 11/24/21 Mcg = 1000 Iu)] metFORMIN HCL [Glucophage] 500 mg PO BID #60 tab 11/24/21 Pantoprazole Sodium [Protonix] 40 mg PO BID #30 tab 11/25/21 Allergies Allergy/AdvReac Type Severity Reaction Status Date / Time No Known Allergies Allergy Verified 11/20/21 06:58 Review of Systems ROS Statement: Those systems with pertinent positive or pertinent negative responses have been documented in the HPI. ROS Other: All systems not noted in ROS Statement are negative. Constitutional: Reports: weakness. Denies: fever, chills Eyes: Denies: vision change Respiratory: Denies: cough, dyspnea Cardiovascular: Denies: chest pain, palpitations, edema Gastrointestinal: Reports: as per HPI, vomiting. Denies: abdominal pain, diarrhea, constipation, hematemesis, melena, hematochezia Genitourinary: Denies: dysuria, hematuria Musculoskeletal: Denies: back pain Skin: Denies: rash Neurological: Denies: headache, weakness, numbness, paresthesias, confusion Past Medical History Past Medical History: Coronary Artery Disease (CAD), Diabetes Mellitus, Hyperlipidemia, Hypertension, Prostate Disorder Additional Past Medical History / Comment(s): Coronary artery disease, previous bypass surgery, diabetes mellitus type 2, hypertension, hyperlipidemia, morbid obesity with a BMI 52.2, history of kidney stones, obstructive sleep apnea post UPPP currently not utilizing any form of CPAP or BiPAP therapy. History of Any Multi-Drug Resistant Organisms: None Reported Past Surgical History: Coronary Bypass/CABG Additional Past Surgical History / Comment(s): UVP- FOR SLEEP APNEA FATTY TUMOR REMOVED FROM LEFT THIGH, CABG 15 years ago Past Anesthesia/Blood Transfusion Reactions: No Reported Reaction Additional Past Anesthesia/Blood Transfusion Reaction / Comment(s): Pt has clausterphobia. Past Psychological History: No Psychological Hx Reported Smoking Status: Former smoker Past Alcohol Use History: None Reported Past Drug Use History: None Reported - Past Family History Mother Family Medical History: No Reported History Father Family Medical History: COPD Additional Family Medical History / Comment(s): Father was a smoker. General Exam Limitations: no limitations General appearance: alert, in no apparent distress Head exam: Present: atraumatic, normocephalic Eye exam: Present: normal appearance. Absent: scleral icterus, conjunctival injection ENT exam: Present: mucous membranes dry Neck exam: Present: normal inspection, full ROM Respiratory exam: Present: normal lung sounds bilaterally. Absent: respiratory distress, wheezes, rales, rhonchi, stridor Cardiovascular Exam: Present: irregular rhythm, systolic murmur. Absent: diastolic murmur, rubs, gallop GI/Abdominal exam: Present: soft. Absent: distended, tenderness, guarding, rebound, rigid, mass Extremities exam: Present: normal inspection, normal capillary refill. Absent: pedal edema, calf tenderness Back exam: Present: normal inspection. Absent: CVA tenderness (R), CVA tenderness (L) Neurological exam: Present: alert Skin exam: Present: warm, dry, normal color, abrasion. Absent: rash Course Vital Signs 11/19/21 11/20/21 22:38 04:00 Temperature 99.8 F H Pulse Rate 71 63 Respiratory 20 20 Rate Blood Pressure 131/57 137/53 O2 Sat by Pulse 91 L 97 Oximetry EKG Findings - EKG Results: EKG: interpreted by ERMD EKG shows: atrial fibrillation (Rate 72 bpm) - Blocks, Emblem, Hypertrophy, ST Abn: AV and intraventricular conduction: left bundle branch block (fixed/intermittent, complete/incomplete) QRS axis and voltage: left axis deviation (-30 to -90) Medical Decision Making - Medical Decision Making Patient is an 81-year-old man arriving for evaluation of generalized weakness and fatigue. On arrival he is found to have atrial fibrillation unable to de termine if this is a new or old problem but appears new. Also mild lactic acidosis, elevation of BNP and also elevation of troponin. Patient be admitted for further evaluation and treatment. - Lab Data Result diagrams: 11/25/21 07:45 11/25/21 07:45 Lab Results 11/19/21 11/19/21 11/19/21 Range/Units 23:38 23:38 23:38 WBC 9.7 (3.8-10.6) k/uL RBC 5.11 (4.30-5.90) m/uL Hgb 15.1 (13.0-17.5) gm/dL Hct 45.9 (39.0-53.0) % MCV 89.9 (80.0-100.0) fL MCH 29.5 (25.0-35.0) pg MCHC 32.8 (31.0-37.0) g/dL RDW 15.5 (11.5-15.5) % Plt Count 172 (150-450) k/uL MPV 8.6 Neutrophils % 86 % Lymphocytes % 6 % Monocytes % 6 % Eosinophils % 0 % Basophils % 0 % Neutrophils # 8.3 H (1.3-7.7) k/uL Lymphocytes # 0.6 L (1.0-4.8) k/uL Monocytes # 0.6 (0-1.0) k/uL Eosinophils # 0.0 (0-0.7) k/uL Basophils # 0.0 (0-0.2) k/uL Sodium 137 (137-145) mmol/L Potassium 3.9 (3.5-5.1) mmol/L Chloride 103 (98-107) mmol/L Carbon Dioxide 24 (22-30) mmol/L Anion Gap 10 mmol/L BUN 25 H (9-20) mg/dL Creatinine 1.23 (0.66-1.25) mg/dL Est GFR (CKD-EPI)AfAm 64 (>60 ml/min/1.73 sqM) Est GFR (CKD-EPI)NonAf 55 (>60 ml/min/1.73 sqM) Glucose 242 H (74-99) mg/dL Lactic Ac Sepsis Rflx Plasma Lactic Acid Amadou 3.1 H* (0.7-2.0) mmol/L Calcium 8.5 (8.4-10.2) mg/dL Magnesium 1.8 (1.6-2.3) mg/dL Total Bilirubin 1.8 H (0.2-1.3) mg/dL AST 42 (17-59) U/L ALT 19 (4-49) U/L Alkaline Phosphatase 89 (38-126) U/L Troponin I (0.000-0.034) ng/mL NT-Pro-B Natriuret Pep pg/mL Total Protein 6.8 (6.3-8.2) g/dL Albumin 3.4 L (3.5-5.0) g/dL Triglycerides (0.00-149.00) mg/dL Cholesterol (0.00-200.00) mg/dL LDL Cholesterol, Calc (0.0-131.0) mg/dL VLDL Cholesterol, Calc (5.00-40.00) mg/dL HDL Cholesterol (40.00-60.00) mg/dL Cholesterol/HDL Ratio Ratio Acetone, Qual (Negative) 11/19/21 11/19/21 11/19/21 Range/Units 23:38 23:38 23:38 WBC (3.8-10.6) k/uL RBC (4.30-5.90) m/uL Hgb (13.0-17.5) gm/dL Hct (39.0-53.0) % MCV (80.0-100.0) fL MCH (25.0-35.0) pg MCHC (31.0-37.0) g/dL RDW (11.5-15.5) % Plt Count (150-450) k/uL MPV Neutrophils % % Lymphocytes % % Monocytes % % Eosinophils % % Basophils % % Neutrophils # (1.3-7.7) k/uL Lymphocytes # (1.0-4.8) k/uL Monocytes # (0-1.0) k/uL Eosinophils # (0-0.7) k/uL Basophils # (0-0.2) k/uL Sodium (137-145) mmol/L Potassium (3.5-5.1) mmol/L Chloride (98-107) mmol/L Carbon Dioxide (22-30) mmol/L Anion Gap mmol/L BUN (9-20) mg/dL Creatinine (0.66-1.25) mg/dL Est GFR (CKD-EPI)AfAm (>60 ml/min/1.73 sqM) Est GFR (CKD-EPI)NonAf (>60 ml/min/1.73 sqM) Glucose (74-99) mg/dL Lactic Ac Sepsis Rflx Plasma Lactic Acid Amadou (0.7-2.0) mmol/L Calcium (8.4-10.2) mg/dL Magnesium (1.6-2.3) mg/dL Total Bilirubin (0.2-1.3) mg/dL AST (17-59) U/L ALT (4-49) U/L Alkaline Phosphatase (38-126) U/L Troponin I 0.719 H* (0.000-0.034) ng/mL NT-Pro-B Natriuret Pep 7460 pg/mL Total Protein (6.3-8.2) g/dL Albumin (3.5-5.0) g/dL Triglycerides (0.00-149.00) mg/dL Cholesterol (0.00-200.00) mg/dL LDL Cholesterol, Calc (0.0-131.0) mg/dL VLDL Cholesterol, Calc (5.00-40.00) mg/dL HDL Cholesterol (40.00-60.00) mg/dL Cholesterol/HDL Ratio Ratio Acetone, Qual Negative (Negative) 11/19/21 11/20/21 Range/Units 23:38 00:42 WBC (3.8-10.6) k/uL RBC (4.30-5.90) m/uL Hgb (13.0-17.5) gm/dL Hct (39.0-53.0) % MCV (80.0-100.0) fL MCH (25.0-35.0) pg MCHC (31.0-37.0) g/dL RDW (11.5-15.5) % Plt Count (150-450) k/uL MPV Neutrophils % % Lymphocytes % % Monocytes % % Eosinophils % % Basophils % % Neutrophils # (1.3-7.7) k/uL Lymphocytes # (1.0-4.8) k/uL Monocytes # (0-1.0) k/uL Eosinophils # (0-0.7) k/uL Basophils # (0-0.2) k/uL Sodium (137-145) mmol/L Potassium (3.5-5.1) mmol/L Chloride (98-107) mmol/L Carbon Dioxide (22-30) mmol/L Anion Gap mmol/L BUN (9-20) mg/dL Creatinine (0.66-1.25) mg/dL Est GFR (CKD-EPI)AfAm (>60 ml/min/1.73 sqM) Est GFR (CKD-EPI)NonAf (>60 ml/min/1.73 sqM) Glucose (74-99) mg/dL Lactic Ac Sepsis Rflx Y Plasma Lactic Acid Amadou (0.7-2.0) mmol/L Calcium (8.4-10.2) mg/dL Magnesium (1.6-2.3) mg/dL Total Bilirubin (0.2-1.3) mg/dL AST (17-59) U/L ALT (4-49) U/L Alkaline Phosphatase (38-126) U/L Troponin I (0.000-0.034) ng/mL NT-Pro-B Natriuret Pep pg/mL Total Protein (6.3-8.2) g/dL Albumin (3.5-5.0) g/dL Triglycerides 94.60 (0.00-149.00) mg/dL Cholesterol 96.00 (0.00-200.00) mg/dL LDL Cholesterol, Calc 47.3 (0.0-131.0) mg/dL VLDL Cholesterol, Calc 18.92 (5.00-40.00) mg/dL HDL Cholesterol 30.20 L (40.00-60.00) mg/dL Cholesterol/HDL Ratio 3.19 Ratio Acetone, Qual (Negative) Disposition Clinical Impression: Congestive heart failure, NSTEMI (non-ST elevated myocardial infarction), Atrial fibrillation, Lactic acidosis, Weakness, Difficulty in walking, not elsewhere classified Disposition: ADMITTED IP TO THIS [facility] Condition: Fair
[2021-11-19 23:50] LABS: Basophils % (A) 0 %; Eosinophils % (A) 0 %; HCT 45.9 % (39.0-53.0); HGB 15.1 gm/dL (13.0-17.5); Lymphocytes # (A) 0.6 k/uL (1.0-4.8); Lymphocytes % (A) 6 %; MCH 29.5 pg (25.0-35.0); MCHC 32.8 g/dL (31.0-37.0); MCV 89.9 fL (80.0-100.0); Mean Platelet Volume 8.6; Monocytes # (A) 0.6 k/uL (0-1.0); Monocytes % (A) 6 %; Neutrophils # (A) 8.3 k/uL (1.3-7.7); Neutrophils % (A) 86 %; Platelet Count 172 k/uL (150-450); RBC 5.11 m/uL (4.30-5.90); RDW 15.5 % (11.5-15.5); WBC 9.7 k/uL (3.8-10.6)
[2021-11-20 00:19] LABS: Albumin 3.4 g/dL (3.5-5.0); Calcium 8.5 mg/dL (8.4-10.2); Magnesium 1.8 mg/dL (1.6-2.3); Potassium 3.9 mmol/L (3.5-5.1); Total Bilirubin 1.8 mg/dL (0.2-1.3); Total Protein 6.8 g/dL (6.3-8.2)
--- NOTE | 2021-11-20 02:03 | CT ---
EXAMINATION TYPE: CT brain wo con DATE OF EXAM: 11/20/2021 COMPARISON: None HISTORY: weakness/dizziness CT DLP: 1158.4 mGycm Automated exposure control for dose reduction was used. Images of the brain obtained with no contrast. There is cerebral cortical atrophy. There is no mass effect or midline shift. No sign of intracranial hemorrhage. The calvarium is intact. Skull base is intact. IMPRESSION: Cerebral atrophy. No acute intracranial abnormality.
--- NOTE | 2021-11-20 02:20 | XR ---
EXAMINATION TYPE: XR chest 1V portable DATE OF EXAM: 11/20/2021 COMPARISON: 07/17/2019 HISTORY: Weakness TECHNIQUE: Single view FINDINGS: There is slight coarsening of interstitial markings in the lung bases. No pulmonary consoli dation or heart failure. There are no hilar masses. There are chest leads. IMPRESSION: Minimal pulmonary fibrotic changes. Lung markings increased compared to old exam. No hear t failure.
[2021-11-20] MEDS ORDERED: NITROGLYCERIN SL TABS 0.4 MG TAB SUBLINGUAL PRN (03:18)
[2021-11-20] MEDS ORDERED: ENOXAPARIN 150 MG/ML SYRINGE SQ SCH (03:30)
[2021-11-20] MEDS ORDERED: ATORVASTATIN 80 MG TAB PO SCH (03:52)
--- NOTE | 2021-11-20 03:54 | P.HPIM ---
History of Present Illness H&P Date: 11/20/21 The patient is a 81-year-old male with a PMH of CAD status post CABG, systolic CHF EF 25-30% on Echo in 07/2019, type II DM, hypertension, hyperlipidemia, presents to the emergency room for generalized weakness. Patient reports that his symptoms started roughly 48 hours ago when he initially started feeling weak and not quite like himself. History was supplemented by at the bedside. She reports that on the night of 11/18, the patient had reported feeling weak and as she was trying to help him to the bathroom, he was unable to ambulate and fell to the ground. EMS subsequently came and helped the patient back in the chair, at which time the patient refused to go to the hospital. The following day, the patient continued feeling weak and had nausea with an episode of vomiting. He reportedly did not suffer any head trauma from the fall and did not lose consciousness. He denied experiencing chest discomfort, palpitations, or diaphoresis. Reports chronic unchanged shortness of breath. Also reports that over the past 2-3 days, he has not been eating as much as he usually does. In the emergency room, EKG revealed A. fib at 72 bpm with left axis deviation with left bundle branch block, not present on prior EKG. CT brain was unremarkable with chest x-ray showing minimal fibrotic changes. Laboratory evaluation was remarkable for a troponin of 0.719, lactic acid 3.1, BUN 25, and glucose 242. Review of systems: Pertinent positives and negatives as discussed in HPI, a complete review of systems was performed and all other systems are negative. Physical examination: General: non toxic, no distress, appears at stated age, morbidly obese Head: atraumatic, normocephalic, symmetric Eyes: EOMI, no lid lag, anicteric sclera, pupils equal round reactive to light ENT: Nose and ears atraumatic Neck: No cervical lymphadenopathy, trachea midline, supple Mouth: no lip lesion, mucus membranes moist Cardiovascular: S1S2 reg, no murmur, positive dorsalis pedis pulse bilateral, 1+ bilateral lower extremity pitting edema Lungs: CTA bilateral, no rhonchi, no rales, no accessory muscle use Abdominal: soft, nontender to palpation, no guarding Ext: muscle strength 3 out of 5 in all 4 extremities grossly, no gross muscle atrophy, no contractures, significant chronic venous stasis changes bilaterally with multiple chronic appearing ulcers on both legs Neuro: CN II-XI grossly intact, no gross focal neuro deficits Psych: Alert, oriented, appropriate affect Assessment/plan Non-ST elevation CO -Patient started on Lovenox in the ED -Continue with aspirin, statin -Cardiology consulted -Cardiac monitoring -Trend troponin Newly diagnosed A. fib -Cardiology consulted -Patient started on anticoagulation Chronic nonhealing appearing ulcers on bilateral lower extremities -Wound care consult Lactic acidosis -Judicious use of IV fluids due to likely mild acute CHF exacerbation -Monitor for resolution Chronic conditions: Type II DM, hypertension, hyperlipidemia, -Insulin sliding scale and blood glucose monitoring -Continue home medications DVT prophylaxis -Lovenox The patient is admitted with an anticipated greater than 2 midnight stay for evaluation of non-ST elevation CO. CODE STATUS: Full Code Discussed with: Patient Anticipated discharge date: 11/[address]: Home Past Medical History Past Medical History: Coronary Artery Disease (CAD), Diabetes Mellitus, Hyperlipidemia, Hypertension, Prostate Disorder Additional Past Medical History / Comment(s): Coronary artery disease, previous bypass surgery, diabetes mellitus type 2, hypertension, hyperlipidemia, morbid obesity with a BMI 52.2, history of kidney stones, obstructive sleep apnea post UPPP currently not utilizing any form of CPAP or BiPAP therapy. History of Any Multi-Drug Resistant Organisms: None Reported Past Surgical History: Coronary Bypass/CABG Additional Past Surgical History / Comment(s): UVP- FOR SLEEP APNEA FATTY TUMOR REMOVED FROM LEFT THIGH, CABG 15 years ago Past Anesthesia/Blood Transfusion Reactions: No Reported Reaction Additional Past Anesthesia/Blood Transfusion Reaction / Comment(s): Pt has clausterphobia. Past Psychological History: No Psychological Hx Reported Smoking Status: Former smoker Past Alcohol Use History: None Reported Past Drug Use History: None Reported - Past Family History Mother Family Medical History: No Reported History Father Family Medical History: COPD Additional Family Medical History / Comment(s): Father was a smoker. Medications and Allergies Home Medications Medication Instructions Recorded Confirmed Type Tamsulosin HCl [Flomax] 0.4 mg PO DAILY 02/12/19 07/13/19 History Albuterol Inhaler [Ventolin Hfa 1 - 2 puff INHALATION RT-Q6H PRN 02/22/19 07/13/19 Rx Inhaler] #1 inhaler Aspirin 81 mg PO DAILY #30 chew 02/22/19 07/13/19 Rx Nitroglycerin Sl Tabs [Nitrostat] 0.4 mg SUBLINGUAL Q5M PRN #25 tab 02/22/19 07/13/19 Rx Famotidine [Pepcid] 20 mg PO HS 03/20/19 07/13/19 History guaiFENesin SYRUP 100MG/5ML 200 mg PO Q4H PRN 07/13/19 07/13/19 History [Robitussin] Atorvastatin [Lipitor] 40 mg PO DAILY #30 tab 07/19/19 Rx Furosemide [Lasix] 60 mg PO BID #60 tablet 07/19/19 Rx INSULIN ASPART (NovoLOG) [NovoLOG 40 unit SQ AC-TID #1 07/19/19 07/13/19 Rx (formulary)] Insulin Glargine [Lantus Vial] 50 unit SQ BID #0 07/19/19 07/13/19 Rx Isosorbide Mononitrate ER [Imdur] 30 mg PO DAILY #30 tab.er.24h 07/19/19 Rx Nystatin 100,000 Unit/gm Powd 1 applic TOPICAL BID applic 07/19/19 Rx [Mycostatin Powder] Sacubitril/Valsartan [Entresto 24 1 each PO BID #60 tablet 07/19/19 Rx mg-26 mg Tablet] Spironolactone [Aldactone] 25 mg PO DAILY #30 tab 07/19/19 Rx carvediloL [Coreg] 6.25 mg PO BID-W/MEALS #60 tab 07/19/19 Rx Allergies Allergy/AdvReac Type Severity Reaction Status Date / Time No Known Allergies Allergy Verified 07/13/19 10:17 Physical Exam Vitals: Vital Signs Temp Pulse Resp BP Pulse Ox 11/19/21 22:38 99.8 F H 71 20 131/57 91 L Intake and Output 11/19/21 11/19/21 11/20/21 14:59 22:59 06:59 Other: Weight 159 kg Results CBC & Chem 7: 11/19/21 23:38 11/19/21 23:38 Labs: Abnormal Lab Results - Last 24 Hours (Table) 11/19/21 11/19/21 11/19/21 Range/Units 23:38 23:38 23:38 Neutrophils # 8.3 H (1.3-7.7) k/uL Lymphocytes # 0.6 L (1.0-4.8) k/uL BUN 25 H (9-20) mg/dL Glucose 242 H (74-99) mg/dL Plasma Lactic Acid Amadou 3.1 H* (0.7-2.0) mmol/L Total Bilirubin 1.8 H (0.2-1.3) mg/dL Troponin I (0.000-0.034) ng/mL Albumin 3.4 L (3.5-5.0) g/dL 11/19/21 Range/Units 23:38 Neutrophils # (1.3-7.7) k/uL Lymphocytes # (1.0-4.8) k/uL BUN (9-20) mg/dL Glucose (74-99) mg/dL Plasma Lactic Acid Amadou (0.7-2.0) mmol/L Total Bilirubin (0.2-1.3) mg/dL Troponin I 0.719 H* (0.000-0.034) ng/mL Albumin (3.5-5.0) g/dL
[2021-11-20 04:11] LABS: Appearance,Urine Clear (Clear); Bacteria,Urine Rare /hpf; Bilirubin,Urine Negative (Negative); Blood,Urine Small (Negative); Cellular Casts,Urine 3 /lpf (0); Color,Urine Yellow; Glucose,Urine (UA) Negative (Negative); Hyaline Casts,Urine 8 /lpf (0-2); Ketones,Urine Negative (Negative); Leukocyte Esterase,Urine Negative (Negative); Mucus,Urine Occasional /hpf; Nitrite,Urine Negative (Negative); PH, Urine 5.5 (5.0-8.0); Protein,Urine 2+ (Negative); RBC,Urine 21 /hpf (0-5); Specific Gravity,Urine 1.022 (1.001-1.035); Urobilinogen,Urine <2.0 mg/dL (<2.0); WBC,Urine 3 /hpf (0-5)
[2021-11-20 06:33] LABS: Glucose,Whole Blood 231 mg/dL (70-110)
[2021-11-20] MEDS: INSULIN ASPART (NovoLOG) 100 UNIT/ML VIAL SQ SCH ×4 (06:34→21:04)
[2021-11-20] MEDS: APIXABAN 5 MG TAB PO SCH ×2 (10:22→21:24)
[2021-11-20] MEDS: ISOSORBIDE MONONITRATE ER 30 MG TAB.ER.24H PO SCH (10:55)
[2021-11-20] MEDS: FUROSEMIDE 40 MG TAB PO SCH ×2 (10:55→21:04)
[2021-11-20] MEDS: carvediloL 6.25 MG TAB PO SCH ×2 (10:56→18:03)
[2021-11-20] MEDS: SACUBITRIL/VALSARTAN 24 MG-26 MG TABLET PO SCH ×2 (10:56→21:04)
--- NOTE | 2021-11-20 11:14 | P.CRDCN ---
History of Present Illness Consult date: 11/20/21 History of present illness: HISTORY OF PRESENT ILLNESS: This is a 81-year-old male with a past medical history significant for coronary artery disease with previous CABG, ischemic cardiomyopathy, congestive heart failure with an ejection fraction of 25-30%, diabetes, hypertension, and hyperlipidemia. Patient has not followed in the office since 2019. We have been asked to see the patient in consultation for atrial fibrillation. Patient examin ed at the bedside. Patient presented to the hospital with a chief complaint of generalized weakness. Patient was found to be in atrial flutter with controlled ventricular rates. Patient denies any chest pain or pressure. He denied any shortness of breath. He reports feeling dizzy yesterday however he currently denies any dizziness or lightheadedness. He remains in atrial flutter with controlled ventricular rates this morning. He denies a history of atrial flutter. * EKG reveals atrial flutter with controlled ventricular rate * Chest xray minimal pulmonary fibrotic changes. Lung markings increased compared to exam. No heart failure. * Laboratory data: WBC 9.7. Hemoglobin 15.1. Platelet count 172. Sodium 137. Potassium 3.9. BUN 25. Creatinine 1.23. Lactic acid 3.1. Repeat 1.7. Pro BNP 7460. Troponin 0.709. 0.734. 0.648. * Current home cardiac medications include Entresto 24-26mg BID, Lasix 40 mrem twice a day, carvedilol 6.25 mg twice a day, Imdur 30 mg daily, Lipitor 40 mg daily, and aspirin 81 mg daily * Most recent echocardiogram obtained in July 2019 revealed ejection fraction 25-30%, mild aortic stenosis, [id number] mitral regurgitation, mild tricuspid regurgitation, mild pulmonary hypertension * Cardiac catheterization history: January 2019 revealing patent BARGER to LAD and probably radial graft to diagonal. The graft to the RCA is presumed to be totally occluded. [place] LAD is totally occluded. [place] circumflex is totally occluded OM branch which is seen by collateral flow. The [place] right coronary artery has diffuse disease with about 60% lesion approximately 90% stenosis distally before total occlusion of the PDA. There are collaterals to the distal RCA and also the OM branch of the circumflex. REVIEW OF SYSTEMS: At the time of my exam: CONSTITUTIONAL: Denies fever or chills. HEENT: Denies blurred vision, vision changes, or eye pain. Denies hemoptysis CARDIOVASCULAR: Denies chest pain. Denies orthopnea. Denies PND. Denies palpitations RESPIRATORY: Denies shortness of breath. GASTROINTESTINAL: Denies abdominal pain. Denies nausea or vomiting. HEMATOLOGIC: Denies bleeding disorders. GENITOURINARY: Denies any blood in urine. SKIN: Denies pruitis. Denies rash. PHYSICAL EXAM: VITAL SIGNS: Reviewed. GENERAL: Well-developed in no acute distress. HEENT: Head is normocephalic. Pupils are equal, round. Sclerae anicteric. Mucous membranes of the mouth are moist. Neck supple. No JVD or thyromegaly LUNGS: Respirations even and unlabored. Lungs diminished. HEART: Irregular rate and rhythm. S1 and S2 heard. Systolic murmur. ABDOMEN: Soft. Nondistended. Nontender. EXTREMITIES: Normal range of motion. No clubbing or cyanosis. Peripheral pulses intact. Beny wraps to bilateral lower extremities NEUROLOGIC: Awake and alert. Oriented x 3. ASSESSMENT: Weakness New onset atrial flutter with controlled ventricular rates Coronary artery disease with previous CABG Ischemic cardiomyopathy Chronic heart failure with reduced ejection fraction Elevated troponin, ACS ruled out, unclear significance Hypertension Hyperlipidemia Diabetes Bilateral lower extremity wounds PLAN: 2-D echo ordered. Await results Resume home cardiac medications Begin Eliquis 5 mg twice a day Discontinue aspirin Continue telemetry monitoring Check TSH Further recommendations pending patient's course Nurse practitioner note has been reviewed by physician. Signing provider agrees with the documented findings, assessment, and plan of care. Past Medical History Past Medical History: Coronary Artery Disease (CAD), Diabetes Mellitus, Hyperlipidemia, Hypertension, Prostate Disorder Additional Past Medical History / Comment(s): Coronary artery disease, previous bypass surgery, diabetes mellitus type 2, hypertension, hyperlipidemia, morbid obesity with a BMI 52.2, history of kidney stones, obstructive sleep apnea post UPPP currently not utilizing any form of CPAP or BiPAP therapy. History of Any Multi-Drug Resistant Organisms: None Reported Past Surgical History: Coronary Bypass/CABG Additional Past Surgical History / Comment(s): UVP- FOR SLEEP APNEA FATTY TUMOR REMOVED FROM LEFT THIGH, CABG 15 years ago Past Anesthesia/Blood Transfusion Reactions: No Reported Reaction Additional Past Anesthesia/Blood Transfusion Reaction / Comment(s): Pt has clausterphobia. Past Psychological History: No Psychological Hx Reported Additional Psychological History / Comment(s): Pt resides with his spouse. He uses a walker to ambulate. He no longer drives, spouse drives. No home care. Smoking Status: Former smoker Past Alcohol Use History: None Reported Additional Past Alcohol Use History / Comment(s): Smoked pipe & cigar 4 years est, quit 1969 Past Drug Use History: None Reported - Past Family History Mother Family Medical History: No Reported History Father Family Medical History: COPD Additional Family Medical History / Comment(s): Father was a smoker. Medications and Allergies Home Medications Medication Instructions Recorded Confirmed Type Tamsulosin HCl [Flomax] 0.4 mg PO DAILY 02/12/19 11/20/21 History Albuterol Inhaler [Ventolin Hfa 1 - 2 puff INHALATION RT-Q6H PRN 02/22/19 11/20/21 Rx Inhaler] #1 inhaler Aspirin 81 mg PO DAILY #30 chew 02/22/19 11/20/21 Rx Nitroglycerin Sl Tabs [Nitrostat] 0.4 mg SUBLINGUAL Q5M PRN #25 tab 02/22/19 11/20/21 Rx Famotidine [Pepcid] 20 mg PO HS 03/20/19 11/20/21 History Atorvastatin [Lipitor] 40 mg PO DAILY #30 tab 07/19/19 11/20/21 Rx Isosorbide Mononitrate ER [Imdur] 30 mg PO DAILY #30 tab.er.24h 07/19/19 11/20/21 Rx Sacubitril/Valsartan [Entresto 24 1 each PO BID #60 tablet 07/19/19 11/20/21 Rx mg-26 mg Tablet] carvediloL [Coreg] 6.25 mg PO BID-W/MEALS #60 tab 07/19/19 11/20/21 Rx Furosemide [Lasix] 40 mg PO BID 11/20/21 11/20/21 History Allergies Allergy/AdvReac Type Severity Reaction Status Date / Time No Known Allergies Allergy Verified 11/20/21 06:58 Physical Exam Vitals: Vital Signs Temp Pulse Pulse Resp BP BP BP 11/20/21 07:15 98.4 F 55 L 20 142/80 11/20/21 04:31 98.8 F 68 22 136/80 11/20/21 04:00 63 20 137/53 11/19/21 22:38 99.8 F H 71 20 131/57 Pulse Ox 11/20/21 07:15 95 11/20/21 04:31 96 11/20/21 04:00 97 11/19/21 22:38 91 L Intake and Output 11/19/21 11/20/21 11/20/21 22:59 06:59 14:59 Output Total 150 Balance -150 Output: Urine 150 Other: Voiding Method Urinal # Voids 1 Weight 159 kg 159 kg Results 11/19/21 23:38 11/19/21 23:38 Cardiac Enzymes 11/19/21 11/19/21 11/20/21 Range/Units 23:38 23:38 03:45 AST 42 (17-59) U/L Troponin I 0.719 H* 0.734 H* (0.000-0.034) ng/mL CBC 11/19/21 Range/Units 23:38 WBC 9.7 (3.8-10.6) k/uL RBC 5.11 (4.30-5.90) m/uL Hgb 15.1 (13.0-17.5) gm/dL Hct 45.9 (39.0-53.0) % Plt Count 172 (150-450) k/uL Comprehensive Metabolic Panel 11/19/21 Range/Units 23:38 Sodium 137 (137-145) mmol/L Potassium 3.9 (3.5-5.1) mmol/L Chloride 103 (98-107) mmol/L Carbon Dioxide 24 (22-30) mmol/L BUN 25 H (9-20) mg/dL Creatinine 1.23 (0.66-1.25) mg/dL Glucose 242 H (74-99) mg/dL Calcium 8.5 (8.4-10.2) mg/dL AST 42 (17-59) U/L ALT 19 (4-49) U/L Alkaline Phosphatase 89 (38-126) U/L Total Protein 6.8 (6.3-8.2) g/dL Albumin 3.4 L (3.5-5.0) g/dL Current Medications Generic Name Dose Route Start Last Admin Trade Name Freq PRN Reason Stop Dose Admin Aspirin 325 mg 11/21/21 09:00 Aspirin 325 Mg Tab PO DAILY VIKA Atorvastatin Calcium 80 mg 11/20/21 03:52 11/20/21 04:56 Atorvastatin 80 Mg Tab PO 80 mg HS VIKA Administration Enoxaparin Sodium 150 mg 11/20/21 03:30 11/20/21 03:55 Enoxaparin 150 Mg/Ml Syringe SQ 150 mg Q12H VIKA Administration Insulin Aspart 0 unit 11/20/21 07:30 11/20/21 06:34 Insulin Aspart (Novolog) 100 Unit/Ml Vial SQ 8 unit ACHS VIKA Administration Protocol Nitroglycerin 0.4 mg 11/20/21 03:18 Nitroglycerin Sl Tabs 0.4 Mg Tab SUBLINGUAL Q5M PRN Chest Pain Intake and Output 11/19/21 11/20/21 11/20/21 22:59 06:59 14:59 Output Total 150 Balance -150 Output: Urine 150 Other: Voiding Method Urinal # Voids 1 Weight 159 kg 159 kg 11/19/21 23:38 11/19/21 23:38
--- NOTE | 2021-11-20 11:26 | CA ---
Transthoracic Echo Report Name: Reyumndo Tyson Age: 81 Gender: M : 1940 Exam Date: 11/20/2021 09:07 Exam Location: [facility] Ht (in): 62 Wt (lb): 350 Ordering Physician: Elgin Lunsford MD Attending/Referring Phys: Thinner Sprayer Marge Robles RDCS Procedure CPT: Indications: afib Cardiac Hx: Body Habitus Technical Quality: Very technically difficult study Contrast 1: Total Dose (mL): Contrast 2: Lumason Total Dose (mL): 4 MEASUREMENTS (Male / Female) Normal Values FINDINGS Left Ventricle Left ventricular ejection fraction is estimated at 30-35 %. Right Ventricle Right ventricle not well visualized. Right Atrium Right atrium not well visualized. Left Atrium Left atrium not well visualized. Mitral Valve Mitral valve not well visualized. Aortic Valve Aortic valve not well visualized. Tricuspid Valve Tricuspid valve not well visualized. Pulmonic Valve Pulmonic valve not well visualized. Pericardium Aorta CONCLUSIONS Technically difficult study even with Lumason Left ventricular ejection fraction 30-35% with global hypokinesis Previewed by: Dr. Edgar Ralph DO (Electronically Signed) Final Date: 20 November 2021 11:25
[2021-11-20 12:03] LABS: Glucose,Whole Blood 199 mg/dL (70-110)
[2021-11-20 16:55] LABS: Glucose,Whole Blood 234 mg/dL (70-110)
--- NOTE | 2021-11-20 17:29 | P.PN ---
Progress Note - Text Progress Note Date: 11/20/21 Patient was seen. He reports generalized weakness and fall as his legs gave in on him. He has progressively declined over the past 2 weeks. Patient appears short of breath. He has decreased BS BL with expiratory wheezing. Non-ST elevation ME -Troponins are flat -Continue with aspirin, statin, Coreg -Cardiology consulted -Cardiac monitoring -Trend troponin Systolic CHF -Coreg, Lasix, Imdur, Entresto -Echocardiogram reviewed Newly diagnosed A. 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 CODE STATUS: Full Code Discussed with: Patient Anticipated discharge date: 11/[address]: Home
[2021-11-20 19:30] LABS: Glucose,Whole Blood 280 mg/dL (70-110)
[2021-11-20] MEDS: IPRATROPIUM-ALBUTEROL 3 ML NEB INHALATION SCH ×2 (20:27→23:41)
[2021-11-20] MEDS: FAMOTIDINE 20 MG TAB PO SCH (21:04)
[2021-11-20] MEDS: ACETAMINOPHEN TAB 500 MG TAB PO SCH (21:04)
[2021-11-21] MEDS ORDERED: PANTOPRAZOLE 40 MG/10 ML VIAL IVP ONE (00:43)
[2021-11-21 02:44] LABS: HCT 35.5 % (39.0-53.0); Hypochromasia Slight; MCHC 32.6 g/dL (31.0-37.0); MCV 92.2 fL (80.0-100.0); Mean Platelet Volume 9.2; Platelet Count 207 k/uL (150-450); RBC 3.85 m/uL (4.30-5.90); RDW 15.3 % (11.5-15.5); WBC 11.2 k/uL (3.8-10.6)
[2021-11-21 02:46] LABS: HGB 11.6 gm/dL (13.0-17.5)
[2021-11-21] MEDS: IPRATROPIUM-ALBUTEROL 3 ML NEB INHALATION SCH ×5 (03:36→20:30)
[2021-11-21 05:52] LABS: Glucose,Whole Blood 335 mg/dL (70-110)
[2021-11-21] MEDS: INSULIN ASPART (NovoLOG) 100 UNIT/ML VIAL SQ SCH ×4 (07:01→20:38)
[2021-11-21] MEDS: carvediloL 6.25 MG TAB PO SCH ×2 (07:02→18:15)
[2021-11-21] MEDS: ATORVASTATIN 40 MG TAB PO SCH (08:17)
[2021-11-21] MEDS: ACETAMINOPHEN TAB 500 MG TAB PO SCH ×2 (08:17→20:36)
[2021-11-21] MEDS: TAMSULOSIN 0.4 MG CAP.ER.24H PO SCH (08:17)
[2021-11-21] MEDS: CHOLECALCIFEROL 25 MCG (1000 IU) TABLET PO SCH (08:19)
[2021-11-21] MEDS: FUROSEMIDE 40 MG TAB PO SCH ×2 (08:19→20:37)
[2021-11-21] MEDS: ISOSORBIDE MONONITRATE ER 30 MG TAB.ER.24H PO SCH (08:19)
[2021-11-21] MEDS: SACUBITRIL/VALSARTAN 24 MG-26 MG TABLET PO SCH ×2 (08:19→20:37)
[2021-11-21] MEDS ORDERED: ASPIRIN 325 MG TAB PO SCH (09:00)
[2021-11-21 09:02] LABS: Chol/HDL Ratio 3.19 Ratio; LDL Cholesterol,Calculated 47.3 mg/dL (0.0-131.0); VLDL Calculation 18.92 mg/dL (5.00-40.00)
[2021-11-21] MEDS: PANTOPRAZOLE 40 MG/10 ML VIAL IVP SCH ×2 (09:26→20:37)
--- NOTE | 2021-11-21 10:28 | P.CONS ---
History of Present Illness - Reason for Consult Consult date: 11/21/21 wound care - History of Present Illness This is an 81-year-old patient previously known to the wound care center with a left plantar ulceration measuring approximate 1.5 x 0.4 x 0.1 cm with callus and slough present fat layer exposed. A right foot ulceration between the fourth and fifth digit webbing measuring approximate 2 x 2 x 0.1 cm and a right pretibial ulceration measuring approximately 0.4 x 0.6 x 0.1 cm ulcerations have fat layer exposure with significant amount of slough and minimal granulation noted. Patient does follow with medical home care for wound care they have been utilizing Hydrofera Blue. Review Of Systems: Constitutional: No fever, no chills, no night sweats. No weight change. No weakness, fatigue or lethargy. No daytime sleepiness. Integumentary:reports wounds, no lesions. No rash or pruritus. No unusual bruising. No change in hair or nails. Physical exam: General Appearance: Alert, cooperative, no distress, appears stated age. Skin: See HPI all other Skin color, texture, tugor normal, no rashes or lesions. Neurologic: Alert oriented x3 Assessment: 1. Nonhealing ulcer with fatty layer exposure left plantar 2. Nonhealing ulcer other part of right foot with fatty layer exposure 3. Nonhealing ulcer of right anterior lower extremity with fat layer exposure Plan: 1. Apply honey gel to ulcerations dry gauze lizzie gauze and secured paper tape. Change Wednesday. Patient to continue with wound care and outpatient setting. May return to utilizing Hydrofera Blue upon discharge. Thank you for the consultation any questions with contact the wound care center DNP note has been reviewed and discussed with Dr. Monson and the impression and plan of care has been directed as dictated. Past Medical History Past Medical History: Coronary Artery Disease (CAD), Diabetes Mellitus, Hyperlipidemia, Hypertension, Prostate Disorder Additional Past Medical History / Comment(s): Coronary artery disease, previous bypass surgery, diabetes mellitus type 2, hypertension, hyperlipidemia, morbid obesity with a BMI 52.2, history of kidney stones, obstructive sleep apnea post UPPP currently not utilizing any form of CPAP or BiPAP therapy. History of Any Multi-Drug Resistant Organisms: None Reported Past Surgical History: Coronary Bypass/CABG Additional Past Surgical History / Comment(s): UVP- FOR SLEEP APNEA FATTY TU MOR REMOVED FROM LEFT THIGH, CABG 15 years ago Past Anesthesia/Blood Transfusion Reactions: No Reported Reaction Additional Past Anesthesia/Blood Transfusion Reaction / Comm: Pt has clausterphobia. Past Psychological History: No Psychological Hx Reported Additional Psychological History / Comment(s): Pt resides with his spouse. He uses a walker to ambulate. He no longer drives, spouse drives. No home care. Smoking Status: Former smoker Past Alcohol Use History: None Reported Additional Past Alcohol Use History / Comment(s): Smoked pipe & cigar 4 years est, quit 1968 Past Drug Use History: None Reported - Past Family History Mother Family Medical History: No Reported History Father Family Medical History: COPD Additional Family Medical History / Comment(s): Father was a smoker. Medications and Allergies Home Medications Medication Instructions Recorded Confirmed Type Tamsulosin HCl [Flomax] 0.4 mg PO DAILY 02/12/19 11/20/21 History Albuterol Inhaler [Ventolin Hfa 1 - 2 puff INHALATION RT-Q6H PRN 02/22/19 11/20/21 Rx Inhaler] #1 inhaler Aspirin 81 mg PO DAILY #30 chew 02/22/19 11/20/21 Rx Nitroglycerin Sl Tabs [Nitrostat] 0.4 mg SUBLINGUAL Q5M PRN #25 tab 02/22/19 11/20/21 Rx Famotidine [Pepcid] 20 mg PO HS 03/20/19 11/20/21 History Atorvastatin [Lipitor] 40 mg PO DAILY #30 tab 07/19/19 11/20/21 Rx Isosorbide Mononitrate ER [Imdur] 30 mg PO DAILY #30 tab.er.24h 07/19/19 11/20/21 Rx Sacubitril/Valsartan [Entresto 24 1 each PO BID #60 tablet 07/19/19 11/20/21 Rx mg-26 mg Tablet] carvediloL [Coreg] 6.25 mg PO BID-W/MEALS #60 tab 07/19/19 11/20/21 Rx Apixaban [Eliquis] 5 mg PO BID #60 tab 11/20/21 Rx Furosemide [Lasix] 40 mg PO BID 11/20/21 11/20/21 History Allergies Allergy/AdvReac Type Severity Reaction Status Date / Time No Known Allergies Allergy Verified 11/20/21 06:58 Physical Exam Vitals: Vital Signs Temp Pulse Pulse Resp BP BP Pulse Ox 11/21/21 08:51 68 11/21/21 08:42 64 11/21/21 07:16 97.6 F 61 20 142/82 95 11/21/21 03:41 68 11/21/21 03:37 68 11/21/21 03:25 95 11/21/21 03:23 97.8 F 56 L 18 120/55 95 11/21/21 02:00 20 11/20/21 23:48 70 11/20/21 23:41 68 11/20/21 23:24 98.4 F 72 20 115/63 94 L 11/20/21 20:40 70 11/20/21 20:32 72 11/20/21 20:00 98.8 F 67 20 117/63 92 L 11/20/21 16:00 72 18 133/62 93 L 11/20/21 14:00 66 20 11/20/21 11:27 98.5 F 66 20 149/76 95 11/20/21 10:52 60 149/76 Intake and Output 11/20/21 11/21/21 11/21/21 22:59 06:59 14:59 Intake Total 540 Output Total 100 300 175 Balance 440 -300 -175 Intake: Oral 540 Output: Urine 100 300 175 Other: Voiding Method Urinal # Voids 1 # Bowel Movements 3 Results CBC & Chem 7: 11/21/21 01:40 11/19/21 23:38 Labs: Abnormal Lab Results - Last 24 Hours (Table) 11/19/21 11/20/21 11/20/21 Range/Units 23:38 12:02 16:53 WBC (3.8-10.6) k/uL RBC (4.30-5.90) m/uL Hgb (13.0-17.5) gm/dL Hct (39.0-53.0) % POC Glucose (mg/dL) 199 H 234 H (70-110) mg/dL HDL Cholesterol 30.20 L (40.00-60.00) mg/dL 11/20/21 11/21/21 11/21/21 Range/Units 19:29 01:40 05:51 WBC 11.2 H (3.8-10.6) k/uL RBC 3.85 L (4.30-5.90) m/uL Hgb 11.6 L D (13.0-17.5) gm/dL Hct 35.5 L (39.0-53.0) % POC Glucose (mg/dL) 280 H 335 H (70-110) mg/dL HDL Cholesterol (40.00-60.00) mg/dL Microbiology - Last 24 Hours (Table) 11/20/21 00:15 Blood Culture Gram Stain - Preliminary Blood 11/20/21 00:15 Blood Culture - Final Blood 11/20/21 00:00 Blood Culture - Preliminary Blood No Growth after 24 hours Assessment and Plan (1) Non-pressure chronic ulcer of other part of left foot with fat layer exposed Current Visit: Yes Status: Acute Code(s): L97.522 - NON-PRS CHRONIC ULCER OTH PRT LEFT FOOT W FAT LAYER EXPOSED SNOMED Code(s): 682092008 (2) Non-pressure chronic ulcer of other part of right foot with fat layer exposed Current Visit: Yes Status: Acute Code(s): L97.512 - NON-PRS CHRONIC ULCER OTH PRT RIGHT FOOT W FAT LAYER EXPOSED SNOMED Code(s): 798797906 (3) Non-pressure chronic ulcer of right lower leg with fat layer exposed Current Visit: Yes Status: Acute Code(s): L97.912 - NON-PRS CHR ULC UNSP PRT OF R LOW LEG W FAT LAYER EXPOSED SNOMED Code(s): 62962842
--- NOTE | 2021-11-21 12:01 | P.PN ---
Subjective Progress Note Date: 11/21/21 HISTORY OF PRESENT ILLNESS: This is a 81-year-old male with a past medical history significant for coronary artery disease with previous CABG, ischemic cardiomyopathy, congestive heart failure with an ejection fraction of 25-30%, diabetes, hypertension, and hyperlipidemia. Patient has not followed in the office since 2019. We have been asked to see the patient in consultation for atrial fibrillation. Patient examined at the bedside. Patient presented to the hospital with a chief complaint of generalized weakness. Patient was found to be in atrial flutter with controlled ventricular rates. Patient denies any chest pain or pressure. He denied any shortness of breath. He reports feeling dizzy yesterday however he currently denies any dizziness or lightheadedness. He remains in atrial flutter with controlled ventricular rates this morning. He denies a history of atrial flutter. * EKG reveals atrial flutter with controlled ventricular rate * Chest xray minimal pulmonary fibrotic changes. Lung markings increased compared to exam. No heart failure. * Laboratory data: WBC 9.7. Hemoglobin 15.1. Platelet count 172. Sodium 137. Potassium 3.9. BUN 25. Creatinine 1.23. Lactic acid 3.1. Repeat 1.7. ProBNP 7460. Troponin 0.709. 0.734. 0.648. * Current home cardiac medications include Entresto 24-26mg BID, Lasix 40 mrem twice a day, carvedilol 6.25 mg twice a day, Imdur 30 mg daily, Lipitor 40 mg daily, and aspirin 81 mg daily * Most recent echocardiogram obtained in July 2019 revealed ejection fraction 25-30%, mild aortic stenosis, [id number] mitral regurgitation, mild tricuspid regurgitation, mild pulmonary hypertension * Cardiac catheterization history: January 2019 revealing patent BARGER to LAD and probably radial graft to diagonal. The graft to the RCA is presumed to be totally occluded. [place] LAD is totally occluded. [place] circumflex is t otally occluded OM branch which is seen by collateral flow. The [place] right coronary artery has diffuse disease with about 60% lesion approximately 90% stenosis distally before total occlusion of the PDA. There are collaterals to the distal RCA and also the OM branch of the circumflex. 11/21/2021 Patient examined this morning at the bedside. Patient denies chest pain or pre ssure. Denies SOB. Telemetry reveals atrial flutter with controlled ventricular rates. Patient developed dark tarry stools overnight. His hemoglobin went from 15.1 down to 11.6. His Eliquis was discontinued. Echocardiogram completed revealing ejection fraction 30-35% with global hypokinesis PHYSICAL EXAM: VITAL SIGNS: Reviewed. GENERAL: Well-developed in no acute distress. HEENT: Head is normocephalic. Pupils are equal, round. Sclerae anicteric. Mucous membranes of the mouth are moist. Neck supple. No JVD or thyromegaly LUNGS: Respirations even and unlabored. Lungs diminished. HEART: Irregular rate and rhythm. S1 and S2 heard. Systolic murmur. ABDOMEN: Soft. Nondistended. Nontender. EXTREMITIES: Normal range of motion. No clubbing or cyanosis. Peripheral pulse s intact. Beny wraps to bilateral lower extremities NEUROLOGIC: Awake and alert. Oriented x 3. ASSESSMENT: Weakness New onset typical atrial flutter with controlled ventricular rates Dark tarry stools with acute blood loss anemia Coronary artery disease with previous CABG Ischemic cardiomyopathy Chronic heart failure with reduced ejection fraction Elevated troponin, ACS ruled out, unclear significance Hypertension Hyperlipidemia Diabetes Bilateral lower extremity wounds PLAN: Continue current cardiac medications Eliquis DC due to GI bleeding GI consulted for evaluation. Await recommendations. Continue telemetry monitoring Further recommendations pending patient's course Nurse practitioner note has been reviewed by physician. Signing provider agrees with the documented findings, assessment, and plan of care. Objective - Vital Signs Vital signs: Vital Signs Temp 97.6 F 11/21/21 07:16 Pulse 64 11/21/21 11:37 Resp 20 11/21/21 08:00 BP 142/82 11/21/21 07:16 Pulse Ox 95 11/21/21 07:16 FiO2 Intake & Output 11/20/21 11/21/21 11/21/21 18:59 06:59 18:59 Intake Total 540 Output Total 275 300 175 Balance -275 240 -175 Intake: Oral 540 Output: Urine 275 300 175 Other: Voiding Method Urinal # Voids 1 1 # Bowel Movements 3 - Labs CBC & Chem 7: 11/21/21 01:40 11/19/21 23:38 Labs: Abnormal Lab Results - Last 24 Hours (Table) 11/19/21 11/20/21 11/20/21 Range/Units 23:38 12:02 16:53 WBC (3.8-10.6) k/uL RBC (4.30-5.90) m/uL Hgb (13.0-17.5) gm/dL Hct (39.0-53.0) % POC Glucose (mg/dL) 199 H 234 H (70-110) mg/dL Hemoglobin A1c (0.0-6.0) % HDL Cholesterol 30.20 L (40.00-60.00) mg/dL 11/20/21 11/21/21 11/21/21 Range/Units 19:29 01:40 01:40 WBC 11.2 H (3.8-10.6) k/uL RBC 3.85 L (4.30-5.90) m/uL Hgb 11.6 L D (13.0-17.5) gm/dL Hct 35.5 L (39.0-53.0) % POC Glucose (mg/dL) 280 H (70-110) mg/dL Hemoglobin A1c 7.9 H (0.0-6.0) % HDL Cholesterol (40.00-60.00) mg/dL 11/21/21 Range/Units 05:51 WBC (3.8-10.6) k/uL RBC (4.30-5.90) m/uL Hgb (13.0-17.5) gm/dL Hct (39.0-53.0) % POC Glucose (mg/dL) 335 H (70-110) mg/dL Hemoglobin A1c (0.0-6.0) % HDL Cholesterol (40.00-60.00) mg/dL Microbiology - Last 24 Hours (Table) 11/20/21 00:15 Blood Culture Gram Stain - Preliminary Blood Blood Culture - Preliminary Staphylococcus epidermidis 11/20/21 00:15 Blood Culture - Final Blood 11/20/21 00:00 Blood Culture - Preliminary Blood No Growth after 24 hours
[2021-11-21 12:02] LABS: Glucose,Whole Blood 338 mg/dL (70-110)
[2021-11-21 13:00] LABS: INR 1.2 (<1.2); Prothrombin Time 12.2 sec (9.0-12.0)
--- NOTE | 2021-11-21 13:39 | P.CONS ---
History of Present Illness - Reason for Consult Consult date: 11/21/21 GI bleed Requesting physician: Jhonathan Soria - Chief Complaint Weakness - History of Present Illness This is a pleasant 81-year-old white male presented to the emergency department 2 days ago with generalized weakness. He states prior to 3-4 days before coming and he had a couple days of nausea and vomiting. He states that he might have vomited a few times per day. No hematemesis. States that he came increasingly weak difficulty to walk and did have to lower himself down to the ground. He has a past medical history of coronary artery disease, diabetes mellitus, hy perlipidemia, hypertension, prostate disorder, morbid obesity, ischemic cardiomyopathy and bilateral lower extremity wounds. Patient was noted to be new onset of atrial flutter with controlled ventricular rates. Cardiology is following and started him on Eliquis 5 milligrams twice a day. He had 1 dose yesterday and then yesterday evening he had a black tarry stool. He had a drop in his hemoglobin from 15-11.2. He continues today to have a maroon colored stool. Gastroenterology was consulted for GI bleed. Patient denies any abdominal pain, no history of peptic ulcer disease or previous GI bleed. He denies any acid reflux history of esophagitis. He denies any NSAID use. He was just recently started on Eliquis 5mg this admission and given only 1 dose yesterday morning. The patient denied any previous black stool on prior to admission. Denied any hematemesis. Patient states he's had an EGD and colonoscopy remotely. Labs: WBC 11.2 hemoglobin 11.6 hematocrit 35 platelet count 207,000 INR 1.2 diffuse pulmonary embolus AL sodium 137 potassium 3.9 BUN 25 creatinine 1.23 glucose 338 total bilirubin 1.8 AST 42 ALT 19 alkaline phosphatase 89 stool occult blood positive Review of Systems REVIEW OF SYSTEMS: CARDIOPULMONARY: No chest pain or shortness of breath. Gastrointestinal: No abdominal or epigastric pain. No nausea or vomiting for the last 2 days. No hematemesis, coffee-ground emesis. Melanoma. GENITOURINARY: No dysuria or hematuria. MUSCULOSKELETAL: Reports normal range of motion. Increased lower extremity weakness. No jaundice. ENDOCRINE: No chills, fevers. No excessive weight gain or loss. No polydipsia or polyuria. PSYCHIATRIC: Unremarkable. NEUROLOGY: No change in mental status. Denies dizziness, headache. ENT: Vision unremarkable. CONSTITUTIONAL: No recent weight loss. Increased weakness. Past Medical History Past Medical History: Coronary Artery Disease (CAD), Diabetes Mellitus, Hyperlipidemia, Hypertension, Prostate Disorder Additional Past Medical History / Comment(s): Coronary artery disease, previous bypass surgery, diabetes mellitus type 2, hypertension, hyperlipidemia, morbid obesity with a BMI 52.2, history of kidney stones, obstructive sleep apnea post UPPP currently not utilizing any form of CPAP or BiPAP therapy. History of Any Multi-Drug Resistant Organisms: None Reported Past Surgical History: Coronary Bypass/CABG Additional Past Surgical History / Comment(s): UVP- FOR SLEEP APNEA FATTY TUMOR REMOVED FROM LEFT THIGH, CABG 15 years ago Past Anesthesia/Blood Transfusion Reactions: No Reported Reaction Additional Past Anesthesia/Blood Transfusion Reaction / Comm: Pt has clausterphobia. Past Psychological History: No Psychological Hx Reported Additional Psychological History / Comment(s): Pt resides with his spouse. He uses a walker to ambulate. He no longer drives, spouse drives. No home care. Smoking Status: Former smoker Past Alcohol Use History: None Reported Additional Past Alcohol Use History / Comment(s): Smoked pipe & cigar 4 years est, quit 1968 Past Drug Use History: None Reported - Past Family History Mother Family Medical History: No Reported History Father Family Medical History: COPD Additional Family Medical History / Comment(s): Father was a smoker. Medications and Allergies Home Medications Medication Instructions Recorded Confirmed Type Tamsulosin HCl [Flomax] 0.4 mg PO DAILY 02/12/19 11/20/21 History Albuterol Inhaler [Ventolin Hfa 1 - 2 puff INHALATION RT-Q6H PRN 02/22/19 11/20/21 Rx Inhaler] #1 inhaler Aspirin 81 mg PO DAILY #30 chew 02/22/19 11/20/21 Rx Nitroglycerin Sl Tabs [Nitrostat] 0.4 mg SUBLINGUAL Q5M PRN #25 tab 02/22/19 11/20/21 Rx Famotidine [Pepcid] 20 mg PO HS 03/20/19 11/20/21 History Atorvastatin [Lipitor] 40 mg PO DAILY #30 tab 07/19/19 11/20/21 Rx Isosorbide Mononitrate ER [Imdur] 30 mg PO DAILY #30 tab.er.24h 07/19/19 11/20/21 Rx Sacubitril/Valsartan [Entresto 24 1 each PO BID #60 tablet 07/19/19 11/20/21 Rx mg-26 mg Tablet] carvediloL [Coreg] 6.25 mg PO BID-W/MEALS #60 tab 07/19/19 11/20/21 Rx Apixaban [Eliquis] 5 mg PO BID #60 tab 11/20/21 Rx Furosemide [Lasix] 40 mg PO BID 11/20/21 11/20/21 History Allergies Allergy/AdvReac Type Severity Reaction Status Date / Time No Known Allergies Allergy Verified 11/20/21 06:58 Physical Exam Vitals: Vital Signs Temp Pulse Pulse Resp BP BP Pulse Ox 11/21/21 08:51 68 11/21/21 08:42 64 11/21/21 07:16 97.6 F 61 20 142/82 95 11/21/21 03:41 68 11/21/21 03:37 68 11/21/21 03:25 95 11/21/21 03:23 97.8 F 56 L 18 120/55 95 11/21/21 02:00 20 11/20/21 23:48 70 11/20/21 23:41 68 11/20/21 23:24 98.4 F 72 20 115/63 94 L 11/20/21 20:40 70 11/20/21 20:32 72 11/20/21 20:00 98.8 F 67 20 117/63 92 L 11/20/21 16:00 72 18 133/62 93 L 11/20/21 14:00 66 20 11/20/21 11:27 98.5 F 66 20 149/76 95 11/20/21 10:52 60 149/76 Intake and Output 11/20/21 11/21/21 11/21/21 22:59 06:59 14:59 Intake Total 540 Output Total 100 300 175 Balance 440 -300 -175 Intake: Oral 540 Output: Urine 100 300 175 Other: Voiding Method Urinal # Voids 1 # Bowel Movements 3 General appearance: The patient is alert, oriented, appears in no acute distress. Morbidly obese HET: Head is normocephalic and atraumatic. Conjunctiva pink. Sclera anicteric. Neck: Supple without lymphadenopathy. Trachea midline. Heart: S1 S2. Regular rate and rhythm. Lungs: Diminished. Abdomen: Soft, nontender, morbidly obese, nondistended with bowel sounds. No guarding or rigidity. Black tarry maroon colored stool Skin: No rashes. No jaundice. Extremities: Normal skin color and turgor. No pedal edema. Neurological: No focal deficits. Alert and oriented x3. Results CBC & Chem 7: 11/21/21 01:40 11/19/21 23:38 Labs: Abnormal Lab Results - Last 24 Hours (Table) 11/19/21 11/20/21 11/20/21 Range/Units 23:38 12:02 16:53 WBC (3.8-10.6) k/uL RBC (4.30-5.90) m/uL Hgb (13.0-17.5) gm/dL Hct (39.0-53.0) % POC Glucose (mg/dL) 199 H 234 H (70-110) mg/dL HDL Cholesterol 30.20 L (40.00-60.00) mg/dL 11/20/21 11/21/21 11/21/21 Range/Units 19:29 01:40 05:51 WBC 11.2 H (3.8-10.6) k/uL RBC 3.85 L (4.30-5.90) m/uL Hgb 11.6 L D (13.0-17.5) gm/dL Hct 35.5 L (39.0-53.0) % POC Glucose (mg/dL) 280 H 335 H (70-110) mg/dL HDL Cholesterol (40.00-60.00) mg/dL Microbiology - Last 24 Hours (Table) 11/20/21 00:15 Blood Culture Gram Stain - Preliminary Blood 11/20/21 00:15 Blood Culture - Final Blood 11/20/21 00:00 Blood Culture - Preliminary Blood No Growth after 24 hours Assessment and Plan (1) GI bleed Narrative/Plan: 81-year-old male who came into the emergency department 2 days ago with complaints of generalized weakness. He was known to be in atrial flutter and seen by cardiology who had initiated [place] 5 mg twice a day yesterday. Patient had 1 dose in the morning and by yesterday evening he was reportedly having black tarry stool. He was known to have a drop in his hemoglobin from 15-11. He denies previous GI bleed. Denies history of peptic ulcer disease. No NSAID use. Prior EGD and colonoscopy remotely. Unclear etiology of GI bleed. Possible etiology includes peptic ulcer disease, AVM, Current Visit: Yes Status: Acute Code(s): K92.2 - GASTROINTESTINAL H EMORRHAGE, UNSPECIFIED SNOMED Code(s): 85767565 (2) Melena Current Visit: Yes Status: Acute Code(s): K92.1 - MELENA SNOMED Code(s): 3585466 (3) Coronary artery disease Current Visit: Yes Status: Acute Code(s): I25.10 - ATHSCL HEART DISEASE OF [place] CORONARY ARTERY W/O ANG PCTRS SNOMED Code(s): 20145189 (4) Congestive heart failure Current Visit: No Status: Acute Code(s): I50.9 - HEART FAILURE, UNSPECIFIED SNOMED Code(s): 80099753 (5) Weakness Current Visit: No Status: Acute Code(s): R53.1 - WEAKNESS SNOMED Code(s): 90137409 Plan: 1. Continue symptomatic and supportive care 2. Nothing by mouth 3. Daily CBC transfuse for hemoglobin less than 7 4. Stat INR 5. Hold anticoagulation 6. Patient seen and cleared by cardiology to proceed with EGD 7. We'll plan for EGD this afternoon. Thank you for allowing us to participate in the care of the patient, the GI service will sign off, gastroenterology will not be available at the hospital this weekend and through next week. If further evaluation by gastroenterology is required the patient will need transfer as per the primary team's discretion. Dr. Abdullahi Monroy I agree with the dictator's note, documented as a scribe by Jovana Urban.
[2021-11-21] MEDS ORDERED: ETOMIDATE 2 MG/ML 10 ML VIAL ONE (15:00)
[2021-11-21] MEDS ORDERED: IV FLUID CONTINUATION 1,000 ML IV ONE (15:13)
--- NOTE | 2021-11-21 15:17 | P.PCN ---
Date of Procedure: 11/21/21 Procedure(s) Performed: BRIEF HISTORY: Patient is a 81-year-old, pleasant, white male in the hospital 2 days ago with generalized weakness and new onset A. fib with RVR. He was started on liquids and yesterday had significant amount of black tarry stools followed by maroon colored stools. He dropped his hemoglobin from 15-11 g/dL. The Olympus is on hold and he scheduled for an upper endoscopy to evaluate further. On further questioning patient states that he is been having intermittent black tarry stools for the last 2 weeks' duration. No prior history of peptic ulcer disease or recent NSAID use.. PROCEDURE PERFORMED: Esophagogastroduodenoscopy with biopsy. PREOPERATIVE DIAGNOSIS: Acute GI bleed. IV sedation per anesthesia. PROCEDURE: After informed consent was obtained, the patient was brought into the endoscopy unit. IV sedation was administered by Anesthesia under continuous monitoring. Initially the Olympus GIF-140 video endoscope was inserted into the mouth. Esophagus intubated without any difficulty. It was gradually advanced into the stomach and duodenum and carefully examined. The bulb and the second part of the duodenum had mild duodenitis.. The scope at this time was withdrawn to the stomach, adequately insufflated with air, and upon careful examination, mucosa of the antrum, body, cardia and the fundus appeared normal. No evidence of active upper GI bleed seen. The scope was then withdrawn into the esophagus. Moderate size hiatal hernia noted. The GE junction was located at 45 cm from the incisors. There was long segment of Houser's esophagus extending from 40- 42 cm from the incisors and biopsies were done from this area. There were few erosions in the esophagus consistent with LA grade B reflux esophagitis. The rest of the esophagus appeared normal. The patient tolerated the procedure well. IMPRESSION: 1. 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 2. No evidence of active upper GI bleed. 3. Moderate size hiatal hernia RECOMMENDATIONS: The findings of this examination were discussed with the patient . He'll be continued on Protonix 40 mg twice daily and will start on clear liquid diet. Hold Eliquis for now. Monitor CBC daily.. There is no further episodes of bleeding and hemoglobin remains stable, and graduation can resumed in one to 2 days.
--- NOTE | 2021-11-21 15:53 | P.PN ---
Subjective Progress Note Date: 11/21/21 Principal diagnosis: GI bleed Patient was seen and examined. No acute events overnight. Overnight, patient had multiple episodes of melanotic stools. He denies any chest pain, shortness breath or palpitations. No nausea or vomiting. No fever or chills. Objective - Vital Signs Vital signs: Vital Signs Temp 97.6 F 11/21/21 07:16 Pulse 60 11/21/21 15:47 Resp 18 11/21/21 15:47 BP 97/61 11/21/21 15:47 Pulse Ox 98 11/21/21 15:47 FiO2 Intake & Output 11/20/21 11/21/21 11/21/21 18:59 06:59 18:59 Intake Total 540 100 Output Total 275 300 175 Balance -275 240 -75 Intake: IV 100 Oral 540 Output: Urine 275 300 175 Other: Voiding Method Urinal # Voids 1 1 # Bowel Movements 3 - Exam General: [non toxic], [no distress], [appears at stated age] Derm: [warm], [dry], [significant chronic venous stasis changes bilaterally with multiple chronic appearing ulcers on both legs] Head: [atraumatic], [normocephalic], [symmetric] Eyes: [EOMI], [no lid lag], [anicteric sclera] Mouth: [no lip lesion], [mucus membranes moist] Cardiovascular: [S1S2 reg], [no murmur], [positive posterior tibial pulse bilateral], Lungs: [Decreased breath sounds bilateral], [no rhonchi, no rales] , [no access ory muscle use] Abdominal: [soft], [ nontender to palpation], [no guarding], [no appreciable organomegaly] Ext: [no gross muscle atrophy], [1+ pitting bilateral lower extremity edema], [no contractures] Neuro: [no focal neuro deficits] Psych: [Alert], [oriented], [appropriate affect] - Labs CBC & Chem 7: 11/21/21 01:40 11/19/21 23:38 Labs: Abnormal Lab Results - Last 24 Hours (Table) 11/19/21 11/20/21 11/20/21 Range/Units 23:38 16:53 19:29 WBC (3.8-10.6) k/uL RBC (4.30-5.90) m/uL Hgb (13.0-17.5) gm/dL Hct (39.0-53.0) % PT (9.0-12.0) sec INR (<1.2) POC Glucose (mg/dL) 234 H 280 H (70-110) mg/dL Hemoglobin A1c (0.0-6.0) % HDL Cholesterol 30.20 L (40.00-60.00) mg/dL 11/21/21 11/21/21 11/21/21 Range/Units 01:40 01:40 05:51 WBC 11.2 H (3.8-10.6) k/uL RBC 3.85 L (4.30-5.90) m/uL Hgb 11.6 L D (13.0-17.5) gm/dL Hct 35.5 L (39.0-53.0) % PT (9.0-12.0) sec INR (<1.2) POC Glucose (mg/dL) 335 H (70-110) mg/dL Hemoglobin A1c 7.9 H (0.0-6.0) % HDL Cholesterol (40.00-60.00) mg/dL 11/21/21 11/21/21 Range/Units 12:01 12:02 WBC (3.8-10.6) k/uL RBC (4.30-5.90) m/uL Hgb (13.0-17.5) gm/dL Hct (39.0-53.0) % PT 12.2 H (9.0-12.0) sec INR 1.2 H (<1.2) POC Glucose (mg/dL) 338 H (70-110) mg/dL Hemoglobin A1c (0.0-6.0) % HDL Cholesterol (40.00-60.00) mg/dL Microbiology - Last 24 Hours (Table) 11/20/21 00:15 Blood Culture Gram Stain - Preliminary Blood Blood Culture - Preliminary Staphylococcus epidermidis 11/20/21 00:15 Blood Culture - Final Blood 11/20/21 00:00 Blood Culture - Preliminary Blood No Growth after 24 hours Assessment and Plan Assessment: Upper GI bleed Acute blood loss anemia -Continue Protonix 40 mg IV twice a day -GI consulted for possible EGD today -Trend hemoglobin Elevated troponins -Troponins are flat -Continue with aspirin, statin, Coreg -Cardiology consulted -Cardiac monitoring -Echocardiogram shows EF of 30-35% with global hypokinesis Systolic CHF -Adele, Lit Collado Entresto Newly diagnosed A. 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
[2021-11-21 17:00] LABS: Glucose,Whole Blood 307 mg/dL (70-110)
[2021-11-21 17:00] LABS: HCT 34.4 % (39.0-53.0); HGB 10.9 gm/dL (13.0-17.5); Hypochromasia Slight; MCH 28.1 pg (25.0-35.0); MCHC 31.5 g/dL (31.0-37.0); MCV 89.1 fL (80.0-100.0); Mean Platelet Volume 9.5; Platelet Count 190 k/uL (150-450); RBC 3.86 m/uL (4.30-5.90); WBC 10.2 k/uL (3.8-10.6)
[2021-11-21 20:16] LABS: Glucose,Whole Blood 278 mg/dL (70-110)
[2021-11-21] MEDS: FAMOTIDINE 20 MG TAB PO SCH (20:37)
[2021-11-21] MEDS ORDERED: INSULIN DETEMIR (LEVEMIR) 100 UNIT/ML SYR SQ SCH (21:00)
[2021-11-22] MEDS: IPRATROPIUM-ALBUTEROL 3 ML NEB INHALATION SCH ×6 (00:13→20:01)
[2021-11-22 06:17] LABS: Glucose,Whole Blood 220 mg/dL (70-110)
[2021-11-22] MEDS: INSULIN ASPART (NovoLOG) 100 UNIT/ML VIAL SQ SCH ×4 (06:20→20:14)
[2021-11-22] MEDS: carvediloL 6.25 MG TAB PO SCH ×2 (06:20→17:02)
[2021-11-22 08:34] LABS: HCT 33.3 % (39.0-53.0); HGB 10.5 gm/dL (13.0-17.5); Hypochromasia Slight; MCH 28.7 pg (25.0-35.0); MCHC 31.6 g/dL (31.0-37.0); MCV 90.8 fL (80.0-100.0); Mean Platelet Volume 9.9; Platelet Count 193 k/uL (150-450); RBC 3.66 m/uL (4.30-5.90); RDW 15.2 % (11.5-15.5); WBC 9.3 k/uL (3.8-10.6)
[2021-11-22] MEDS: SACUBITRIL/VALSARTAN 24 MG-26 MG TABLET PO SCH ×2 (08:58→20:10)
[2021-11-22] MEDS: FUROSEMIDE 40 MG TAB PO SCH ×2 (08:58→20:12)
[2021-11-22] MEDS: ATORVASTATIN 40 MG TAB PO SCH (08:58)
[2021-11-22] MEDS: TAMSULOSIN 0.4 MG CAP.ER.24H PO SCH (08:58)
[2021-11-22] MEDS: ACETAMINOPHEN TAB 500 MG TAB PO SCH ×2 (08:58→20:11)
[2021-11-22] MEDS: PANTOPRAZOLE 40 MG/10 ML VIAL IVP SCH ×2 (08:58→20:12)
[2021-11-22] MEDS: CHOLECALCIFEROL 25 MCG (1000 IU) TABLET PO SCH (08:58)
[2021-11-22] MEDS: ISOSORBIDE MONONITRATE ER 30 MG TAB.ER.24H PO SCH (08:58)
--- NOTE | 2021-11-22 11:25 | P.PN ---
Subjective Progress Note Date: 11/22/21 No new complaints today. Hemoglobin is stable. No further episodes of bleeding. Tolerating diet. Gen: awake, alert HEENT: normocephalic, atraumatic, good hearing acuity, moist mucous membranes Resp: good air exchange, breathing comfortably with no accessory muscle use CVS: good distal perfusion x 4, GI: soft, NTTP, ND : no SPT, no CVAT, steinberg catheter not present MSK: no pitting edema, no clubbing Neuro: non-focal, moving all extremities Psych: cooperative, euthymic mood Assessment/plan: GI bleed Acute blood loss anemia -Continue Protonix 40 mg IV twice a day -EGD shows barretts esophagus, but no obvious signs of upper GI bleed -Trend hemoglobin Elevated troponins -Troponins are flat -Continue with aspirin, statin, Coreg -Cardiology consulted -Cardiac monitoring -Echocardiogram shows EF of 30-35% with global hypokinesis Systolic CHF -Coreg, Lasix, Imdur, Entresto Newly diagnosed A. 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 Gram-positive bacteremia -Wound care consult -Positive blood culture likely contaminant -Discontinue Ancef Chronic conditions: Type II DM, hypertension, hyperlipidemia, -Insulin sliding scale and blood glucose monitoring -Continue home medications DVT prophylaxis -Lovenox Resolved: Lactic acidosis The patient is admitted with an anticipated greater than 2 midnight stay for evaluation of non-ST elevation [place] and GI bleed CODE STATUS: Full Code Discussed with: Patient Anticipated discharge date: 2-[address]: Home Objective - Vital Signs Vital signs: Vital Signs Temp 97.5 F L 11/22/21 00:00 Pulse 60 11/22/21 08:22 Resp 20 11/22/21 04:00 BP 118/57 11/22/21 04:00 Pulse Ox 97 11/22/21 08:13 FiO2 Intake & Output 11/21/21 11/22/21 11/22/21 18:59 06:59 18:59 Intake Total 100 339 Output Total 275 950 300 Balance -175 -950 39 Weight 220.99 kg Intake: IV 100 Oral 339 Output: Urine 275 950 300 Other: Voiding Method Urinal # Voids 1 - Labs CBC & Chem 7: 11/22/21 06:55 11/19/21 23:38 Labs: Abnormal Lab Results - Last 24 Hours (Table) 11/21/21 11/21/21 11/21/21 Range/Units 12:01 12:02 16:25 RBC 3.86 L (4.30-5.90) m/uL Hgb 10.9 L (13.0-17.5) gm/dL Hct 34.4 L (39.0-53.0) % PT 12.2 H (9.0-12.0) sec INR 1.2 H (<1.2) POC Glucose (mg/dL) 338 H (70-110) mg/dL 11/21/21 11/21/21 11/22/21 Range/Units 16:58 20:10 06:15 RBC (4.30-5.90) m/uL Hgb (13.0-17.5) gm/dL Hct (39.0-53.0) % PT (9.0-12.0) sec INR (<1.2) POC Glucose (mg/dL) 307 H 278 H 220 H (70-110) mg/dL 11/22/21 Range/Units 06:55 RBC 3.66 L (4.30-5.90) m/uL Hgb 10.5 L (13.0-17.5) gm/dL Hct 33.3 L (39.0-53.0) % PT (9.0-12.0) sec INR (<1.2) POC Glucose (mg/dL) (70-110) mg/dL Microbiology - Last 24 Hours (Table) 11/20/21 00:15 Blood Culture Gram Stain - Final Blood Blood Culture - Final Staphylococcus epidermidis 11/20/21 00:00 Blood Culture - Preliminary Blood No Growth after 48 hours
[2021-11-22 11:50] LABS: Glucose,Whole Blood 302 mg/dL (70-110)
[2021-11-22 16:44] LABS: Glucose,Whole Blood 346 mg/dL (70-110)
--- NOTE | 2021-11-22 17:51 | PN ---
PROGRESS NOTE FOLLOW-UP NOTE: This is an 81-year-old gentleman with history of coronary artery disease, status post CABG, history of atrial fibrillation, who is admitted to hospital with GI bleed and underwent scopes. If the patient remains stable, we will resume the Eliquis hopefully tomorrow. He is free of any symptoms. On exam, comfortable at rest. Vital signs are stable. There is no jugular venous distention. Chest exam reveals good air entry bilaterally. Heart exam reveals first and second heart sounds. No gallop. No murmur. Abdomen is soft. Examination of extremities did not reveal any edema. Peripheral pulses are felt. Patient is currently on Lipitor, Coreg, Lasix, insulin, Imdur, Protonix, Entresto. ASSESSMENT AND PLAN: 1. Coronary artery disease, status post coronary artery bypass grafting. 2. Gastrointestinal bleed. 3. Permanent atrial fibrillation. PLAN: Will resume Eliquis tomorrow. MMODL / IJN: [id number] /
[2021-11-22] MEDS: FAMOTIDINE 20 MG TAB PO SCH (20:12)
[2021-11-22 20:13] LABS: Glucose,Whole Blood 399 mg/dL (70-110)
[2021-11-22 20:28] LABS: Glucose,Whole Blood 397 mg/dL (70-110)
[2021-11-23] MEDS: IPRATROPIUM-ALBUTEROL 3 ML NEB INHALATION SCH ×7 (00:13→23:45)
[2021-11-23 06:05] LABS: Glucose,Whole Blood 212 mg/dL (70-110)
[2021-11-23] MEDS: INSULIN ASPART (NovoLOG) 100 UNIT/ML VIAL SQ SCH ×4 (06:25→20:13)
[2021-11-23] MEDS: carvediloL 6.25 MG TAB PO SCH ×2 (06:25→17:20)
[2021-11-23 07:33] LABS: Basophils % (A) 0 %; Eosinophils % (A) 0 %; HGB 10.1 gm/dL (13.0-17.5); Hypochromasia Slight; Lymphocytes # (A) 1.6 k/uL (1.0-4.8); Lymphocytes % (A) 20 %; MCH 28.4 pg (25.0-35.0); MCHC 31.6 g/dL (31.0-37.0); Mean Platelet Volume 9.5; Monocytes # (A) 1.2 k/uL (0-1.0); Monocytes % (A) 15 %; Neutrophils # (A) 4.8 k/uL (1.3-7.7); Neutrophils % (A) 60 %; Platelet Count 186 k/uL (150-450); RBC 3.56 m/uL (4.30-5.90); RDW 14.9 % (11.5-15.5)
[2021-11-23 07:50] LABS: Calcium 7.5 mg/dL (8.4-10.2); Potassium 3.9 mmol/L (3.5-5.1)
--- NOTE | 2021-11-23 08:46 | P.PN ---
Subjective Progress Note Date: 11/23/21 No new complaints today. Hemoglobin is stable. No further episodes of bleeding. Tolerating diet. Plan is to restart eliquis tomorrow. Gen: awake, alert HEENT: normocephalic, atraumatic, good hearing acuity, moist mucous membranes Resp: good air exchange, breathing comfortably with no accessory muscle use CVS: good distal perfusion x 4, GI: soft, NTTP, ND : no SPT, no CVAT, steinberg catheter not present MSK: no pitting edema, no clubbing Neuro: non-focal, moving all extremities Psych: cooperative, euthymic mood Assessment/plan: GI bleed Acute blood loss anemia -Continue Protonix 40 mg IV twice a day -EGD shows barretts esophagus, but no obvious signs of upper GI bleed -Trend hemoglobin Elevated troponins -Troponins are flat -Continue with aspirin, statin, Coreg -Cardiology consulted -Cardiac monitoring -Echocardiogram shows EF of 30-35% with global hypokinesis Systolic CHF -Coreg, Lasix, Imdur, Entresto Newly diagnosed A. 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 Gram-positive bacteremia -Wound care consult -Positive blood culture likely contaminant -Discontinue Ancef Chronic conditions: Type II DM, hypertension, hyperlipidemia, -Insulin sliding scale and blood glucose monitoring -Continue home medications DVT prophylaxis -Lovenox Resolved: Lactic acidosis The patient is admitted with an anticipated greater than 2 midnight stay for evaluation of non-ST elevation [place] and GI bleed CODE STATUS: Full Code Discussed with: Patient Anticipated discharge date: 2-[address]: Home Objective - Vital Signs Vital signs: Vital Signs Temp 97.9 F 11/23/21 04:00 Pulse 60 11/23/21 08:15 Resp 20 11/23/21 04:00 BP 135/65 11/23/21 04:00 Pulse Ox 100 11/23/21 04:00 FiO2 Intake & Output 11/22/21 11/23/21 11/23/21 18:59 06:59 18:59 Intake Total 1017 118 Output Total 840 1000 300 Balance 177 -1000 -182 Weight 200.94 kg Intake: Oral 1017 118 Output: Urine 840 1000 300 Other: Voiding Method Urinal Urinal # Voids 1 - Labs CBC & Chem 7: 11/23/21 07:13 11/23/21 07:13 Labs: Abnormal Lab Results - Last 24 Hours (Table) 11/22/21 11/22/21 11/22/21 Range/Units 11:48 16:43 20:11 RBC (4.30-5.90) m/uL Hgb (13.0-17.5) gm/dL Hct (39.0-53.0) % Monocytes # (0-1.0) k/uL BUN (9-20) mg/dL Glucose (74-99) mg/dL POC Glucose (mg/dL) 302 H 346 H 399 H (70-110) mg/dL Calcium (8.4-10.2) mg/dL 11/22/21 11/23/21 11/23/21 Range/Units 20:26 06:04 07:13 RBC 3.56 L (4.30-5.90) m/uL Hgb 10.1 L (13.0-17.5) gm/dL Hct 32.0 L (39.0-53.0) % Monocytes # 1.2 H (0-1.0) k/uL BUN (9-20) mg/dL Glucose (74-99) mg/dL POC Glucose (mg/dL) 397 H 212 H (70-110) mg/dL Calcium (8.4-10.2) mg/dL 11/23/21 Range/Units 07:13 RBC (4.30-5.90) m/uL Hgb (13.0-17.5) gm/dL Hct (39.0-53.0) % Monocytes # (0-1.0) k/uL BUN 40 H (9-20) mg/dL Glucose 217 H (74-99) mg/dL POC Glucose (mg/dL) (70-110) mg/dL Calcium 7.5 L (8.4-10.2) mg/dL Microbiology - Last 24 Hours (Table) 11/20/21 00:00 Blood Culture - Preliminary Blood No Growth after 72 hours 11/20/21 00:15 Blood Culture Gram Stain - Final Blood Blood Culture - Final Staphylococcus epidermidis
[2021-11-23] MEDS: ACETAMINOPHEN TAB 500 MG TAB PO SCH ×2 (09:48→20:13)
[2021-11-23] MEDS: CHOLECALCIFEROL 25 MCG (1000 IU) TABLET PO SCH (09:48)
[2021-11-23] MEDS: FUROSEMIDE 40 MG TAB PO SCH ×2 (09:49→20:13)
[2021-11-23] MEDS: ISOSORBIDE MONONITRATE ER 30 MG TAB.ER.24H PO SCH (09:49)
[2021-11-23] MEDS: ATORVASTATIN 40 MG TAB PO SCH (09:49)
[2021-11-23] MEDS: TAMSULOSIN 0.4 MG CAP.ER.24H PO SCH (09:50)
[2021-11-23] MEDS: PANTOPRAZOLE 40 MG/10 ML VIAL IVP SCH ×2 (09:50→20:12)
[2021-11-23] MEDS: SACUBITRIL/VALSARTAN 24 MG-26 MG TABLET PO SCH ×2 (09:50→20:13)
[2021-11-23 11:25] LABS: Glucose,Whole Blood 279 mg/dL (70-110)
[2021-11-23 16:47] LABS: Glucose,Whole Blood 308 mg/dL (70-110)
--- NOTE | 2021-11-23 17:01 | PN ---
PROGRESS NOTE Reymundo is an 81-year-old gentleman with history of CAD status post CABG, atrial fibrillation, admitted to hospital with GI bleed and underwent scopes for the same. This morning, he appears stable and is free of symptoms and the hemoglobin had remained stable for the last 3 days. EXAM: Rate is 60 beats per minute. Blood pressure is 130/60. Respirations 18. Chest exam reveals diminished air entry at the bases. Heart exam reveals first and second heart sounds. No gallop. Examination of extremities reveals mild edema. ASSESSMENT AND PLAN: Persistent atrial fibrillation. I am going to resume the Eliquis at this stage. MMODL / IJN: [id number] /
[2021-11-23 19:38] LABS: Glucose,Whole Blood 320 mg/dL (70-110)
[2021-11-23] MEDS: FAMOTIDINE 20 MG TAB PO SCH (20:13)
[2021-11-23] MEDS: APIXABAN 5 MG TAB PO SCH (21:55)
[2021-11-24] MEDS: IPRATROPIUM-ALBUTEROL 3 ML NEB INHALATION SCH ×6 (03:06→23:41)
[2021-11-24 06:00] LABS: Glucose,Whole Blood 303 mg/dL (70-110)
[2021-11-24] MEDS: INSULIN ASPART (NovoLOG) 100 UNIT/ML VIAL SQ SCH ×4 (06:20→20:25)
[2021-11-24] MEDS: carvediloL 6.25 MG TAB PO SCH ×2 (06:21→16:53)
[2021-11-24] MEDS: CHOLECALCIFEROL 25 MCG (1000 IU) TABLET PO SCH (08:38)
[2021-11-24] MEDS: SACUBITRIL/VALSARTAN 24 MG-26 MG TABLET PO SCH ×2 (08:38→20:25)
[2021-11-24] MEDS: FUROSEMIDE 40 MG TAB PO SCH ×2 (08:38→20:25)
[2021-11-24] MEDS: ATORVASTATIN 40 MG TAB PO SCH (08:38)
[2021-11-24] MEDS: APIXABAN 5 MG TAB PO SCH ×2 (08:38→20:25)
[2021-11-24] MEDS: ISOSORBIDE MONONITRATE ER 30 MG TAB.ER.24H PO SCH (08:38)
[2021-11-24] MEDS: ACETAMINOPHEN TAB 500 MG TAB PO SCH ×2 (08:38→20:24)
[2021-11-24] MEDS: TAMSULOSIN 0.4 MG CAP.ER.24H PO SCH (08:38)
[2021-11-24] MEDS: PANTOPRAZOLE 40 MG/10 ML VIAL IVP SCH ×2 (08:39→20:25)
[2021-11-24 08:47] LABS: African American GFR (CKD) >90 (>60 ml/min/1.73 sqM); Anion Gap 5 mmol/L; Blood Urea Nitrogen 21 mg/dL (9-20); Calcium 7.3 mg/dL (8.4-10.2); Carbon Dioxide 27 mmol/L (22-30); Chloride 104 mmol/L (98-107); Glucose 288 mg/dL (74-99); Magnesium 1.8 mg/dL (1.6-2.3); Non-African American GFR(CKD) 82 (>60 ml/min/1.73 sqM); Potassium 3.9 mmol/L (3.5-5.1); Sodium 136 mmol/L (137-145)
[2021-11-24 09:01] LABS: Basophils # (A) 0.1 k/uL (0-0.2); Basophils % (A) 1 %; Eosinophils % (A) 0 %; HCT 32.4 % (39.0-53.0); HGB 10.6 gm/dL (13.0-17.5); Hypochromasia Slight; Lymphocytes # (A) 1.6 k/uL (1.0-4.8); Lymphocytes % (A) 18 %; MCH 29.6 pg (25.0-35.0); MCHC 32.7 g/dL (31.0-37.0); MCV 90.5 fL (80.0-100.0); Mean Platelet Volume 8.8; Monocytes # (A) 0.9 k/uL (0-1.0); Monocytes % (A) 10 %; Neutrophils % (A) 68 %; Platelet Count 225 k/uL (150-450); RBC 3.57 m/uL (4.30-5.90); RDW 15.4 % (11.5-15.5); WBC 8.9 k/uL (3.8-10.6)
[2021-11-24 11:35] LABS: Glucose,Whole Blood 349 mg/dL (70-110)
[2021-11-24 11:47] VITALS: RESP 18
--- NOTE | 2021-11-24 11:48 | P.PN ---
Subjective This is a 81-year-old male with a past medical history significant for coronary artery disease with previous CABG, ischemic cardiomyopathy, congestive heart failure with an ejection fraction of 25-30%, diabetes, hypertension, and hyperlipidemia. Patient has not followed in the office since 2019. We have been asked to see the patient in consultation for atrial fibrillation. Patient presented to the hospital with a chief complaint of generalized weakness. Patient was found to be in atrial flutter with controlled ventricular rates. 11/24/2021 Patient seen and examined at bedside, no acute distress. Patient being discharged today. He is currently in atrial flutter with controlled rates. OK to start Eliquis per GI after holding for 2 days He's currently maintained on Eliquis 5 mg twice a day, Coreg 6.25 mg twice a day, atorvastatin 40 mg daily, POLasix 40 mg twice a day, Imdur 30 mg daily, Entresto 24mg-26mg BID. PHYSICAL EXAM: VITAL SIGNS: Reviewed. GENERAL: Well-developed in no acute distress. HEENT: Neck supple. No JVD LUNGS: Respirations even and unlabored. Lungs diminished. HEART: Irregular rate and rhythm. S1 and S2 heard. Systolic murmur. ABDOMEN: Soft. Nondistended. Nontender. EXTREMITIES: Normal range of motion. No clubbing or cyanosis. Peripheral pulses intact. Beny wraps to bilateral lower extremities NEUROLOGIC: Awake and alert. Oriented x 3. ASSESSMENT: Weakness New onset typical atrial flutter with controlled ventricular rates, on Eliquis Coronary artery disease with previous CABG Ischemic cardiomyopathy Chronic heart failure with reduced ejection fraction Elevated troponin, ACS ruled out, unclear significance Hypertension Hyperlipidemia Diabetes Bilateral lower extremity wounds PLAN: From a cardiology perspective, patient is stable Continue current cardiac medications Continue Eliquis 5mg BID Follow up outpatient with Dr. Chaudhry in 1-2 weeks outpatient Nurse practitioner note has been reviewed by physician. Signing provider agrees with the documented findings, assessment, and plan of care. Objective - Vital Signs Vital signs: Vital Signs Temp 98.2 F 11/23/21 16:10 Pulse 64 11/23/21 19:32 Resp 19 11/23/21 16:10 BP 136/56 11/23/21 16:10 Pulse Ox 98 11/23/21 19:15 FiO2 21 11/23/21 19:15 Intake & Output 11/23/21 11/23/21 11/24/21 06:59 18:59 06:59 Intake Total 457 Output Total 1000 780 Balance -1000 -323 Weight 200.94 kg Intake: Oral 457 Output: Urine 1000 780 Other: Voiding Method Urinal Urinal # Voids 1 - Labs CBC & Chem 7: 11/24/21 07:51 11/24/21 07:51 Labs: Abnormal Lab Results - Last 24 Hours (Table) 11/22/21 11/22/21 11/23/21 Range/Units 20:11 20:26 06:04 RBC (4.30-5.90) m/uL Hgb (13.0-17.5) gm/dL Hct (39.0-53.0) % Monocytes # (0-1.0) k/uL BUN (9-20) mg/dL Glucose (74-99) mg/dL POC Glucose (mg/dL) 399 H 397 H 212 H (70-110) mg/dL Calcium (8.4-10.2) mg/dL 11/23/21 11/23/21 11/23/21 Range/Units 07:13 07:13 11:23 RBC 3.56 L (4.30-5.90) m/uL Hgb 10.1 L (13.0-17.5) gm/dL Hct 32.0 L (39.0-53.0) % Monocytes # 1.2 H (0-1.0) k/uL BUN 40 H (9-20) mg/dL Glucose 217 H (74-99) mg/dL POC Glucose (mg/dL) 279 H (70-110) mg/dL Calcium 7.5 L (8.4-10.2) mg/dL 11/23/21 11/23/21 Range/Units 16:41 19:36 RBC (4.30-5.90) m/uL Hgb (13.0-17.5) gm/dL Hct (39.0-53.0) % Monocytes # (0-1.0) k/uL BUN (9-20) mg/dL Glucose (74-99) mg/dL POC Glucose (mg/dL) 308 H 320 H (70-110) mg/dL Calcium (8.4-10.2) mg/dL Microbiology - Last 24 Hours (Table) 11/20/21 00:00 Blood Culture - Preliminary Blood No Growth after 72 hours
--- NOTE | 2021-11-24 12:30 | P.PN ---
Subjective Progress Note Date: 11/24/21 No new complaints today. Hemoglobin is stable. No further episodes of bleeding. Tolerating diet. Pt is medically stable, pending insurance authorization Gen: awake, alert HEENT: normocephalic, atraumatic, good hearing acuity, moist mucous membranes Resp: good air exchange, breathing comfortably with no accessory muscle use CVS: good distal perfusion x 4, GI: soft, NTTP, ND : no SPT, no CVAT, steinberg catheter not present MSK: no pitting edema, no clubbing Neuro: non-focal, moving all extremities Psych: cooperative, euthymic mood Assessment/plan: GI bleed Acute blood loss anemia -Continue Protonix 40 mg IV twice a day -EGD shows barretts esophagus, but no obvious signs of upper GI bleed -Trend hemoglobin Elevated troponins -Troponins are flat -Continue with aspirin, statin, Coreg -Cardiology consulted -Cardiac monitoring -Echocardiogram shows EF of 30-35% with global hypokinesis Systolic CHF -Coreg, Lasix, Imdur, Entresto Newly diagnosed A. 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 Gram-positive bacteremia -Wound care consult -Positive blood culture likely contaminant -Discontinue Ancef Chronic conditions: Type II DM, hypertension, hyperlipidemia, -Insulin sliding scale and blood glucose monitoring -Continue home medications DVT prophylaxis -Lovenox Resolved: Lactic acidosis The patient is admitted with an anticipated greater than 2 midnight stay for evaluation of non-ST elevation [place] and GI bleed CODE STATUS: Full Code Discussed with: Patient Anticipated discharge date: 2-[address]: Home Objective - Vital Signs Vital signs: Vital Signs Temp 97.7 F 11/24/21 11:46 Pulse 65 11/24/21 11:46 Resp 18 11/24/21 11:46 BP 129/61 11/24/21 11:46 Pulse Ox 98 11/24/21 11:46 FiO2 21 11/23/21 19:15 Intake & Output 11/23/21 11/24/21 11/24/21 18:59 06:59 18:59 Intake Total 457 360 Output Total 780 1225 575 Balance -323 -1225 -215 Weight 221.716 kg Intake: Oral 457 360 Output: Urine 780 1225 575 Other: Voiding Method Urinal Urinal Urinal - Labs CBC & Chem 7: 11/24/21 07:51 11/24/21 07:51 Labs: Abnormal Lab Results - Last 24 Hours (Table) 11/23/21 11/23/21 11/24/21 Range/Units 16:41 19:36 05:58 RBC (4.30-5.90) m/uL Hgb (13.0-17.5) gm/dL Hct (39.0-53.0) % Sodium (137-145) mmol/L BUN (9-20) mg/dL Glucose (74-99) mg/dL POC Glucose (mg/dL) 308 H 320 H 303 H (70-110) mg/dL Calcium (8.4-10.2) mg/dL 11/24/21 11/24/21 11/24/21 Range/Units 07:51 07:51 11:33 RBC 3.57 L (4.30-5.90) m/uL Hgb 10.6 L (13.0-17.5) gm/dL Hct 32.4 L (39.0-53.0) % Sodium 136 L (137-145) mmol/L BUN 21 H (9-20) mg/dL Glucose 288 H (74-99) mg/dL POC Glucose (mg/dL) 349 H (70-110) mg/dL Calcium 7.3 L (8.4-10.2) mg/dL Microbiology - Last 24 Hours (Table) 11/20/21 00:00 Blood Culture - Preliminary Blood No Growth after 96 hours
[2021-11-24 16:49] LABS: Glucose,Whole Blood 343 mg/dL (70-110)
[2021-11-24 19:55] LABS: Glucose,Whole Blood 270 mg/dL (70-110)
[2021-11-24] MEDS: FAMOTIDINE 20 MG TAB PO SCH (20:25)
[2021-11-25] MEDS: IPRATROPIUM-ALBUTEROL 3 ML NEB INHALATION SCH ×3 (03:21→11:02)
[2021-11-25 06:13] LABS: Glucose,Whole Blood 272 mg/dL (70-110)
[2021-11-25] MEDS: carvediloL 6.25 MG TAB PO SCH (06:25)
[2021-11-25] MEDS: INSULIN ASPART (NovoLOG) 100 UNIT/ML VIAL SQ SCH ×2 (06:25→12:05)
[2021-11-25] MEDS ORDERED: INSULIN DETEMIR (LEVEMIR) 100 UNIT/ML SYR SQ SCH (08:00)
[2021-11-25 08:02] LABS: Basophils # (A) 0.1 k/uL (0-0.2); Basophils % (A) 1 %; Eosinophils # (A) 0.1 k/uL (0-0.7); Eosinophils % (A) 1 %; HCT 33.9 % (39.0-53.0); HGB 10.6 gm/dL (13.0-17.5); Hypochromasia Slight; Lymphocytes # (A) 1.8 k/uL (1.0-4.8); Lymphocytes % (A) 16 %; MCH 28.4 pg (25.0-35.0); MCHC 31.4 g/dL (31.0-37.0); MCV 90.5 fL (80.0-100.0); Mean Platelet Volume 8.3; Monocytes % (A) 9 %; Neutrophils # (A) 7.9 k/uL (1.3-7.7); Neutrophils % (A) 72 %; Platelet Count 271 k/uL (150-450); RBC 3.74 m/uL (4.30-5.90); RDW 15.4 % (11.5-15.5)
[2021-11-25 08:22] LABS: African American GFR (CKD) >90 (>60 ml/min/1.73 sqM); Blood Urea Nitrogen 19 mg/dL (9-20); Calcium 7.3 mg/dL (8.4-10.2); Carbon Dioxide 24 mmol/L (22-30); Glucose 287 mg/dL (74-99); Non-African American GFR(CKD) 80 (>60 ml/min/1.73 sqM)
[2021-11-25 08:55] LABS: Anion Gap 6 mmol/L; Chloride 106 mmol/L (98-107); Sodium 136 mmol/L (137-145)
[2021-11-25 08:56] LABS: Potassium 4.2 mmol/L (3.5-5.1)
[2021-11-25] MEDS: FUROSEMIDE 40 MG TAB PO SCH (09:02)
[2021-11-25] MEDS: ACETAMINOPHEN TAB 500 MG TAB PO SCH (09:02)
[2021-11-25] MEDS: SACUBITRIL/VALSARTAN 24 MG-26 MG TABLET PO SCH (09:02)
[2021-11-25] MEDS: TAMSULOSIN 0.4 MG CAP.ER.24H PO SCH (09:02)
[2021-11-25] MEDS: CHOLECALCIFEROL 25 MCG (1000 IU) TABLET PO SCH (09:03)
[2021-11-25] MEDS: ATORVASTATIN 40 MG TAB PO SCH (09:03)
[2021-11-25] MEDS: ISOSORBIDE MONONITRATE ER 30 MG TAB.ER.24H PO SCH (09:03)
[2021-11-25] MEDS: PANTOPRAZOLE 40 MG/10 ML VIAL IVP SCH (09:03)
[2021-11-25] MEDS: APIXABAN 5 MG TAB PO SCH (09:03)
--- NOTE | 2021-11-25 09:18 | P.DS ---
Providers Date of admission: 11/20/21 03:19 Expected date of discharge: 11/25/21 Attending physician: Jhonathan Soria MD Consults: 11/20/21 03:19 Consult Physician Routine Consulting Provider: Prasanna Horn Consult Reason/Comments: NEw atrial fibrillation. Elevated troponin Do you want consulting provider notified?: Yes 11/20/21 21:13 Consult Physician Urgent Consulting Provider: Marti Monroy Consult Reason/Comments: GIB Do you want consulting provider notified?: Yes Primary care physician: Navin Lamar MD Hospital Course: The patient is a 81-year-old male with a PMH of CAD status post CABG, systolic CHF EF 25-30% on Echo in 07/2019, type II DM, hypertension, hyperlipidemia, presents to the emergency room for generalized weakness. Patient reports that his symptoms started roughly 48 hours ago when he initially started feeling weak and not quite like himself. History was supplemented by at the bedside. She reports that on the night of 11/18, the patient had reported feeling weak and as she was trying to help him to the bathroom, he was unable to ambulate and fell to the ground. EMS subsequently came and helped the patient back in the chair, at which time the patient refused to go to the hospital. The following day, the patient continued feeling weak and had nausea with an episode of vomiting. He reportedly did not suffer any head trauma from the fall and did not lose consciousness. He denied experiencing chest discomfort, palpitations, or diaphoresis. Reports chronic unchanged shortness of breath. Also reports that over the past 2-3 days, he has not been eating as much as he usually does. In the emergency room, EKG revealed A. fib at 72 bpm with left axis deviation with left bundle branch block, not present on prior EKG. CT brain was unremarkable with chest x-ray showing minimal fibrotic changes. Laboratory evaluation was remarkable for a troponin of 0.719, lactic acid 3.1, BUN 25, and glucose 242. She underwent EGD with biopsy with gastrology team. Long segment Houser's esophagus noted. No evidence of active upper GI bleed with a moderate size hiatal hernia. As per GI the findings and examinations were To the patient. Patient will continue with Protonix 40 mg twice a day and has been started on L Eliquis. Hemoglobin has been stable no active bleeding noted. Patient was medically cleared yesterday bowel consultants including cardiology, GI and internal medicine. We have received authorization today. Patient will be discharge. Case discussed with RN overnight events. Vital signs have been stable overnight. Hemoglobin continues to be stable at 10.6, very slight elevation in WBC count patient denies any fever, chills, nausea or vomiting. I have told the patient we will repeat CBC and BMP outpatient. Blood cultures have been documented as contaminant and reviewed. Lactic acid was also resolved from 3.1-1.7. Plan - Discharge Summary Discharge Rx Participant: Yes New Discharge Prescriptions: New metFORMIN HCL [Glucophage] 500 mg PO BID #60 tab Pantoprazole [Protonix] 40 mg PO DAILY #30 tab Apixaban [Eliquis] 5 mg PO BID #60 tab Cholecalciferol [Vitamin D3 (25 Mcg = 1000 Iu)] 25 mcg PO DAILY #30 tab Continue Tamsulosin HCl [Flomax] 0.4 mg PO DAILY Aspirin 81 mg PO DAILY #30 chew Nitroglycerin Sl Tabs [Nitrostat] 0.4 mg SUBLINGUAL Q5M PRN #25 tab PRN Reason: Chest Pain Albuterol Inhaler [Ventolin Hfa Inhaler] 1 - 2 puff INHALATION RT-Q6H PRN #1 inhaler PRN Reason: Shortness Of Breath Or Wheezing Famotidine [Pepcid] 20 mg PO HS carvediloL [Coreg] 6.25 mg PO BID-W/MEALS #60 tab Sacubitril/Valsartan [Entresto 24 mg-26 mg Tablet] 1 each PO BID #60 tablet Isosorbide Mononitrate ER [Imdur] 30 mg PO DAILY #30 tab.er.24h Atorvastatin [Lipitor] 40 mg PO DAILY #30 tab Furosemide [Lasix] 40 mg PO BID Discharge Medication List Tamsulosin HCl [Flomax] 0.4 mg PO DAILY 02/12/19 [History] Albuterol Inhaler [Ventolin Hfa Inhaler] 1 - 2 puff INHALATION RT-Q6H PRN #1 inhaler 02/22/19 [Rx] Aspirin 81 mg PO DAILY #30 chew 02/22/19 [Rx] Nitroglycerin Sl Tabs [Nitrostat] 0.4 mg SUBLINGUAL Q5M PRN #25 tab 02/22/19 [Rx] Famotidine [Pepcid] 20 mg PO HS 03/20/19 [History] Atorvastatin [Lipitor] 40 mg PO DAILY #30 tab 07/19/19 [Rx] Isosorbide Mononitrate ER [Imdur] 30 mg PO DAILY #30 tab.er.24h 07/19/19 [Rx] Sacubitril/Valsartan [Entresto 24 mg-26 mg Tablet] 1 each PO BID #60 tablet 07/19/19 [Rx] carvediloL [Coreg] 6.25 mg PO BID-W/MEALS #60 tab 07/19/19 [Rx] Apixaban [Eliquis] 5 mg PO BID #60 tab 11/20/21 [Rx] Furosemide [Lasix] 40 mg PO BID 11/20/21 [History] Cholecalciferol [Vitamin D3 (25 Mcg = 1000 Iu)] 25 mcg PO DAILY #30 tab 11/24/21 [Rx] Pantoprazole [Protonix] 40 mg PO DAILY #30 tab 11/24/21 [Rx] metFORMIN HCL [Glucophage] 500 mg PO BID #60 tab 11/24/21 [Rx] Follow up Appointment(s)/Referral(s): Israel Chaudhry MD [STAFF PHYSICIAN] - 2 Weeks Willard,Navin Munguia MD [Primary Care Provider] - 1-2 days Nikolai Rizvi [NON-STAFF] - Ambulatory/Diagnostic Orders: Complete Blood Count w/diff [LAB.AMB] Location: None Selected Discharge Disposition: TRANSFER TO SNF/ECF
[2021-11-25 12:01] LABS: Glucose,Whole Blood 302 mg/dL (70-110)
[2021-11-25 12:24] VITALS: BP 124/67; PULSE 79; TEMP 97.9
== END 2021-11-25 14:07 | DRG 378 ==
LOC: EC 22:33 → 3SCARD 11-20 03:19
PROVIDERS: ADMIT Internal Medicine; ATTEND Internal Medicine
PROC: 0DB58ZX Excision of Esophagus, Via Natural or Artificial Opening Endoscopic, Diagnostic (ICD-10-PCS; principal; 2021-11-21 08:25)
DX: K92.1 Melena (principal); D62 Acute posthemorrhagic anemia; I48.21 Permanent atrial fibrillation; I50.22 Chronic systolic (congestive) heart failure; L97.812 Non-pressure chronic ulcer of other part of right lower leg with fat layer exposed; R78.81 Bacteremia; I48.3 Typical atrial flutter; Z68.43 Body mass index [BMI] 50.0-59.9, adult; I25.5 Ischemic cardiomyopathy; K21.00 Gastro-esophageal reflux disease with esophagitis, without bleeding; K22.70 Barrett's esophagus without dysplasia; K29.80 Duodenitis without bleeding; L97.512 Non-pressure chronic ulcer of other part of right foot with fat layer exposed; L97.522 Non-pressure chronic ulcer of other part of left foot with fat layer exposed; I08.3 Combined rheumatic disorders of mitral, aortic and tricuspid valves; I25.10 Atherosclerotic heart disease of native coronary artery without angina pectoris; E66.01 Morbid (severe) obesity due to excess calories; R77.8 Other specified abnormalities of plasma proteins; E11.621 Type 2 diabetes mellitus with foot ulcer; E78.5 Hyperlipidemia, unspecified; I11.0 Hypertensive heart disease with heart failure; Z20.822 Contact with and (suspected) exposure to COVID-19; Z28.310 Unvaccinated for COVID-19; F40.240 Claustrophobia; G47.33 Obstructive sleep apnea (adult) (pediatric); B96.89 Other specified bacterial agents as the cause of diseases classified elsewhere; K44.9 Diaphragmatic hernia without obstruction or gangrene; S50.319A Abrasion of unspecified elbow, initial encounter; S90.416A Abrasion, unspecified lesser toe(s), initial encounter; W18.30XA Fall on same level, unspecified, initial encounter; Z79.01 Long term (current) use of anticoagulants; Z79.82 Long term (current) use of aspirin; Z79.899 Other long term (current) drug therapy; Z87.442 Personal history of urinary calculi; Z87.891 Personal history of nicotine dependence; Z95.1 Presence of aortocoronary bypass graft
CPT/HCPCS: 36415; 43239; 70450; 71045; 80048; 80053; 80061; 81001; 82009; 82272; 83036; 83605; 83735; 83880; 84443; 84484; 85025; 85027; 85610; 87040; 87635; 88305; 88312; 88342; 93005; 93306; 94640; 94760; 96372; 99285

== ENCOUNTER 2024-12-01 12:17 | Emergency (ER) | payer MEDICARE ==
--- NOTE | 2024-12-01 12:49 | ED ---
General Adult HPI - General Chief complaint: Urogenital Stated complaint: Blood in Urine Time Seen by Provider: 12/01/24 12:27 Source: patient, EMS, RN notes reviewed Mode of arrival: EMS Limitations: no limitations - History of Present Illness Initial comments: Patient is an 84-year-old male present to the emergency department with hematuria. Patient has been dealing with some lower back discomfort over the past 2 to 3 weeks. Patient states that he has been mild. Patient states he had some hematuria last night that increased this morning. However back discomfort has now resolved. No abdominal pain. No nausea or vomiting. No fever. No dysuria. - Related Data Home Medications Medication Instructions Recorded Confirmed Tamsulosin HCl [Flomax] 0.4 mg PO DAILY 02/12/19 11/20/21 Famotidine [Pepcid] 20 mg PO HS 03/20/19 11/20/21 Furosemide [Lasix] 40 mg PO BID 11/20/21 11/20/21 Previous Rx's Medication Instructions Recorded Albuterol Inhaler [Ventolin Hfa 1 - 2 puff INHALATION RT-Q6H PRN 02/22/19 Inhaler] #1 inhaler Aspirin 81 mg PO DAILY #30 chew 02/22/19 Nitroglycerin Sl Tabs [Nitrostat] 0.4 mg SUBLINGUAL Q5M PRN #25 tab 02/22/19 Atorvastatin [Lipitor] 40 mg PO DAILY #30 tab 07/19/19 Isosorbide Mononitrate ER [Imdur] 30 mg PO DAILY #30 tab.er.24h 07/19/19 Sacubitril/Valsartan [Entresto 24 1 each PO BID #60 tablet 07/19/19 mg-26 mg Tablet] carvediloL [Coreg] 6.25 mg PO BID-W/MEALS #60 tab 07/19/19 Apixaban [Eliquis] 5 mg PO BID #60 tab 11/20/21 Cholecalciferol [Vitamin D3 (25 25 mcg PO DAILY #30 tab 11/24/21 Mcg = 1000 Iu)] metFORMIN HCL [Glucophage] 500 mg PO BID #60 tab 11/24/21 Pantoprazole Sodium [Protonix] 40 mg PO BID #30 tab 11/25/21 Allergies Allergy/AdvReac Type Severity Reaction Status Date / Time No Known Allergies Allergy Verified 12/01/24 12:33 Review of Systems ROS Statement: Those systems with pertinent positive or pertinent negative responses have been documented in the HPI. ROS Other: All systems not noted in ROS Statement are negative. Constitutional: Denies: fever Eyes: Denies: eye pain ENT: Denies: ear pain Cardiovascular: Denies: chest pain Gastrointestinal: Denies: abdominal pain Genitourinary: Reports: as per HPI, hematuria Musculoskeletal: Reports: as per HPI Past Medical History Past Medical History: Coronary Artery Disease (CAD), Diabetes Mellitus, Hyperlipidemia, Hypertension, Prostate Disorder Additional Past Medical History / Comment(s): Coronary artery disease, previous bypass surgery, diabetes mellitus type 2, hypertension, hyperlipidemia, morbid obesity with a BMI 52.2, history of kidney stones, obstructive sleep apnea post UPPP currently not utilizing any form of CPAP or BiPAP therapy. History of Any Multi-Drug Resistant Organisms: None Reported Past Surgical History: Coronary Bypass/CABG Additional Past Surgical History / Comment(s): UVP- FOR SLEEP APNEA FATTY TUMOR REMOVED FROM LEFT THIGH, CABG 15 years ago Past Anesthesia/Blood Transfusion Reactions: No Reported Reaction Additional Past Anesthesia/Blood Transfusion Reaction / Comment(s): Pt has clausterphobia. Past Psychological History: No Psychological Hx Reported Smoking Status: Former smoker Past Alcohol Use History: None Reported Past Drug Use History: None Reported - Past Family History Mother Family Medical History: No Reported History Father Family Medical History: COPD Additional Family Medical History / Comment(s): Father was a smoker. General Exam Limitations: no limitations General appearance: alert, in no apparent distress Head exam: Present: normocephalic Eye exam: Present: normal appearance Neck exam: Present: normal inspection Respiratory exam: Present: normal lung sounds bilaterally Cardiovascular Exam: Present: regular rate, normal rhythm GI/Abdominal exam: Present: soft. Absent: distended, tenderness, guarding, rebound, rigid, pulsatile mass Extremities exam: Present: normal inspection Back exam: Present: normal inspection. Absent: tenderness, CVA tenderness (R), CVA tenderness (L) Neurological exam: Present: alert Psychiatric exam: Present: normal affect, normal mood Skin exam: Present: normal color Course Vital Signs 12/01/24 12:23 Temperature 97.5 F L Pulse Rate 58 L Respiratory 18 Rate Blood Pressure 151/73 O2 Sat by Pulse 98 Oximetry Medical Decision Making - Medical Decision Making Was pt. sent in by a medical professional or institution (LALY Ye, [employer], urgent care, hospital, or snf...) When possible be specific @ -No Did you speak to anyone other than the patient for history (EMS, parent, family, police, friend...)? What history was obtained from this source @ -No Did you review nursing and triage notes (agree or disagree)? Why? @ -I reviewed and agree with nursing and triage notes Were old charts reviewed (outside hosp., previous admission, EMS record, old EKG, old radiological studies, urgent care reports/EKG's, snf records)? Report findings @ -No old charts were reviewed Differential Diagnosis (chest pain, altered mental status, abdominal pain women, abdominal pain men, vaginal bleeding, weakness, fever, dyspnea, syncope, headache, dizziness, GI bleed, back pain, seizure, CVA, palpatations, mental health, musculoskeletal)? @ -Differential Back Pain: Strain, zoster, cauda equina syndrome, epidural abscess, vertebral osteomyelitis, discitis, fracture, subluxation, disc herniation, DJD, spinal stenosis, dissection, AAA, pancreatitis, peptic ulcer disease, pyelonephritis, kidney stone, this is not meant to be an all-inclusive list. EKG interpreted by me (3pts min.). @ -As above X-rays interpreted by me (1pt min.). @ -None done CT interpreted by me (1pt min.). @ -CT scan abdomen pelvis shows left renal stones. Final stenosis. Prominent prostate with calcification U/S interpreted by me (1pt. min.). @ -None done What testing was considered but not performed or refused? (CT, X-rays, U/S, labs)? Why? @ -None What meds were considered but not given or refused? Why? @ -None Did you discuss the management of the patient with other professionals (tone buck i.e. LALY Ye, [employer], lab, RT, psych nurse, social work manager, enrollment management director, teacher, collections officer, case repairer)? Give summary @ -No Was smoking cessation discussed for >3mins.? @ -No Was critical care preformed (if so, how long)? @ -No Were there social determinants of health that impacted care today? How? (Homelessness, low income, unemployed, alcoholism, drug addiction, transportation, low edu. Level, literacy, decrease access to med. care, longterm, rehab)? @ -No Was there de-escalation of care discussed even if they declined (Discuss DNR or withdrawal of care, Hospice)? DNR status @ -No What co-morbidities impacted this encounter? (DM, HTN, Smoking, COPD, CAD, Cancer, CVA, ARF, Chemo, Hep., AIDS, mental health diagnosis, sleep apnea, morbid obesity)? @ -None Was patient admitted / discharged? Hospital course, mention meds given and route, prescriptions, significant lab abnormalities, going to OR and other pertinent info. @ -Patient presents with hematuria. Patient had back discomfort that resolved with hematuria. Patient does have mild hematuria on evaluation. Only 12 white blood cell. Culture sent for urine. Patient reevaluated and remains symptom- free. Patient and family are updated on results and plan. Patient to be discharged with urology follow-up Undiagnosed new problem with uncertain prognosis? @ -No Drug Therapy requiring intensive monitoring for toxicity (Heparin, Nitro, Insulin, Cardizem)? @ -No Were any procedures done? @ -No Diagnosis/symptom? @ -Hematuria Acute, or Chronic, or Acute on Chronic? @ -Acute Uncomplicated (without systemic symptoms) or Complicated (systemic symptoms)? @ -Default Side effects of treatment? @ -No Exacerbation, Progression, or Severe Exacerbation? @ -No Poses a threat to life or bodily function? How? (Chest pain, USA, CT, pneumonia, PE, COPD, DKA, ARF, appy, cholecystitis, CVA, Diverticulitis, Homicidal, Suic idal, threat to staff... and all critical care pts) @ -No - Lab Data Result diagrams: 12/01/24 12:54 12/01/24 12:54 Lab Results 12/01/24 12/01/24 12/01/24 Range/Units 12:54 12:54 12:54 WBC 9.96 (4.50-10.00) 10*3/uL RBC 4.83 (4.40-5.60) 10*6/uL Hgb 15.1 (13.0-17.0) g/dL Hct 44.6 (39.6-50.0) % MCV 92.3 (80.0-97.0) fL MCH 31.3 (27.0-32.0) pg MCHC 33.9 (32.0-37.0) g/dL Plt Count 226 (140-440) 10*3/uL MPV 11.1 (9.5-12.2) fL Immature Gran % (Auto) 0.5 % Neutrophils % 74.1 % Lymphocytes % 14.2 % Monocytes % 7.3 % Eosinophils % 3.2 % Basophils % 0.7 % Immature Gran # 0.05 H (0.00-0.04) 10*3/uL Neutrophils # 7.38 (1.80-7.70) 10*3/uL Lymphocytes # 1.41 (0.90-5.00) 10*3/uL Monocytes # 0.73 (0.20-1.00) 10*3/uL Eosinophils # 0.32 (0.04-0.35) 10*3/uL Basophils # 0.07 (0.00-0.10) 10*3/uL PT 12.0 (10.0-12.5) sec INR 1.1 (<1.2) APTT 26.3 (22.0-30.0) sec Sodium 138 (137-145) mmol/L Potassium 4.5 (3.5-5.1) mmol/L Chloride 107 (98-107) mmol/L Carbon Dioxide 18 L (22-30) mmol/L Anion Gap 13 mmol/L BUN 31 H (9-20) mg/dL Creatinine 1.13 (0.66-1.25) mg/dL Est GFR (CKD-EPI)AfAm 69 (>60 ml/min/1.73 sqM) Est GFR (CKD-EPI)NonAf 60 (>60 ml/min/1.73 sqM) Glucose 185 H (74-99) mg/dL Calcium 9.1 (8.4-10.2) mg/dL Total Bilirubin 1.0 (0.2-1.3) mg/dL AST 25 (17-59) U/L ALT 19 (4-49) U/L Alkaline Phosphatase 79 (38-126) U/L Total Protein 6.6 (6.3-8.2) g/dL Albumin 3.5 (3.5-5.0) g/dL Amylase 42 (30-110) U/L Lipase 198 (23-300) U/L Urine Color Urine Appearance (Clear) Urine pH (5.0-8.0) Ur Specific [place] (1.001-1.035) Urine Protein (Negative) Urine Glucose (UA) (Negative) Urine Ketones (Negative) Urine Blood (Negative) Urine Nitrite (Negative) Urine Bilirubin (Negative) Urine Urobilinogen (<2.0) mg/dL Ur Leukocyte Esterase (Negative) Urine RBC (0-5) /hpf Urine WBC (0-5) /hpf Ur Squamous Epith Cells (0-4) /hpf Urine Bacteria (None) /hpf Hyaline Casts (0-2) /lpf Urine Mucus (None) /hpf 12/01/24 Range/Units 12:59 WBC (4.50-10.00) 10*3/uL RBC (4.40-5.60) 10*6/uL Hgb (13.0-17.0) g/dL Hct (39.6-50.0) % MCV (80.0-97.0) fL MCH (27.0-32.0) pg MCHC (32.0-37.0) g/dL Plt Count (140-440) 10*3/uL MPV (9.5-12.2) fL Immature Gran % (Auto) % Neutrophils % % Lymphocytes % % Monocytes % % Eosinophils % % Basophils % % Immature Gran # (0.00-0.04) 10*3/uL Neutrophils # (1.80-7.70) 10*3/uL Lymphocytes # (0.90-5.00) 10*3/uL Monocytes # (0.20-1.00) 10*3/uL Eosinophils # (0.04-0.35) 10*3/uL Basophils # (0.00-0.10) 10*3/uL PT (10.0-12.5) sec INR (<1.2) APTT (22.0-30.0) sec Sodium (137-145) mmol/L Potassium (3.5-5.1) mmol/L Chloride (98-107) mmol/L Carbon Dioxide (22-30) mmol/L Anion Gap mmol/L BUN (9-20) mg/dL Creatinine (0.66-1.25) mg/dL Est GFR (CKD-EPI)AfAm (>60 ml/min/1.73 sqM) Est GFR (CKD-EPI)NonAf (>60 ml/min/1.73 sqM) Glucose (74-99) mg/dL Calcium (8.4-10.2) mg/dL Total Bilirubin (0.2-1.3) mg/dL AST (17-59) U/L ALT (4-49) U/L Alkaline Phosphatase (38-126) U/L Total Protein (6.3-8.2) g/dL Albumin (3.5-5.0) g/dL Amylase (30-110) U/L Lipase (23-300) U/L Urine Color Yellow Urine Appearance Cloudy (Clear) Urine pH 5.5 (5.0-8.0) Ur Specific [place] 1.022 (1.001-1.035) Urine Protein Negative (Negative) Urine Glucose (UA) Trace H (Negative) Urine Ketones Negative (Negative) Urine Blood Moderate H (Negative) Urine Nitrite Negative (Negative) Urine Bilirubin Negative (Negative) Urine Urobilinogen <2.0 (<2.0) mg/dL Ur Leukocyte Esterase Small H (Negative) Urine RBC 43 H (0-5) /hpf Urine WBC 12 H (0-5) /hpf Ur Squamous Epith Cells 1 (0-4) /hpf Urine Bacteria Rare H (None) /hpf Hyaline Casts 4 H (0-2) /lpf Urine Mucus Rare H (None) /hpf Disposition Clinical Impression: Hematuria Disposition: HOME SELF-CARE Condition: Stable Instructions (If sedation given, give patient instructions): Hematuria (ED) Additional Instructions: Please do follow-up with your primary care physician in the next couple of days for recheck. Please also follow-up with urology in the next few days for recheck. Have urology check lab work and CT scan. Return for pain, fever, increased bleeding, worsening symptoms or other concerns. Is patient prescribed a controlled substance at d/c from ED?: No Referrals: Nonstaff,Physician [Primary Care Provider] - 1-2 days Radu Soriano MD [STAFF PHYSICIAN] - 1-2 days Forms: Area PCPs Time of Disposition: 14:37
[2024-12-01 13:14] LABS: Basophils # (A) 0.07 10*3/uL (0.00-0.10); Basophils % (A) 0.7 %; Eosinophils # (A) 0.32 10*3/uL (0.04-0.35); Eosinophils % (A) 3.2 %; HCT 44.6 % (39.6-50.0); HGB 15.1 g/dL (13.0-17.0); Lymphocytes # (A) 1.41 10*3/uL (0.90-5.00); Lymphocytes % (A) 14.2 %; MCH 31.3 pg (27.0-32.0); MCHC 33.9 g/dL (32.0-37.0); MCV 92.3 fL (80.0-97.0); Monocytes # (A) 0.73 10*3/uL (0.20-1.00); Monocytes % (A) 7.3 %; Neutrophils # (A) 7.38 10*3/uL (1.80-7.70); Neutrophils % (A) 74.1 %; Platelet Count 226 10*3/uL (140-440); RBC 4.83 10*6/uL (4.40-5.60); RDW 13.2 % (11.5-14.5); WBC 9.96 10*3/uL (4.50-10.00)
--- NOTE | 2024-12-01 13:37 | CT ---
EXAMINATION TYPE: CT abdomen pelvis wo con DATE OF EXAM: 12/01/2024 1:19 PM COMPARISON: None. CLINICAL INDICATION: Male, 84 years old with history of Hematuria with back pain, Urinary retention TECHNIQUE: Axial images were obtained from above the diaphragm to the pubic rami in the axial plane a t 5 mm thick sections. Reconstructed images are reviewed on the computer in the coronal plane. CONTRAST: mL of . Study performed without Oral Contrast DLP: 2033.8 mGycm, Automated exposure control for dose reduction was used. FINDINGS: Limited CT sections are obtained the lung bases. The lung bases are clear. Mild Coronary artery ingrid cification present. CT ABDOMEN: Liver: Normal Spleen: Normal Pancreas: Normal Adrenal glands: The adrenal glands are normal. Gallbladder: Cholelithiasis. Kidneys: No masses are evident. No hydronephrosis is present. No cysts are present. There is a 0.7 cm nonobstructing calcification within the mid lateral left kidney. Additional nonobstructing renal stone in the mid left kidney measuring 0.7 cm. There is a mid to inferior pole renal calcification wi thout obstruction measuring 1.2 cm left kidney. An inferior pole left renal calcification without obs truction is present measuring 0.6 cm right very fine nonobstructing punctate renal stones may be at t he cortical medullary junction of the right kidney. Aorta: Vascular calcification is within the aorta. Inferior vena cava: Normal. CT PELVIS: Loops of bowel within the abdomen and pelvis are normal. Multiple diverticuli within the sigmoid co josiah. No acute diverticulitis evident. There are loops of bowel which are incompletely distended or l ack oral contrast limiting their evaluation. Appendix: Normal as visualized. Urinary bladder: Urinary bladder is decompressed. There is inferior impression from the enlarged pros potts. No hydronephrosis or hydroureter evident. Genitourinary structures: Prostate is very large measuring 7 cm in diameter. Multiple peripheral calc ifications were localized in the posterior lateral left prostate are present. Osseous structures: No suspicious lytic or sclerotic lesions. Endplate spurring is noted within the t horacic lower thoracic and lower lumbar spine. The L3-4 level is appears greater in the left paracent ral region contributing to severe spinal canal stenosis. Some spinal canal narrowing may be present L 4-5. Additional milder areas lumbar spinal canal narrowing from endplate spurring is present. IMPRESSION: 1. Multiple nonobstructing left-sided renal stones. 2. Prominent prostate with eccentric calcification. Consider additional workup. 3. Endplate spurring especially noted at L4-5 contributing to severe spinal canal stenosis. 4. Diverticulosis without acute diverticulitis sigmoid colon. [facility], Workstation: [facility], 12/01/2024 1:34 PM
[2024-12-01 13:44] LABS: ALT 19 U/L (4-49); AST 25 U/L (17-59); African American GFR (CKD) 69 (>60 ml/min/1.73 sqM); Albumin 3.5 g/dL (3.5-5.0); Alkaline Phosphatase 79 U/L (38-126); Amylase 42 U/L (30-110); Anion Gap 13 mmol/L; Blood Urea Nitrogen 31 mg/dL (9-20); Calcium 9.1 mg/dL (8.4-10.2); Carbon Dioxide 18 mmol/L (22-30); Chloride 107 mmol/L (98-107); Glucose 185 mg/dL (74-99); Lipase 198 U/L (23-300); Non-African American GFR(CKD) 60 (>60 ml/min/1.73 sqM); Potassium 4.5 mmol/L (3.5-5.1); Sodium 138 mmol/L (137-145); Total Protein 6.6 g/dL (6.3-8.2)
[2024-12-01 13:47] LABS: INR 1.1 (<1.2); Partial Thromboplastin Time 26.3 sec (22.0-30.0); Prothrombin Time 12.0 sec (10.0-12.5)
[2024-12-01 13:55] LABS: Bacteria,Urine Rare /hpf; Bilirubin,Urine Negative (Negative); Blood,Urine Moderate (Negative); Color,Urine Yellow; Glucose,Urine (UA) Trace (Negative); Hyaline Casts,Urine 4 /lpf (0-2); Ketones,Urine Negative (Negative); Leukocyte Esterase,Urine Small (Negative); Mucus,Urine Rare /hpf; Nitrite,Urine Negative (Negative); PH, Urine 5.5 (5.0-8.0); Protein,Urine Negative (Negative); RBC,Urine 43 /hpf (0-5); Specific Gravity,Urine 1.022 (1.001-1.035); Squamous Epithelial Cell,Urine 1 /hpf (0-4); Urobilinogen,Urine <2.0 mg/dL (<2.0); WBC,Urine 12 /hpf (0-5)
[2024-12-01 15:19] VITALS: BP 116/45; PULSE 57; RESP 16; TEMP 97.7
== END 2024-12-01 16:05 | disposition home or self-care (01) ==
LOC: EC 12:17
DX: R31.9 Hematuria, unspecified (principal); Z87.891 Personal history of nicotine dependence
CPT/HCPCS: 36415; 74176; 80053; 81001; 82150; 83690; 85025; 85610; 85730; 87086; 99284